=== PATIENT | female | born 1930 | race African-American/Black ===

== ENCOUNTER → 2016-12-05 | Emergency (ER) | payer OTHER ==
[~2016-12-05] MED LIST: RIVAROXABAN 20 MG TABLET PO SCH
[2016-12-05 21:21] VITALS: BP 136/64; PULSE 65; TEMP 97.9; BMI 38.4
--- NOTE | 2016-12-05 22:15 | PDOC ---
History of Present Illness - General History Source: Patient Exam Limitations: No Limitations <Jalen Campbell - Last Filed: 12/05/16 22:15> - General History Source: Patient, Family Exam Limitations: No Limitations - History of Present Illness Initial Comments: 12/05/16 22:16 The patient is an 86 year old female with past medical history of hypertension, hyperlipidemia, diabetes mellitus, Afib (on Xarelto), CHF, CAD s/p stents x2, rheumatoid arthritis, gout and asthma (on daily nebulizer treatments) who presents to the ED secondary to an episode of shortness of breath around 5pm this evening. The patient states that she was outside all day at at a barbecue and became wheezy after walking down a flight of stairs which was resolved after taking her Albuterol pump. The patient states that this episode happens every so often. In the ED she is asymptomatic aside from her chronic lower extremity edema and orthopnea. She states that she ran out of her dose of Xarelto for today but has a refill for tomorrow. She also adds that she is going to start seeing Dr. Aminata Lisa this week. She denies any recent illness, fever, chills, N/V/D, cough, chest pains, or urinary symptoms. PCP: Aminata Lisa Social Hx: Former smoker (quit 30 years ago), lives at home with family <Nurys Murry - Last Filed: 12/05/16 22:20> - General Chief Complaint: Shortness of Breath Stated Complaint: Shortness of Breath Time Seen by Provider: 12/05/16 21:39 Past History - Past Medical History Asthma: Yes Cancer: Yes (breast cancer) Cardiac Disorders: Yes Diabetes: Yes HTN: Yes Hypercholesterolemia: Yes - Surgical History Abdominal Surgery: Yes Cardiac Surgery: Yes (stent X 2) Cholecystectomy: Yes Orthopedic Surgery: Yes (left knee replacement) - Immunization History Immunization Up to Date: Yes - Psycho/Social/Smoking Cessation Hx Anxiety: No Suicidal Ideation: No Smoking History: Never smoked Have you smoked in the past 12 months: No Number of Cigarettes Smoked Daily: 0 If you are a former smoker, when did you quit?: 1986 Information on smoking cessation initiated: No Hx Alcohol Use: No Drug/Substance Use Hx: No Substance Use Type: None Hx Substance Use Treatment: No <Jalen Campbell - Last Filed: 12/05/16 22:15> <Nurys Murry - Last Filed: 12/05/16 22:20> - Past Medical History Allergies/Adverse Reactions: Allergies Allergy/AdvReac Type Severity Reaction Status Date / Time Penicillins Allergy Mild Hives Verified 12/05/16 21:18 mushroom Allergy Verified 12/05/16 21:18 shellfish derived Allergy Verified 12/05/16 21:18 rye Allergy Uncoded 12/05/16 21:18 Home Medications: Ambulatory Orders Rivaroxaban [Xarelto -] 20 mg PO DAILY 11/18/13 Albuterol 0.083% Nebulizer Nisreen [Ventolin 0.083% Nebulizer Soln -] 1 neb NEB Q4H 11/26/13 Atorvastatin Ca [Lipitor] 80 mg PO HS 11/26/13 Folic Acid - 1 mg PO DAILY 11/26/13 Furosemide [Lasix -] 40 mg PO PRN PRN 11/26/13 Glimepiride 4 mg PO BID 11/26/13 Methotrexate [Mexate -] 15 mg PO FR 11/26/13 Valsartan [Diovan] 160 mg PO BID 11/26/13 Ipratropium 0.02% Nebulizer [Atrovent 0.02% Nebulizer -] 1 neb NEB BID 01/21/14 Amlodipine Besylate [Norvasc -] 10 mg PO DAILY #30 tablet 01/23/14 Metoprolol Succinate [Toprol XL -] 100 mg PO BID #60 tab.sr.24h 01/23/14 Polyethylene Glycol 3350 [Miralax (For Bowel Prep) -] 17 gm PO ONCE #1 bottle Review of Systems - Review of Systems Able to Perform ROS?: Yes Comments:: 12/05/16 22:17 GENERAL/CONSTITUTIONAL: No fever or chills. No weakness. HEAD, EYES, EARS, NOSE AND THROAT: No change in vision. No ear pain or discharge. No sore throat. CARDIOVASCULAR: No chest pain or shortness of breath. RESPIRATORY: Present: brief episode of SOB No cough, wheezing, or hemoptysis. GASTROINTESTINAL: No nausea, vomiting, diarrhea or constipation. GENITOURINARY: No dysuria, frequency, or change in urination. MUSCULOSKELETAL: No joint or muscle swelling or pain. No neck or back pain. SKIN: No rash NEUROLOGIC: No headache, vertigo, loss of consciousness, or change in strength/ sensation. ENDOCRINE: No increased thirst. No abnormal weight change. HEMATOLOGIC/LYMPHATIC: No anemia, easy bleeding, or history of blood clots. ALLERGIC/IMMUNOLOGIC: No hives or skin allergy. All Other Systems: Reviewed and Negative <Nurys Murry - Last Filed: 12/05/16 22:20> *Physical Exam - Vital Signs Last Vital Signs Temp Pulse Resp BP Pulse Ox 97.9 F 65 20 136/64 96 12/05/16 21:19 12/05/16 21:19 12/05/16 21:19 12/05/16 21:19 12/05/16 21:19 <Jalen Campbell - Last Filed: 12/05/16 22:15> - Vital Signs Last Vital Signs Temp Pulse Resp BP Pulse Ox 97.9 F 65 20 136/64 96 12/05/16 21:19 12/05/16 21:19 12/05/16 21:19 12/05/16 21:19 12/05/16 21:19 - Physical Exam Comments: 12/05/16 22:17 GENERAL: Awake, alert, and fully oriented, in no acute distress HEAD: No signs of trauma EYES: PERRLA, EOMI, sclera anicteric, conjunctiva clear ENT: Auricles normal inspection, hearing grossly normal, nares patent, oropharynx clear without exudates. Moist mucosa NECK: Normal ROM, supple, no lymphadenopathy, JVD, or masses LUNGS: Breath sounds equal, clear to auscultation bilaterally. No wheezes, and no crackles HEART: Regular rate and rhythm, normal S1 and S2, no murmurs, rubs or gallops ABDOMEN: Soft, nontender, normoactive bowel sounds. No guarding, no rebound. No masses EXTREMITIES: 1+ bilateral lower extremity edema. Normal range of motion. No clubbing or cyanosis. No cords, erythema, or tenderness NEUROLOGICAL: Cranial nerves II through XII grossly intact. Normal speech, normal gait SKIN: Warm, Dry, normal turgor, no rashes or lesions noted. <Nurys Murry - Last Filed: 12/05/16 22:20> Medical Decision Making - Medical Decision Making 12/05/16 22:10 A portion of this note was documented by scribe services under my direction. I have reviewed the details of the note, within reason, and agree with the documentation with the following case summary and management plan written by me. Patient treated in the ED. Nursing notes are reviewed and incorporated into the medical decision-making. Vital signs reviewed. Vital Signs Temp Pulse Resp BP Pulse Ox 97.9 F 65 20 136/64 96 12/05/16 21:19 12/05/16 21:19 12/05/16 21:19 12/05/16 21:19 12/05/16 21:19 86-year-old female with history of rheumatoid arthritis, gout, atrial fibrillation on xarelto, hyperlipidemia, asthma, CHF, coronary disease status post stents presents with brief episode of shortness of breath. The patient has been celebrating with her children is one of them has gotten . The patient was going down into the basement and walked up and started to wheeze. She took a couple puffs of albuterol in her wheezing improved with the patient was nursing came to the ED. Patient never endorsed any chest pain and reports her completely well now. The patient stated she was just anxious and arrives to the ED. The patient's family is at the bedside and agrees that the patient was initially nervous but they are not concerned at this time. Patient denies any recent illnesses, fevers, chills, cough. Patient does have chronic lower extremity edema but has been taking her Lasix and is unchanged. She denies any new orthopnea. She states that she ran out of her Xarelto but has a refill for tomorrow morning. Patient has an appointment with her doctor in 2 days. We'll give her a dose of her anticoagulation and I feel the patient is safe for discharge. I suspect that she had some wheezing on exertion that is now resolved. Return precautions given. I discussed the physical exam findings, ancillary test results and final diagnoses with the patient. I answered all of the patient's questions. The patient was satisfied with the care received and felt comfortable with the discharge plan and treatment plan. The patient will call their primary care physician within 24 hours to arrange follow-up and will return to the Emergency Department with any new, persistant or worsening symptoms. <Jalen Campbell - Last Filed: 12/05/16 22:15> *DC/Admit/Observation/Transfer - Discharge Dispostion Admit: No <Jalen Campbell - Last Filed: 12/05/16 22:15> - Attestations Scribe Attestion: 12/05/16 22:20 Documentation prepared by Nurys Murry, acting as medical office supervisor for Jalen Campbell MD. <Nurys Murry - Last Filed: 12/05/16 22:20> Diagnosis at time of Disposition: Wheezing - Discharge Dispostion Disposition: HOME Condition at time of disposition: Good - Referrals Referrals: Aminata Lisa MD [Primary Care Provider] - - Patient Instructions Printed Discharge Instructions: DI for Shortness of Breath Additional Instructions: Please follow up with Dr. Lisa this Tuesday. If you feel worse, please return to the ER.
== END | disposition home or self-care (01) ==
LOC: JER 21:00
DX: J45.909 Unspecified asthma, uncomplicated (principal); R06.2 Wheezing; I25.10 Atherosclerotic heart disease of native coronary artery without angina pectoris; I11.0 Hypertensive heart disease with heart failure; Z95.5 Presence of coronary angioplasty implant and graft; I48.91 Unspecified atrial fibrillation; Z79.01 Long term (current) use of anticoagulants; E11.9 Type 2 diabetes mellitus without complications; E78.5 Hyperlipidemia, unspecified; M12.9 Arthropathy, unspecified; M10.9 Gout, unspecified; Z85.3 Personal history of malignant neoplasm of breast
CPT/HCPCS: 99281-25

== ENCOUNTER 2016-12-31 18:55 | Emergency (ER) | payer OTHER ==
[2016-12-31 19:09] VITALS: BMI 38.2
--- NOTE | 2016-12-31 19:49 | PDOC ---
Attending Attestation - Resident Resident Name: Tone Rodriguez - HPI HPI: 12/31/16 19:48 agree with resident - Physicial Exam PE: 12/31/16 20:33 Agree with resident exam 12/31/16 20:07 Pt has bilateral pitting edema. She states that she has SOB, but lungs are clear bilaterally. Pt is afebrile. Vitals stable; BP 146/70 HR normal and regular (no afib) and pulsox 95-97% - Medical Decision Making 12/31/16 20:35 Labs pending; cxr pending; bilat leg DVT study pending 01/01/17 01:34 Labs normal; BNP mildly elevated. BUN/CRR similar to past results. DVT study negative bilaterally; read in-house
--- NOTE | 2016-12-31 20:09 | PDOC ---
History of Present Illness - General Chief Complaint: Shortness of Breath Stated Complaint: SHORTNESS OF BREATH Time Seen by Provider: 12/31/16 19:28 History Source: Patient Exam Limitations: No Limitations - History of Present Illness Initial Comments: 12/31/16 19:46 The patient is an 86F with a PMH of HTN, HLD, DM, a-fib on xarelto, CHF, CAD s/ p 2 stents, gout, asthma, COPD who presents with cold-like sx. The patient states that she was at a program where they had the air conditioning on very high. She states that she started sneezing with chills. Yesterday, her symptoms worsened and included a productive cough, runny nose, and sore throat. She did not take anything for the pain but states that lemon and honey help. She is unsure if there are any sick contacts at the program. All: listed Soc: former smoker, quit 30 years ago Past History - Past Medical History Allergies/Adverse Reactions: Allergies Allergy/AdvReac Type Severity Reaction Status Date / Time Penicillins Allergy Mild Hives Verified 12/31/16 19:05 mushroom Allergy Verified 12/31/16 19:05 shellfish derived Allergy Verified 12/31/16 19:05 rye Allergy Uncoded 12/31/16 19:05 Home Medications: Ambulatory Orders Rivaroxaban [Xarelto -] 20 mg PO DAILY 11/18/13 Albuterol 0.083% Nebulizer Nisreen [Ventolin 0.083% Nebulizer Soln -] 1 neb NEB Q4H 11/26/13 Atorvastatin Ca [Lipitor] 80 mg PO HS 11/26/13 Folic Acid - 1 mg PO DAILY 11/26/13 Furosemide [Lasix -] 40 mg PO PRN PRN 11/26/13 Glimepiride 4 mg PO BID 11/26/13 Methotrexate [Mexate -] 15 mg PO FR 11/26/13 Valsartan [Diovan] 160 mg PO BID 11/26/13 Ipratropium 0.02% Nebulizer [Atrovent 0.02% Nebulizer -] 1 neb NEB BID 01/21/14 Amlodipine Besylate [Norvasc -] 10 mg PO DAILY #30 tablet 01/23/14 Metoprolol Succinate [Toprol XL -] 100 mg PO BID #60 tab.sr.24h 01/23/14 Polyethylene Glycol 3350 [Miralax (For Bowel Prep) -] 17 gm PO ONCE #1 bottle Asthma: Yes Cancer: Yes (breast cancer) Cardiac Disorders: Yes Diabetes: Yes HTN: Yes Hypercholesterolemia: Yes - Surgical History Abdominal Surgery: Yes Cardiac Surgery: Yes (stent X 2) Cholecystectomy: Yes Orthopedic Surgery: Yes (left knee replacement) - Immunization History Immunization Up to Date: Yes - Psycho/Social/Smoking Cessation Hx Anxiety: No Suicidal Ideation: No Smoking History: Former smoker Have you smoked in the past 12 months: No Number of Cigarettes Smoked Daily: 0 If you are a former smoker, when did you quit?: 1986 Information on smoking cessation initiated: No Hx Alcohol Use: No Drug/Substance Use Hx: No Substance Use Type: None Hx Substance Use Treatment: No Review of Systems - Review of Systems Constitutional: Yes: Chills. No: Fever HEENTM: Yes: Throat Pain. No: Hearing Loss Respiratory: Yes: Cough, Shortness of Breath, Productive cough. No: Hemoptysis ABD/GI: Yes: Other (abd pain). No: Constipated, Diarrhea, Nausea, Vomiting : No: Dysuria, Discharge Musculoskeletal: Yes: Other (LE swelling ) Neurological: No: Headache *Physical Exam - Vital Signs Last Vital Signs Temp Pulse Resp BP Pulse Ox 99.1 F 73 19 147/88 97 12/31/16 19:06 12/31/16 19:06 12/31/16 19:06 12/31/16 19:06 12/31/16 19:06 - Physical Exam General Appearance: Yes: Nourished, Appropriately Dressed. No: Mild Distress HEENT: positive: Normal Voice, Nasal Congestion, Rhinorrhea, Hearing Grossly Normal. negative: Tonsillar Exudate, Tonsillar Erythema Respiratory/Chest: positive: Other (expiratory coarse breath sounds). negative : Chest Tender, Respiratory Distress, Accessory Muscle Use, Labored Respiration Cardiovascular: positive: Regular Rhythm, Regular Rate, S1, S2. negative: Diastolic Murmur, Systolic Murmur Gastrointestinal/Abdominal: positive: Tender (to deep palpation in suprapubic area), Flat, Soft. negative: Protuberent, Distended, Guarding, Rebound Musculoskeletal: negative: CVA Tenderness, CVA Tenderness (R), CVA Tenderness (L ) Integumentary: positive: Normal Color, Dry, Warm, Swelling (3+ in b/l LE up to distal knee) Neurologic: positive: Fully Oriented, Alert, Normal Mood/Affect, Motor Strength 09/24 ED Treatment Course - LABORATORY CBC & Chemistry Diagram: 12/31/16 20:50 12/31/16 20:50 - RADIOLOGY Radiology Studies Ordered: Category Date Time Status CHEST X-RAY PORTABLE* [RAD] Stat Radiology 12/31/16 19:44 Ordered Medical Decision Making - Medical Decision Making 12/31/16 20:14 The patient is an 86F with an extensive PMH who presents with cold-like symptoms. She states that her LE swelling has acutely worsened so I am concerned for a CHF exacerbation, PNA, or a cold. I have ordered labs and imaging and will reassess the patient when results return. 12/31/16 23:34 CXR shows no acute pathology. WBC count WNL. UA shows UTI. 12/31/16 23:44 US negative for DVT. Patient states she feels better. *DC/Admit/Observation/Transfer Diagnosis at time of Disposition: Upper respiratory tract infection Qualifiers: URI type: unspecified viral URI Qualified Code(s): J06.9 - Acute upper respiratory infection, unspecified; B97.89 - Other viral agents as the cause of diseases classified elsewhere - Discharge Dispostion Disposition: HOME Condition at time of disposition: Improved Admit: No - Patient Instructions Printed Discharge Instructions: Acute Bronchitis (Alternative Therapy) - Attestations Physician Attestion: 12/31/16 23:52 I, Dr. Tone Rodriguez, attest that this document has been prepared under my direction and personally reviewed by me in its entirety. I further attest, that it accurately reflects all work, treatment, procedures and medical decision -making performed by me.
[2016-12-31 20:59] LABS: BASOPHIL 0.7 % (0-2.0); EOSINOPHIL 2.6 % (0-4.5); MCH 29.8 pg (25.7-33.7); MEAN CELL VOLUME 90.2 fl (80-96); MEAN PLT VOLUME 11.1 fl (7.5-11.1); NEUTROPHILS 68.6 % (42.8-82.8); PLATELET COUNT 138 K/MM3 (134-434); RDW 16.1 % (11.6-15.6); WHITE BLOOD COUNT 7.1 K/mm3 (4.0-10.0)
[2016-12-31] MEDS ORDERED: FUROSEMIDE 40 MG/4 ML INJECTABLE VIAL IVPUSH ONE (21:19)
[2016-12-31 21:24] LABS: ALBUMIN 3.6 g/dl (3.4-5.0); ALK PHOS 171 U/L (45-117); ANION GAP 7 (8-16); BILIRUBIN,TOTAL 0.6 mg/dL (0.2-1.0); CALCIUM 8.6 mg/dL (8.5-10.1); CO2 32 mmol/L (21-32); CREATININE 1.3 mg/dL (0.55-1.02); GLUCOSE,RANDOM 89 mg/dL (74-106); SGPT/ALT 32 U/L (12-78); TOT PROT 7.9 g/dl (6.4-8.2)
[2016-12-31 21:27] LABS: SGOT/AST 41 U/L (15-37)
[2016-12-31] MEDS ORDERED: FUROSEMIDE 40 MG/4 ML INJECTABLE VIAL ONE (22:43)
[2016-12-31 23:05] LABS: URINE APPEARANCE CLEAR; URINE BILIRUBIN NEGATIVE (NEGATIVE); URINE BLOOD 1+ (NEGATIVE); URINE COLOR STRAW; URINE GLUCOSE (UA) NEGATIVE (NEGATIVE); URINE KETONE NEGATIVE (NEGATIVE); URINE LEUK ESTERASE TRACE (NEGATIVE); URINE NITRITE NEGATIVE (NEGATIVE); URINE UROBILINOGEN NEGATIVE mg/dL (0.2-1.0)
[2016-12-31 23:07] LABS: URINE PROTEIN 1+ (NEGATIVE)
[2016-12-31 23:08] LABS: URINE MUCUS RARE; URINE RBC 1 /hpf (0-3); URINE WBC 7 /hpf (3-5)
[2016-12-31 23:58] VITALS: BP 125/67; PULSE 66; TEMP 98
--- NOTE | 2017-01-01 13:27 | EKG ---
Test Reason : Blood Pressure : / mmHG Vent. Rate : 072 BPM Atrial Rate : 072 BPM P-R Int : 210 ms QRS Dur : 084 ms QT Int : 370 ms P-R-T Axes : 045 -51 119 degrees QTc Int : 405 ms SINUS RHYTHM WITH 1ST DEGREE A-V BLOCK LEFT AXIS DEVIATION MODERATE VOLTAGE CRITERIA FOR LVH, MAY BE NORMAL VARIANT INFERIOR INFARCT (CITED ON OR BEFORE 21-JAN-2014) ANTERIOR INFARCT (CITED ON OR BEFORE 21-JAN-2014) T WAVE ABNORMALITY, CONSIDER LATERAL ISCHEMIA ABNORMAL ECG WHEN COMPARED WITH ECG OF 30-JUN-2014 02:47, [place] INTERVAL HAS INCREASED QUESTIONABLE CHANGE IN INITIAL FORCES OF LATERAL LEADS NONSPECIFIC T WAVE ABNORMALITY NOW EVIDENT IN INFERIOR LEADS T WAVE INVERSION MORE EVIDENT IN LATERAL LEADS CLINICAL CORRELATION IS RECOMMENDED Confirmed by BENNY CASTELLANOS, BRITTANY ([id number]) on 01/01/2017 1:26:50 PM Referred By: Confirmed By:BRITTANY ZAPATA MD
== END 2017-01-01 00:02 | disposition home or self-care (01) ==
LOC: JER 18:55
PROC: 3E033GC Introduction of Other Therapeutic Substance into Peripheral Vein, Percutaneous Approach (ICD-10-PCS; principal; 2016-12-31)
DX: J06.9 Acute upper respiratory infection, unspecified (principal); I10 Essential (primary) hypertension; I48.91 Unspecified atrial fibrillation; I50.9 Heart failure, unspecified; I25.10 Atherosclerotic heart disease of native coronary artery without angina pectoris; E78.5 Hyperlipidemia, unspecified; E11.9 Type 2 diabetes mellitus without complications; Z79.01 Long term (current) use of anticoagulants; Z95.5 Presence of coronary angioplasty implant and graft; M10.9 Gout, unspecified; J45.909 Unspecified asthma, uncomplicated; J44.9 Chronic obstructive pulmonary disease, unspecified; Z88.0 Allergy status to penicillin; Z91.013 Allergy to seafood; Z85.3 Personal history of malignant neoplasm of breast; Z96.652 Presence of left artificial knee joint; Z87.891 Personal history of nicotine dependence
CPT/HCPCS: 36415; 71010-TC; 80053; 81003; 81015; 83880; 85025; 93005; 93010; 93970-TC; 99282-25

== ENCOUNTER 2017-02-27 21:35 | Emergency (ER) | payer OTHER ==
[2017-02-27 22:47] VITALS: BP 144/69; PULSE 65; TEMP 97.9; BMI 37.8
--- NOTE | 2017-02-27 23:03 | PDOC ---
History of Present Illness - History of Present Illness Initial Comments: The patient is an 86F with a PMH of HTN, HLD, DM, a-fib on xarelto, CHF, CAD s/ p 2 stents, gout, asthma, COPD presenting with pain in her right lower back radiating to her right pelvis/ groin for the past week. She also admits To some darkened urine recently. The pain in her right lower black is sharp and ranges from 5/10-10/10 without exacerbating or relieving factors. Denies fevers, dysuria, malodorous urine, chills, nausea, vomiting, or diarrhea. She had an ultrasound performed at Dr. Aminata Lisa's office last week but was told it would take a week or so to get the results but her pain ahs gotten worst. Admits that she has not taken Tylenol or any other medication for the pain. 02/27/17 23:04 <Leo Gold - Last Filed: 02/28/17 03:42> <Fabiola Milner - Last Filed: 02/28/17 05:06> - General Chief Complaint: Pain Stated Complaint: PAIN Time Seen by Provider: 02/27/17 23:03 Past History - Past Medical History Asthma: Yes Cancer: Yes (Right breast cancer) Cardiac Disorders: Yes Diabetes: Yes HTN: Yes Hypercholesterolemia: Yes - Surgical History Abdominal Surgery: Yes Cardiac Surgery: Yes (stent X 2) Cholecystectomy: Yes Orthopedic Surgery: Yes (left knee replacement) - Immunization History Immunization Up to Date: Yes - Suicide/Smoking/Psychosocial Hx Smoking History: Never smoked Have you smoked in the past 12 months: No Number of Cigarettes Smoked Daily: 0 If you are a former smoker, when did you quit?: 1986 Information on smoking cessation initiated: No Hx Alcohol Use: No Drug/Substance Use Hx: No Substance Use Type: None Hx Substance Use Treatment: No <Leo Gold - Last Filed: 02/28/17 03:42> <Fabiola Milner - Last Filed: 02/28/17 05:06> - Past Medical History Allergies/Adverse Reactions: Allergies Allergy/AdvReac Type Severity Reaction Status Date / Time Penicillins Allergy Mild Hives Verified 02/27/17 22:44 mushroom Allergy Verified 02/27/17 22:44 shellfish derived Allergy Verified 02/27/17 22:44 rye Allergy Uncoded 12/31/16 19:05 Home Medications: Ambulatory Orders Rivaroxaban [Xarelto -] 20 mg PO DAILY 11/18/13 Albuterol 0.083% Nebulizer Nisreen [Ventolin 0.083% Nebulizer Soln -] 1 neb NEB Q4H 11/26/13 Atorvastatin Ca [Lipitor] 80 mg PO HS 11/26/13 Folic Acid - 1 mg PO DAILY 11/26/13 Furosemide [Lasix -] 40 mg PO PRN PRN 11/26/13 Glimepiride 4 mg PO BID 11/26/13 Methotrexate [Mexate -] 15 mg PO FR 11/26/13 Valsartan [Diovan] 160 mg PO BID 11/26/13 Ipratropium 0.02% Nebulizer [Atrovent 0.02% Nebulizer -] 1 neb NEB BID 01/21/14 Amlodipine Besylate [Norvasc -] 10 mg PO DAILY #30 tablet 01/23/14 Metoprolol Succinate [Toprol XL -] 100 mg PO BID #60 tab.sr.24h 01/23/14 Polyethylene Glycol 3350 [Miralax (For Bowel Prep) -] 17 gm PO ONCE #1 bottle Review of Systems - Review of Systems Constitutional: No: Chills, Diaphoresis, Fever HEENTM: No: Blurred Vision, Recent change in vision, Double Vision Respiratory: No: Cough, Shortness of Breath Cardiac (ROS): No: Chest Pain, Edema ABD/GI: No: Constipated, Diarrhea, Nausea, Vomiting : No: Burning, Dysuria Musculoskeletal: Yes: Back Pain Integumentary: No: Bruising, Change in Color Neurological: No: Headache, Numbness <Leo Gold - Last Filed: 02/28/17 03:42> *Physical Exam - Vital Signs Last Vital Signs Temp Pulse Resp BP Pulse Ox 97.9 F 65 20 144/69 97 02/27/17 22:44 02/27/17 22:44 02/27/17 22:44 02/27/17 22:44 02/27/17 22:44 - Physical Exam General Appearance: Yes: Nourished, Appropriately Dressed. No: Apparent Distress HEENT: positive: Normal Voice Respiratory/Chest: positive: Lungs Clear, Normal Breath Sounds. negative: Chest Tender, Respiratory Distress Cardiovascular: positive: Regular Rhythm, Irregular Gastrointestinal/Abdominal: positive: Normal Bowel Sounds, Flat, Soft. negative : Tender Musculoskeletal: positive: CVA Tenderness, CVA Tenderness (R), Muscle Spasm. negative: CVA Tenderness (L) Extremity: positive: Normal Inspection Integumentary: positive: Normal Color, Dry, Warm Neurologic: positive: Fully Oriented, Alert <Leo Gold - Last Filed: 02/28/17 03:42> - Vital Signs Last Vital Signs Temp Pulse Resp BP Pulse Ox 97.9 F 65 20 144/69 97 02/27/17 22:44 02/27/17 22:44 02/27/17 22:44 02/27/17 22:44 02/27/17 22:44 <Fabiola Milner - Last Filed: 02/28/17 05:06> ED Treatment Course - LABORATORY CBC & Chemistry Diagram: 02/27/17 23:55 02/27/17 23:55 <Leo Gold - Last Filed: 02/28/17 03:42> - LABORATORY CBC & Chemistry Diagram: 02/27/17 23:55 02/27/17 23:55 - ADDITIONAL ORDERS Additional order review: Laboratory Results 02/27/17 02/27/17 23:55 23:30 Sodium 141 Potassium 4.0 Chloride 101 Carbon Dioxide 30 Anion Gap 10 BUN 35 H D Creatinine 1.9 H D Creat Clearance w eGFR 25.01 Random Glucose 104 Calcium 8.6 Total Bilirubin 0.4 D AST 38 H ALT 30 Alkaline Phosphatase 171 H Total Protein 7.4 Albumin 3.4 Urine Color Yellow Urine Appearance Clear Urine pH 5.0 D Urine Protein Negative Urine Glucose (UA) Negative Urine Ketones Negative Urine Blood Negative Urine Nitrite Negative Urine Bilirubin Negative Urine Urobilinogen Negative 02/27/17 23:55 RBC 4.30 MCV 90.2 MCHC 33.1 RDW 16.5 H MPV 10.4 Neutrophils % 50.1 D Lymphocytes % 30.3 D Monocytes % 16.6 H Eosinophils % 2.2 Basophils % 0.8 - Medications Given in the ED: ED Medications Discontinued Medications Generic Name Dose Route Start Last Admin Trade Name Freq PRN Reason Stop Dose Admin Oxycodone/Acetaminophen 2 combo 02/28/17 00:25 02/28/17 00:45 Percocet 5/325 - PO 02/28/17 00:26 2 combo ONCE ONE Administration <Fabiola Milner - Last Filed: 02/28/17 05:06> Medical Decision Making - Medical Decision Making 86 year old with complicated PMH presenting with right LBP/ flank pain radiating to the right groin and darkened urine most concerning for urinary stone vs. uti/ pyelo. Will get UA, CBC, CMP and CT abdomen/ pelvis without contrast. 02/28/17 00:56 CT abdomen/ pelvis unrevealing, UA and labs WNL with the exception of elevated creatinine to 1.9 from 1.3 months prior. Patient admits to dehydration. Will DC with hydration instructions and pain management with tylenol. 02/28/17 03:42 <Leo Gold - Last Filed: 02/28/17 03:42> - Medical Decision Making 02/28/17 02:55 Patient Name: SHARON DELONG THIS IS A PRELIMINARY REPORT FROM [facility] DATE OF SERVICE: 2017-02-28 00:59:13 IMAGES: [id number] EXAM: CT ABDOMEN AND PELVIS HISTORY:Right-sided pain rule out stone COMPARISON: None. FINDINGS: Negative for right or left urinary tract or obstruction. No bowel obstruction free air or free fluid. Negative for colitis or diverticulitis. No acute abnormalities of the liver, spleen, pancreas, or adrenal glands. Prior cholecystectomy. Note made of mild mesenteric panniculitis. This infiltration of the fat of the mesenteric root is a nonspecific chronic finding. THIS DOCUMENT HAS BEEN ELECTRONICALLY SIGNED 02/28/17 05:05 Pt seen and examined by myself. I agree with the resident's exam. Pt is feeling improved in the ER with basic analgesia. Pt has a normal CT scan and is stable for discharge home. Labs and UA are normal. <Fabiola Milner - Last Filed: 02/28/17 05:06> *DC/Admit/Observation/Transfer - Discharge Dispostion Admit: No <Leo Gold - Last Filed: 02/28/17 03:42> <Fabiola Milner - Last Filed: 02/28/17 05:06> Diagnosis at time of Disposition: Musculoskeletal back pain - Discharge Dispostion Disposition: HOME Condition at time of disposition: Improved - Referrals Referrals: Aminata Lisa MD [Primary Care Provider] - - Patient Instructions Printed Discharge Instructions: DI for Low Back Pain Additional Instructions: We believe your back pain is related to a strained muscle in your back and we do not believe it is your kidneys. Although your urine does show that you are dehydrated. Please drink plenty of water. Please follow up with your primary care physician.
[2017-02-27 23:54] LABS: URINE APPEARANCE CLEAR; URINE BILIRUBIN NEGATIVE (NEGATIVE); URINE BLOOD NEGATIVE (NEGATIVE); URINE COLOR YELLOW; URINE GLUCOSE (UA) NEGATIVE (NEGATIVE); URINE KETONE NEGATIVE (NEGATIVE); URINE NITRITE NEGATIVE (NEGATIVE); URINE PROTEIN NEGATIVE (NEGATIVE); URINE UROBILINOGEN NEGATIVE mg/dL (0.2-1.0)
[2017-02-28 00:03] LABS: BASOPHIL 0.8 % (0-2.0); EOSINOPHIL 2.2 % (0-4.5); MCH 29.8 pg (25.7-33.7); MCHC 33.1 g/dl (32.0-36.0); MEAN CELL VOLUME 90.2 fl (80-96); MEAN PLT VOLUME 10.4 fl (7.5-11.1); NEUTROPHILS 50.1 % (42.8-82.8); PLATELET COUNT 140 K/MM3 (134-434); RDW 16.5 % (11.6-15.6); WHITE BLOOD COUNT 5.1 K/mm3 (4.0-10.0)
[2017-02-28 00:26] LABS: ALBUMIN 3.4 g/dl (3.4-5.0); ALK PHOS 171 U/L (45-117); ANION GAP 10 (8-16); BILIRUBIN,TOTAL 0.4 mg/dL (0.2-1.0); CALCIUM 8.6 mg/dL (8.5-10.1); CO2 30 mmol/L (21-32); CREATININE 1.9 mg/dL (0.55-1.02); GLUCOSE,RANDOM 104 mg/dL (74-106); SGOT/AST 38 U/L (15-37); SGPT/ALT 30 U/L (12-78); TOT PROT 7.4 g/dl (6.4-8.2)
[2017-02-28 11:29] LABS: URINE LEUK ESTERASE 1+ (NEGATIVE)
[2017-02-28 14:04] LABS: URINE RBC 0-2 /hpf (0-3)
== END 2017-02-28 04:03 | disposition home or self-care (01) ==
LOC: JER 21:35
DX: M54.5 Low back pain (principal); I10 Essential (primary) hypertension; I25.10 Atherosclerotic heart disease of native coronary artery without angina pectoris; I48.91 Unspecified atrial fibrillation; I50.9 Heart failure, unspecified; E78.5 Hyperlipidemia, unspecified; E11.9 Type 2 diabetes mellitus without complications; Z95.5 Presence of coronary angioplasty implant and graft; M10.9 Gout, unspecified; J45.909 Unspecified asthma, uncomplicated; J44.9 Chronic obstructive pulmonary disease, unspecified; Z96.652 Presence of left artificial knee joint; Z88.0 Allergy status to penicillin; Z79.84 Long term (current) use of oral hypoglycemic drugs; Z79.01 Long term (current) use of anticoagulants; Z91.013 Allergy to seafood; Z91.018 Allergy to other foods
CPT/HCPCS: 36415; 74176-TC; 80053; 81003; 81015; 85025; 87086; 99282-25

== ENCOUNTER 2017-04-06 22:30 | Inpatient (IN) | payer OTHER ==
--- NOTE | 2017-04-07 00:25 | PDOC ---
History of Present Illness <Amanda Naqvi - Last Filed: 04/07/17 00:25> <Fausto Rodriguez - Last Filed: 04/07/17 07:03> <Agnieszka Thompson - Last Filed: 04/07/17 07:26> - General Chief Complaint: Pain Stated Complaint: PAIN Time Seen by Provider: 04/07/17 00:25 Past History - Past Medical History Asthma: Yes Cancer: Yes (Right breast cancer) Cardiac Disorders: Yes COPD: No Diabetes: Yes HTN: Yes Hypercholesterolemia: Yes - Surgical History Abdominal Surgery: Yes Cardiac Surgery: Yes (stent X 2) Cholecystectomy: Yes Orthopedic Surgery: Yes (left knee replacement) - Immunization History Immunization Up to Date: Yes - Suicide/Smoking/Psychosocial Hx Smoking History: Never smoked Have you smoked in the past 12 months: No Number of Cigarettes Smoked Daily: 0 If you are a former smoker, when did you quit?: 1986 Information on smoking cessation initiated: No Hx Alcohol Use: No Drug/Substance Use Hx: No Substance Use Type: None Hx Substance Use Treatment: No <Amanda Naqvi - Last Filed: 04/07/17 00:25> <Fausto Rodriguez - Last Filed: 04/07/17 07:03> <Agnieszka Thompson - Last Filed: 04/07/17 07:26> - Past Medical History Allergies/Adverse Reactions: Allergies Allergy/AdvReac Type Severity Reaction Status Date / Time Penicillins Allergy Mild Hives Verified 04/07/17 06:30 mushroom Allergy Verified 04/07/17 06:30 shellfish derived Allergy Verified 04/07/17 06:30 rye Allergy Uncoded 04/07/17 06:30 Home Medications: Ambulatory Orders Rivaroxaban [Xarelto -] 20 mg PO DAILY 11/18/13 Albuterol 0.083% Nebulizer Nisreen [Ventolin 0.083% Nebulizer Soln -] 1 neb NEB Q4H 11/26/13 Atorvastatin Ca [Lipitor] 80 mg PO HS 11/26/13 Folic Acid - 1 mg PO DAILY 11/26/13 Furosemide [Lasix -] 40 mg PO PRN PRN 11/26/13 Glimepiride 4 mg PO BID 11/26/13 Methotrexate [Mexate -] 15 mg PO FR 11/26/13 Valsartan [Diovan] 160 mg PO BID 11/26/13 Ipratropium 0.02% Nebulizer [Atrovent 0.02% Nebulizer -] 1 neb NEB BID 01/21/14 Amlodipine Besylate [Norvasc -] 10 mg PO DAILY #30 tablet 01/23/14 Metoprolol Succinate [Toprol XL -] 100 mg PO BID #60 tab.sr.24h 01/23/14 Polyethylene Glycol 3350 [Miralax (For Bowel Prep) -] 17 gm PO ONCE #1 bottle *Physical Exam - Vital Signs Last Vital Signs Temp Pulse Resp BP Pulse Ox 97.8 F 77 18 151/74 98 04/06/17 22:32 04/06/17 22:32 04/06/17 22:32 04/06/17 22:32 04/06/17 22:32 <Amanda Naqvi - Last Filed: 04/07/17 00:25> - Vital Signs Last Vital Signs Temp Pulse Resp BP Pulse Ox 98.7 F 68 17 149/71 99 04/07/17 06:17 04/07/17 06:17 04/07/17 06:17 04/07/17 06:17 04/07/17 06:17 <Fausto Rodriguez - Last Filed: 04/07/17 07:03> - Vital Signs Last Vital Signs Temp Pulse Resp BP Pulse Ox 98.7 F 68 17 149/71 99 04/07/17 06:17 04/07/17 06:17 04/07/17 06:17 04/07/17 06:17 04/07/17 06:17 <Agnieszka Thompson - Last Filed: 04/07/17 07:26> ED Treatment Course - LABORATORY CBC & Chemistry Diagram: 04/07/17 02:20 04/07/17 03:04 - ADDITIONAL ORDERS Additional order review: Laboratory Results 04/07/17 04/07/17 04/07/17 03:04 02:20 02:20 Sodium 141 Potassium 4.8 Chloride 105 Carbon Dioxide 29 Anion Gap 7 L BUN 25 H Creatinine 1.3 H Creat Clearance w eGFR 38.75 Random Glucose 125 H D Lactic Acid 3.7 H* Calcium 7.6 L Magnesium Cancelled Total Bilirubin 0.8 D AST 38 H ALT 22 D Alkaline Phosphatase 124 H D Creatine Kinase 257 H Creatine Kinase Index 0.7 CK-MB (CK-2) 1.905 Troponin I < 0.02 Cancelled Total Protein 7.2 Albumin 3.1 L Lipase 123 Cancelled Urine Color Urine Appearance Urine pH Ur Specific [place] Urine Protein Urine Glucose (UA) Urine Ketones Urine Blood Urine Nitrite Urine Bilirubin Urine Urobilinogen Urine WBC (Auto) Urine RBC (Auto) Ur Epithelial Cells Urine Bacteria 04/07/17 04/07/17 02:20 00:09 Sodium Cancelled Potassium Cancelled Chloride Cancelled Carbon Dioxide Cancelled Anion Gap Cancelled BUN Cancelled Creatinine Cancelled Creat Clearance w eGFR Cancelled Random Glucose Cancelled Lactic Acid Calcium Cancelled Magnesium Total Bilirubin Cancelled AST Cancelled ALT Cancelled Alkaline Phosphatase Cancelled Creatine Kinase Creatine Kinase Index CK-MB (CK-2) Troponin I Total Protein Cancelled Albumin Cancelled Lipase Urine Color Ltyellow Urine Appearance Clear Urine pH 6.0 Ur Specific [place] 1.013 Urine Protein 1+ H Urine Glucose (UA) Negative Urine Ketones Negative Urine Blood Negative Urine Nitrite Negative Urine Bilirubin Negative Urine Urobilinogen Negative Urine WBC (Auto) 9 Urine RBC (Auto) 1 Ur Epithelial Cells Rare Urine Bacteria Rare 04/07/17 02:20 RBC 4.69 MCV 90.2 MCHC 33.0 RDW 16.8 H MPV 10.4 Neutrophils % 85.2 H D Lymphocytes % 6.3 L D Monocytes % 7.3 Eosinophils % 1.1 Basophils % 0.1 <Fausto Rodriguez - Last Filed: 04/07/17 07:03> - LABORATORY CBC & Chemistry Diagram: 04/07/17 02:20 04/07/17 03:04 - ADDITIONAL ORDERS Additional order review: Laboratory Results 04/07/17 04/07/17 04/07/17 03:04 02:20 02:20 Sodium 141 Potassium 4.8 Chloride 105 Carbon Dioxide 29 Anion Gap 7 L BUN 25 H Creatinine 1.3 H Creat Clearance w eGFR 38.75 Random Glucose 125 H D Lactic Acid 3.7 H* Calcium 7.6 L Magnesium Cancelled Total Bilirubin 0.8 D AST 38 H ALT 22 D Alkaline Phosphatase 124 H D Creatine Kinase 257 H Creatine Kinase Index 0.7 CK-MB (CK-2) 1.905 Troponin I < 0.02 Cancelled Total Protein 7.2 Albumin 3.1 L Lipase 123 Cancelled Urine Color Urine Appearance Urine pH Ur Specific [place] Urine Protein Urine Glucose (UA) Urine Ketones Urine Blood Urine Nitrite Urine Bilirubin Urine Urobilinogen Urine WBC (Auto) Urine RBC (Auto) Ur Epithelial Cells Urine Bacteria 04/07/17 04/07/17 02:20 00:09 Sodium Cancelled Potassium Cancelled Chloride Cancelled Carbon Dioxide Cancelled Anion Gap Cancelled BUN Cancelled Creatinine Cancelled Creat Clearance w eGFR Cancelled Random Glucose Cancelled Lactic Acid Calcium Cancelled Magnesium Total Bilirubin Cancelled AST Cancelled ALT Cancelled Alkaline Phosphatase Cancelled Creatine Kinase Creatine Kinase Index CK-MB (CK-2) Troponin I Total Protein Cancelled Albumin Cancelled Lipase Urine Color Ltyellow Urine Appearance Clear Urine pH 6.0 Ur Specific [place] 1.013 Urine Protein 1+ H Urine Glucose (UA) Negative Urine Ketones Negative Urine Blood Negative Urine Nitrite Negative Urine Bilirubin Negative Urine Urobilinogen Negative Urine WBC (Auto) 9 Urine RBC (Auto) 1 Ur Epithelial Cells Rare Urine Bacteria Rare 04/07/17 02:20 RBC 4.69 MCV 90.2 MCHC 33.0 RDW 16.8 H MPV 10.4 Neutrophils % 85.2 H D Lymphocytes % 6.3 L D Monocytes % 7.3 Eosinophils % 1.1 Basophils % 0.1 <Agnieszka Thompson - Last Filed: 04/07/17 07:26> Medical Decision Making - Medical Decision Making 04/07/17 06:[address] jha @6:45am. Dr. Youssef call. Case discussed. Called Dr. Aminata Lisa @7:04am. Awaiting callback. <Fausto Rodriguez - Last Filed: 04/07/17 07:03> - Medical Decision Making 04/07/17 07:[address] Lisa at 7:26. <Agnieszka Thompson - Last Filed: 04/07/17 07:26>
[2017-04-07 02:28] LABS: BASOPHIL 0.1 % (0-2.0); EOSINOPHIL 1.1 % (0-4.5); MCH 29.8 pg (25.7-33.7); MEAN CELL VOLUME 90.2 fl (80-96); MEAN PLT VOLUME 10.4 fl (7.5-11.1); NEUTROPHILS 85.2 % (42.8-82.8); PLATELET COUNT 122 K/MM3 (134-434); RDW 16.8 % (11.6-15.6); WHITE BLOOD COUNT 6.1 K/mm3 (4.0-10.0)
[2017-04-07 03:42] LABS: ALBUMIN 3.1 g/dl (3.4-5.0); ANION GAP 7 (8-16); BILIRUBIN,TOTAL 0.8 mg/dL (0.2-1.0); CALCIUM 7.6 mg/dL (8.5-10.1); CO2 29 mmol/L (21-32); CREATININE 1.3 mg/dL (0.55-1.02); GLUCOSE,RANDOM 125 mg/dL (74-106); SGPT/ALT 22 U/L (12-78); TOT PROT 7.2 g/dl (6.4-8.2)
[2017-04-07 03:45] LABS: ALK PHOS 124 U/L (45-117); TROPONIN I < 0.02 ng/ml (0.00-0.05)
[2017-04-07 03:47] LABS: CPK 257 IU/L (26-192); SGOT/AST 38 U/L (15-37)
[2017-04-07 06:27] LABS: URINE APPEARANCE CLEAR; URINE BILIRUBIN NEGATIVE (NEGATIVE); URINE BLOOD NEGATIVE (NEGATIVE); URINE COLOR LTYELLOW; URINE GLUCOSE (UA) NEGATIVE (NEGATIVE); URINE KETONE NEGATIVE (NEGATIVE); URINE NITRITE NEGATIVE (NEGATIVE); URINE UROBILINOGEN NEGATIVE mg/dL (0.2-1.0)
[2017-04-07 06:30] LABS: URINE PROTEIN 1+ (NEGATIVE)
[2017-04-07 06:31] LABS: URINE BACTERIA RARE /hpf (NONE SEEN); URINE RBC 1; URINE WBC 9
--- NOTE | 2017-04-07 10:14 | HP ---
Admitting History and Physical - Primary Care Physician PCP: Aminata Lisa - Admission Chief Complaint: vomiting and diarrhea History of Present Illness: 86 yrs old female admitted for vomiting and diarrhea for a few days- family at bedside Pt c/o abdominal pain diffuse along with nausea , vomited a few times along with diarrhea . NG tube placed in ER , CT abd-- SBO History Source: Patient, Family Member Limitations to Obtaining History: No Limitations - Past Medical History Cardiovascular: Yes: CAD, CHF, HTN, Hyperlipdemia, [place] Pulmonary: Yes: Asthma, COPD Renal/: Yes: Renal Inusuff Heme/Onc: Yes: Cancer (breast) Psych: Yes: Anxiety. No: Addictions Musculoskeletal: Yes: Chronic low back pain Rheumatology: Yes: Rheumatoid Arthritis Endocrine: Yes: Diabetes Mellitus - Past Surgical History Past Surgical History: Yes: Cholecystectomy, Hysterectomy - Smoking History Smoking history: Never smoked Have you smoked in the past 12 months: No Aproximately how many cigarettes per day: 0 If you are a former smoker, when did you quit?: 1986 - Alcohol/Substance Use Hx Alcohol Use: No History of Substance Use: reports: None - Social History ADL: Independent History of Recent Travel: No Home Medications - Allergies Allergies/Adverse Reactions: Allergies Allergy/AdvReac Type Severity Reaction Status Date / Time Penicillins Allergy Mild Hives Verified 04/07/17 06:30 mushroom Allergy Verified 04/07/17 06:30 shellfish derived Allergy Verified 04/07/17 06:30 rye Allergy Uncoded 04/07/17 06:30 - Home Medications Home Medications: Ambulatory Orders Rivaroxaban [Xarelto -] 20 mg PO DAILY 11/18/13 Albuterol 0.083% Nebulizer Nisreen [Ventolin 0.083% Nebulizer Soln -] 1 neb NEB Q4H 11/26/13 Atorvastatin Ca [Lipitor] 80 mg PO HS 11/26/13 Folic Acid - 1 mg PO DAILY 11/26/13 Furosemide [Lasix -] 40 mg PO PRN PRN 11/26/13 Glimepiride 4 mg PO BID 11/26/13 Methotrexate [Mexate -] 15 mg PO FR 11/26/13 Valsartan [Diovan] 160 mg PO BID 11/26/13 Ipratropium 0.02% Nebulizer [Atrovent 0.02% Nebulizer -] 1 neb NEB BID 01/21/14 Amlodipine Besylate [Norvasc -] 10 mg PO DAILY #30 tablet 01/23/14 Metoprolol Succinate [Toprol XL -] 100 mg PO BID #60 tab.sr.24h 01/23/14 Polyethylene Glycol 3350 [Miralax (For Bowel Prep) -] 17 gm PO ONCE #1 bottle Review of Systems - Review of Systems Constitutional: reports: Weakness. denies: Chills, Fever Cardiovascular: denies: Chest Pain Gastrointestinal: reports: Abdominal Pain, Diarrhea, Nausea, Vomiting Physical Examination Vital Signs: Vital Signs Temperature 98.7 F 04/07/17 06:17 Pulse Rate 68 04/07/17 08:16 Respiratory Rate 16 04/07/17 08:16 Blood Pressure 148/66 04/07/17 08:16 O2 Sat by Pulse Oximetry (%) 96 04/07/17 08:16 Constitutional: Yes: Calm, Mild Distress Cardiovascular: Yes: Regular Rate and Rhythm Respiratory: Yes: CTA Bilaterally Gastrointestinal: Yes: Soft, Distention, Tenderness, Other (ventral scar). No: Normal Bowel Sounds Edema: No Psychiatric: Yes: Alert, Oriented Labs: CBC, BMP 04/07/17 02:20 04/07/17 03:04 Imaging - Results Cat Scan: Report Reviewed EKG: Image Reviewed (NSR) Problem List - Problems (1) SBO (small bowel obstruction) Code(s): K56.609 - UNSP INTESTNL OBST, UNSP TO PARTIAL VERSUS COMPLETE OBST (2) CAD (coronary artery disease) Code(s): I25.10 - ATHSCL HEART DISEASE OF [place] CORONARY ARTERY W/O ANG PCTRS Qualifiers: Coronary Disease-Associated Artery/Lesion type: [place] artery (3) COPD (chronic obstructive pulmonary disease) Code(s): J44.9 - CHRONIC OBSTRUCTIVE PULMONARY DISEASE, UNSPECIFIED Qualifiers: COPD type: unspecified COPD Qualified Code(s): J44.9 - Chronic obstructive pulmonary disease, unspecified (4) HTN (hypertension) Code(s): I10 - ESSENTIAL (PRIMARY) HYPERTENSION Qualifiers: Hypertension type: essential hypertension Qualified Code(s): I10 - Essential (primary) hypertension (5) Diabetes Code(s): E11.9 - TYPE 2 DIABETES MELLITUS WITHOUT COMPLICATIONS Qualifiers: Diabetes mellitus type: type 2 Assessment/Plan PLAN Keep NPO IV fluids Pain control with IV Morphine Zofran as needed for nausea no oral meds will check BGM and place her on sliding sclae Surgeon consulted [facility] tomorrow NG on intermittent suction Heparin SC for DVT prophylaxis
[2017-04-07] MEDS ORDERED: DEXTROSE 5%-0.45% SALINE 1,000 ML IV SCH (10:15)
--- NOTE | 2017-04-07 10:52 | EKG ---
Test Reason : Blood Pressure : / mmHG Vent. Rate : 068 BPM Atrial Rate : 068 BPM P-R Int : 186 ms QRS Dur : 084 ms QT Int : 402 ms P-R-T Axes : 029 -48 118 degrees QTc Int : 427 ms NORMAL SINUS RHYTHM LEFT AXIS DEVIATION VOLTAGE CRITERIA FOR LEFT VENTRICULAR HYPERTROPHY INFERIOR INFARCT (CITED ON OR BEFORE 21-JAN-2014) ANTEROLATERAL INFARCT (CITED ON OR BEFORE 21-JAN-2014) ABNORMAL ECG WHEN COMPARED WITH ECG OF 31-DEC-2016 20:51, INVERTED T WAVES HAVE REPLACED NONSPECIFIC T WAVE ABNORMALITY IN ANTERIOR LEADS Confirmed by JH POOLE MD ([id number]) on 04/07/2017 10:52:12 AM Referred By: Confirmed By:JH POOLE MD
[2017-04-07] MEDS ORDERED: ONDANSETRON 4 MG/2 ML VIAL IVPUSH PRN (11:11)
[2017-04-07] MEDS ORDERED: PT OWN MED DRAWER 7, Y5N ONE (11:44)
[2017-04-07] MEDS: ALBUTEROL SO4 0.083% IH SOL 2.5 MG/3 ML VIAL.NEB. NEB SCH ×4 (11:49→22:41)
[2017-04-07] MEDS: PANTOPRAZOLE SODIUM 40 MG VIAL IVPUSH SCH (11:52)
[2017-04-07] MEDS: INSULIN SLIDING SCALE (NOVOLOG) 1 VIAL SQ SCH ×2 (11:52→17:11)
[2017-04-07] MEDS: morphine SULFATE 4 MG/ML VIAL IVPUSH PRN (11:53)
[2017-04-07] MEDS: TETRACAINE/BENZOCAINE/BUTAMBEN 20 GM SPR TP SCH (12:18)
[2017-04-07] MEDS: DEXTROSE 5%-0.45% SALINE 1,000 ML IV SCH (12:20)
[2017-04-07 14:41] LABS: URINE LEUK ESTERASE 1+ (NEGATIVE)
[2017-04-07 14:57] VITALS: BMI 38.2
--- NOTE | 2017-04-07 17:07 | PN ---
Progress Note (short form) - Note Progress Note: surgery pt seen and examined. full consult dictated. 86f on xarelto, multiple medical problems, admitted with abd pain, n/v, and ct evidence of possible psbo. Pt admitted with ngt (amount not recorded) and admits to diarrhea this am and has no current pain. on exam the abd is soft, minimal generalized tenderness, moderate distension Plan- likely psbo vs reactive ileus. appendix is read as normal. cont ngt. repeat x-ray tomorrow to follow contrast. record ngt output to help with clinical decisions. Hold anticoagulation. Pt is non toxic. would avoid surgery if possible and patient would be high risk.
--- NOTE | 2017-04-07 17:10 | CON.GI ---
Consult Consult Specialty:: GI: Dr. Wolfe for Dr. Diamond Referred by:: Dr. Sasha Villatoro Reason for Consultation:: Abdominal pain, vomiting - History of Present Illness Chief Complaint: I had pain in my stomach and was vomiting History of Present Illness: 86F addmitted through [facility] for evaluation of abdominal pain. Ms. Pleitez derscribes the pain as sharp, starting about a week ago but was intermittent at the time and became constant and progressively more intense over the last two days. When the pain worsened she begabn to experience vomiting as well. She did have some loose bowel movements. She denies similar episodes in the past, rectal bleeding, passage of melena. She beieves that she has followed with Dr. Lang in the past, who has performed her colonoscopies. She describes a "problem with her heart when she has attempted to have colonoscopies performed by him". In ER, w/u included labs that revealed a normal CBC, elevated lactic acid level and CT scan that revealed dilated proximal small bowel looops with collapsed distal small bowel loops compatible with ? PSBO and ? liquid stool in the colon. She denies copious diarrhea. She also believes that she may have been on antibiotics recently. She had a CT scan of the abdomen and pelvis while in the ER 02/28/17 that failed to reveal acute pathology. This was performed for right back and groin pain. - Past Medical History Cardio/Vascular: Yes: AFIB (On xarelto), CAD (describes having cardiac stent), CHF, HTN, Hyperlipdemia, [place] Pulmonary: Yes: Asthma, COPD Renal/: Yes: Renal Inusuff Heme/Onc: Yes: Cancer (BCA s/p right mastectomy) Psych: Yes: Anxiety. No: Addictions Musculoskeletal: Yes: Chronic low back pain Rheumatology: Yes: Rheumatoid Arthritis Endocrine: Yes: Diabetes Mellitus - Past Surgical History Past Surgical History: Yes: Cholecystectomy (open), Hysterectomy (? No pelvic scar ), Joint Replacement (left TKR), Mastectomy - Alcohol/Substance Use Hx Alcohol Use: No History of Substance Use: reports: None - Smoking History Smoking history: Never smoked Have you smoked in the past 12 months: No Aproximately how many cigarettes per day: 0 If you are a former smoker, when did you quit?: 1986 - Social History Usual Living Arrangement: Other (with family) ADL: Family Assistance Occupation: Retired: worked in a [email or web address], worked at [employer] Place of : [facility] History of Recent Travel: No Home Medications - Allergies Allergies/Adverse Reactions: Allergies Allergy/AdvReac Type Severity Reaction Status Date / Time Penicillins Allergy Mild Hives Verified 04/07/17 06:30 mushroom Allergy Verified 04/07/17 06:30 shellfish derived Allergy Verified 04/07/17 06:30 rye Allergy Uncoded 04/07/17 06:30 - Home Medications Home Medications: Ambulatory Orders Rivaroxaban [Xarelto -] 20 mg PO DAILY 11/18/13 Albuterol 0.083% Nebulizer Nisreen [Ventolin 0.083% Nebulizer Soln -] 1 neb NEB Q4H 11/26/13 Atorvastatin Ca [Lipitor] 80 mg PO HS 11/26/13 Folic Acid - 1 mg PO DAILY 11/26/13 Furosemide [Lasix -] 40 mg PO PRN PRN 11/26/13 Glimepiride 4 mg PO BID 11/26/13 Methotrexate [Mexate -] 15 mg PO FR 11/26/13 Valsartan [Diovan] 160 mg PO BID 11/26/13 Ipratropium 0.02% Nebulizer [Atrovent 0.02% Nebulizer -] 1 neb NEB BID 01/21/14 Amlodipine Besylate [Norvasc -] 10 mg PO DAILY #30 tablet 01/23/14 Metoprolol Succinate [Toprol XL -] 100 mg PO BID #60 tab.sr.24h 01/23/14 Polyethylene Glycol 3350 [Miralax (For Bowel Prep) -] 17 gm PO ONCE #1 bottle Family Disease History - Family Disease History Family Disease History: Other: Father ( 87: unclear cause), Mother ( 65 : pancreatic cancer), Sister (1 : colon ca, 1 , BCA), Son (1 son: healthy), Daughter (2, healthy) Review of Systems - Review of Systems Constitutional: denies: Chills, Fever Cardiovascular: reports: Edema (B/L LE edema, Left > Right moreso of late). denies: Chest Pain, Shortness of Breath Respiratory: denies: Cough Gastrointestinal: reports: Abdominal Pain, Bloating, Constipation (previously), Diarrhea (some loose BM's of late), Nausea, Vomiting. denies: Dysphagia, Rectal Bleeding, Vomiting Blood Physical Exam-GI Vital Signs: Vital Signs Temperature 98.3 F 04/07/17 15:18 Pulse Rate 74 04/07/17 15:18 Respiratory Rate 18 04/07/17 15:18 Blood Pressure 147/70 04/07/17 15:18 O2 Sat by Pulse Oximetry (%) 95 04/07/17 14:59 Constitutional: Yes: Calm Eyes: No: Sclera Icterus Gastrointestinal Inspection: Yes: Distention, Scars (+ vertical upper abdominal surgical scar) ...Auscultate: Yes: Hypoactive Bowel Sounds ...Palpate: Yes: Guarding, Tenderness (marked tenderness, particularly in the mid abdomen even to percussion). No: Hepatomegaly ...Percussion: Yes: Tympanitic ...Rectal Exam: Yes: Guaiac Negative (scant jasso stool in rectal vault, guaiac negative) Edema: Yes Edema: LLE: 1+, RLE: 1+ Neurological: Yes: Alert, Oriented Labs: CBC, BMP 04/07/17 02:20 04/07/17 03:04 Hepatic Panel Total Bilirubin 0.8 mg/dL (0.2-1.0) D 04/07/17 03:04 AST 38 U/L (15-37) H 04/07/17 03:04 ALT 22 U/L (12-78) D 04/07/17 03:04 Alkaline Phosphatase 124 U/L (45-117) H D 04/07/17 03:04 Albumin 3.1 g/dl (3.4-5.0) L 04/07/17 03:04 Imaging - Results Cat Scan: Report Reviewed, Image Reviewed Problem List - Problems (1) SBO (small bowel obstruction) Assessment/Plan: Assessment: Partial small bowel obstruction secondary to adhesions would need to be higher in the differential given CT scan findings and prior surgical history and severity of tenderness elicited on exam. She has had loose BM's however denies copious diarrhea. A ? focal Ileus could be considered in differential however with the change in small bowel caliber, SBO still higher in differntial. Plan: NPO IV hydration per PMD NGT If diarrhea persists, stool for c. diff, culture, O&P Surgery has evaluated Ms. Pleitez and is following. Recommendations per surgery. When acute issues are resolved, patient can follow-up with Dr. Lang, her primary director learning services, for continued GI care as outpatient Code(s): K56.609 - UNSP INTESTNL OBST, UNSP TO PARTIAL VERSUS COMPLETE OBST
--- NOTE | 2017-04-07 19:03 | CONS ---
DATE OF CONSULTATION: 04/07/2017 REASON FOR CONSULTATION: Small-bowel obstruction. This is an emergency room consultation at the request of the emergency room physician. The patient was subsequently admitted to the hospital, was seen and examined as an inpatient. BRIEF HISTORY: This is an 86-year-old female with previous cholecystectomy and hysterectomy, who presented to [facility] with abdominal pain, nausea, vomiting, and initial lactic acidosis that is resolved. She had a CAT scan of the abdomen and pelvis, which was suggestive of a possible partial bowel obstruction. She was admitted to the hospital with NG tube decompression and IV hydration. She states she feels better. Her NG tube output has not been recorded. She admits to having a liquid bowel movement this morning, and her lactic acid has normalized. Her past medical history is significant for asthma, atrial fibrillation, breast cancer, COPD, hypertension, hyperlipidemia. Her past surgical history is as in HPI. In addition, she has had right knee surgery. Social history is negative for alcohol, negative for tobacco. Her home medications have been reviewed. They importantly show that she has recently taken Xarelto. She is also on Norvasc, Toprol, MiraLax, Lipitor, folic acid, Lasix, glimepiride, Mexate, and Diovan. She has allergies to PENICILLINS, MUSHROOMS, and SHELLFISH. REVIEW OF SYSTEMS: General: Denies fatigue or malaise. Cardiac: Denies chest pain or palpitations. Respiratory: No shortness of breath or wheeze. Gastrointestinal: As in HPI. She denies recent weight loss. Genitourinary: Denies dysuria. Musculoskeletal: Denies joint pain, joint swelling. Psychiatric: Denies anxiety, depression, or hearing voices. PHYSICAL EXAMINATION: General: This is a frail 86-year-old female in no distress. Vital Signs: She is afebrile. HEENT: Her head is normocephalic. Her sclerae are anicteric. Neck: Supple. Chest: Clear. Abdomen: Soft. There is generalized mild tenderness. She is moderately nondistended. She has a midline scar above her umbilicus and perhaps a Pfannenstiel incision. She has no obvious hernias. Extremities: Her extremities have trace edema. On review of her laboratory, white blood cell count is normal at 6.1. Her lactic acid is now normal. ASSESSMENT: This is an 86-year-old female admitted for abdominal pain, nausea vomiting, with initial now resolved lactic acidosis and CAT scan evidence of partial bowel obstruction. Clinically this is either a partial small-bowel obstruction versus a reactive ileus from a secondary process. The CAT scan is reassuring for a normal appendix being noted. At this point, would continue nasogastric tube decompression, recommend recording output to make clinical decisions. Would continue n.p.o. Would do strict recordings of urine output as well. Agree to continue holding Xarelto and prophylactic heparin is reasonable. Would repeat abdominal x-ray tomorrow to follow for migration of contrast, and if the patient did indeed have a liquid stool this morning, that is reassuring. The patient is currently nontoxic, without evidence of bowel compromise. I would strongly attempt to prolong conservative management and avoid surgery in this frail 86-year-old patient with heart disease, heart failure, previous myocardial infarction, COPD, and renal insufficiency. DO ANGEL ALFARO/[id number]
[2017-04-07] MEDS: HEPARIN NA (PORCINE) 5,000 UNITS/ML 1ML VIAL SQ SCH (22:00)
[2017-04-08] MEDS: DEXTROSE 5%-0.45% SALINE 1,000 ML IV SCH ×2 (01:57→14:25)
[2017-04-08] MEDS: INSULIN SLIDING SCALE (NOVOLOG) 1 VIAL SQ SCH ×3 (06:08→17:54)
[2017-04-08] MEDS: morphine SULFATE 4 MG/ML VIAL IVPUSH PRN (06:12)
[2017-04-08] MEDS: ALBUTEROL SO4 0.083% IH SOL 2.5 MG/3 ML VIAL.NEB. NEB SCH ×5 (06:44→22:53)
[2017-04-08] MEDS ORDERED: PT OWN MED DRAWER 7, Y5N ONE (11:25)
[2017-04-08] MEDS: TETRACAINE/BENZOCAINE/BUTAMBEN 20 GM SPR TP SCH (11:32)
[2017-04-08] MEDS: PANTOPRAZOLE SODIUM 40 MG VIAL IVPUSH SCH (11:32)
[2017-04-08] MEDS: HEPARIN NA (PORCINE) 5,000 UNITS/ML 1ML VIAL SQ SCH ×2 (11:34→21:40)
--- NOTE | 2017-04-08 13:30 | PN ---
Progress Note (short form) - Note Progress Note: surgery pt seen and examined. improved pain. Positive bm. ngt 125. kub normal study with contrast in colon abd- soft, mild distension, mild tenderness greater on right Plan- improving psbo vs enteritis. remove ngt. keep npo today. consider repeat labs.
--- NOTE | 2017-04-08 13:47 | PN ---
GI Progress Note Subjective: For Dr. Diamond No acute events No BM Minimal output from NGT: removed by surgery this morning. Air is seen in some small bowel loops Repreat AXR failed to reveal any acute pathology. Contrast now in colon Ms. Pleitez states overall feeling a bit better - Objective Vital Signs: Vital Signs Temperature 98.1 F 04/08/17 10:35 Pulse Rate 86 04/08/17 10:35 Respiratory Rate 18 04/08/17 10:35 Blood Pressure 141/78 04/08/17 10:35 O2 Sat by Pulse Oximetry (%) 95 04/07/17 21:05 Constitutional: Calm Eyes: No: Sclera Icterus Cardiovascular: Yes: Regular Rate and Rhythm, Murmur Respiratory: Yes: CTA Bilaterally Gastrointestinal Inspection: Yes: Distention (Protuberaant abdomen), Scars ...Auscultate: Yes: Normoactive Bowel Sounds ...Palpate: Yes: Tenderness (Continued ttp, mildly in mid abdomen and more marked in right paramedian abdomen) ...Percussion: Yes: Tympanitic (Improved from yesterday) Edema: Yes (LE edema) Labs: 04/07/17 02:20 04/07/17 03:04 No repeat labs as of yet - ....Imaging X-ray: Report Reviewed, Image Reviewed Problem List - Problems (1) SBO (small bowel obstruction) Assessment/Plan: Radiographically improved with minimal output from NGT. Still with persistent abdominal pain. being oberved with NGT now removed. Explained to Ms. Pleitez and her daughter that if vomiting recurs, NGT may need to be replaced. Surgery following: discussed case w/ Dr. Galdamez. observing, contrast imaging when renal function permits. Ordered CBC/CMP/Lactic acid level for today as well as coags and type and screen Code(s): K56.609 - UNSP INTESTNL OBST, UNSP TO PARTIAL VERSUS COMPLETE OBST
--- NOTE | 2017-04-08 15:01 | PN ---
Progress Note, Physician Chief Complaint: feels well no abdominal pain NG tube removed FUA improved - Current Medication List Current Medications: Active Medications Albuterol Sulfate (Ventolin 0.083% Nebulizer Soln -) 1 amp NEB Q4HWA [facility] Last Admin: 04/08/17 14:33 Dose: 1 amp Benzocaine/Butamben/Tetracaine HCl (Cetacaine [place] -) 1 spray TP DAILY [facility] Last Admin: 04/08/17 11:32 Dose: 1 spray Heparin Sodium (Porcine) (Heparin -) 5,000 unit SQ BID [facility] Last Admin: 04/08/17 11:34 Dose: 5,000 unit Dextrose/Sodium Chloride (D5-1/2ns -) 1,000 mls @ 70 mls/hr IV ASDIR [facility] Last Admin: 04/08/17 14:25 Dose: Not Given Insulin Aspart (Novolog Vial Sliding Scale -) 1 vial SQ TIDAC [facility] PRN Reason: Protocol Last Admin: 04/08/17 11:34 Dose: Not Given Morphine Sulfate (Morphine Sulfate) 2 mg IVPUSH Q4H PRN PRN Reason: PAIN Last Admin: 04/08/17 06:12 Dose: 2 mg Ondansetron HCl (Zofran Injection) 4 mg IVPUSH Q4H PRN PRN Reason: NAUSEA AND/OR VOMITING Pantoprazole Sodium (Protonix Iv) 40 mg IVPUSH DAILY [facility] Last Admin: 04/08/17 11:32 Dose: 40 mg - Objective Vital Signs: Vital Signs Temperature 98.1 F 04/08/17 10:35 Pulse Rate 86 04/08/17 10:35 Respiratory Rate 18 04/08/17 10:35 Blood Pressure 141/78 04/08/17 10:35 O2 Sat by Pulse Oximetry (%) 95 04/07/17 21:05 Constitutional: Yes: No Distress, Calm Cardiovascular: Yes: Regular Rate and Rhythm Respiratory: Yes: CTA Bilaterally Gastrointestinal: Yes: Soft, Abdomen, Obese, Distention, Other (decreased bowel sounds). No: Tenderness Problem List - Problems (1) SBO (small bowel obstruction) Code(s): K56.609 - UNSP INTESTNL OBST, UNSP TO PARTIAL VERSUS COMPLETE OBST (2) CAD (coronary artery disease) Code(s): I25.10 - ATHSCL HEART DISEASE OF [place] CORONARY ARTERY W/O ANG PCTRS Qualifiers: Coronary Disease-Associated Artery/Lesion type: [place] artery (3) COPD (chronic obstructive pulmonary disease) Code(s): J44.9 - CHRONIC OBSTRUCTIVE PULMONARY DISEASE, UNSPECIFIED Qualifiers: COPD type: unspecified COPD Qualified Code(s): J44.9 - Chronic obstructive pulmonary disease, unspecified (4) HTN (hypertension) Code(s): I10 - ESSENTIAL (PRIMARY) HYPERTENSION Qualifiers: Hypertension type: essential hypertension Qualified Code(s): I10 - Essential (primary) hypertension (5) Diabetes Code(s): E11.9 - TYPE 2 DIABETES MELLITUS WITHOUT COMPLICATIONS Qualifiers: Diabetes mellitus type: type 2 Assessment/Plan IV fluids labs pending Pain control NG tube removed possible liquid diet tomorrow
[2017-04-08 15:09] LABS: BASOPHIL 0.6 % (0-2.0); EOSINOPHIL 1.1 % (0-4.5); MCH 29.6 pg (25.7-33.7); MEAN CELL VOLUME 89.5 fl (80-96); MEAN PLT VOLUME 10.6 fl (7.5-11.1); NEUTROPHILS 70.9 % (42.8-82.8); RDW 16.5 % (11.6-15.6); WHITE BLOOD COUNT 9.6 K/mm3 (4.0-10.0)
[2017-04-08 15:25] LABS: ALBUMIN 2.9 g/dl (3.4-5.0); ALK PHOS 100 U/L (45-117); ANION GAP 8 (8-16); CALCIUM 7.8 mg/dL (8.5-10.1); CO2 29 mmol/L (21-32); GLUCOSE,RANDOM 141 mg/dL (74-106); SGOT/AST 30 U/L (15-37); SGPT/ALT 22 U/L (12-78); TOT PROT 6.4 g/dl (6.4-8.2)
[2017-04-08 15:47] LABS: INR 1.33 (0.82-1.09)
[2017-04-09] MEDS: INSULIN SLIDING SCALE (NOVOLOG) 1 VIAL SQ SCH ×3 (06:25→17:28)
[2017-04-09] MEDS: DEXTROSE 5%-0.45% SALINE 1,000 ML IV SCH ×2 (06:26→13:42)
[2017-04-09] MEDS: ALBUTEROL SO4 0.083% IH SOL 2.5 MG/3 ML VIAL.NEB. NEB SCH ×5 (06:51→22:40)
[2017-04-09 08:12] LABS: ALBUMIN 2.8 g/dl (3.4-5.0); ANION GAP 8 (8-16); BILIRUBIN,TOTAL 1.1 mg/dL (0.2-1.0); CALCIUM 7.8 mg/dL (8.5-10.1); CO2 30 mmol/L (21-32); CREATININE 1.1 mg/dL (0.55-1.02); GLUCOSE,RANDOM 116 mg/dL (74-106); SGOT/AST 26 U/L (15-37); SGPT/ALT 20 U/L (12-78); TOT PROT 6.4 g/dl (6.4-8.2)
[2017-04-09 08:13] LABS: ALK PHOS 96 U/L (45-117)
[2017-04-09] MEDS: PANTOPRAZOLE SODIUM 40 MG VIAL IVPUSH SCH (09:17)
[2017-04-09] MEDS: TETRACAINE/BENZOCAINE/BUTAMBEN 20 GM SPR TP SCH (09:17)
[2017-04-09] MEDS: HEPARIN NA (PORCINE) 5,000 UNITS/ML 1ML VIAL SQ SCH ×2 (09:17→21:52)
--- NOTE | 2017-04-09 09:35 | PN ---
Progress Note (short form) - Note Progress Note: surgery pt feels better. flatus. no pain afebrile abd- soft, mild distension, nt wbc remains normal Plan- resolved psbo vs enteritis- trial of clears. no further mechanical obstruction with contrast in colon and ngt out for more than 24 hours
--- NOTE | 2017-04-09 10:43 | PN ---
GI Progress Note Subjective: No acute events reported by nursing Ms. Pleitez found sitting up in bed, states feeling much better No BM. + Flatus - Objective Vital Signs: Vital Signs Temperature 98.2 F 04/09/17 07:16 Pulse Rate 97 H 04/09/17 07:16 Respiratory Rate 18 04/09/17 07:16 Blood Pressure 147/60 04/09/17 07:16 O2 Sat by Pulse Oximetry (%) 95 04/08/17 21:00 Constitutional: Calm Eyes: No: Sclera Icterus Cardiovascular: Yes: Regular Rate and Rhythm, Murmur Respiratory: Yes: CTA Bilaterally Gastrointestinal Inspection: No: Distention ...Auscultate: Yes: Normoactive Bowel Sounds ...Palpate: Yes: Tenderness (Much improved TTP). No: Guarding, Tenderness, Rebound ...Percussion: No: Tympanitic Edema: No Labs: CBC, BMP 04/08/17 14:30 04/09/17 06:45 INR, PTT INR 1.33 (0.82-1.09) H 04/08/17 14:30 Problem List - Problems (1) SBO (small bowel obstruction) Assessment/Plan: Overall much improved clinically Continue supportive measures Diet being advanced by surgery If pain recurs, nausea/vomiting, Repeat CT scan of the abd/pelvis with PO/IV contrast Outpatient f/u with Dr. Lang Code(s): K56.609 - UNSP INTESTNL OBST, UNSP TO PARTIAL VERSUS COMPLETE OBST
--- NOTE | 2017-04-09 12:45 | PN ---
Progress Note, Physician Chief Complaint: tolerating clears no abdominal pain did not ask for pain meds at all today passing flatus - Current Medication List Current Medications: Active Medications Albuterol Sulfate (Ventolin 0.083% Nebulizer Soln -) 1 amp NEB Q4HWA [facility] Last Admin: 04/09/17 10:33 Dose: 1 amp Benzocaine/Butamben/Tetracaine HCl (Cetacaine [place] -) 1 spray TP DAILY [facility] Last Admin: 04/09/17 09:17 Dose: Not Given Heparin Sodium (Porcine) (Heparin -) 5,000 unit SQ BID [facility] Last Admin: 04/09/17 09:17 Dose: 5,000 unit Dextrose/Sodium Chloride (D5-1/2ns -) 1,000 mls @ 70 mls/hr IV ASDIR [facility] Last Admin: 04/09/17 06:26 Dose: 70 mls/hr Insulin Aspart (Novolog Vial Sliding Scale -) 1 vial SQ TIDAC [facility] PRN Reason: Protocol Last Admin: 04/09/17 12:14 Dose: 6 units Morphine Sulfate (Morphine Sulfate) 2 mg IVPUSH Q4H PRN PRN Reason: PAIN Last Admin: 04/08/17 06:12 Dose: 2 mg Ondansetron HCl (Zofran Injection) 4 mg IVPUSH Q4H PRN PRN Reason: NAUSEA AND/OR VOMITING Pantoprazole Sodium (Protonix Iv) 40 mg IVPUSH DAILY [facility] Last Admin: 04/09/17 09:17 Dose: 40 mg - Objective Vital Signs: Vital Signs Temperature 98.2 F 04/09/17 07:16 Pulse Rate 104 H 04/09/17 09:00 Respiratory Rate 18 04/09/17 09:00 Blood Pressure 140/75 04/09/17 09:00 O2 Sat by Pulse Oximetry (%) 95 04/09/17 09:00 Constitutional: Yes: No Distress Cardiovascular: Yes: Regular Rate and Rhythm Respiratory: Yes: CTA Bilaterally Gastrointestinal: Yes: Normal Bowel Sounds, Soft, Abdomen, Obese. No: Distention (decreased), Tenderness Edema: No Labs: CBC, BMP 04/08/17 14:30 04/09/17 06:45 INR, PTT INR 1.33 (0.82-1.09) H 04/08/17 14:30 Problem List - Problems (1) SBO (small bowel obstruction) Code(s): K56.609 - UNSP INTESTNL OBST, UNSP TO PARTIAL VERSUS COMPLETE OBST (2) CAD (coronary artery disease) Code(s): I25.10 - ATHSCL HEART DISEASE OF [place] CORONARY ARTERY W/O ANG PCTRS Qualifiers: Coronary Disease-Associated Artery/Lesion type: [place] artery (3) COPD (chronic obstructive pulmonary disease) Code(s): J44.9 - CHRONIC OBSTRUCTIVE PULMONARY DISEASE, UNSPECIFIED Qualifiers: COPD type: unspecified COPD Qualified Code(s): J44.9 - Chronic obstructive pulmonary disease, unspecified (4) HTN (hypertension) Code(s): I10 - ESSENTIAL (PRIMARY) HYPERTENSION Qualifiers: Hypertension type: essential hypertension Qualified Code(s): I10 - Essential (primary) hypertension (5) Diabetes Code(s): E11.9 - TYPE 2 DIABETES MELLITUS WITHOUT COMPLICATIONS Qualifiers: Diabetes mellitus type: type 2 Assessment/Plan IV fluids-- decreased labs noted advance diet per surgeon OOB daily spoke with family at bedside
[2017-04-10] MEDS: DEXTROSE 5%-0.45% SALINE 1,000 ML IV SCH (00:05)
[2017-04-10] MEDS: INSULIN SLIDING SCALE (NOVOLOG) 1 VIAL SQ SCH ×3 (06:13→18:11)
[2017-04-10] MEDS: ALBUTEROL SO4 0.083% IH SOL 2.5 MG/3 ML VIAL.NEB. NEB SCH ×4 (06:35→22:02)
--- NOTE | 2017-04-10 08:41 | PN ---
Progress Note (short form) - Note Progress Note: surgery pt seen and examined. feels well tolerating liquids abd- soft, nt Plan- full liquids. would stay on full liquids for 1 week.
--- NOTE | 2017-04-10 08:59 | PN ---
Progress Note, Physician Chief Complaint: tolerated clears no abdominal pain had liquid to firm stools yesterday no nausea started full liquid diet today per Surgeon advice - Current Medication List Current Medications: Active Medications Albuterol Sulfate (Ventolin 0.083% Nebulizer Soln -) 1 amp NEB Q4HWA [facility] Last Admin: 04/10/17 06:35 Dose: 1 amp Benzocaine/Butamben/Tetracaine HCl (Cetacaine [place] -) 1 spray TP DAILY [facility] Last Admin: 04/09/17 09:17 Dose: Not Given Heparin Sodium (Porcine) (Heparin -) 5,000 unit SQ BID [facility] Last Admin: 04/09/17 21:52 Dose: 5,000 unit Dextrose/Sodium Chloride (D5-1/2ns -) 1,000 mls @ 50 mls/hr IV ASDIR [facility] Last Admin: 04/10/17 00:05 Dose: 50 mls/hr Insulin Aspart (Novolog Vial Sliding Scale -) 1 vial SQ TIDAC [facility] PRN Reason: Protocol Last Admin: 04/10/17 06:13 Dose: Not Given Morphine Sulfate (Morphine Sulfate) 2 mg IVPUSH Q4H PRN PRN Reason: PAIN Last Admin: 04/08/17 06:12 Dose: 2 mg Ondansetron HCl (Zofran Injection) 4 mg IVPUSH Q4H PRN PRN Reason: NAUSEA AND/OR VOMITING Pantoprazole Sodium (Protonix Iv) 40 mg IVPUSH DAILY [facility] Last Admin: 04/09/17 09:17 Dose: 40 mg - Objective Vital Signs: Vital Signs Temperature 98 F 04/09/17 21:58 Pulse Rate 80 04/09/17 21:58 Respiratory Rate 18 04/09/17 21:58 Blood Pressure 143/69 04/09/17 21:58 O2 Sat by Pulse Oximetry (%) 95 04/09/17 21:00 Constitutional: Yes: No Distress Cardiovascular: Yes: Regular Rate and Rhythm Respiratory: Yes: CTA Bilaterally. No: Rales, Rhonchi Gastrointestinal: Yes: Normal Bowel Sounds, Soft, Abdomen, Obese. No: Distention, Tenderness Edema: Yes Edema: LLE: Trace, RLE: Trace Psychiatric: Yes: Alert, Oriented Labs: CBC, BMP 04/08/17 14:30 04/09/17 06:45 INR, PTT INR 1.33 (0.82-1.09) H 04/08/17 14:30 Problem List - Problems (1) SBO (small bowel obstruction) Code(s): K56.609 - UNSP INTESTNL OBST, UNSP TO PARTIAL VERSUS COMPLETE OBST (2) CAD (coronary artery disease) Code(s): I25.10 - ATHSCL HEART DISEASE OF [place] CORONARY ARTERY W/O ANG PCTRS Qualifiers: Coronary Disease-Associated Artery/Lesion type: [place] artery (3) COPD (chronic obstructive pulmonary disease) Code(s): J44.9 - CHRONIC OBSTRUCTIVE PULMONARY DISEASE, UNSPECIFIED Qualifiers: COPD type: unspecified COPD Qualified Code(s): J44.9 - Chronic obstructive pulmonary disease, unspecified (4) HTN (hypertension) Code(s): I10 - ESSENTIAL (PRIMARY) HYPERTENSION Qualifiers: Hypertension type: essential hypertension Qualified Code(s): I10 - Essential (primary) hypertension (5) Diabetes Code(s): E11.9 - TYPE 2 DIABETES MELLITUS WITHOUT COMPLICATIONS Qualifiers: Diabetes mellitus type: type 2 Assessment/Plan PLAN SBO -- resolved --now on full liquid diet -- per Surgery-- should be on full liquid diet for this week , advance further afterwards -- dc iv fluids -- change IV protonix to PO -- lytes normal -- if able to tolerate full liquids today, she may be dc home tomorrow -- will need VNS and home PT -- full liquid diet for one week and then advance afterwards CAD, h/o IA , s/p stent -- clinically stable, no chest pain OOB daily -- restart meds DM-2 --restart meds -- monitor blood sugars avoid hypoglycemia HTN -- restart metoprolol, Diovan -- hold off on amlodipine for now Paroxysmal Afib -- dc Heparin sc -- resume Xarelto DVT prophylaxis-- -dc Heparin sc -- resume Xarelto
[2017-04-10] MEDS: PANTOPRAZOLE SODIUM 40 MG VIAL IVPUSH SCH (09:57)
[2017-04-10] MEDS: HEPARIN NA (PORCINE) 5,000 UNITS/ML 1ML VIAL SQ SCH (09:58)
[2017-04-10] MEDS: sitaGLIPtin PHOSPHATE 25 MG TABLET (FP) PO SCH (12:29)
[2017-04-10] MEDS ORDERED: ATORVASTATIN CA 80 MG TABLET (FP) PO SCH (22:00)
[2017-04-10] MEDS: IPRATROPIUM BR 0.02% 0.5 MG/2.5 ML VIAL.NEB. NEB SCH (22:02)
[2017-04-10] MEDS: METOPROLOL SUCCINATE 100 MG TAB.SR.24H (FP) PO SCH (22:07)
[2017-04-11] MEDS: ALBUTEROL SO4 0.083% IH SOL 2.5 MG/3 ML VIAL.NEB. NEB SCH ×3 (06:03→13:37)
[2017-04-11] MEDS: INSULIN SLIDING SCALE (NOVOLOG) 1 VIAL SQ SCH ×2 (06:51→12:24)
[2017-04-11] MEDS ORDERED: INSULIN (NOVOLOG) ASPART 100 UNITS/ML 10ML VIAL ONE (06:58)
[2017-04-11] MEDS ORDERED: INSULIN DETEMIR 100 UNITS/ML MDV SQ ONE (06:59)
[2017-04-11] MEDS: sitaGLIPtin PHOSPHATE 25 MG TABLET (FP) PO SCH (08:14)
[2017-04-11] MEDS ORDERED: FOLIC ACID 1 MG TABLET (FP) PO SCH (10:00)
[2017-04-11] MEDS ORDERED: RIVAROXABAN 20 MG TABLET PO SCH (10:00)
[2017-04-11] MEDS ORDERED: VALSARTAN 160 MG TABLET (UD) PO SCH (10:00)
[2017-04-11] MEDS ORDERED: PANTOPRAZOLE 40 MG TABLET (FP) PO SCH (10:00)
[2017-04-11] MEDS: METOPROLOL SUCCINATE 100 MG TAB.SR.24H (FP) PO SCH (10:11)
[2017-04-11] MEDS: IPRATROPIUM BR 0.02% 0.5 MG/2.5 ML VIAL.NEB. NEB SCH (10:31)
--- NOTE | 2017-04-11 10:44 | DS ---
Physical Examination Vital Signs: Vital Signs Temperature 989.1 F H 04/11/17 07:06 Pulse Rate 71 04/11/17 07:06 Respiratory Rate 18 04/11/17 07:06 Blood Pressure 131/63 04/11/17 07:06 O2 Sat by Pulse Oximetry (%) 95 04/10/17 21:00 Findings/Remarks: feels well tolerating liquids denies pain. afebrile Constitutional: Yes: No Distress, Calm Eyes: Yes: Conjunctiva Clear Neck: Yes: Supple Cardiovascular: Yes: Regular Rate and Rhythm Respiratory: Yes: CTA Bilaterally Gastrointestinal: Yes: Normal Bowel Sounds, Soft Edema: No Neurological: Yes: Alert Psychiatric: Yes: Alert Labs: CBC, BMP 04/08/17 14:30 04/09/17 06:45 Discharge Summary Reason For Visit: ABDOMINAL PAIN Current Active Problems Diabetes (Acute) SBO (small bowel obstruction) (Acute) Hospital Course: pt admitted for sbo treated conservatively gi / surgery followed sbo resolved now stable for d/c home pt instructed to take liquid diet only for x week- per surgical instructions will follow in office in one week. meds reconcilled pt agree with plan discussed with nursing staff also Condition: Improved - Instructions Referrals: South Lang MD [Staff Physician] - Aminata Lisa MD [Primary Care Provider] - Disposition: HOME - Home Medications Comprehensive Discharge Medication List: Ambulatory Orders Rivaroxaban [Xarelto -] 20 mg PO DAILY 11/18/13 Albuterol 0.083% Nebulizer Nisreen [Ventolin 0.083% Nebulizer Soln -] 1 neb NEB Q4H 11/26/13 Atorvastatin Ca [Lipitor] 80 mg PO HS 11/26/13 Folic Acid - 1 mg PO DAILY 11/26/13 Furosemide [Lasix -] 40 mg PO PRN PRN 11/26/13 Methotrexate [Mexate -] 15 mg PO FR 11/26/13 Ipratropium 0.02% Nebulizer [Atrovent 0.02% Nebulizer -] 1 neb NEB BID 01/21/14 Metoprolol Succinate [Toprol XL -] 100 mg PO BID #60 tab.sr.24h 01/23/14 Polyethylene Glycol 3350 [Miralax 255 gm Btl -] 17 gm PO ONCE #1 bottle Pantoprazole Sodium [Protonix -] 40 mg PO DAILY #10 tablet.ec 04/10/17 Sitagliptin Phosphate [Januvia -] 25 mg PO DAILY@0700 #30 tab 04/10/17 Valsartan [Diovan] 160 mg PO DAILY tablet 04/10/17
[2017-04-11 12:05] VITALS: BP 126/63; PULSE 69; TEMP 98.5
== END 2017-04-11 14:16 | disposition home or self-care (01) | DRG 389 ==
LOC: JER 22:30 → OBSVTOIN 04-07 05:08 → JERBED 04-07 05:08 → UNDOADMOB 04-07 06:12 → J8W 04-07 10:29
PROVIDERS: ADMIT Internal Medicine; ATTEND Internal Medicine
PROC: 0D9670Z Drainage of Stomach with Drainage Device, Via Natural or Artificial Opening (ICD-10-PCS; principal; 2017-04-07)
DX: K56.50 Intestinal adhesions [bands], unspecified as to partial versus complete obstruction (principal); E87.2 Acidosis; I11.0 Hypertensive heart disease with heart failure; N28.9 Disorder of kidney and ureter, unspecified; I25.10 Atherosclerotic heart disease of native coronary artery without angina pectoris; E78.5 Hyperlipidemia, unspecified; I25.2 Old myocardial infarction; J44.9 Chronic obstructive pulmonary disease, unspecified; E11.9 Type 2 diabetes mellitus without complications; M06.80 Other specified rheumatoid arthritis, unspecified site; M54.5 Low back pain; I48.91 Unspecified atrial fibrillation; Z96.652 Presence of left artificial knee joint; Z95.5 Presence of coronary angioplasty implant and graft; Z85.3 Personal history of malignant neoplasm of breast
CPT/HCPCS: 36415; 74020-TC; 74176-TC; 80053; 81003; 81015; 82550; 82553; 83605; 83690; 84484; 85025; 85610; 85730; 86850; 86900; 86901; 87045; 87046; 87086; 87177; 87209; 87324; 87449; 93005; 93010; 94640; 99284-25; J1644

== ENCOUNTER 2017-08-22 23:50 | Inpatient (IN) | payer OTHER ==
[2017-08-23 00:05] VITALS: BMI 37.2
--- NOTE | 2017-08-23 00:53 | PDOC ---
History of Present Illness - General History Source: Patient Exam Limitations: No Limitations - History of Present Illness Initial Comments: 08/23/17 01:00 The patient is an 86 year old female with history of hypertension, hyperlipidemia, CAD, CHF, breast CA s/p R mastectomy who presents to the ED complaining of shortness of breath that began around 3 PM today. States she took her nebulizer without apparent improvement. She does report she did not take Lasix today. She also reports some bilateral lower extremity edema. No chest pain. No fever or chills. No nausea, vomiting, or diarrhea. PCP: Dr. Aminata Lisa <Rachna Mason - Last Filed: 08/23/17 01:00> <Laverne Romero - Last Filed: 08/23/17 17:29> - General Chief Complaint: Shortness of Breath Stated Complaint: DIFFICULTY BREATHING Time Seen by Provider: 08/23/17 00:45 Past History <Rachna Mason - Last Filed: 08/23/17 01:00> - Past Medical History Asthma: Yes Cancer: Yes (Right breast cancer) Cardiac Disorders: Yes COPD: No Diabetes: Yes HTN: Yes Hypercholesterolemia: Yes - Surgical History Abdominal Surgery: Yes Cardiac Surgery: Yes (stent X 2) Cholecystectomy: Yes Orthopedic Surgery: Yes (left knee replacement) - Immunization History Immunization Up to Date: Yes - Suicide/Smoking/Psychosocial Hx Smoking History: Never smoked Have you smoked in the past 12 months: No Number of Cigarettes Smoked Daily: 0 If you are a former smoker, when did you quit?: 1986 Information on smoking cessation initiated: No Hx Alcohol Use: No Drug/Substance Use Hx: No Substance Use Type: None Hx Substance Use Treatment: No <Laverne Romero - Last Filed: 08/23/17 17:29> - Past Medical History Allergies/Adverse Reactions: Allergies Allergy/AdvReac Type Severity Reaction Status Date / Time Penicillins Allergy Mild Hives Verified 08/23/17 00:05 mushroom Allergy Verified 08/23/17 00:05 shellfish derived Allergy Verified 08/23/17 00:05 rye Allergy Uncoded 08/23/17 00:05 Home Medications: Ambulatory Orders Rivaroxaban [Xarelto -] 20 mg PO DAILY 11/18/13 Atorvastatin Ca [Lipitor] 80 mg PO HS 11/26/13 Folic Acid - 1 mg PO DAILY 11/26/13 Furosemide [Lasix -] 40 mg PO PRN PRN 11/26/13 Methotrexate [Mexate -] 15 mg PO FR 11/26/13 Valsartan [Diovan] 160 mg PO DAILY tablet 04/10/17 Amlodipine Besylate [Norvasc -] 10 mg PO DAILY 08/23/17 Cholecalciferol (Vitamin D3) [Vitamin D3 -] 1,000 unit PO DAILY 08/23/17 Colchicine 0.6 mg PO DAILY 08/23/17 Metoprolol Succinate [Toprol XL -] 100 mg PO DAILY 08/23/17 Montelukast Na [Singulair -] 10 mg PO HS 08/23/17 Nitroglycerin Sublingual [Nitrostat -] 0.4 mg SL ONCE PRN 08/23/17 Sitagliptin Phosphate [Januvia -] 50 mg PO DAILY@0700 08/23/17 Review of Systems - Review of Systems Able to Perform ROS?: Yes Comments:: 08/23/17 01:06 GENERAL/CONSTITUTIONAL: No fever or chills. No weakness. HEAD, EYES, EARS, NOSE AND THROAT: No change in vision. No ear pain or discharge. No sore throat. CARDIOVASCULAR: +SOB. No chest pain. No peripheral edema. RESPIRATORY: No cough, wheezing, or hemoptysis. GASTROINTESTINAL: No nausea, vomiting, diarrhea or constipation. GENITOURINARY: No dysuria, frequency, or change in urination. MUSCULOSKELETAL: No joint or muscle swelling or pain. No neck or back pain. SKIN: No rash NEUROLOGIC: No headache, vertigo, loss of consciousness, or change in strength/ sensation. ENDOCRINE: No increased thirst. No abnormal weight change. HEMATOLOGIC/LYMPHATIC: No anemia, easy bleeding, or history of blood clots. ALLERGIC/IMMUNOLOGIC: No hives or skin allergy. <Rachna Mason - Last Filed: 08/23/17 01:00> *Physical Exam - Vital Signs Last Vital Signs Temp Pulse Resp BP Pulse Ox 98.5 F 71 20 142/73 95 08/23/17 00:01 08/23/17 00:01 08/23/17 00:01 08/23/17 00:01 08/23/17 00:01 - Physical Exam Comments: 08/23/17 01:07 GENERAL: Awake, alert, and fully oriented, in no acute distress HEAD: No signs of trauma EYES: PERRLA, EOMI, sclera anicteric, conjunctiva clear ENT: Auricles normal inspection, nares patent. Moist mucosa NECK: Normal ROM, supple, no JVD, or masses LUNGS: +Babasilar crackles, rales. HEART: Regular rate and rhythm, normal S1 and S2, no murmurs, rubs or gallops ABDOMEN: Soft, nontender, normoactive bowel sounds. No guarding, no rebound. No masses EXTREMITIES: +1 b/l lower extremity edema. Normal range of motion. No clubbing or cyanosis. No cords, erythema, or tenderness NEUROLOGICAL: Alert and oriented x 3. Moves all extremities. Face is symmetric. SKIN: Warm, Dry, normal turgor, no rashes or lesions noted. R breast s/p mastectomy. <Rachna Mason - Last Filed: 08/23/17 01:00> - Vital Signs Last Vital Signs Temp Pulse Resp BP Pulse Ox 98.5 F 71 20 142/73 95 08/23/17 00:01 08/23/17 00:01 08/23/17 00:01 08/23/17 00:01 08/23/17 00:01 <Laverne Romero - Last Filed: 08/23/17 17:29> ED Treatment Course - LABORATORY CBC & Chemistry Diagram: 08/23/17 08:12 08/23/17 08:12 <Laverne Romero - Last Filed: 08/23/17 17:29> *DC/Admit/Observation/Transfer - Attestations Scribe Attestion: 08/23/17 01:08 Documentation prepared by Rachna Mason, acting as medical management trainer for Laverne Romero MD. <Rachna Mason - Last Filed: 08/23/17 01:00> <Laverne Romero - Last Filed: 08/23/17 17:29> Diagnosis at time of Disposition: Shortness of breath, Pancytopenia - Discharge Dispostion Condition at time of disposition: Stable
[2017-08-23] MEDS ORDERED: FUROSEMIDE 40 MG/4 ML INJECTABLE VIAL IVPUSH STA (01:23)
[2017-08-23 01:25] LABS: BASO % 0.5 % (0-2.0); EOS % 0.4 % (0-4.5); HEMATOCRIT 30.5 % (32.4-45.2); HEMOGLOBIN 10.4 GM/dL (10.7-15.3); LYMPH % 27.4 % (8-40); MCH 31.6 pg (25.7-33.7); MCHC 34.1 g/dl (32.0-36.0); MEAN CELL VOLUME 92.8 fl (80-96); MONO % 13.6 % (3.8-10.2); NEUT % 58.1 % (42.8-82.8); PLATELET COUNT 57 K/MM3 (134-434); RBC 3.28 M/mm3 (3.60-5.2); RDW 17.5 % (11.6-15.6); WHITE BLOOD COUNT 2.3 K/mm3 (4.0-10.0)
[2017-08-23] MEDS ORDERED: FUROSEMIDE 40 MG/4 ML INJECTABLE VIAL ONE (01:38)
[2017-08-23 02:12] LABS: ALBUMIN 2.6 g/dl (3.4-5.0); ALK PHOS 131 U/L (45-117); ANION GAP 4 (8-16); BILIRUBIN,TOTAL 0.6 mg/dL (0.2-1.0); BLOOD UREA NITROGEN 22 mg/dL (7-18); CHLORIDE 103 mmol/L (98-107); CO2 32 mmol/L (21-32); CREATININE 1.3 mg/dL (0.55-1.02); GLUCOSE,RANDOM 149 mg/dL (74-106); POTASSIUM 4.3 mmol/L (3.5-5.1); SGOT/AST 21 U/L (15-37); SGPT/ALT 12 U/L (12-78); SODIUM 139 mmol/L (136-145); TOT PROT 6.8 g/dl (6.4-8.2)
[2017-08-23 02:51] LABS: INR 3.03 (0.82-1.09); PROTHROMBIN TIME (PATIENT) 34.2 SEC (9.98-11.88)
--- NOTE | 2017-08-23 04:06 | PDOC ---
*Physical Exam - Vital Signs Last Vital Signs Temp Pulse Resp BP Pulse Ox 98.5 F 71 20 142/73 95 08/23/17 00:01 08/23/17 00:01 08/23/17 00:01 08/23/17 00:01 08/23/17 00:01 Heart Score/ECG Review #1 ECG reviewed & interpreted by me at: 01:20 08/23/17 04:12 NSR 68, left axis deviation, LVH, TWI I, avL, TWI V2, V4-V6, no std/buddy, QTC 438 msec ED Treatment Course - LABORATORY CBC & Chemistry Diagram: 08/23/17 01:17 08/23/17 01:17 - ADDITIONAL ORDERS Additional order review: Laboratory Results 08/23/17 08/23/17 08/23/17 02:20 01:17 01:17 PT with INR 34.20 H INR 3.03 H D Sodium Potassium Chloride Carbon Dioxide Anion Gap BUN Creatinine Creat Clearance w eGFR Random Glucose Calcium Total Bilirubin AST ALT Alkaline Phosphatase Creatine Kinase 211 H Creatine Kinase Index 0.4 CK-MB (CK-2) < 1.000 Troponin I < 0.02 B-Natriuretic Peptide 877.45 H Total Protein Albumin 08/23/17 01:17 PT with INR INR Sodium 139 Potassium 4.3 Chloride 103 Carbon Dioxide 32 Anion Gap 4 L BUN 22 H Creatinine 1.3 H Creat Clearance w eGFR 38.75 Random Glucose 149 H Calcium 8.0 L Total Bilirubin 0.6 D AST 21 ALT 12 Alkaline Phosphatase 131 H Creatine Kinase Creatine Kinase Index CK-MB (CK-2) Troponin I B-Natriuretic Peptide Total Protein 6.8 Albumin 2.6 L 08/23/17 01:17 RBC 3.28 L D MCV 92.8 MCHC 34.1 RDW 17.5 H MPV 10.0 Neutrophils % 58.1 Lymphocytes % 27.4 D Monocytes % 13.6 H Eosinophils % 0.4 Basophils % 0.5 - Medications Given in the ED: ED Medications Discontinued Medications Generic Name Dose Route Start Last Admin Trade Name Freq PRN Reason Stop Dose Admin Furosemide 20 mg 08/23/17 01:23 08/23/17 02:49 Lasix Injection - IVPUSH 08/23/17 01:24 20 mg ONCE STA Administration Medical Decision Making - Medical Decision Making 08/23/17 04:01 Sign-out received from outgoing Emergency Physician Dr. Romero Pt interviewed and examined Ancillary studies reviewed Case discussed in detail with oncoming Emergency Physician including history, physical exam and ancillary studies. CBC, BMP 08/23/17 01:17 08/23/17 01:17 CMP Sodium 139 mmol/L (136-145) 08/23/17 01:17 Potassium 4.3 mmol/L (3.5-5.1) 08/23/17 01:17 Chloride 103 mmol/L (98-107) 08/23/17 01:17 Carbon Dioxide 32 mmol/L (21-32) 08/23/17 01:17 Anion Gap 4 (8-16) L 08/23/17 01:17 BUN 22 mg/dL (7-18) H 08/23/17 01:17 Creatinine 1.3 mg/dL (0.55-1.02) H 08/23/17 01:17 Creat Clearance w eGFR 38.75 (>60) 08/23/17 01:17 Random Glucose 149 mg/dL (74-106) H 08/23/17 01:17 Calcium 8.0 mg/dL (8.5-10.1) L 08/23/17 01:17 Total Bilirubin 0.6 mg/dL (0.2-1.0) D 08/23/17 01:17 AST 21 U/L (15-37) 08/23/17 01:17 ALT 12 U/L (12-78) 08/23/17 01:17 Alkaline Phosphatase 131 U/L (45-117) H 08/23/17 01:17 Creatine Kinase 211 IU/L (26-192) H 08/23/17 01:17 Creatine Kinase Index 0.4 % (0.0-5.0) 08/23/17 01:17 CK-MB (CK-2) < 1.000 ng/mL (0.5-3.6) 08/23/17 01:17 Troponin I < 0.02 ng/ml (0.00-0.05) 08/23/17 01:17 B-Natriuretic Peptide 877.45 pg/ml (5-450) H 08/23/17 01:17 Total Protein 6.8 g/dl (6.4-8.2) 08/23/17 01:17 Albumin 2.6 g/dl (3.4-5.0) L 08/23/17 01:17 Chest x-ray reviewed by me, pending official radiology read. Cardiomegaly with mild pulmonary vascular congestion. Patient is also noted with pancytopenia. It is unclear what the etiology of this is at the moment. I did inform the patient's and the patient's daughter regards to these findings. Patient will need further investigative workup. Case discussed with Dr. Rucker who accepts the patient for tele observation. Case discussed in detail with admitting physician including history, physical exam and ancillary studies. Admitting physician has assumed care for the patient, will follow all pending diagnostics and will complete the evaluation and treatment. *DC/Admit/Observation/Transfer Diagnosis at time of Disposition: Shortness of breath, Pancytopenia - Discharge Dispostion Condition at time of disposition: Stable Admit: Yes - Referrals Referrals: Aminata Lisa MD [Primary Care Provider] - - Patient Instructions - Post Discharge Activity
--- NOTE | 2017-08-23 04:51 | HP ---
Admitting History and Physical - Past Medical History Cardiovascular: Yes: AFIB (On xarelto), CAD (describes having cardiac stent), CHF, HTN, Hyperlipdemia, [place] Pulmonary: Yes: Asthma, COPD Renal/: Yes: Renal Inusuff Heme/Onc: Yes: Cancer (BCA s/p right mastectomy) Psych: Yes: Anxiety. No: Addictions Musculoskeletal: Yes: Chronic low back pain Rheumatology: Yes: Rheumatoid Arthritis Endocrine: Yes: Diabetes Mellitus - Past Surgical History Past Surgical History: Yes: Cholecystectomy (open), Hysterectomy (? No pelvic scar ), Joint Replacement (left TKR), Mastectomy - Smoking History Smoking history: Never smoked Have you smoked in the past 12 months: No Aproximately how many cigarettes per day: 0 If you are a former smoker, when did you quit?: 1986 - Alcohol/Substance Use Hx Alcohol Use: No History of Substance Use: reports: None - Social History Usual Living Arrangement: Yes: With Child ADL: Family Assistance Occupation: Retired: worked in a [employer], worked at [employer] History of Recent Travel: No Home Medications - Allergies Allergies/Adverse Reactions: Allergies Allergy/AdvReac Type Severity Reaction Status Date / Time Penicillins Allergy Mild Hives Verified 08/23/17 00:05 mushroom Allergy Verified 08/23/17 00:05 shellfish derived Allergy Verified 08/23/17 00:05 rye Allergy Uncoded 08/23/17 00:05 - Home Medications Home Medications: Ambulatory Orders Rivaroxaban [Xarelto -] 20 mg PO DAILY 11/18/13 Atorvastatin Ca [Lipitor] 80 mg PO HS 11/26/13 Folic Acid - 1 mg PO DAILY 11/26/13 Furosemide [Lasix -] 40 mg PO PRN PRN 11/26/13 Methotrexate [Mexate -] 15 mg PO FR 11/26/13 Valsartan [Diovan] 160 mg PO DAILY tablet 04/10/17 Amlodipine Besylate [Norvasc -] 10 mg PO DAILY 08/23/17 Cholecalciferol (Vitamin D3) [Vitamin D3 -] 1,000 unit PO DAILY 08/23/17 Colchicine 0.6 mg PO DAILY 08/23/17 Metoprolol Succinate [Toprol XL -] 100 mg PO DAILY 08/23/17 Montelukast Na [Singulair -] 10 mg PO HS 08/23/17 Nitroglycerin Sublingual [Nitrostat -] 0.4 mg SL ONCE PRN 08/23/17 Sitagliptin Phosphate [Januvia -] 50 mg PO DAILY@0700 08/23/17 Family Disease History - Family Disease History Family Disease History: Other: Father ( 87: unclear cause), Mother ( 65 : pancreatic cancer), Sister (1 : colon ca, 1 , BCA), Son (1 son: healthy), Daughter (2, healthy) Physical Examination Vital Signs: Vital Signs Temperature 98.5 F 08/23/17 00:01 Pulse Rate 71 08/23/17 00:01 Respiratory Rate 20 08/23/17 00:01 Blood Pressure 142/73 08/23/17 00:01 O2 Sat by Pulse Oximetry (%) 95 08/23/17 00:01 Labs: CBC, BMP 08/23/17 01:17 08/23/17 01:17 Laboratory Results - last 24 hr 08/23/17 08/23/17 08/23/17 01:17 01:17 01:17 WBC 2.3 L D RBC 3.28 L D Hgb 10.4 L D Hct 30.5 L D MCV 92.8 MCH 31.6 MCHC 34.1 RDW 17.5 H Plt Count 57 L D MPV 10.0 Neutrophils % 58.1 Lymphocytes % 27.4 D Monocytes % 13.6 H Eosinophils % 0.4 Basophils % 0.5 PT with INR INR Sodium 139 Potassium 4.3 Chloride 103 Carbon Dioxide 32 Anion Gap 4 L BUN 22 H Creatinine 1.3 H Creat Clearance w eGFR 38.75 Random Glucose 149 H Calcium 8.0 L Total Bilirubin 0.6 D AST 21 ALT 12 Alkaline Phosphatase 131 H Creatine Kinase 211 H Creatine Kinase Index 0.4 CK-MB (CK-2) < 1.000 Troponin I < 0.02 B-Natriuretic Peptide Total Protein 6.8 Albumin 2.6 L 08/23/17 08/23/17 01:17 02:20 WBC RBC Hgb Hct MCV MCH MCHC RDW Plt Count MPV Neutrophils % Lymphocytes % Monocytes % Eosinophils % Basophils % PT with INR 34.20 H INR 3.03 H D Sodium Potassium Chloride Carbon Dioxide Anion Gap BUN Creatinine Creat Clearance w eGFR Random Glucose Calcium Total Bilirubin AST ALT Alkaline Phosphatase Creatine Kinase Creatine Kinase Index CK-MB (CK-2) Troponin I B-Natriuretic Peptide 877.45 H Total Protein Albumin Intake & Output 08/20/17 08/21/17 08/22/17 08/23/17 23:59 23:59 23:59 23:59 Weight 98.43 kg Problem List - Problems (1) Shortness of breath Code(s): R06.02 - SHORTNESS OF BREATH (2) Pancytopenia Code(s): D61.818 - OTHER PANCYTOPENIA (3) Congestive heart disease Code(s): I50.9 - HEART FAILURE, UNSPECIFIED (4) COPD (chronic obstructive pulmonary disease) Code(s): J44.9 - CHRONIC OBSTRUCTIVE PULMONARY DISEASE, UNSPECIFIED Qualifiers: COPD type: unspecified COPD Qualified Code(s): J44.9 - Chronic obstructive pulmonary disease, unspecified (5) CAD (coronary artery disease) Code(s): I25.10 - ATHSCL HEART DISEASE OF [place] CORONARY ARTERY W/O ANG PCTRS Qualifiers: Coronary Disease-Associated Artery/Lesion type: [place] artery (6) Diabetes Code(s): E11.9 - TYPE 2 DIABETES MELLITUS WITHOUT COMPLICATIONS Qualifiers: Diabetes mellitus type: type 2 (7) HTN (hypertension) Code(s): I10 - ESSENTIAL (PRIMARY) HYPERTENSION Qualifiers: Hypertension type: essential hypertension Qualified Code(s): I10 - Essential (primary) hypertension (8) Paroxysmal atrial fibrillation Code(s): I48.0 - PAROXYSMAL ATRIAL FIBRILLATION (9) DVT prophylaxis Code(s): FOQ7197 - Hospitalist Screening - Colonoscopy Questionnaire Colonoscopy Questionnaire: Colonoscopy Questionnaire
--- NOTE | 2017-08-23 05:08 | PN ---
Teaching Attending Note Name of Resident: Lola Medellin ATTENDING PHYSICIAN STATEMENT I saw and evaluated the patient. I reviewed the resident's note and discussed the case with the resident. I agree with the resident's findings and plan as documented. SUBJECTIVE: 86 F with pmhx. of htn, hld, CAD s/p 2 stents, COPD, CHF, breast Ca s/p mastectomy, who presents with shortness of breath. Shortness of breath began at 3 pm today. She took her nebulizer to no avail. She is supposed to be on Lasix, but did not take it today. Also notes chest pain. Notes pain is mostly on L. chest wall and worse with palpation. Non-radiating. States shortness of breath is improved mildly currently, No fevers or chills. OBJECTIVE: Physical: VS: Vital Signs Period Temp Pulse Resp BP Sys/Etienne Pulse Ox Last 24 Hr 98.5 F 71 20 142/73 95 GEN: NAD, Resting in bed, AA0X3, Speaking full sentences HEENT: NCAT, PERRL, Throat without erythema or exudates CARD: RRR S1, S2 RESP: Decreased Breath Sounds At bases ABD: BSx4, NTD to palpation EXT: LLE +3 Pitting edema > RLE, warm pulses intact Breast Exam- Defferred CBCD WBC 2.3 K/mm3 (4.0-10.0) L D 08/23/17 01:17 RBC 3.28 M/mm3 (3.60-5.2) L D 08/23/17 01:17 Hgb 10.4 GM/dL (10.7-15.3) L D 08/23/17 01:17 Hct 30.5 % (32.4-45.2) L D 08/23/17 01:17 MCV 92.8 fl (80-96) 08/23/17 01:17 MCHC 34.1 g/dl (32.0-36.0) 08/23/17 01:17 RDW 17.5 % (11.6-15.6) H 08/23/17 01:17 Plt Count 57 K/MM3 (134-434) L D 08/23/17 01:17 MPV 10.0 fl (7.5-11.1) 08/23/17 01:17 CMP Sodium 139 mmol/L (136-145) 08/23/17 01:17 Potassium 4.3 mmol/L (3.5-5.1) 08/23/17 01:17 Chloride 103 mmol/L (98-107) 08/23/17 01:17 Carbon Dioxide 32 mmol/L (21-32) 08/23/17 01:17 Anion Gap 4 (8-16) L 08/23/17 01:17 BUN 22 mg/dL (7-18) H 08/23/17 01:17 Creatinine 1.3 mg/dL (0.55-1.02) H 08/23/17 01:17 Creat Clearance w eGFR 38.75 (>60) 08/23/17 01:17 Random Glucose 149 mg/dL (74-106) H 08/23/17 01:17 Calcium 8.0 mg/dL (8.5-10.1) L 08/23/17 01:17 Total Bilirubin 0.6 mg/dL (0.2-1.0) D 08/23/17 01:17 AST 21 U/L (15-37) 08/23/17 01:17 ALT 12 U/L (12-78) 08/23/17 01:17 Alkaline Phosphatase 131 U/L (45-117) H 08/23/17 01:17 Total Protein 6.8 g/dl (6.4-8.2) 08/23/17 01:17 Albumin 2.6 g/dl (3.4-5.0) L 08/23/17 01:17 CARDIAC ENZYMES Creatine Kinase 211 IU/L (26-192) H 08/23/17 01:17 Troponin I < 0.02 ng/ml (0.00-0.05) 08/23/17 01:17 CXR: Cardiomegaly, ?congestion NSR 68, left axis deviation, LVH, TWI I, avL, TWI V2, V4-V6, no std/buddy, QTC 438 msec Ambulatory Orders Rivaroxaban [Xarelto -] 20 mg PO DAILY 11/18/13 Atorvastatin Ca [Lipitor] 80 mg PO HS 11/26/13 Folic Acid - 1 mg PO DAILY 11/26/13 Furosemide [Lasix -] 40 mg PO PRN PRN 11/26/13 Methotrexate [Mexate -] 15 mg PO FR 11/26/13 Valsartan [Diovan] 160 mg PO DAILY tablet 04/10/17 Amlodipine Besylate [Norvasc -] 10 mg PO DAILY 08/23/17 Cholecalciferol (Vitamin D3) [Vitamin D3 -] 1,000 unit PO DAILY 08/23/17 Colchicine 0.6 mg PO DAILY 08/23/17 Metoprolol Succinate [Toprol XL -] 100 mg PO DAILY 08/23/17 Montelukast Na [Singulair -] 10 mg PO HS 08/23/17 Nitroglycerin Sublingual [Nitrostat -] 0.4 mg SL ONCE PRN 08/23/17 Sitagliptin Phosphate [Januvia -] 50 mg PO DAILY@0700 08/23/17 ASSESSMENT AND PLAN: 86 F with pmhx. of htn, hld, CAD s/p 2 stents, CHF, breast Ca s/p mastectomy, who presents with shortness of breath, being admitted for Acute CHF Exacerbation 1.) Acute Exacerbation of CHF- Diastolic? (last Echo 2013) - Repeat Echo - Strict I/O - Lasix IV - Na/Fluid Restrict - Daily Weights - Trend Trop/Ekg 2.) CAD S/p Stents - C/W Home meds 3.) HTN - C/W Home meds 4.) COPD - Not in Exacerbation - Nebs Prn - Singulair 5.) HLD - C/W Statin 6.) Pancytopenia - ? Recent viral Illness/ possibly from Methotrexate, Repeat - Heme consult- ? Xarelto? 7.) A-Fib - In light of Thrombocytopenia, would hold Xarelto, until assessed by heme - C/W BB - In restarting redose with renal fxn 15 qd - Coags elevated most likely due to increased coags 8.) Chest Pain- Chest Wall- Atypical - Trend Trops/Ekg - Needs to FU outpt. Mammo of L. breast 9.) LLE Edema - Duplex 10.) Dvt Ppx - On Xarelto- Resume if ok by heme Place in Med-Tele
--- NOTE | 2017-08-23 06:02 | HP ---
CHIEF COMPLAINT: SOB, LLE edema x 1 day PCP: Dr. Lisa HISTORY OF PRESENT ILLNESS: 86 y/o F with PMH HTN, HLD, CAD (with 2 stents- placed ~2003, ~2014), CHF (ECHO 2013: EF 69%, mild MR, severe TR), R breast CA s/p R mastectomy (; never received chemo, or radiation, was placed on oral med at time. Has resulting lymphedema), atrial fibrillation (on Xarelto 20mg qd), gout, who presents to the ED c/o SOB and LE edema over the past day. As per daughter, pt has attended a geriatric program at [facility] 3x/week over the past 20 yrs, and feels embarrassed when she takes her lasix d/t increased urinary frequency. For this reason, patient is not compliant with her medication. She did not take her Lasix 20mg dose yesterday (08/22/16) and then noticed today, that she had increased edema in her lower extremities a/w SOB, KIMBALL, and chest tightness. Pt states that it "hurts to take a deep breath," and that she needs to sleep with her head elevated at night. She follows with Dr. Luque. During this time, pt also endorses dry cough, and subjective chills. Denies MCKEON, fever, chest pressure, or changes in bowel function. She uses a walker to ambulate. ER course was notable for: (1) Lasix 20mg IVP x 1 (2) (3) Recent Travel: none PAST MEDICAL HISTORY: as above PAST SURGICAL HISTORY: s/p R mastectomy (), Social History: lives at home with daughter. Retired; used to work as a sheet metal worker supervisor Smoking: quit in 1986. Had smoked 1 pack/week for 40-50 yrs prior Alcohol: socially in past Drugs: denies Family History: mother and sister- colon CA, father- prostate CA Allergies Penicillins Allergy (Mild, Verified 08/23/17 00:05) Hives mushroom Allergy (Verified 08/23/17 00:05) -hives shellfish derived Allergy (Verified 08/23/17 00:05) - hives rye Allergy (Uncoded 08/23/17 00:05) -pruritis HOME MEDICATIONS: Home Medications Medication Instructions Recorded Rivaroxaban [Xarelto -] 20 mg PO DAILY 11/18/13 Atorvastatin Ca [Lipitor] 80 mg PO HS 11/26/13 Folic Acid - 1 mg PO DAILY 11/26/13 Furosemide [Lasix -] 40 mg PO PRN PRN 11/26/13 Methotrexate [Mexate -] 15 mg PO FR 11/26/13 Valsartan [Diovan] 160 mg PO DAILY tablet 04/10/17 Amlodipine Besylate [Norvasc -] 10 mg PO DAILY 08/23/17 Cholecalciferol (Vitamin D3) 1,000 unit PO DAILY 08/23/17 [Vitamin D3 -] Colchicine 0.6 mg PO DAILY 08/23/17 Metoprolol Succinate [Toprol XL -] 100 mg PO DAILY 08/23/17 Montelukast Na [Singulair -] 10 mg PO HS 08/23/17 Nitroglycerin Sublingual 0.4 mg SL ONCE PRN 08/23/17 [Nitrostat -] Sitagliptin Phosphate [Januvia -] 50 mg PO DAILY@0700 08/23/17 REVIEW OF SYSTEMS CONSTITUTIONAL: +subjective chills Absent: fever, chills, diaphoresis, generalized weakness, malaise, loss of appetite, weight change HEENT: Absent: rhinorrhea, nasal congestion, throat pain, throat swelling, difficulty swallowing, mouth swelling, ear pain, eye pain, visual changes CARDIOVASCULAR: Absent: chest pain, syncope, palpitations, irregular heart rate, lightheadedness , peripheral edema RESPIRATORY: +cough, SOB, KIMBALL Absent: cough, shortness of breath, dyspnea with exertion, orthopnea, wheezing, stridor, hemoptysis GASTROINTESTINAL: Absent: abdominal pain, abdominal distension, nausea, vomiting, diarrhea, constipation, melena, hematochezia GENITOURINARY: Absent: dysuria, frequency, urgency, hesitancy, hematuria, flank pain, genital pain MUSCULOSKELETAL: +lower extremity edema Absent: myalgia, arthralgia, joint swelling, back pain, neck pain SKIN: Absent: rash, itching, pallor HEMATOLOGIC/IMMUNOLOGIC: Absent: easy bleeding, easy bruising, lymphadenopathy, frequent infections ENDOCRINE: Absent: unexplained weight gain, unexplained weight loss, heat intolerance, cold intolerance NEUROLOGIC: Absent: headache, focal weakness or paresthesias, dizziness, unsteady gait, seizure, mental status changes, bladder or bowel incontinence PSYCHIATRIC: Absent: anxiety, depression, suicidal or homicidal ideation, hallucinations. PHYSICAL EXAMINATION Vital Signs 08/23/17 00:01 Temperature 98.5 F Pulse Rate 71 Respiratory 20 Rate Blood Pressure 142/73 O2 Sat by Pulse 95 Oximetry (%) GENERAL: Very pleasant elderly woman. In good spirits. AAOx 3 , in mild distress. HEAD: Normal with no signs of trauma. EYES: Pupils equal, round and reactive to light, extraocular movements intact, sclera anicteric, conjunctiva clear. No lid lag. EARS, NOSE, THROAT: Ears normal, nares patent, oropharynx clear without exudates. NECK: Normal range of motion, supple LUNGS: +decreased inspiratory effort, crackles appreciated LLL. no wheezing or rhonchi appreciated. CHEST: +R mastectomy scar - well healed. +L anterior chest wall TTP HEART: Regular rate and rhythm, normal S1 and S2 without murmur, rub or gallop. ABDOMEN: Soft, obese, nontender, not distended, normoactive bowel sounds, no guarding, no rebound UPPER EXTREMITIES: +RUE lymphedema (s/p mastectomy) LOWER EXTREMITIES: 2+ posterior tibial pulses, 2+ pitting edema RLE < 3+ LLE NEUROLOGICAL: Cranial nerves II-XII intact. Normal speech. Laboratory Results - last 24 hr 08/23/17 08/23/17 08/23/17 01:17 01:17 01:17 WBC 2.3 L D RBC 3.28 L D Hgb 10.4 L D Hct 30.5 L D MCV 92.8 MCH 31.6 MCHC 34.1 RDW 17.5 H Plt Count 57 L D MPV 10.0 Neutrophils % 58.1 Lymphocytes % 27.4 D Monocytes % 13.6 H Eosinophils % 0.4 Basophils % 0.5 PT with INR INR Sodium 139 Potassium 4.3 Chloride 103 Carbon Dioxide 32 Anion Gap 4 L BUN 22 H Creatinine 1.3 H Creat Clearance w eGFR 38.75 Random Glucose 149 H Calcium 8.0 L Total Bilirubin 0.6 D AST 21 ALT 12 Alkaline Phosphatase 131 H Creatine Kinase 211 H Creatine Kinase Index 0.4 CK-MB (CK-2) < 1.000 Troponin I < 0.02 B-Natriuretic Peptide Total Protein 6.8 Albumin 2.6 L 04/03/18 04/03/18 01:17 02:20 Basophils % PT with INR 34.20 H INR 3.03 H D Sodium Troponin I B-Natriuretic Peptide 877.45 H Total Protein Albumin TESTS EKG: NSR, vent rate 68 bpm, GA 188ms, QRS 82ms, QTc 438ms, L axis deviation, anterolateral infarct age undetermined. with t wave inversions in I, v4, v5, aVL , v2, will need to compare to past EKG CXR: with congestion, cardiomegaly, L sided blunting of costophrenic angle - effusion, official report pending ASSESSMENT/PLAN: 86 y/o F with PMH HTN, HLD, CAD (with 2 stents- placed ~2003, ~2014), CHF (ECHO 2014: EF 69%, mild MR, severe TR), R breast CA s/p R mastectomy (; never received chemo, or radiation, was placed on oral med at time. Has resulting lymphedema), atrial fibrillation (on Xarelto 20mg qd), gout, who presents to the ED c/o SOB and LE edema over the past day. Pt admitted to telemetry for CHF exacerbation. #CHF Exacerbation d/t missed dose -Pt did not take lasix 20mg dose day prior - resulting in sx -Last ECHO [facility] 2013- EF 69%, mild MR, severe TR -BNP 877 -Received Lasix 20mg IVP in ED -Daily weights -Sodium 2g /fluid restrict -Lasix 20mg IVP qd - takes 20 PO at home -Can adjust dose as needed -Trend trops q6h, serial EKGs as needed. Initial trop (-) -Telemetry monitoring -F/u new ECHO -Cardio consult- Dr. Luque #Increased LLE edema, r/o DVT -F/u LE duplex #New atypical chest pain -TTP - R anterior chest wall -F/u mammo outpatient #Pancytopenia -Could be 2/2 ?malignancy, drug side effect - ?MTX -Heme onc consult: Dr. Lowery -For now, will hold Xarelto until Heme onc recs #COPD -Duonebs q4h PRN -Continue singulair 10mg PO qd #HTN- controlled -Continue valsartan 160 mg qd -Metoprolol succinate 100mg qd -amlodipine 10mg qd #HLD -Continue atorvastatin 80mg qd #afib -At home, takes xarelto 20mg qd as per daughter -Will hold, as pt with thrombocytopenia (platelets 57k) -If cleared by heme onc, pt can start on Xarelto 15mg PO qd, taken with food as Cr clearance 38. This is rec for Cr clearance 15-50 #Gout -Continue methotrexate 2.5mg PO qd -Colchicine 0.6 mg PO qd #F/E/N -Will avoid fluids - do not want to overload pt -Serial lytes -Sodium controlled, diabetic diet #PPX DVT: on Xarelto 20mg qd at baseline - currently holding until cleared by heme- onc. in meanwhile, SCD's #Dispo -Continued monitoring on telemetry Visit type - Emergency Visit Emergency Visit: Yes ED Registration Date: 08/23/17 Care time: The patient presented to the Emergency Department on the above date and was hospitalized for further evaluation of their emergent condition. - New Patient This patient is new to me today: Yes Date on this admission: 08/23/17 - Critical Care Critical Care patient: No Hospitalist Screening - Colonoscopy Questionnaire Colonoscopy Questionnaire: Colonoscopy Questionnaire - Patient: 50 - 75 years old and never had a screening colonoscopy: Unknown History of colon or rectal polyps, or CA: Unknown History of IBD, Crohn's disease or UC: Unknown History of abdominal radiation therapy as a child: Unknown - Relative: 1 with colon or rectal CA, or polyps at age 60 or younger: Unknown Colon or rectal CA diagnosed at age 45 or younger: Unknown Multiple relatives with colon or rectal CA: Unknown - Outcome: Screening Result: Negative Screen
[2017-08-23] MEDS ORDERED: INSULIN SLIDING SCALE (NOVOLOG) 1 VIAL SQ SCH (07:00)
[2017-08-23 08:28] LABS: BASO % 0.7 % (0-2.0); EOS % 0.3 % (0-4.5); HEMATOCRIT 31.3 % (32.4-45.2); HEMOGLOBIN 10.6 GM/dL (10.7-15.3); LYMPH % 27.2 % (8-40); MCH 31.1 pg (25.7-33.7); MCHC 33.8 g/dl (32.0-36.0); MEAN PLT VOLUME 10.4 fl (7.5-11.1); MONO % 15.1 % (3.8-10.2); NEUT % 56.7 % (42.8-82.8); PLATELET COUNT 55 K/MM3 (134-434); WHITE BLOOD COUNT 2.1 K/mm3 (4.0-10.0)
[2017-08-23 09:00] LABS: ANION GAP 4 (8-16); BLOOD UREA NITROGEN 21 mg/dL (7-18); CHLORIDE 101 mmol/L (98-107); CO2 33 mmol/L (21-32); CREATININE 1.3 mg/dL (0.55-1.02); GLUCOSE,RANDOM 133 mg/dL (74-106); MAGNESIUM 1.9 mg/dL (1.8-2.4); PHOSPHOROUS 3.2 mg/dL (2.5-4.9); POTASSIUM 3.8 mmol/L (3.5-5.1); SODIUM 138 mmol/L (136-145)
[2017-08-23] MEDS ORDERED: FUROSEMIDE 40 MG/4 ML INJECTABLE VIAL IVPUSH SCH (10:00)
--- NOTE | 2017-08-23 10:07 | EKG ---
Test Reason : Blood Pressure : / mmHG Vent. Rate : 068 BPM Atrial Rate : 068 BPM P-R Int : 188 ms QRS Dur : 082 ms QT Int : 412 ms P-R-T Axes : 091 -47 149 degrees QTc Int : 438 ms POOR DATA QUALITY, INTERPRETATION MAY BE ADVERSELY AFFECTED NORMAL SINUS RHYTHM LEFT AXIS DEVIATION MODERATE VOLTAGE CRITERIA FOR LVH, MAY BE NORMAL VARIANT INFERIOR INFARCT (CITED ON OR BEFORE 21-JAN-2014) ANTEROLATERAL INFARCT (CITED ON OR BEFORE 21-JAN-2014) ABNORMAL ECG Confirmed by Russ De Oliveira MD ([id number]) on 08/23/2017 10:06:56 AM Referred By: Confirmed By:Russ De Oliveira MD
[2017-08-23] MEDS ORDERED: PT OWN MED DRAWER 7, Y5N ONE (10:08)
[2017-08-23] MEDS: VALSARTAN 160 MG TABLET (UD) PO SCH (10:09)
[2017-08-23] MEDS: FUROSEMIDE 40 MG/4 ML INJECTABLE VIAL IVPUSH SCH (10:09)
[2017-08-23] MEDS: COLCHICINE 0.6 MG TABLET (FP) PO SCH (10:09)
[2017-08-23] MEDS: FOLIC ACID 1 MG TABLET (FP) PO SCH (10:09)
[2017-08-23] MEDS: amLODIPine BESYLATE 10 MG TABLET (FP) PO SCH (10:10)
--- NOTE | 2017-08-23 13:36 | CONSULT ---
Consult Consult Specialty:: Hematology - History of Present Illness Chief Complaint: Pancytopenia History of Present Illness: 86 y/o F with PMH HTN, HLD, CAD (with 2 stents- placed ~2003, ~2014), CHF (ECHO 2013: EF 69%, mild MR, severe TR), R breast CA s/p R mastectomy (; never received chemo, or radiation, was placed on oral med at time. Has resulting lymphedema), atrial fibrillation (on Xarelto 20mg qd), gout, who presents to the ED c/o SOB and LE edema over the past day. As per daughter, pt has attended a geriatric program at [facility] 3x/week over the past 20 yrs, and feels embarrassed when she takes her lasix d/t increased urinary frequency. For this reason, patient is not compliant with her medication. She did not take her Lasix 20mg dose yesterday (08/22/16) and then noticed today, that she had increased edema in her lower extremities a/w SOB, KIMBALL, and chest tightness. Pt states that it "hurts to take a deep breath," and that she needs to sleep with her head elevated at night. She follows with Dr. Luque. During this time, pt also endorses dry cough, and subjective chills. Denies MCKEON, fever, chest pressure, or changes in bowel function. - History Source History Provided By: Patient, Family Member, Medical Record - Past Medical History Cardio/Vascular: Yes: AFIB (On xarelto), CAD (describes having cardiac stent), CHF, HTN, Hyperlipdemia, [place] Pulmonary: Yes: Asthma, COPD Renal/: Yes: Renal Inusuff Psych: Yes: Anxiety. No: Addictions Musculoskeletal: Yes: Chronic low back pain Rheumatology: Yes: Rheumatoid Arthritis Endocrine: Yes: Diabetes Mellitus - Past Surgical History Past Surgical History: Yes: Cholecystectomy (open), Hysterectomy (? No pelvic scar ), Joint Replacement (left TKR), Mastectomy - Alcohol/Substance Use Hx Alcohol Use: No History of Substance Use: reports: None - Smoking History Smoking history: Never smoked Have you smoked in the past 12 months: No Aproximately how many cigarettes per day: 0 If you are a former smoker, when did you quit?: 1986 - Social History Usual Living Arrangement: Other (with family) ADL: Family Assistance Occupation: Retired: worked in a [employer], worked at [employer] History of Recent Travel: No Home Medications - Allergies Allergies/Adverse Reactions: Allergies Allergy/AdvReac Type Severity Reaction Status Date / Time Penicillins Allergy Mild Hives Verified 08/23/17 00:05 mushroom Allergy Verified 08/23/17 00:05 shellfish derived Allergy Verified 08/23/17 00:05 rye Allergy Uncoded 08/23/17 00:05 - Home Medications Home Medications: Ambulatory Orders Rivaroxaban [Xarelto -] 20 mg PO DAILY 11/18/13 Atorvastatin Ca [Lipitor] 80 mg PO HS 11/26/13 Folic Acid - 1 mg PO DAILY 11/26/13 Furosemide [Lasix -] 40 mg PO PRN PRN 11/26/13 Methotrexate [Mexate -] 15 mg PO FR 11/26/13 Valsartan [Diovan] 160 mg PO DAILY tablet 04/10/17 Amlodipine Besylate [Norvasc -] 10 mg PO DAILY 08/23/17 Cholecalciferol (Vitamin D3) [Vitamin D3 -] 1,000 unit PO DAILY 08/23/17 Colchicine 0.6 mg PO DAILY 08/23/17 Metoprolol Succinate [Toprol XL -] 100 mg PO DAILY 08/23/17 Montelukast Na [Singulair -] 10 mg PO HS 08/23/17 Nitroglycerin Sublingual [Nitrostat -] 0.4 mg SL ONCE PRN 08/23/17 Sitagliptin Phosphate [Januvia -] 50 mg PO DAILY@0700 08/23/17 Family Disease History - Family Disease History Family Disease History: Other: Father ( 87: unclear cause), Mother ( 65 : pancreatic cancer), Sister (1 : colon ca, 1 , BCA), Son (1 son: healthy), Daughter (2, healthy) Physical Exam Vital Signs: Vital Signs Temperature 98.1 F 08/23/17 08:01 Pulse Rate 63 08/23/17 12:37 Respiratory Rate 18 08/23/17 12:37 Blood Pressure 138/65 08/23/17 12:37 O2 Sat by Pulse Oximetry (%) 99 08/23/17 12:37 Constitutional: Yes: Well Nourished, Mild Distress Eyes: Yes: Conjunctiva Clear HENT: Yes: Atraumatic, Normocephalic Neck: Yes: Supple Cardiovascular: Yes: Regular Rate and Rhythm Respiratory: Yes: Regular, CTA Bilaterally Gastrointestinal: Yes: Normal Bowel Sounds, Soft, Abdomen, Obese. No: Ascites Breast(s): Yes: Other (rt mastectomy) Musculoskeletal: Yes: WNL Edema: No Labs: CBC, BMP 08/23/17 08:12 08/23/17 08:12 Imaging - Results Ultrasound: Report Reviewed Assessment/Plan Pancytopenia: Prior labs reviewed in [facility] 03/2017, CBC wnl h.o CHF, likely congestive etiology, but would need to r/o HSM with US. Will send routine blood work for pancytopenia Sent Flow of peripheral blood and FISH for MDS. Coagulopathy give Vit K Likely congestive +/_ xarelto Hold Xarelto until INR </=2 monitor for bleeding CHF exacerbation? Rx per cardiology d.w pt/daughter.
--- NOTE | 2017-08-23 17:20 | CON.CARD ---
Consult Consult Specialty:: cardiology Reason for Consultation:: shortness of breath - History of Present Illness Chief Complaint: Pt alert and orietned x 3; c/o feeling cold. History of Present Illness: The patient is an 86 year old black female with history of hypertension, hyperlipidemia, CAD ("mild [place]" 03/29--> D1 BMStnet 2006; 07/2013: [place] stents of prox, mid, and istal RCA), diastolic CHF, breast CA s/p R mastectomy, bronchial asthma, DM, HTN, gout, obesity, PAF; renal dysfunction, arthritis, who presents to the ED complaining of shortness of breath that began around 3 PM today. States she took her nebulizer without apparent improvement. She does report she did not take Lasix today. She also reports some bilateral lower extremity edema. No chest pain. No fever or chills. No nausea, vomiting, or diarrhea. PCP: Dr. Aminata Lisa Electrical Manager Dr. Luque - History Source History Provided By: Patient, Medical Record Limitations to Obtaining History: No Limitations - Past Medical History Cardio/Vascular: Yes: AFIB (On xarelto), CAD (describes having cardiac stent), CHF, HTN, Hyperlipdemia, [place] Pulmonary: Yes: Asthma, COPD Renal/: Yes: Renal Inusuff Reproductive: Yes: Postmenopausal ...: No Heme/Onc: Yes: Anemia Psych: Yes: Anxiety. No: Addictions Musculoskeletal: Yes: Chronic low back pain Rheumatology: Yes: Rheumatoid Arthritis Endocrine: Yes: Diabetes Mellitus - Past Surgical History Past Surgical History: Yes: Cholecystectomy (open), Hysterectomy (? No pelvic scar ), Joint Replacement (left TKR), Mastectomy - Alcohol/Substance Use Hx Alcohol Use: No History of Substance Use: reports: None - Smoking History Smoking history: Never smoked Have you smoked in the past 12 months: No Aproximately how many cigarettes per day: 0 If you are a former smoker, when did you quit?: 1986 - Social History Usual Living Arrangement: Other (with family) ADL: Family Assistance Occupation: Retired: worked in a [employer], worked at [employer] History of Recent Travel: No Home Medications - Allergies Allergies/Adverse Reactions: Allergies Allergy/AdvReac Type Severity Reaction Status Date / Time Penicillins Allergy Mild Hives Verified 08/23/17 00:05 mushroom Allergy Verified 08/23/17 00:05 shellfish derived Allergy Verified 08/23/17 00:05 rye Allergy Uncoded 08/23/17 00:05 - Home Medications Home Medications: Ambulatory Orders Rivaroxaban [Xarelto -] 20 mg PO DAILY 11/18/13 Atorvastatin Ca [Lipitor] 80 mg PO HS 11/26/13 Folic Acid - 1 mg PO DAILY 11/26/13 Furosemide [Lasix -] 40 mg PO PRN PRN 11/26/13 Methotrexate [Mexate -] 15 mg PO FR 11/26/13 Valsartan [Diovan] 160 mg PO DAILY tablet 04/10/17 Amlodipine Besylate [Norvasc -] 10 mg PO DAILY 08/23/17 Cholecalciferol (Vitamin D3) [Vitamin D3 -] 1,000 unit PO DAILY 08/23/17 Colchicine 0.6 mg PO DAILY 08/23/17 Metoprolol Succinate [Toprol XL -] 100 mg PO DAILY 08/23/17 Montelukast Na [Singulair -] 10 mg PO HS 08/23/17 Nitroglycerin Sublingual [Nitrostat -] 0.4 mg SL ONCE PRN 08/23/17 Sitagliptin Phosphate [Januvia -] 50 mg PO DAILY@0700 08/23/17 Family Disease History - Family Disease History Family Disease History: Other: Father ( 87: unclear cause), Mother ( 65 : pancreatic cancer), Sister (1 : colon ca, 1 , BCA), Son (1 son: healthy), Daughter (2, healthy) Review of Systems - Review of Systems Constitutional: reports: Weakness Eyes: reports: No Symptoms HENT: reports: No Symptoms Neck: reports: No Symptoms Cardiovascular: reports: Shortness of Breath Respiratory: reports: SOB Genitourinary: reports: No Symptoms Breasts: reports: No Symptoms Reported Musculoskeletal: reports: Muscle Weakness Integumentary: reports: No Symptoms Neurological: reports: Unsteady Gait, Weakness Psychiatric: reports: No Symptoms - Risk Factors Known Risk Factors: Yes: Age, Hypercholesterolemia, Hypertension, Physical Inactivity, Race, Other (diaSTOLIC CHF) Vital Signs: Vital Signs Temperature 98.5 F 08/23/17 16:37 Pulse Rate 22 L 08/23/17 16:37 Respiratory Rate 18 08/23/17 16:56 Blood Pressure 139/70 08/23/17 16:37 O2 Sat by Pulse Oximetry (%) 99 08/23/17 16:56 Constitutional: Yes: Calm Eyes: Yes: WNL HENT: Yes: WNL Neck: Yes: WNL Respiratory: Yes: Regular Gastrointestinal: Yes: Soft Renal/: No: Anuria JVD: No Carotid Bruit: No Heart Sounds: Yes: S1, S2 Murmur: Yes: Systolic Murmur, Grade 2 Musculoskeletal: Yes: Muscle Weakness Extremities: Yes: Cool Edema: No Peripheral Pulses WNL: Yes Integumentary: Yes: WNL Neurological: Yes: Alert, Oriented, Weakness Psychiatric: Yes: Other (anxiety) - Other Data Labs, Other Data: CBC, BMP 08/23/17 08:12 08/23/17 08:12 INR, PTT INR 3.03 (0.82-1.09) H D 08/23/17 02:20 Troponin, BNP 08/23/17 08/23/17 08/23/17 01:17 01:17 08:12 Troponin I < 0.02 < 0.02 B-Natriuretic Peptide 877.45 H 08/23/17 08:12 Troponin I < 0.02 B-Natriuretic Peptide Troponin, BNP 08/23/17 08/23/17 08/23/17 01:17 01:17 08:12 Troponin I < 0.02 < 0.02 B-Natriuretic Peptide 877.45 H 08/23/17 08:12 Troponin I < 0.02 B-Natriuretic Peptide Echo: Image Reviewed (normal LVEF; abnormal diastolic compliance) Ejection Fraction %: LVEF > or = 40 % Imaging - Results Chest X-ray: Image Reviewed (no acute pathology) EKG: Image Reviewed (NSR; LVH; IWMI (noted years ago; though no regional wall motion abnormalities on ECHO).) Problem List - Problems (1) Atypical chest pain Code(s): R07.89 - OTHER CHEST PAIN (2) Pancytopenia Assessment/Plan: INR >[address] Denton, agree with holding NOAC while workup proceeds ( until INR falls below 2.0). Code(s): D61.818 - OTHER PANCYTOPENIA (3) Shortness of breath Assessment/Plan: No JVD. CXR: no acute pathology ELevated BNP. Pland: BP control; F/u Is and Os, BUn/Cr, electrolytes, daily weight. Code(s): R06.02 - SHORTNESS OF BREATH (4) Paroxysmal atrial fibrillation Assessment/Plan: off NOAC due to pancytopenia. If pt has true bronchial asthma, may need to change metoprolol to diltiazem for HR control. Code(s): I48.0 - PAROXYSMAL ATRIAL FIBRILLATION (5) Gout Assessment/Plan: ?on colchicine, despite no acute attack. Consider d/c, and use if pt has exacerbation of gout. Code(s): M10.9 - GOUT, UNSPECIFIED
[2017-08-23] MEDS ORDERED: RIVAROXABAN 15 MG TABLET PO SCH (18:00)
[2017-08-23] MEDS ORDERED: ACETAMINOPHEN 325 MG TABLET (FP) PO ONE (20:33)
[2017-08-23] MEDS: ATORVASTATIN CA 80 MG TABLET (FP) PO SCH (21:13)
[2017-08-23] MEDS: MONTELUKAST NA 10 MG TABLET PO SCH (21:13)
--- NOTE | 2017-08-24 07:57 | PN ---
Progress Note, Physician Chief Complaint: ID Asked to see this 86 y/o female for evaluation of fever post admission. Presented with SOB and LE edema and thought to have exacerbation of COPD. says previous cardiac stent months ago ( "I bled and needed blood transfusions"). She had low grade temp over night. Patient says she has not been feeling herself for weeks and notes diminished appetite at home and complains to her daughter of feeling cold and needing to turn up the heat at home. Denies couph night sweats abd pain diarrhea Was here in Mar for SBO no surgery.has history of RA on Methotrexate and breast CA post mastectomy Complains of vague left anterior chest pain - Current Medication List Current Medications: Active Medications Albuterol/Ipratropium (Duoneb -) 1 amp NEB Q4H PRN PRN Reason: SHORTNESS OF BREATH Amlodipine Besylate (Norvasc -) 10 mg PO DAILY [facility] Last Admin: 08/23/17 10:10 Dose: 10 mg Atorvastatin Calcium (Lipitor -) 80 mg PO [facility] Last Admin: 08/23/17 21:13 Dose: 80 mg Colchicine (Colcrys -) 0.6 mg PO DAILY [facility] Last Admin: 08/23/17 10:09 Dose: 0.6 mg Folic Acid (Folic Acid -) 1 mg PO DAILY [facility] Last Admin: 08/23/17 10:09 Dose: 1 mg Furosemide (Lasix Injection -) 20 mg IVPUSH DAILY [facility] Last Admin: 08/23/17 10:09 Dose: 20 mg Methotrexate (Mexate -) 15 mg PO Fr@1000 [facility] Metoprolol Succinate (Toprol Xl -) 100 mg PO DAILY [facility] Last Admin: 08/23/17 10:10 Dose: 100 mg Montelukast Sodium (Singulair -) 10 mg PO HS [facility] Last Admin: 08/23/17 21:13 Dose: 10 mg Rivaroxaban (Xarelto -) 15 mg PO DAILY@1800 [facility] Valsartan (Diovan -) 160 mg PO DAILY [facility] Last Admin: 08/23/17 10:09 Dose: 160 mg - Objective Vital Signs: Vital Signs Temperature 97.7 F 08/24/17 06:00 Pulse Rate 58 L 08/24/17 06:00 Respiratory Rate 18 08/24/17 06:00 Blood Pressure 120/46 08/24/17 06:00 O2 Sat by Pulse Oximetry (%) 92 L 08/23/17 21:00 Constitutional: Yes: Obese HENT: No: Pharyngeal Erythema, Thrush Neck: No: Lymphadenopathy Cardiovascular: Yes: Regular Rate and Rhythm, S1, S2 Respiratory: Yes: WNL, Regular, CTA Bilaterally Gastrointestinal: Yes: Soft, Abdomen, Obese. No: Tenderness Edema: Yes Labs: CBC, BMP 08/23/17 08:12 08/23/17 08:12 INR, PTT INR 3.03 (0.82-1.09) H D 08/23/17 02:20 Problem List - Problems (1) FUO (fever of unknown origin) Code(s): R50.9 - FEVER, UNSPECIFIED (2) Pancytopenia Code(s): D61.818 - OTHER PANCYTOPENIA Assessment/Plan Laboratory Tests 04/07/17 04/07/17 08/23/17 00:09 03:04 01:17 WBC Hgb Hct Plt Count Neutrophils % Lymphocytes % Monocytes % Eosinophils % Basophils % INR BUN Creatinine Random Glucose AST 38 H 21 ALT 22 D 12 Alkaline Phosphatase 124 H D 131 H Ur Leukocyte Esterase 1+ H Urine WBC (Auto) 9 Urine RBC (Auto) 1 08/23/17 08/23/17 08/23/17 02:20 08:12 08:12 WBC 2.1 L Hgb 10.6 L Hct 31.3 L Plt Count 55 L Neutrophils % 56.7 Lymphocytes % 27.2 Monocytes % 15.1 H Eosinophils % 0.3 Basophils % 0.7 INR 3.03 H D BUN 21 H Creatinine 1.3 H Random Glucose 133 H AST ALT Alkaline Phosphatase Ur Leukocyte Esterase Urine WBC (Auto) Urine RBC (Auto) Assessment Low grade fever with pancytopenia possible viral illness considered. Does not appear toxic. I doubt myeloproliferative as her CBC was normal in March. She states she may have had blood transfusions in recent past ? verified. No travel and no exposure to persons known illness. Has RA on MTX 1. Blood and urine cultures 2. ESR CRP FARTUN LATEX 3. Viral markers for CMV EBV TOXO 4. ? Transfusion related illness ( needs to be verified with Dr Lisa ) 5. No antibiotics Migdalia CASTELLANOS
[2017-08-24 09:01] LABS: INR 1.87 (0.82-1.09); PROTHROMBIN TIME (PATIENT) 21.1 SEC (9.98-11.88)
[2017-08-24 09:03] LABS: URINE APPEARANCE CLEAR; URINE BILIRUBIN NEGATIVE (<2.0 mg/dL); URINE BLOOD NEGATIVE (NEGATIVE); URINE COLOR YELLOW; URINE GLUCOSE (UA) NEGATIVE (NEGATIVE); URINE KETONE NEGATIVE (NEGATIVE); URINE LEUK ESTERASE NEGATIVE (NEGATIVE); URINE NITRITE NEGATIVE (NEGATIVE); URINE UROBILINOGEN NEGATIVE mg/dL (0.2-1.0)
[2017-08-24 09:04] LABS: URINE PROTEIN 1+ (NEGATIVE)
[2017-08-24 09:04] LABS: ACTIVATED PTT 37.1 SECONDS (26.9-34.4)
[2017-08-24 09:05] LABS: EPI CELLS RARE /HPF (FEW); URINE MUCUS RARE
[2017-08-24] MEDS: FOLIC ACID 1 MG TABLET (FP) PO SCH (09:20)
[2017-08-24] MEDS: amLODIPine BESYLATE 10 MG TABLET (FP) PO SCH (09:20)
[2017-08-24] MEDS: FUROSEMIDE 40 MG/4 ML INJECTABLE VIAL IVPUSH SCH (09:20)
[2017-08-24] MEDS: COLCHICINE 0.6 MG TABLET (FP) PO SCH (09:20)
[2017-08-24] MEDS: VALSARTAN 160 MG TABLET (UD) PO SCH (09:20)
--- NOTE | 2017-08-24 10:10 | CONS ---
DATE OF CONSULTATION: 08/24/2017 HISTORY OF PRESENT ILLNESS: This is an 86-year-old -[place]ish female originally from [place] who I am asked to see for evaluation of low grade temperature. The patient was originally admitted yesterday complaining of shortness of breath, worsening lower extremity edema, and atypical left anterior chest pain moving in and around her left shoulder. She has a history of multiple comorbidities including hypertension, hyperlipidemia, coronary artery disease, diastolic congestive heart failure, breast cancer status post right mastectomy, atrial fibrillation, asthma, and COPD. She also has rheumatoid arthritis and diabetes and takes methotrexate. She was here in March of 2017, apparently an admission for which she was managed conservatively for small bowel obstruction. Though she is vague on some of the details, she also says that within the last few months, she may have been admitted to another hospital for placement of a coronary stent during which she say she bled necessitating blood transfusion. I read the cardiology note, and it is unclear as to whether or not this has actually been documented previously. Here, she was treated with Lasix and following admission was noted to be febrile low grade to 100.5 associated with pancytopenia on her admitting CBC. The patient states that over the last several weeks, she has not felt herself. This has been characterized by what she described as a feeling of generalized weakness associated with loss of appetite and a sensation of chills that she describes stating that she frequently asks her daughter to turn the heat up at home. She denies any abdominal pain, change in bowel habits, and her CBC in March [address] [facility] was normal. She has seen Dr. Lowery for evaluation of pancytopenia yesterday. PAST MEDICAL HISTORY: As noted above. MEDICATIONS: Xarelto, Lipitor, Lasix, methotrexate, Diovan, amlodipine, colchicine, metoprolol, Singulair, nitroglycerin, Januvia. ALLERGIES: To PENICILLIN, reportedly with hives. FAMILY HISTORY: Noncontributory. SOCIAL HISTORY: Smoked, but quit many years ago. Originally from [place] transplanted to [place] for 25 years before coming to [place]. No alcohol use. REVIEW OF SYSTEMS: Respiratory: Shortness of breath as noted on admission. No cough, sputum production. Cardiac: Currently no chest pain, palpitations, syncope. Gastrointestinal: No abdominal pain. Positive recent loss of appetite. ? weight loss. No change in bowel habits. Genitourinary: No dysuria, hematuria, or urinary frequency. PHYSICAL EXAMINATION: General: Revealed a heavy-set woman weighing 270 pounds, alert and in no acute distress. Vital signs: The temperature was 100.8 maximum temperature, currently afebrile, pulse 58, blood pressure 120/46, respirations 18. HEENT: Sclerae anicteric. Pharynx benign without exudate or thrush. Neck: Supple, without adenopathy. Lungs: Few rales noted. Heart: S1, S2, irregular, without murmur. Abdomen: Soft, nontender, without organomegaly. Extremities: At 2+ pitting edema of the lower legs. LABORATORY DATA: The white count 2.1, hemoglobin 10.6, platelets 55,000 with 57% neutrophils, 27% lymphocytes, 15 monocytes. BUN 22, creatinine 1.3, alkaline phosphatase 131. Urinalysis with 9 WBCs, 1 RBC. Sonogram of the liver shows possible fatty liver. ASSESSMENT: An 86-year-old female presents with exacerbation of congestive heart failure, noted to have diminished appetite at home with intermittent chills, presents now with fever to almost 101 in the absence of findings to suggest sepsis. No obvious source of infection. Pancytopenia. May represent a viral illness. The history of rheumatoid arthritis on methotrexate is considered and collagen vascular disease, of course, always in the differential diagnosis of patients with pancytopenia and fever. Lastly, we need to explore the history of possible blood transfusion as to whether or not, in fact, she did receive a blood transfusion which might have been a factor in transmission of blood borne illness causing fever and pancytopenia including cytomegalovirus as well as other pathogens. For now, blood and urine cultures, would observe off antibiotics as she does not appear acutely ill, would get an ESR, CRP, FARTUN, and latex, viral markers for CMB, EBV, and toxoplasmosis, no antibiotics at the current time. Dr. Lisa was contacted regarding obtaining further information about her history of coronary stent and blood transfusion. KINGA SANTOS M.D. ASHLEY/[id number]
[2017-08-24 10:25] LABS: HEMATOCRIT 30.8 % (32.4-45.2); HEMOGLOBIN 10.4 GM/dL (10.7-15.3); MCH 31.1 pg (25.7-33.7); MCHC 33.8 g/dl (32.0-36.0); MEAN CELL VOLUME 92.1 fl (80-96); PLATELET COUNT 44 K/MM3 (134-434); RBC 3.34 M/mm3 (3.60-5.2); RDW 16.9 % (11.6-15.6)
--- NOTE | 2017-08-24 10:34 | PN ---
Progress Note, Physician Chief Complaint: Events noted Pt admitted for CHF decompensation, coagulopathy today she feels tired no chest pain No worsening SOB - Current Medication List Current Medications: Active Medications Albuterol/Ipratropium (Duoneb -) 1 amp NEB Q4H PRN PRN Reason: SHORTNESS OF BREATH Amlodipine Besylate (Norvasc -) 10 mg PO DAILY [facility] Last Admin: 08/24/17 09:20 Dose: 10 mg Atorvastatin Calcium (Lipitor -) 80 mg PO HS [facility] Last Admin: 08/23/17 21:13 Dose: 80 mg Colchicine (Colcrys -) 0.6 mg PO DAILY [facility] Last Admin: 08/24/17 09:20 Dose: 0.6 mg Folic Acid (Folic Acid -) 1 mg PO DAILY [facility] Last Admin: 08/24/17 09:20 Dose: 1 mg Furosemide (Lasix Injection -) 20 mg IVPUSH DAILY [facility] Last Admin: 08/24/17 09:20 Dose: 20 mg Methotrexate (Mexate -) 15 mg PO Fr@1000 [facility] Metoprolol Succinate (Toprol Xl -) 100 mg PO DAILY [facility] Last Admin: 08/24/17 09:20 Dose: 100 mg Montelukast Sodium (Singulair -) 10 mg PO HS [facility] Last Admin: 08/23/17 21:13 Dose: 10 mg Rivaroxaban (Xarelto -) 15 mg PO DAILY@1800 [facility] Valsartan (Diovan -) 160 mg PO DAILY [facility] Last Admin: 08/24/17 09:20 Dose: 160 mg - Objective Vital Signs: Vital Signs Temperature 97.7 F 08/24/17 09:56 Pulse Rate 70 08/24/17 09:56 Respiratory Rate 18 08/24/17 09:56 Blood Pressure 118/60 08/24/17 09:56 O2 Sat by Pulse Oximetry (%) 92 L 08/23/17 21:00 Cardiovascular: Yes: Regular Rate and Rhythm Respiratory: Yes: Diminished Gastrointestinal: Yes: Normal Bowel Sounds, Soft. No: Tenderness Edema: Yes Labs: CBC, BMP 08/24/17 07:04 08/23/17 08:12 INR, PTT INR 1.87 (0.82-1.09) H D 08/24/17 07:04 Fibrinogen 613.0 mg/dL (238-498) H 08/24/17 07:04 Problem List - Problems (1) Pancytopenia Code(s): D61.818 - OTHER PANCYTOPENIA (2) Congestive heart disease Code(s): I50.9 - HEART FAILURE, UNSPECIFIED (3) HTN (hypertension) Code(s): I10 - ESSENTIAL (PRIMARY) HYPERTENSION Qualifiers: Hypertension type: essential hypertension Qualified Code(s): I10 - Essential (primary) hypertension (4) Paroxysmal atrial fibrillation Code(s): I48.0 - PAROXYSMAL ATRIAL FIBRILLATION (5) Rheumatoid arthritis Code(s): M06.9 - RHEUMATOID ARTHRITIS, UNSPECIFIED Assessment/Plan PLAN Worsening pancytopenia Possibly related to methotrexate cultures pending Not on antibiotics Rheumatology eval with regards to stopping Methotrexate IV lasix Check daily weights
--- NOTE | 2017-08-24 11:53 | PN ---
Progress Note, Physician History of Present Illness: The patient is an 86 year old black female with history of hypertension, hyperlipidemia, CAD ("mild [place]" 03/29--> D1 BMStnet 2006; 07/2013: [place] stents of prox, mid, and istal RCA), diastolic CHF, breast CA s/p R mastectomy, bronchial asthma, DM, HTN, gout, obesity, PAF; renal dysfunction, arthritis, who presents to the ED complaining of shortness of breath that began around 3 PM today. States she took her nebulizer without apparent improvement. She does report she did not take Lasix today. She also reports some bilateral lower extremity edema. No chest pain. No fever or chills. No nausea, vomiting, or diarrhea. PCP: Dr. Aminata Lisa Manager Area Dr. Luque - Current Medication List Current Medications: Active Medications Albuterol/Ipratropium (Duoneb -) 1 amp NEB Q4H PRN PRN Reason: SHORTNESS OF BREATH Amlodipine Besylate (Norvasc -) 10 mg PO DAILY [facility] Last Admin: 08/24/17 09:20 Dose: 10 mg Atorvastatin Calcium (Lipitor -) 80 mg PO HS [facility] Last Admin: 08/23/17 21:13 Dose: 80 mg Colchicine (Colcrys -) 0.6 mg PO DAILY [facility] Last Admin: 08/24/17 09:20 Dose: 0.6 mg Folic Acid (Folic Acid -) 1 mg PO DAILY [facility] Last Admin: 08/24/17 09:20 Dose: 1 mg Furosemide (Lasix Injection -) 20 mg IVPUSH DAILY [facility] Last Admin: 08/24/17 09:20 Dose: 20 mg Methotrexate (Mexate -) 15 mg PO Fr@1000 [facility] Metoprolol Succinate (Toprol Xl -) 100 mg PO DAILY [facility] Last Admin: 08/24/17 09:20 Dose: 100 mg Montelukast Sodium (Singulair -) 10 mg PO HS [facility] Last Admin: 08/23/17 21:13 Dose: 10 mg Rivaroxaban (Xarelto -) 15 mg PO DAILY@1800 [facility] Valsartan (Diovan -) 160 mg PO DAILY [facility] Last Admin: 08/24/17 09:20 Dose: 160 mg - Objective Vital Signs: Vital Signs Temperature 97.7 F 08/24/17 09:56 Pulse Rate 70 08/24/17 09:56 Respiratory Rate 18 08/24/17 09:56 Blood Pressure 118/60 08/24/17 09:56 O2 Sat by Pulse Oximetry (%) 98 08/24/17 09:00 Eyes: Yes: WNL, Conjunctiva Clear, EOM Intact HENT: Yes: WNL, Atraumatic, Normocephalic Neck: Yes: WNL, Supple, Trachea Midline Cardiovascular: Yes: WNL, Regular Rate and Rhythm Respiratory: Yes: WNL, Regular, CTA Bilaterally Gastrointestinal: Yes: WNL, Normal Bowel Sounds Genitourinary: Yes: WNL Musculoskeletal: Yes: WNL Extremities: Yes: WNL Edema: No Integumentary: Yes: WNL Neurological: Yes: WNL, Alert, Oriented ...Motor Strength: WNL Psychiatric: Yes: WNL Labs: CBC, BMP 08/24/17 07:04 08/23/17 08:12 INR, PTT INR 1.87 (0.82-1.09) H D 08/24/17 07:04 Fibrinogen 613.0 mg/dL (238-498) H 08/24/17 07:04 Assessment/Plan - Problems (1) Atypical chest pain Code(s): R07.89 - OTHER CHEST PAIN (2) Pancytopenia Assessment/Plan: INR >[address] Denton, agree with holding NOAC while workup proceeds ( until INR falls below 2.0). Code(s): D61.818 - OTHER PANCYTOPENIA (3) Shortness of breath Assessment/Plan: No JVD. CXR: no acute pathology Code(s): R06.02 - SHORTNESS OF BREATH (4) Paroxysmal atrial fibrillation Assessment/Plan: offe NOAC due to pancytopenia. If pt has true bronchial asthma, may need to change metoprolol to diltiazem for HR control. Code(s): I48.0 - PAROXYSMAL ATRIAL FIBRILLATION
[2017-08-24 12:08] LABS: ANISOCYTOSIS 1+; MACROCYTOSIS 1+
[2017-08-24 12:09] LABS: PLATELET ESTIMATE DECREASED
[2017-08-24] MEDS ORDERED: ACETAMINOPHEN 325 MG TABLET (FP) ONE (14:23)
--- NOTE | 2017-08-24 15:36 | PN ---
Progress Note, Physician History of Present Illness: Heme/Onc Progress Note Pt c/o chronic lower back pain. No acute events overnight otherwise. - Current Medication List Current Medications: Active Medications Acetaminophen (Tylenol -) 650 mg PO Q6H PRN PRN Reason: PAIN/FEVER Albuterol/Ipratropium (Duoneb -) 1 amp NEB Q4H PRN PRN Reason: SHORTNESS OF BREATH Amlodipine Besylate (Norvasc -) 10 mg PO DAILY [facility] Last Admin: 08/24/17 09:20 Dose: 10 mg Atorvastatin Calcium (Lipitor -) 80 mg PO HS [facility] Last Admin: 08/23/17 21:13 Dose: 80 mg Colchicine (Colcrys -) 0.6 mg PO DAILY [facility] Last Admin: 08/24/17 09:20 Dose: 0.6 mg Folic Acid (Folic Acid -) 1 mg PO DAILY [facility] Last Admin: 08/24/17 09:20 Dose: 1 mg Furosemide (Lasix Injection -) 20 mg IVPUSH DAILY [facility] Last Admin: 08/24/17 09:20 Dose: 20 mg Methotrexate (Mexate -) 15 mg PO Fr@1000 [facility] Metoprolol Succinate (Toprol Xl -) 100 mg PO DAILY [facility] Last Admin: 08/24/17 09:20 Dose: 100 mg Montelukast Sodium (Singulair -) 10 mg PO HS [facility] Last Admin: 08/23/17 21:13 Dose: 10 mg Rivaroxaban (Xarelto -) 15 mg PO DAILY@1800 [facility] Valsartan (Diovan -) 160 mg PO DAILY [facility] Last Admin: 08/24/17 09:20 Dose: 160 mg - Objective Vital Signs: Vital Signs Temperature 98 F 08/24/17 14:25 Pulse Rate 69 08/24/17 14:25 Respiratory Rate 18 08/24/17 14:25 Blood Pressure 142/78 08/24/17 14:25 O2 Sat by Pulse Oximetry (%) 98 08/24/17 09:00 Constitutional: Yes: No Distress, Calm Eyes: Yes: Conjunctiva Clear HENT: Yes: Atraumatic, Normocephalic Neck: Yes: Supple, Trachea Midline Cardiovascular: Yes: Regular Rate and Rhythm Respiratory: Yes: Diminished Gastrointestinal: Yes: Normal Bowel Sounds, Soft. No: Tenderness Breast(s): Yes: Other (R breast mastectomy) Musculoskeletal: Yes: Back Pain Edema: Yes Edema: RUE: 2+, LLE: 2+, RLE: 2+ Peripheral Pulses WNL: Yes Neurological: Yes: Alert, Oriented, Cran Nerves II-XII Intact Labs: CBC, BMP 08/24/17 07:04 08/23/17 08:12 INR, PTT INR 1.87 (0.82-1.09) H D 08/24/17 07:04 Fibrinogen 613.0 mg/dL (238-498) H 08/24/17 07:04 Impression/Plan Impression/Plan: 86 F h/o CAD s/p stents, CHF, breast Ca s/p mastectomy admitted for CHF Exacerbation and found to have pancytopenia. # Pancytopenia # CHF exacerbation - likely cogestive, coaug normalizing, may resume xarelto - awaiting flow cytometry result - CHF management per primary team Visit type - Emergency Visit Emergency Visit: No - Critical Care Critical Care patient: No - Discharge Referral Referred to [facility] No
--- NOTE | 2017-08-24 18:23 | PN ---
Progress Note (short form) - Note Progress Note: pt seen and examined. feels well today. CBC reviewed. O/E: Constitutional: Yes: Well Nourished, Mild Distress Eyes: Yes: Conjunctiva Clear HENT: Yes: Atraumatic, Normocephalic Neck: Yes: Supple Cardiovascular: Yes: Regular Rate and Rhythm Respiratory: Yes: Regular, CTA Bilaterally Gastrointestinal: Yes: Normal Bowel Sounds, Soft, Abdomen, Obese. No: Ascites Breast(s): Yes: Other (rt mastectomy) Musculoskeletal: Yes: WNL Edema: No Last Vital Signs Temp Pulse Resp BP Pulse Ox 98.2 F 65 20 122/57 98 08/24/17 17:00 08/24/17 17:00 08/24/17 17:00 08/24/17 17:00 08/24/17 09:00 CBC, BMP 08/24/17 07:04 08/23/17 08:12 Current Medications Generic Name Dose Route Start Last Admin Trade Name Freq PRN Reason Stop Dose Admin Acetaminophen 650 mg 08/24/17 15:15 Tylenol - PO Q6H PRN PAIN/FEVER Albuterol/Ipratropium 1 amp 08/23/17 06:26 Duoneb - NEB Q4H PRN SHORTNESS OF BREATH Amlodipine Besylate 10 mg 08/23/17 10:00 08/24/17 09:20 Norvasc - PO 10 mg DAILY EL Administration Atorvastatin Calcium 80 mg 08/23/17 22:00 08/23/17 21:13 Lipitor - PO 80 mg HS EL Administration Colchicine 0.6 mg 08/23/17 10:00 08/24/17 09:20 Colcrys - PO 0.6 mg DAILY EL Administration Folic Acid 1 mg 08/23/17 10:00 08/24/17 09:20 Folic Acid - PO 1 mg DAILY EL Administration Furosemide 20 mg 08/23/17 10:00 08/24/17 09:20 Lasix Injection - IVPUSH 20 mg DAILY EL Administration Methotrexate 15 mg 08/26/17 10:00 Mexate - PO Fr@1000 EL Metoprolol Succinate 100 mg 08/23/17 10:00 08/24/17 09:20 Toprol Xl - PO 100 mg DAILY EL Administration Montelukast Sodium 10 mg 08/23/17 22:00 08/23/17 21:13 Singulair - PO 10 mg HS EL Administration Rivaroxaban 15 mg 08/23/17 18:00 Xarelto - PO DAILY@1800 EL Valsartan 160 mg 08/23/17 10:00 08/24/17 09:20 Diovan - PO 160 mg DAILY EL Administration Pancytopenia: Prior labs reviewed in [facility] 03/2017, CBC wnl f/u Flow of peripheral blood and FISH for MDS. ?MTX causing. 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 low retic count noted Coagulopathy resolving monitor for bleeding CHF exacerbation Rx per cardiology d.w pt/daughter.
[2017-08-24] MEDS: ATORVASTATIN CA 80 MG TABLET (FP) PO SCH (23:21)
[2017-08-24] MEDS: MONTELUKAST NA 10 MG TABLET PO SCH (23:21)
[2017-08-25] MEDS: ACETAMINOPHEN 325 MG TABLET (FP) PO PRN ×2 (04:14→18:00)
[2017-08-25 07:19] LABS: HEMATOCRIT 28.3 % (32.4-45.2); HEMOGLOBIN 9.6 GM/dL (10.7-15.3); MCHC 33.8 g/dl (32.0-36.0); MEAN CELL VOLUME 91.8 fl (80-96); MEAN PLT VOLUME 9.7 fl (7.5-11.1); PLATELET COUNT 42 K/MM3 (134-434); RBC 3.09 M/mm3 (3.60-5.2); RDW 16.9 % (11.6-15.6)
[2017-08-25 07:30] LABS: WHITE BLOOD COUNT 1.8 K/mm3 (4.0-10.0)
[2017-08-25 07:52] LABS: CHLORIDE 99 mmol/L (98-107); POTASSIUM 3.5 mmol/L (3.5-5.1); SODIUM 140 mmol/L (136-145)
[2017-08-25 08:00] LABS: ANION GAP 10 (8-16); BLOOD UREA NITROGEN 23 mg/dL (7-18); CALCIUM 7.9 mg/dL (8.5-10.1); CO2 31 mmol/L (21-32); CREATININE 1.3 mg/dL (0.55-1.02); GLUCOSE,RANDOM 102 mg/dL (74-106)
[2017-08-25 08:09] LABS: SERUM IRON SATURATION 33 % (15-55); TOTAL IRON BINDING CAPACITY 171 ug/dL (250-450); UIBC 114 ug/dL (118-369)
[2017-08-25] MEDS: VALSARTAN 160 MG TABLET (UD) PO SCH (09:16)
[2017-08-25] MEDS: COLCHICINE 0.6 MG TABLET (FP) PO SCH (09:17)
[2017-08-25] MEDS: amLODIPine BESYLATE 10 MG TABLET (FP) PO SCH (09:18)
[2017-08-25] MEDS: FUROSEMIDE 40 MG/4 ML INJECTABLE VIAL IVPUSH SCH (09:18)
[2017-08-25] MEDS: FOLIC ACID 1 MG TABLET (FP) PO SCH (09:18)
[2017-08-25 10:07] LABS: ACANTHOCYTES 0; ANISOCYTOSIS 0; HELMET CELLS 0; HOWELL-JOLLY BODIES 0; MACROCYTOSIS 0; OVALOCYTE 0; PLATELET ESTIMATE DECREASED; ROULEAU 0; SICKELED CELLS 0; TARGET CELLS 0; TEAR DROP CELLS 0; TOXIC GRANULATION 0
--- NOTE | 2017-08-25 10:36 | PN ---
Progress Note (short form) - Note Progress Note: pt seen and examined. continues to feel well. CBC worsened. O/E: Constitutional: Yes: Well Nourished, Mild Distress Eyes: Yes: Conjunctiva Clear HENT: Yes: Atraumatic, Normocephalic Neck: Yes: Supple Cardiovascular: Yes: Regular Rate and Rhythm Respiratory: Yes: Regular, CTA Bilaterally Gastrointestinal: Yes: Normal Bowel Sounds, Soft, Abdomen, Obese. No: Ascites Breast(s): Yes: Other (rt mastectomy) Musculoskeletal: Yes: WNL Edema: No Last Vital Signs Temp Pulse Resp BP Pulse Ox 98.2 F 63 18 119/68 93 L 08/25/17 15:49 08/25/17 15:49 08/25/17 15:49 08/25/17 15:49 08/25/17 09:00 CBC, BMP 08/25/17 05:35 08/25/17 05:35 Current Medications Generic Name Dose Route Start Last Admin Trade Name Freq PRN Reason Stop Dose Admin Acetaminophen 650 mg 08/24/17 15:15 08/25/17 04:14 Tylenol - PO 650 mg Q6H PRN Administration PAIN/FEVER Albuterol/Ipratropium 1 amp 08/23/17 06:26 Duoneb - NEB Q4H PRN SHORTNESS OF BREATH Amlodipine Besylate 5 mg 08/26/17 10:00 Norvasc - PO DAILY EL Atorvastatin Calcium 80 mg 08/23/17 22:00 08/24/17 23:21 Lipitor - PO 80 mg HS EL Administration Folic Acid 1 mg 08/23/17 10:00 08/25/17 09:18 Folic Acid - PO 1 mg DAILY EL Administration Furosemide 20 mg 08/23/17 10:00 08/25/17 09:18 Lasix Injection - IVPUSH 20 mg DAILY EL Administration Metoprolol Succinate 100 mg 08/23/17 10:00 08/25/17 09:19 Toprol Xl - PO 100 mg DAILY EL Administration Montelukast Sodium 10 mg 08/23/17 22:00 08/24/17 23:21 Singulair - PO 10 mg HS EL Administration Rivaroxaban 15 mg 08/23/17 18:00 Xarelto - PO DAILY@1800 EL Valsartan 160 mg 08/23/17 10:00 08/25/17 09:16 Diovan - PO 160 mg DAILY EL Administration Pancytopenia: Prior labs reviewed in [facility] 03/2017, CBC wnl f/u Flow of peripheral blood and FISH for MDS. d/w path, still waiting consider d/c colchicine/MTX low retic count noted likely MDS platelets <50K, will hold xarelto
--- NOTE | 2017-08-25 12:11 | PN ---
Progress Note, Physician Chief Complaint: Pt admitted for CHF decompensation, coagulopathy today she feels better no chest pain No worsening SOB daughter at bedside - Current Medication List Current Medications: Active Medications Acetaminophen (Tylenol -) 650 mg PO Q6H PRN PRN Reason: PAIN/FEVER Last Admin: 08/25/17 04:14 Dose: 650 mg Albuterol/Ipratropium (Duoneb -) 1 amp NEB Q4H PRN PRN Reason: SHORTNESS OF BREATH Amlodipine Besylate (Norvasc -) 10 mg PO DAILY [facility] Last Admin: 08/25/17 09:18 Dose: 10 mg Atorvastatin Calcium (Lipitor -) 80 mg PO [facility] Last Admin: 08/24/17 23:21 Dose: 80 mg Colchicine (Colcrys -) 0.6 mg PO DAILY [facility] Last Admin: 08/25/17 09:17 Dose: 0.6 mg Folic Acid (Folic Acid -) 1 mg PO DAILY [facility] Last Admin: 08/25/17 09:18 Dose: 1 mg Furosemide (Lasix Injection -) 20 mg IVPUSH DAILY [facility] Last Admin: 08/25/17 09:18 Dose: 20 mg Methotrexate (Mexate -) 15 mg PO Fr@1000 [facility] Metoprolol Succinate (Toprol Xl -) 100 mg PO DAILY [facility] Last Admin: 08/25/17 09:19 Dose: 100 mg Montelukast Sodium (Singulair -) 10 mg PO [facility] Last Admin: 08/24/17 23:21 Dose: 10 mg Rivaroxaban (Xarelto -) 15 mg PO DAILY@1800 [facility] Valsartan (Diovan -) 160 mg PO DAILY [facility] Last Admin: 08/25/17 09:16 Dose: 160 mg - Objective Vital Signs: Vital Signs Temperature 98.3 F 08/25/17 08:02 Pulse Rate 60 08/25/17 08:02 Respiratory Rate 16 08/25/17 09:00 Blood Pressure 111/51 08/25/17 08:02 O2 Sat by Pulse Oximetry (%) 93 L 08/25/17 09:00 Constitutional: Yes: No Distress Cardiovascular: Yes: Regular Rate and Rhythm Respiratory: Yes: Diminished Gastrointestinal: Yes: Normal Bowel Sounds, Soft. No: Tenderness Edema: Yes (decreased) Edema: LLE: 1+, RLE: 1+ Labs: CBC, BMP 08/25/17 05:35 08/25/17 05:35 INR, PTT INR 1.87 (0.82-1.09) H D 08/24/17 07:04 Fibrinogen 613.0 mg/dL (238-498) H 08/24/17 07:04 Problem List - Problems (1) Pancytopenia Code(s): D61.818 - OTHER PANCYTOPENIA (2) Congestive heart disease Code(s): I50.9 - HEART FAILURE, UNSPECIFIED (3) HTN (hypertension) Code(s): I10 - ESSENTIAL (PRIMARY) HYPERTENSION Qualifiers: Hypertension type: essential hypertension Qualified Code(s): I10 - Essential (primary) hypertension (4) Paroxysmal atrial fibrillation Code(s): I48.0 - PAROXYSMAL ATRIAL FIBRILLATION (5) Rheumatoid arthritis Code(s): M06.9 - RHEUMATOID ARTHRITIS, UNSPECIFIED Assessment/Plan PLAN Worsening pancytopenia Possibly related to methotrexate , dc MTX and Colchicine spoke with Dr Denton, awaiting flow and FISH results blood cultures negative Not on antibiotics Rheumatology eval with regards to stopping Methotrexate- Dr Brannon will be available next week IV lasix Check daily weights
--- NOTE | 2017-08-25 15:46 | PN ---
Progress Note, Physician Chief Complaint: Pt, with daughter at bedside, is presently asymptomatic. History of Present Illness: The patient is an 86 year old black female with history of hypertension, hyperlipidemia, CAD ("mild [place]" 03/29--> D1 BMStnet 2006; 07/2013: [place] stents of prox, mid, and istal RCA), diastolic CHF, breast CA s/p R mastectomy, bronchial asthma, DM, HTN, gout, obesity, PAF; renal dysfunction, arthritis, who presents to the ED complaining of shortness of breath that began around 3 PM today. States she took her nebulizer without apparent improvement. She does report she did not take Lasix today. She also reports some bilateral lower extremity edema. No chest pain. No fever or chills. No nausea, vomiting, or diarrhea. PCP: Dr. Aminata Lisa [employer] T[employer] T[employer] Machine Operator Dr. Luque - Current Medication List Current Medications: Active Medications Acetaminophen (Tylenol -) 650 mg PO Q6H PRN PRN Reason: PAIN/FEVER Last Admin: 08/25/17 04:14 Dose: 650 mg Albuterol/Ipratropium (Duoneb -) 1 amp NEB Q4H PRN PRN Reason: SHORTNESS OF BREATH Amlodipine Besylate (Norvasc -) 10 mg PO DAILY [facility] Last Admin: 08/25/17 09:18 Dose: 10 mg Atorvastatin Calcium (Lipitor -) 80 mg PO HS [facility] Last Admin: 08/24/17 23:21 Dose: 80 mg Folic Acid (Folic Acid -) 1 mg PO DAILY [facility] Last Admin: 08/25/17 09:18 Dose: 1 mg Furosemide (Lasix Injection -) 20 mg IVPUSH DAILY [facility] Last Admin: 08/25/17 09:18 Dose: 20 mg Metoprolol Succinate (Toprol Xl -) 100 mg PO DAILY [facility] Last Admin: 08/25/17 09:19 Dose: 100 mg Montelukast Sodium (Singulair -) 10 mg PO HS [facility] Last Admin: 08/24/17 23:21 Dose: 10 mg Rivaroxaban (Xarelto -) 15 mg PO DAILY@1800 EL Valsartan (Diovan -) 160 mg PO DAILY [facility] Last Admin: 08/25/17 09:16 Dose: 160 mg - Objective Vital Signs: Vital Signs Temperature 98.3 F 08/25/17 08:02 Pulse Rate 60 08/25/17 08:02 Respiratory Rate 16 08/25/17 09:00 Blood Pressure 111/51 08/25/17 08:02 O2 Sat by Pulse Oximetry (%) 93 L 08/25/17 09:00 Constitutional: Yes: Calm Eyes: Yes: WNL HENT: Yes: WNL Neck: Yes: WNL Cardiovascular: Yes: S1 (varies in intensity), S2 Labs: CBC, BMP 08/25/17 05:35 08/25/17 05:35 INR, PTT INR 1.87 (0.82-1.09) H D 08/24/17 07:04 Fibrinogen 613.0 mg/dL (238-498) H 08/24/17 07:04 Problem List - Problems (1) Atypical chest pain Code(s): R07.89 - OTHER CHEST PAIN (2) Pancytopenia Assessment/Plan: INR >[address] Denton, agree with holding NOAC while workup proceeds ( until INR falls below 2.0). Code(s): D61.818 - OTHER PANCYTOPENIA (3) Shortness of breath Assessment/Plan: No JVD. CXR: no acute pathology ELevated BNP. Pland: BP control; F/u Is and Os, BUn/Cr, electrolytes, daily weight. Code(s): R06.02 - SHORTNESS OF BREATH (4) Paroxysmal atrial fibrillation Assessment/Plan: off NOAC due to pancytopenia. Occasional AF with rapid ventricular response. Will decrease amlodi;pine, with intention of increasing AV conduction teresa ( presently metoprolol) if HR has frequent rapidity. If pt has true bronchial asthma, may need to change metoprolol to diltiazem for HR control. (Pt's daughter had been restricting greens in her mother's diet, but was told she can restart them, since pt is no longer on warfarin). Code(s): I48.0 - PAROXYSMAL ATRIAL FIBRILLATION (5) Gout Assessment/Plan: ?on colchicine, despite no acute attack. Consider d/c, and use if pt has exacerbation of gout. Code(s): M10.9 - GOUT, UNSPECIFIED
--- NOTE | 2017-08-25 16:46 | PATH ---
Surgical Pathology Report Patient Name: SHARON DELONG Med. Rec. #: [id number] /Age/Gender: 1930 (Age: 86) / F Account: [id number] Location: 4 W TELEMETRY U Taken: 08/24/2017 Received: 08/24/2017 Reported: 08/25/2017 Physicians: Ema Lowery M.D. Specimen(s) Received PERIPHERAL BLOOD Clinical History Pancytopenia Final Diagnosis PERIPHERAL BLOOD: FLOW CYTOMETRY performed and interpreted at [facility], [place], [place] ([id number]) shows the following: INTERPRETATION: GRANULOCYTOPENIA WITH NO DISCRETE ATYPICAL IMMUNOPHENOTYPIC FINDINGS SEEN Phenotype: Granulocytes are proportionally decreased but exhibit immunophenotypic evidence of full maturation with no detectable aberrant marker expression. Blasts are not detected. Lymphocytes are proportionally increased and include polyclonal B cells, NK cells and immunophenotypically normal CD4+ and CD8+ T cells. No evidence of a clonal lymphoid expansion. Monocytes show decreased expression of HLA-DR, a nonspecific finding. FISH tests are pending, and a report will follow. Electronically Signed Bello Cervantes M.D. Addendum Reported: 08/26/2017 Addendum Diagnosis Hematologic FISH Report performed and interpreted at [facility] in [place], [place] ([id number]) shows the following. 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 No evidence of a rearrangement of 11q23. No evidence of deletion 20q12 is present. No evidence of trisomy 8 (+8) is present. 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 Bello Cervantes M.D. Gross Description Received are 2 green top tubes of peripheral blood which are sent to [facility]. DL/08/24/2017 saudi/08/24/2017
[2017-08-25] MEDS: ALBUTEROL SO4 2.5/IPRATROPIUM 0.5 INH SOL 3 ML VIAL.NEB. NEB PRN (16:55)
[2017-08-25] MEDS: ATORVASTATIN CA 80 MG TABLET (FP) PO SCH (21:16)
[2017-08-25] MEDS: MONTELUKAST NA 10 MG TABLET PO SCH (21:16)
[2017-08-26 00:07] LABS: HBSAG SCREEN Negative (Negative); HEP A AB, IGM Negative (Negative); HEP B CORE AB, TOT Negative (Negative)
[2017-08-26 06:58] LABS: HEMATOCRIT 27.9 % (32.4-45.2); HEMOGLOBIN 9.5 GM/dL (10.7-15.3); MCH 31.5 pg (25.7-33.7); MEAN CELL VOLUME 92.6 fl (80-96); MEAN PLT VOLUME 9.8 fl (7.5-11.1); PLATELET COUNT 45 K/MM3 (134-434); RBC 3.02 M/mm3 (3.60-5.2); RDW 16.6 % (11.6-15.6)
[2017-08-26 07:01] LABS: INR 1.24 (0.82-1.09)
[2017-08-26 07:04] LABS: ACTIVATED PTT 33.7 SECONDS (26.9-34.4)
[2017-08-26 07:32] LABS: WHITE BLOOD COUNT 1.8 K/mm3 (4.0-10.0)
[2017-08-26] MEDS: ALBUTEROL SO4 2.5/IPRATROPIUM 0.5 INH SOL 3 ML VIAL.NEB. NEB PRN ×2 (07:57→20:35)
[2017-08-26] MEDS: FUROSEMIDE 40 MG/4 ML INJECTABLE VIAL IVPUSH SCH (09:17)
[2017-08-26] MEDS: FOLIC ACID 1 MG TABLET (FP) PO SCH (09:17)
[2017-08-26] MEDS: amLODIPine BESYLATE 5 MG TABLET (FP) PO SCH (09:17)
[2017-08-26] MEDS: VALSARTAN 160 MG TABLET (UD) PO SCH (09:17)
[2017-08-26] MEDS ORDERED: METHOTREXATE 2.5 MG TABLET PO SCH (10:00)
[2017-08-26 10:17] LABS: CMV IgM < 30.0 AU/mL (0.0-29.9)
--- NOTE | 2017-08-26 11:47 | PN ---
Progress Note (short form) - Note Progress Note: pt seen/ examined. chart reviewed family at bedside all f/u noted pt feels better comfortable denies cp. breathing better. feels weak though Vital Signs Temp 98.2 F 08/26/17 09:00 Pulse 74 08/26/17 09:00 Resp 20 08/26/17 09:00 BP 136/54 08/26/17 09:00 Pulse Ox 93 L 08/26/17 09:00 Intake & Output 08/25/17 08/25/17 08/26/17 11:59 23:59 11:59 Intake Total 440 90 Balance 440 90 Weight 205 lb 4 oz 206 lb Intake: IV 20 Left AC #22 08/23/17 20 Oral 420 90 Other: Voiding Method Toilet Toilet Toilet # Unmeasured Voids Void 1 Weight Measurement Method Standing Scale Standing Scale Active Medications Acetaminophen (Tylenol -) 650 mg PO Q6H PRN PRN Reason: PAIN/FEVER Last Admin: 08/25/17 18:00 Dose: 650 mg Albuterol/Ipratropium (Duoneb -) 1 amp NEB Q4H PRN PRN Reason: SHORTNESS OF BREATH Last Admin: 08/26/17 07:57 Dose: 1 amp Amlodipine Besylate (Norvasc -) 5 mg PO DAILY [facility] Last Admin: 08/26/17 09:17 Dose: 5 mg Atorvastatin Calcium (Lipitor -) 80 mg PO HS [facility] Last Admin: 08/25/17 21:16 Dose: 80 mg Folic Acid (Folic Acid -) 1 mg PO DAILY [facility] Last Admin: 08/26/17 09:17 Dose: 1 mg Furosemide (Lasix Injection -) 20 mg IVPUSH DAILY [facility] Last Admin: 08/26/17 09:17 Dose: 20 mg Metoprolol Succinate (Toprol Xl -) 100 mg PO DAILY [facility] Last Admin: 08/26/17 09:17 Dose: 100 mg Montelukast Sodium (Singulair -) 10 mg PO HS [facility] Last Admin: 08/25/17 21:16 Dose: 10 mg Rivaroxaban (Xarelto -) 15 mg PO DAILY@1800 EL Valsartan (Diovan -) 160 mg PO DAILY [facility] Last Admin: 08/26/17 09:17 Dose: 160 mg CBC, BMP 08/26/17 06:15 08/25/17 05:35 Microbiology 08/23/17 21:00 Blood Culture - Preliminary Blood - Peripheral Venous NO GROWTH OBTAINED AFTER 48 HOURS, INCUBATION TO CONTINUE FOR 3 DAYS. 08/23/17 21:00 Blood Culture - Preliminary Blood - Peripheral Venous NO GROWTH OBTAINED AFTER 48 HOURS, INCUBATION TO CONTINUE FOR 3 DAYS. 08/24/17 08:00 Urine Culture - Final Urine - Urine Clean Catch Contaminated: Please Repeat physical Constitutional: Yes: No Distress. comfortable. Cardiovascular: Yes: Regular Rate and Rhythm Respiratory: Yes: Diminished Gastrointestinal: Yes: Normal Bowel Sounds, Soft. No: Tenderness Edema: Yes (decreased) Edema: LLE: 1+, RLE: 1+ Problem List - Problems (1) Pancytopenia Code(s): D61.818 - OTHER PANCYTOPENIA (2) Congestive heart disease Code(s): I50.9 - HEART FAILURE, UNSPECIFIED (3) HTN (hypertension) Code(s): I10 - ESSENTIAL (PRIMARY) HYPERTENSION Qualifiers: Hypertension type: essential hypertension Qualified Code(s): I10 - Essential (primary) hypertension (4) Paroxysmal atrial fibrillation Code(s): I48.0 - PAROXYSMAL ATRIAL FIBRILLATION (5) Rheumatoid arthritis Code(s): M06.9 - RHEUMATOID ARTHRITIS, UNSPECIFIED Assessment/Plan pancytopenia Possibly related to methotrexate , dc MTX and Colchicine spoke with Dr Denton, awaiting flow and FISH results blood cultures negative Not on antibiotics Rheumatology eval with regards to stopping Methotrexate- Dr Brannon will be available next week IV lasix Check daily weights possible MDS WILL FOLLOW Discussed with pts family also who is at bediside time spend 25 min.
[2017-08-26 11:53] LABS: PLATELET ESTIMATE DECREASED
--- NOTE | 2017-08-26 12:05 | PN ---
Progress Note, Physician History of Present Illness: The patient is an 86 year old black female with history of hypertension, hyperlipidemia, CAD ("mild [place]" 03/29--> D1 BMStnet 2006; 07/2013: [place] stents of prox, mid, and istal RCA), diastolic CHF, breast CA s/p R mastectomy, bronchial asthma, DM, HTN, gout, obesity, PAF; renal dysfunction, arthritis, who presents to the ED complaining of shortness of breath that began around 3 PM today. States she took her nebulizer without apparent improvement. She does report she did not take Lasix today. She also reports some bilateral lower extremity edema. No chest pain. No fever or chills. No nausea, vomiting, or diarrhea. PCP: Dr. Aminata Lisa Guest Services Representative Dr. Luque - Current Medication List Current Medications: Active Medications Acetaminophen (Tylenol -) 650 mg PO Q6H PRN PRN Reason: PAIN/FEVER Last Admin: 08/25/17 18:00 Dose: 650 mg Albuterol/Ipratropium (Duoneb -) 1 amp NEB Q4H PRN PRN Reason: SHORTNESS OF BREATH Last Admin: 08/26/17 07:57 Dose: 1 amp Amlodipine Besylate (Norvasc -) 5 mg PO DAILY [facility] Last Admin: 08/26/17 09:17 Dose: 5 mg Atorvastatin Calcium (Lipitor -) 80 mg PO HS [facility] Last Admin: 08/25/17 21:16 Dose: 80 mg Folic Acid (Folic Acid -) 1 mg PO DAILY [facility] Last Admin: 08/26/17 09:17 Dose: 1 mg Furosemide (Lasix Injection -) 20 mg IVPUSH DAILY [facility] Last Admin: 08/26/17 09:17 Dose: 20 mg Metoprolol Succinate (Toprol Xl -) 100 mg PO DAILY [facility] Last Admin: 08/26/17 09:17 Dose: 100 mg Montelukast Sodium (Singulair -) 10 mg PO HS [facility] Last Admin: 08/25/17 21:16 Dose: 10 mg Rivaroxaban (Xarelto -) 15 mg PO DAILY@1800 EL Valsartan (Diovan -) 160 mg PO DAILY [facility] Last Admin: 08/26/17 09:17 Dose: 160 mg - Objective Vital Signs: Vital Signs Temperature 98.2 F 08/26/17 09:00 Pulse Rate 74 08/26/17 09:00 Respiratory Rate 20 08/26/17 09:00 Blood Pressure 136/54 08/26/17 09:00 O2 Sat by Pulse Oximetry (%) 93 L 08/26/17 09:00 Eyes: Yes: WNL, Conjunctiva Clear, EOM Intact HENT: Yes: WNL, Atraumatic, Normocephalic Neck: Yes: WNL, Supple, Trachea Midline Cardiovascular: Yes: WNL, Regular Rate and Rhythm Respiratory: Yes: WNL, Regular, CTA Bilaterally Gastrointestinal: Yes: WNL, Normal Bowel Sounds Genitourinary: Yes: WNL Musculoskeletal: Yes: WNL Extremities: Yes: WNL Edema: No Integumentary: Yes: WNL Neurological: Yes: WNL, Alert, Oriented ...Motor Strength: WNL Psychiatric: Yes: WNL Labs: CBC, BMP 08/26/17 06:15 08/25/17 05:35 INR, PTT INR 1.24 (0.82-1.09) H D 08/26/17 06:15 Fibrinogen 613.0 mg/dL (238-498) H 08/24/17 07:04 Assessment/Plan - Problems (1) Atypical chest pain Code(s): R07.89 - OTHER CHEST PAIN (2) Pancytopenia Assessment/Plan: INR >[address] Denton, agree with holding NOAC while workup proceeds ( until INR falls below 2.0). Code(s): D61.818 - OTHER PANCYTOPENIA (3) Shortness of breath Assessment/Plan: No JVD. CXR: no acute pathology ELevated BNP. Pland: BP control; F/u Is and Os, BUn/Cr, electrolytes, daily weight. Code(s): R06.02 - SHORTNESS OF BREATH (4) Paroxysmal atrial fibrillation Assessment/Plan: off NOAC due to pancytopenia. Occasional AF with rapid ventricular response. Will decrease amlodi;pine, with intention of increasing AV conduction tereas ( presently metoprolol) if HR has frequent rapidity. If pt has true bronchial asthma, may need to change metoprolol to diltiazem for HR control. (Pt's daughter had been restricting greens in her mother's diet, but was told she can restart them, since pt is no longer on warfarin). Code(s): I48.0 - PAROXYSMAL ATRIAL FIBRILLATION (5) Gout Assessment/Plan: ?on colchicine, despite no acute attack. Consider d/c, and use if pt has exacerbation of gout. Code(s): M10.9 - GOUT, UNSPECIFIED
[2017-08-26] MEDS: ACETAMINOPHEN 325 MG TABLET (FP) PO PRN (13:25)
--- NOTE | 2017-08-26 14:43 | PN ---
Progress Note (short form) - Note Progress Note: pt seen and examined. +SOB, back pain cbc reviewed O/E: Constitutional: Yes: Well Nourished, Mild Distress Eyes: Yes: Conjunctiva Clear HENT: Yes: Atraumatic, Normocephalic Neck: Yes: Supple Cardiovascular: Yes: Regular Rate and Rhythm Respiratory: Yes: Regular, CTA Bilaterally Gastrointestinal: Yes: Normal Bowel Sounds, Soft, Abdomen, Obese. No: Ascites Breast(s): Yes: Other (rt mastectomy) Musculoskeletal: Yes: WNL Edema: No Last Vital Signs Temp Pulse Resp BP Pulse Ox 98.2 F 63 18 119/68 93 L 08/25/17 15:49 08/25/17 15:49 08/25/17 15:49 08/25/17 15:49 08/25/17 09:00 CBC, BMP 08/25/17 05:35 08/25/17 05:35 Current Medications Generic Name Dose Route Start Last Admin Trade Name Freq PRN Reason Stop Dose Admin Acetaminophen 650 mg 08/24/17 15:15 08/25/17 04:14 Tylenol - PO 650 mg Q6H PRN Administration PAIN/FEVER Albuterol/Ipratropium 1 amp 08/23/17 06:26 Duoneb - NEB Q4H PRN SHORTNESS OF BREATH Amlodipine Besylate 5 mg 08/26/17 10:00 Norvasc - PO DAILY EL Atorvastatin Calcium 80 mg 08/23/17 22:00 08/24/17 23:21 Lipitor - PO 80 mg HS EL Administration Folic Acid 1 mg 08/23/17 10:00 08/25/17 09:18 Folic Acid - PO 1 mg DAILY EL Administration Furosemide 20 mg 08/23/17 10:00 08/25/17 09:18 Lasix Injection - IVPUSH 20 mg DAILY EL Administration Metoprolol Succinate 100 mg 08/23/17 10:00 08/25/17 09:19 Toprol Xl - PO 100 mg DAILY EL Administration Montelukast Sodium 10 mg 08/23/17 22:00 08/24/17 23:21 Singulair - PO 10 mg HS EL Administration Rivaroxaban 15 mg 08/23/17 18:00 Xarelto - PO DAILY@1800 EL Valsartan 160 mg 08/23/17 10:00 04/05/18 09:16 Diovan - PO 160 mg DAILY EL Administration Pancytopenia: Prior labs reviewed in [facility] 03/2017, CBC wnl flow noted. noted neutropenia, but mature cells. await FISH called daughter x2 , no answer. colchicine/MTX discontinued. low retic count noted MDS remains a possibility. discussed with the pt for monitoring of CBC in the OP and receiving supportive transfusions as needed, pt unable to make a decision. Daughter unable to reach this time, depending on that further course will be planned platelets <50K, will hold xarelto
[2017-08-26 16:27] LABS: EPSTEIN BARR ANTIBODY IgM <36.0 U/mL (0.0-35.9)
[2017-08-26] MEDS: ATORVASTATIN CA 80 MG TABLET (FP) PO SCH (21:08)
[2017-08-26] MEDS: MONTELUKAST NA 10 MG TABLET PO SCH (21:08)
[2017-08-27] MEDS: VALSARTAN 160 MG TABLET (UD) PO SCH (09:19)
[2017-08-27] MEDS: FOLIC ACID 1 MG TABLET (FP) PO SCH (09:19)
[2017-08-27] MEDS: amLODIPine BESYLATE 5 MG TABLET (FP) PO SCH (09:19)
[2017-08-27] MEDS: FUROSEMIDE 40 MG/4 ML INJECTABLE VIAL IVPUSH SCH (09:23)
--- NOTE | 2017-08-27 12:00 | PN ---
Progress Note (short form) - Note Progress Note: Seen in follow up. With daughter. [facility] of bed in [facility]. Reports feeling weak, but no acute complaints. Meds reviewed. Current Medications Generic Name Dose Route Start Last Admin Trade Name Freq PRN Reason Stop Dose Admin Acetaminophen 650 mg 08/24/17 15:15 08/27/17 14:33 Tylenol - PO 650 mg Q6H PRN Administration PAIN/FEVER Albuterol/Ipratropium 1 amp 08/23/17 06:26 08/26/17 20:35 Duoneb - NEB 1 amp Q4H PRN Administration SHORTNESS OF BREATH Amlodipine Besylate 5 mg 08/26/17 10:00 08/27/17 09:19 Norvasc - PO 5 mg DAILY EL Administration Atorvastatin Calcium 80 mg 08/23/17 22:00 08/26/17 21:08 Lipitor - PO 80 mg HS EL Administration Folic Acid 1 mg 08/23/17 10:00 08/27/17 09:19 Folic Acid - PO 1 mg DAILY EL Administration Furosemide 20 mg 08/23/17 10:00 08/27/17 09:23 Lasix Injection - IVPUSH 20 mg DAILY EL Administration Metoprolol Succinate 100 mg 08/23/17 10:00 08/27/17 09:19 Toprol Xl - PO 100 mg DAILY EL Administration Montelukast Sodium 10 mg 08/23/17 22:00 08/26/17 21:08 Singulair - PO 10 mg HS EL Administration Rivaroxaban 15 mg 08/23/17 18:00 Xarelto - PO DAILY@1800 EL Valsartan 160 mg 08/23/17 10:00 08/27/17 09:19 Diovan - PO 160 mg DAILY EL Administration On exam: Last Vital Signs Temp Pulse Resp BP Pulse Ox 97.6 F 72 20 144/69 93 L 08/27/17 14:00 08/27/17 14:00 08/27/17 14:00 08/27/17 14:00 08/27/17 09:00 General: Frail. Extremities: Mild pallor, no icterus. Chest: Breathing comfortably, clear to auscultation CVS: S1, S2, no gallop or murmur. Abdomen: Soft, no organomegaly, no masses. Neuro: Alert, oriented, non-focal. Skin: No rash. CBC, BMP 08/26/17 06:15 08/25/17 05:35 Assessment. Unexplained, relatively new pancytopenia in an elderly female. Currently observing, with trial of withholding possible myelosuppressive drugs ( colchicine/MTX). In interim supportive transfusions for symptomatic anemia. If marrow does not recover then can consider bone marrow biopsy to pursue a definitive diagnosis. (Likely MDS).
--- NOTE | 2017-08-27 13:35 | PN ---
Progress Note, Physician Chief Complaint: Pt admitted for CHF decompensation, coagulopathy today she feels better no chest pain No worsening SOB daughter at bedside - Current Medication List Current Medications: Active Medications Acetaminophen (Tylenol -) 650 mg PO Q6H PRN PRN Reason: PAIN/FEVER Last Admin: 08/26/17 13:25 Dose: 650 mg Albuterol/Ipratropium (Duoneb -) 1 amp NEB Q4H PRN PRN Reason: SHORTNESS OF BREATH Last Admin: 08/26/17 20:35 Dose: 1 amp Amlodipine Besylate (Norvasc -) 5 mg PO DAILY [facility] Last Admin: 08/27/17 09:19 Dose: 5 mg Atorvastatin Calcium (Lipitor -) 80 mg PO HS [facility] Last Admin: 08/26/17 21:08 Dose: 80 mg Folic Acid (Folic Acid -) 1 mg PO DAILY [facility] Last Admin: 08/27/17 09:19 Dose: 1 mg Furosemide (Lasix Injection -) 20 mg IVPUSH DAILY [facility] Last Admin: 08/27/17 09:23 Dose: 20 mg Metoprolol Succinate (Toprol Xl -) 100 mg PO DAILY [facility] Last Admin: 08/27/17 09:19 Dose: 100 mg Montelukast Sodium (Singulair -) 10 mg PO HS [facility] Last Admin: 08/26/17 21:08 Dose: 10 mg Rivaroxaban (Xarelto -) 15 mg PO DAILY@1800 [facility] Valsartan (Diovan -) 160 mg PO DAILY [facility] Last Admin: 08/27/17 09:19 Dose: 160 mg - Objective Vital Signs: Vital Signs Temperature 98.3 F 08/27/17 08:45 Pulse Rate 66 08/27/17 08:45 Respiratory Rate 18 08/27/17 09:00 Blood Pressure 116/51 08/27/17 08:45 O2 Sat by Pulse Oximetry (%) 93 L 08/27/17 09:00 Constitutional: Yes: No Distress Cardiovascular: Yes: Pulse Irregular Respiratory: Yes: Diminished Gastrointestinal: Yes: Normal Bowel Sounds, Soft. No: Tenderness Edema: No Labs: CBC, BMP 08/26/17 06:15 08/25/17 05:35 INR, PTT INR 1.24 (0.82-1.09) H D 08/26/17 06:15 Fibrinogen 613.0 mg/dL (238-498) H 08/24/17 07:04 Problem List - Problems (1) Pancytopenia Code(s): D61.818 - OTHER PANCYTOPENIA (2) Congestive heart disease Code(s): I50.9 - HEART FAILURE, UNSPECIFIED (3) HTN (hypertension) Code(s): I10 - ESSENTIAL (PRIMARY) HYPERTENSION Qualifiers: Hypertension type: essential hypertension Qualified Code(s): I10 - Essential (primary) hypertension (4) Paroxysmal atrial fibrillation Code(s): I48.0 - PAROXYSMAL ATRIAL FIBRILLATION (5) Rheumatoid arthritis Code(s): M06.9 - RHEUMATOID ARTHRITIS, UNSPECIFIED Assessment/Plan PLAN spoke to daughter and pt about possible bone marrow biopsy and transfusions pt agreeable to transfusions spoke with Hematology on Lasix pt feels better though she is tired
[2017-08-27] MEDS: ACETAMINOPHEN 325 MG TABLET (FP) PO PRN (14:33)
--- NOTE | 2017-08-27 14:47 | PN ---
Progress Note, Physician Chief Complaint: Events noted Not in distress History of Present Illness: Coverage for Dr. Jackson Patient was ssen and examined. Awake and alert. Chart was reviewed Denies chest pain, SOB or palpitations - Current Medication List Current Medications: Active Medications Acetaminophen (Tylenol -) 650 mg PO Q6H PRN PRN Reason: PAIN/FEVER Last Admin: 08/27/17 14:33 Dose: 650 mg Albuterol/Ipratropium (Duoneb -) 1 amp NEB Q4H PRN PRN Reason: SHORTNESS OF BREATH Last Admin: 08/26/17 20:35 Dose: 1 amp Amlodipine Besylate (Norvasc -) 5 mg PO DAILY [facility] Last Admin: 08/27/17 09:19 Dose: 5 mg Atorvastatin Calcium (Lipitor -) 80 mg PO [facility] Last Admin: 08/26/17 21:08 Dose: 80 mg Folic Acid (Folic Acid -) 1 mg PO DAILY [facility] Last Admin: 08/27/17 09:19 Dose: 1 mg Furosemide (Lasix Injection -) 20 mg IVPUSH DAILY [facility] Last Admin: 08/27/17 09:23 Dose: 20 mg Metoprolol Succinate (Toprol Xl -) 100 mg PO DAILY [facility] Last Admin: 08/27/17 09:19 Dose: 100 mg Montelukast Sodium (Singulair -) 10 mg PO HS [facility] Last Admin: 08/26/17 21:08 Dose: 10 mg Rivaroxaban (Xarelto -) 15 mg PO DAILY@1800 [facility] Valsartan (Diovan -) 160 mg PO DAILY [facility] Last Admin: 08/27/17 09:19 Dose: 160 mg - Objective Vital Signs: Vital Signs Temperature 98.3 F 08/27/17 08:45 Pulse Rate 66 08/27/17 08:45 Respiratory Rate 18 08/27/17 09:00 Blood Pressure 116/51 08/27/17 08:45 O2 Sat by Pulse Oximetry (%) 93 L 08/27/17 09:00 Constitutional: Yes: Well Nourished Eyes: Yes: PERRL HENT: Yes: Atraumatic Neck: Yes: Supple Cardiovascular: Yes: Regular Rate and Rhythm, S1, S2 Respiratory: Yes: Diminished Gastrointestinal: Yes: Normal Bowel Sounds, Soft. No: Tenderness Edema: No Labs: CBC, BMP 08/26/17 06:15 08/25/17 05:35 INR, PTT INR 1.24 (0.82-1.09) H D 08/26/17 06:15 Fibrinogen 613.0 mg/dL (238-498) H 08/24/17 07:04 Problem List - Problems (1) Gout Code(s): M10.9 - GOUT, UNSPECIFIED (2) Pancytopenia Code(s): D61.818 - OTHER PANCYTOPENIA (3) CAD (coronary artery disease) Code(s): I25.10 - ATHSCL HEART DISEASE OF [place] CORONARY ARTERY W/O ANG PCTRS Qualifiers: Coronary Disease-Associated Artery/Lesion type: [place] artery (4) COPD (chronic obstructive pulmonary disease) Code(s): J44.9 - CHRONIC OBSTRUCTIVE PULMONARY DISEASE, UNSPECIFIED Qualifiers: COPD type: unspecified COPD Qualified Code(s): J44.9 - Chronic obstructive pulmonary disease, unspecified (5) Chest pain Code(s): R07.9 - CHEST PAIN, UNSPECIFIED (6) HTN (hypertension) Code(s): I10 - ESSENTIAL (PRIMARY) HYPERTENSION Qualifiers: Hypertension type: essential hypertension Qualified Code(s): I10 - Essential (primary) hypertension (7) Paroxysmal atrial fibrillation Code(s): I48.0 - PAROXYSMAL ATRIAL FIBRILLATION (8) Diabetes Code(s): E11.9 - TYPE 2 DIABETES MELLITUS WITHOUT COMPLICATIONS Qualifiers: Diabetes mellitus type: type 2 Assessment/Plan 1. CAD post PCI/stent, angina pectoris 2. Acute on chronic LV diastolic failure, euvolemic 3. PAF 4. Hypertension 5. Hypercholesterolemia 6. Diabetes mellitus 7. Pancytopenia, etiology to be determined, possible MDS PLAN: 1. Continue Toprol, Diovan and Norvasc 2. Continue Diuretics. Monitor electrolytes and renal function 3. Continue Xarelto 4. Continue Lipitor 5. Hematology input noted Further plans are to follow Je Almanzar MD
[2017-08-27 15:45] LABS: HEMATOCRIT 28.2 % (32.4-45.2); HEMOGLOBIN 9.4 GM/dL (10.7-15.3); MCH 31.1 pg (25.7-33.7); MCHC 33.5 g/dl (32.0-36.0); MEAN CELL VOLUME 92.8 fl (80-96); MEAN PLT VOLUME 9.1 fl (7.5-11.1); PLATELET COUNT 41 K/MM3 (134-434); RBC 3.04 M/mm3 (3.60-5.2); RDW 17.1 % (11.6-15.6); WHITE BLOOD COUNT 2.2 K/mm3 (4.0-10.0)
[2017-08-27 16:26] LABS: OVALOCYTE 1+; PLATELET ESTIMATE DECREASED
[2017-08-27] MEDS ORDERED: ALBUTEROL SO4 2.5/IPRATROPIUM 0.5 INH SOL 3 ML VIAL.NEB. NEB PRN (19:15)
[2017-08-27] MEDS: ATORVASTATIN CA 80 MG TABLET (FP) PO SCH (21:15)
[2017-08-27] MEDS: MONTELUKAST NA 10 MG TABLET PO SCH (21:15)
[2017-08-28 08:14] LABS: ANION GAP 5 (8-16); BLOOD UREA NITROGEN 16 mg/dL (7-18); CHLORIDE 101 mmol/L (98-107); CO2 34 mmol/L (21-32); GLUCOSE,RANDOM 108 mg/dL (74-106); POTASSIUM 3.8 mmol/L (3.5-5.1); SODIUM 140 mmol/L (136-145)
[2017-08-28 08:42] LABS: HEMATOCRIT 27.7 % (32.4-45.2); HEMOGLOBIN 9.4 GM/dL (10.7-15.3); MCH 31.3 pg (25.7-33.7); MEAN CELL VOLUME 92.1 fl (80-96); MEAN PLT VOLUME 9.5 fl (7.5-11.1); PLATELET COUNT 40 K/MM3 (134-434); RBC 3.01 M/mm3 (3.60-5.2); RDW 16.5 % (11.6-15.6); RETICULOCYTES 0.79 % (0.5-1.5); WHITE BLOOD COUNT 2.4 K/mm3 (4.0-10.0)
[2017-08-28] MEDS: amLODIPine BESYLATE 5 MG TABLET (FP) PO SCH (11:30)
[2017-08-28] MEDS: VALSARTAN 160 MG TABLET (UD) PO SCH (11:30)
[2017-08-28] MEDS: FOLIC ACID 1 MG TABLET (FP) PO SCH (11:30)
[2017-08-28] MEDS: FUROSEMIDE 40 MG/4 ML INJECTABLE VIAL IVPUSH SCH (11:31)
[2017-08-28] MEDS: ACETAMINOPHEN 325 MG TABLET (FP) PO PRN ×2 (11:45→19:39)
[2017-08-28 11:48] LABS: PLATELET ESTIMATE DECREASED
--- NOTE | 2017-08-28 12:34 | PN ---
Progress Note, Physician Chief Complaint: No worsening SOB feels well - Current Medication List Current Medications: Active Medications Acetaminophen (Tylenol -) 650 mg PO Q6H PRN PRN Reason: PAIN/FEVER Last Admin: 08/28/17 11:45 Dose: 650 mg Albuterol/Ipratropium (Duoneb -) 1 amp NEB Q4H PRN PRN Reason: SHORTNESS OF BREATH Amlodipine Besylate (Norvasc -) 5 mg PO DAILY [facility] Last Admin: 08/28/17 11:30 Dose: 5 mg Atorvastatin Calcium (Lipitor -) 80 mg PO [facility] Last Admin: 08/27/17 21:15 Dose: 80 mg Folic Acid (Folic Acid -) 1 mg PO DAILY [facility] Last Admin: 08/28/17 11:30 Dose: 1 mg Furosemide (Lasix Injection -) 20 mg IVPUSH DAILY [facility] Last Admin: 08/28/17 11:31 Dose: 20 mg Metoprolol Succinate (Toprol Xl -) 100 mg PO DAILY [facility] Last Admin: 08/28/17 11:30 Dose: 100 mg Montelukast Sodium (Singulair -) 10 mg PO [facility] Last Admin: 08/27/17 21:15 Dose: 10 mg Valsartan (Diovan -) 160 mg PO DAILY [facility] Last Admin: 08/28/17 11:30 Dose: 160 mg - Objective Vital Signs: Vital Signs Temperature 98.6 F 08/28/17 02:00 Pulse Rate 71 08/28/17 02:00 Respiratory Rate 18 08/28/17 02:00 Blood Pressure 141/84 08/28/17 02:00 O2 Sat by Pulse Oximetry (%) 93 L 08/27/17 21:00 Constitutional: Yes: No Distress Cardiovascular: Yes: Regular Rate and Rhythm Respiratory: Yes: Diminished. No: Rales, Rhonchi Gastrointestinal: Yes: Normal Bowel Sounds, Soft, Abdomen, Obese. No: Tenderness Edema: No Labs: CBC, BMP 08/28/17 07:35 08/28/17 07:35 INR, PTT INR 1.24 (0.82-1.09) H D 08/26/17 06:15 Fibrinogen 613.0 mg/dL (238-498) H 08/24/17 07:04 Problem List - Problems (1) Pancytopenia Code(s): D61.818 - OTHER PANCYTOPENIA (2) Congestive heart disease Code(s): I50.9 - HEART FAILURE, UNSPECIFIED (3) HTN (hypertension) Code(s): I10 - ESSENTIAL (PRIMARY) HYPERTENSION Qualifiers: Hypertension type: essential hypertension Qualified Code(s): I10 - Essential (primary) hypertension (4) Paroxysmal atrial fibrillation Code(s): I48.0 - PAROXYSMAL ATRIAL FIBRILLATION (5) Rheumatoid arthritis Code(s): M06.9 - RHEUMATOID ARTHRITIS, UNSPECIFIED Assessment/Plan PLAN WBC better pt agreeable to transfusions spoke with Hematology on Lasix pt feels better if counts become better tomorrow, may be dc home tomorrow Holding Xarelto as platelets <50
--- NOTE | 2017-08-28 14:30 | PN ---
Progress Note (short form) - Note Progress Note: Seen in follow up. Eating lunch with appetite. No acute complaints. Meds reviewed. Current Medications Generic Name Dose Route Start Last Admin Trade Name Sharee PRN Reason Stop Dose Admin Acetaminophen 650 mg 08/27/17 19:15 08/28/17 11:45 Tylenol - PO 650 mg Q6H PRN Administration PAIN/FEVER Albuterol/Ipratropium 1 amp 08/27/17 19:15 Duoneb - NEB Q4H PRN SHORTNESS OF BREATH Amlodipine Besylate 5 mg 08/28/17 10:00 08/28/17 11:30 Norvasc - PO 5 mg DAILY EL Administration Atorvastatin Calcium 80 mg 08/27/17 22:00 08/27/17 21:15 Lipitor - PO 80 mg HS EL Administration Folic Acid 1 mg 08/28/17 10:00 08/28/17 11:30 Folic Acid - PO 1 mg DAILY EL Administration Furosemide 20 mg 08/28/17 10:00 08/28/17 11:31 Lasix Injection - IVPUSH 20 mg DAILY EL Administration Metoprolol Succinate 100 mg 08/28/17 10:00 08/28/17 11:30 Toprol Xl - PO 100 mg DAILY EL Administration Montelukast Sodium 10 mg 08/27/17 22:00 08/27/17 21:15 Singulair - PO 10 mg HS EL Administration Valsartan 160 mg 08/28/17 10:00 08/28/17 11:30 Diovan - PO 160 mg DAILY EL Administration On exam: Last Vital Signs Temp Pulse Resp BP Pulse Ox 98.6 F 71 18 141/84 93 L 08/28/17 02:00 08/28/17 02:00 08/28/17 02:00 08/28/17 02:00 08/27/17 21:00 General: Frail. Extremities: Mild pallor, no icterus. Chest: Breathing comfortably, clear to auscultation CVS: S1, S2, no gallop or murmur. Abdomen: Soft, no organomegaly, no masses. Neuro: Alert, oriented, non-focal. Skin: No rash. CBC, BMP 08/28/17 07:35 08/28/17 07:35 Assessment. Unexplained, relatively new pancytopenia in an elderly female. Counts stable, and patient comfortable. Trasnfusion not warranted presently. Currently observing, with trial of withholding possible myelosuppressive drugs ( colchicine/MTX). In interim supportive transfusions for symptomatic anemia. If marrow does not recover then can consider bone marrow biopsy to pursue a definitive diagnosis. (Likely MDS).
[2017-08-28] MEDS: ATORVASTATIN CA 80 MG TABLET (FP) PO SCH (21:03)
[2017-08-28] MEDS: MONTELUKAST NA 10 MG TABLET PO SCH (21:03)
[2017-08-29 09:11] LABS: HEMATOCRIT 31.6 % (32.4-45.2); HEMOGLOBIN 10.6 GM/dL (10.7-15.3); MCH 31.1 pg (25.7-33.7); MCHC 33.6 g/dl (32.0-36.0); MEAN CELL VOLUME 92.6 fl (80-96); MEAN PLT VOLUME 10.2 fl (7.5-11.1); PLATELET COUNT 51 K/MM3 (134-434); RBC 3.41 M/mm3 (3.60-5.2); RDW 17.3 % (11.6-15.6); WHITE BLOOD COUNT 2.3 K/mm3 (4.0-10.0)
[2017-08-29 09:18] LABS: ALBUMIN 2.4 g/dl (3.4-5.0); ALK PHOS 146 U/L (45-117); ANION GAP 7 (8-16); BILIRUBIN,TOTAL 0.5 mg/dL (0.2-1.0); BLOOD UREA NITROGEN 16 mg/dL (7-18); CALCIUM 8.2 mg/dL (8.5-10.1); CHLORIDE 100 mmol/L (98-107); CO2 32 mmol/L (21-32); CREATININE 1.1 mg/dL (0.55-1.02); GLUCOSE,RANDOM 125 mg/dL (74-106); POTASSIUM 3.9 mmol/L (3.5-5.1); SGOT/AST 26 U/L (15-37); SGPT/ALT 20 U/L (12-78); SODIUM 139 mmol/L (136-145); TOT PROT 7.1 g/dl (6.4-8.2)
[2017-08-29] MEDS: amLODIPine BESYLATE 5 MG TABLET (FP) PO SCH (10:01)
[2017-08-29] MEDS: FUROSEMIDE 40 MG/4 ML INJECTABLE VIAL IVPUSH SCH (10:01)
[2017-08-29] MEDS: FOLIC ACID 1 MG TABLET (FP) PO SCH (10:01)
[2017-08-29] MEDS: VALSARTAN 160 MG TABLET (UD) PO SCH (10:01)
--- NOTE | 2017-08-29 10:44 | DS ---
Physical Examination Vital Signs: Vital Signs Temperature 98.0 F 08/29/17 06:00 Pulse Rate 68 08/29/17 09:53 Respiratory Rate 20 08/29/17 09:53 Blood Pressure 136/51 08/29/17 09:53 O2 Sat by Pulse Oximetry (%) 93 L 08/28/17 21:00 Findings/Remarks: awake/ comfortable no complains feels well. denies cp/sob. Constitutional: Yes: No Distress, Calm Eyes: Yes: Conjunctiva Clear Neck: Yes: Supple Cardiovascular: Yes: Regular Rate and Rhythm Respiratory: Yes: Diminished Gastrointestinal: Yes: Soft Edema: No Neurological: Yes: Alert Labs: CBC, BMP 08/29/17 08:25 08/29/17 08:25 Discharge Summary Reason For Visit: SHORTNESS OF BREATH PANCYTOPENIA Current Active Problems Atypical chest pain (Acute) DVT prophylaxis (Acute) FUO (fever of unknown origin) (Acute) FUO (fever of unknown origin) (Acute) Gout (Acute) Pancytopenia (Acute) Rheumatoid arthritis (Acute) Shortness of breath (Acute) Hospital Course: 86 y/o F with PMH HTN, HLD, CAD (with 2 stents- placed ~2003, ~2014), CHF (ECHO 2013: EF 69%, mild MR, severe TR), R breast CA s/p R mastectomy (; never received chemo, or radiation, was placed on oral med at time. Has resulting lymphedema), atrial fibrillation (on Xarelto 20mg qd), gout, who presents to the ED c/o SOB and LE edema over the past day. Pt admitted to telemetry for CHF exacerbation. treated with diuretics cardiology also followed got much better also found to be pancytopenic xarelto held concern for mds need close hematology f/u - possible bm biopsy - as out pt - not done during hospitalization now stable for d/c home. meds reconcilled pt in agreement discussed with nursing staff. Condition: Stable - Instructions Diet, Activity, Other Instructions: PER dR. Jackson, take lasix 40 mg by mouth daily , followup with cardiology and hematology this week Referrals: Aminata Lisa MD [Primary Care Provider] - Disposition: HOME - Home Medications Comprehensive Discharge Medication List: Ambulatory Orders Atorvastatin Ca [Lipitor] 80 mg PO HS 11/26/13 Folic Acid - 1 mg PO DAILY 11/26/13 Valsartan [Diovan] 160 mg PO DAILY tablet 04/10/17 Amlodipine Besylate [Norvasc -] 10 mg PO DAILY 08/23/17 Cholecalciferol (Vitamin D3) [Vitamin D3 -] 1,000 unit PO DAILY 08/23/17 Metoprolol Succinate [Toprol XL -] 100 mg PO DAILY 08/23/17 Montelukast Na [Singulair -] 10 mg PO HS 08/23/17 Sitagliptin Phosphate [Januvia -] 50 mg PO DAILY@0700 08/23/17 Acetaminophen [Tylenol .Regular Strength -] 650 mg PO Q6H PRN tablet 08/29/17 Albuterol 2.5/Ipratropium 0.5 [Duoneb -] 1 amp NEB Q4H PRN amp 08/29/17 Furosemide [Lasix -] 40 mg PO PRN #30 tablet 08/29/17
--- NOTE | 2017-08-29 10:52 | PN ---
Progress Note, Physician History of Present Illness: The patient is an 86 year old black female with history of hypertension, hyperlipidemia, CAD ("mild MO" 03/29--> D1 BMStnet 2006; 07/2013: [place] stents of prox, mid, and istal RCA), diastolic CHF, breast CA s/p R mastectomy, bronchial asthma, DM, HTN, gout, obesity, PAF; renal dysfunction, arthritis, who presents to the ED complaining of shortness of breath that began around 3 PM today. States she took her nebulizer without apparent improvement. She does report she did not take Lasix today. She also reports some bilateral lower extremity edema. No chest pain. No fever or chills. No nausea, vomiting, or diarrhea. PCP: Dr. Aminata Lisa Rn Rehabilitation Dr. Luque - Current Medication List Current Medications: Active Medications Acetaminophen (Tylenol -) 650 mg PO Q6H PRN PRN Reason: PAIN/FEVER Last Admin: 08/28/17 19:39 Dose: 650 mg Albuterol/Ipratropium (Duoneb -) 1 amp NEB Q4H PRN PRN Reason: SHORTNESS OF BREATH Amlodipine Besylate (Norvasc -) 5 mg PO DAILY [facility] Last Admin: 08/29/17 10:01 Dose: 5 mg Atorvastatin Calcium (Lipitor -) 80 mg PO [facility] Last Admin: 08/28/17 21:03 Dose: 80 mg Folic Acid (Folic Acid -) 1 mg PO DAILY [facility] Last Admin: 08/29/17 10:01 Dose: 1 mg Furosemide (Lasix Injection -) 20 mg IVPUSH DAILY [facility] Last Admin: 08/29/17 10:01 Dose: 20 mg Metoprolol Succinate (Toprol Xl -) 100 mg PO DAILY [facility] Last Admin: 08/29/17 10:01 Dose: 100 mg Montelukast Sodium (Singulair -) 10 mg PO HS [facility] Last Admin: 08/28/17 21:03 Dose: 10 mg Valsartan (Diovan -) 160 mg PO DAILY [facility] Last Admin: 08/29/17 10:01 Dose: 160 mg - Objective Vital Signs: Vital Signs Temperature 98.0 F 08/29/17 06:00 Pulse Rate 68 08/29/17 09:53 Respiratory Rate 20 08/29/17 09:53 Blood Pressure 136/51 08/29/17 09:53 O2 Sat by Pulse Oximetry (%) 93 L 08/28/17 21:00 Eyes: Yes: WNL, Conjunctiva Clear, EOM Intact HENT: Yes: WNL, Atraumatic, Normocephalic Neck: Yes: WNL, Supple, Trachea Midline Cardiovascular: Yes: WNL, Regular Rate and Rhythm Respiratory: Yes: WNL, Regular, CTA Bilaterally Gastrointestinal: Yes: WNL, Normal Bowel Sounds Genitourinary: Yes: WNL Musculoskeletal: Yes: WNL Extremities: Yes: WNL Edema: Yes Integumentary: Yes: WNL Neurological: Yes: WNL, Alert, Oriented ...Motor Strength: WNL Psychiatric: Yes: WNL Labs: CBC, BMP 08/29/17 08:25 08/29/17 08:25 INR, PTT INR 1.24 (0.82-1.09) H D 08/26/17 06:15 Fibrinogen 613.0 mg/dL (238-498) H 08/24/17 07:04 Assessment/Plan - Problems (1) Atypical chest pain Code(s): R07.89 - OTHER CHEST PAIN (2) Pancytopenia Assessment/Plan: INR >[address] Denton, agree with holding NOAC while workup proceeds ( until INR falls below 2.0). Code(s): D61.818 - OTHER PANCYTOPENIA (3) Shortness of breath Assessment/Plan: No JVD. CXR: no acute pathology ELevated BNP. Pland: BP control; F/u Is and Os, BUn/Cr, electrolytes, daily weight. Code(s): R06.02 - SHORTNESS OF BREATH (4) Paroxysmal atrial fibrillation Assessment/Plan: off NOAC due to pancytopenia. Occasional AF with rapid ventricular response. Will decrease amlodi;pine, with intention of increasing AV conduction teresa ( presently metoprolol) if HR has frequent rapidity. If pt has true bronchial asthma, may need to change metoprolol to diltiazem for HR control. (Pt's daughter had been restricting greens in her mother's diet, but was told she can restart them, since pt is no longer on warfarin). Code(s): I48.0 - PAROXYSMAL ATRIAL FIBRILLATION (5) Gout Assessment/Plan: ?on colchicine, despite no acute attack. Consider d/c, and use if pt has exacerbation of gout. Code(s): M10.9 - GOUT, UNSPECIFIED
[2017-08-29 10:54] LABS: PLATELET ESTIMATE DECREASED
[2017-08-29] MEDS: ACETAMINOPHEN 325 MG TABLET (FP) PO PRN (12:58)
[2017-08-29 14:16] VITALS: PULSE 73; TEMP 99.5
[2017-08-29 14:43] VITALS: BP 113/55
== END 2017-08-29 16:33 | disposition home or self-care (01) | DRG 808 ==
LOC: JER 23:50 → JERBED 08-23 04:06 → UNDOADMOB 08-23 05:41 → JERBED 08-23 05:41 → OBSVTOIN 08-23 05:59 → J4W 08-23 16:21 → J5S 08-27 17:02
PROVIDERS: ADMIT Internal Medicine; ATTEND Internal Medicine
DX: D61.811 Other drug-induced pancytopenia (principal); I50.33 Acute on chronic diastolic (congestive) heart failure; D68.8 Other specified coagulation defects; I25.110 Atherosclerotic heart disease of native coronary artery with unstable angina pectoris; T45.1X5A Adverse effect of antineoplastic and immunosuppressive drugs, initial encounter; E78.5 Hyperlipidemia, unspecified; J44.9 Chronic obstructive pulmonary disease, unspecified; I11.0 Hypertensive heart disease with heart failure; R07.89 Other chest pain; E11.9 Type 2 diabetes mellitus without complications; M10.9 Gout, unspecified; I25.2 Old myocardial infarction; M06.9 Rheumatoid arthritis, unspecified; I48.0 Paroxysmal atrial fibrillation; M54.5 Low back pain; D64.9 Anemia, unspecified; R50.9 Fever, unspecified; F41.9 Anxiety disorder, unspecified; E66.8 Other obesity; Z68.35 Body mass index [BMI] 35.0-35.9, adult; I08.1 Rheumatic disorders of both mitral and tricuspid valves; Z85.3 Personal history of malignant neoplasm of breast; Z96.652 Presence of left artificial knee joint; Z95.5 Presence of coronary angioplasty implant and graft; Z87.891 Personal history of nicotine dependence; Z88.0 Allergy status to penicillin
CPT/HCPCS: 36415; 71045-TC-FY; 76700-TC; 80048; 80053; 81003; 81015; 82550; 82553; 82607; 82668; 82728; 82746; 82784; 82962; 83540; 83550; 83615; 83735; 83880; 84100; 84155; 84165; 84443; 84484; 85025; 85044; 85384; 85610; 85651; 85730; 86038; 86140; 86334; 86431; 86644; 86645; 86664; 86665; 86704; 86706; 86708; 86777; 86778; 87040; 87086; 87340; 88300-TC; 93005; 93010; 93306-TC; 93970-TC; 94640; 99285-25; G0378

== ENCOUNTER 2017-09-12 04:57 | Inpatient (IN) | payer OTHER ==
--- NOTE | 2017-09-12 05:05 | PDOC ---
History of Present Illness - General Stated Complaint: BACK PAIN/SHORTNESS OF BREATH Time Seen by Provider: 09/12/17 04:59 History Source: Patient - History of Present Illness Initial Comments: 09/12/17 05:04 86 year old female with a PMH of pancytopenia, CAD (s/p stent x2), CHF (EF 69% in 2013), R breast CA (s/p mastectomy), COPD (not on home O2) HTN, HLD, DM, Afib , RA, gout, and asthma presents to our ED with acute onset of back and chest pain. Patient's daughter @ bedside notes patient woke her up at 4 a.m. c/o back pain and chest pain. Chest pain was pressure-like, non-radiating, substernal, 11/29 and resolved upon presentation to the hospital. Endorses shortness of breath. Back pain c/w prior back pain associated with slipped disc. Denies any recent trauma. As per EMR, patient evaluated earlier this month for CHF exacerbation at which time her A/C was discontinued. Patient was found to be pancytopenic and is pending BM biopsy to evaluate for myelodysplastic syndrome. Surgical: R sided mastectomy, L knee surgery, cholecystectomy Social: remote h/o nicotine, denies alcohol, denies recreational drugs Past History - Past Medical History Allergies/Adverse Reactions: Allergies Allergy/AdvReac Type Severity Reaction Status Date / Time Penicillins Allergy Mild Hives Verified 09/12/17 05:14 mushroom Allergy Verified 08/23/17 00:05 shellfish derived Allergy Verified 08/23/17 00:05 rye Allergy Uncoded 08/23/17 00:05 Home Medications: Ambulatory Orders Atorvastatin Ca [Lipitor] 80 mg PO HS 11/26/13 Folic Acid - 1 mg PO DAILY 11/26/13 Valsartan [Diovan] 160 mg PO DAILY tablet 04/10/17 Amlodipine Besylate [Norvasc -] 10 mg PO DAILY 08/23/17 Cholecalciferol (Vitamin D3) [Vitamin D3 -] 1,000 unit PO DAILY 08/23/17 Metoprolol Succinate [Toprol XL -] 100 mg PO DAILY 08/23/17 Montelukast Na [Singulair -] 10 mg PO HS 08/23/17 Sitagliptin Phosphate [Januvia -] 50 mg PO DAILY@0700 08/23/17 Acetaminophen [Tylenol .Regular Strength -] 650 mg PO Q6H PRN tablet 08/29/17 Albuterol 2.5/Ipratropium 0.5 [Duoneb -] 1 amp NEB Q4H PRN amp 08/29/17 Furosemide [Lasix -] 40 mg PO PRN #30 tablet 08/29/17 Albuterol 2.5/Ipratropium 0.5 [Duoneb -] 1 neb NEB Q4H PRN 09/12/17 Amlodipine Besylate [Norvasc -] 10 mg PO DAILY 09/12/17 Asthma: Yes Cancer: Yes (Right breast cancer) Cardiac Disorders: Yes (AFIB(xeralto 20mg daily at home)) COPD: No CHF: Yes Diabetes: Yes HTN: Yes Hypercholesterolemia: Yes - Surgical History Abdominal Surgery: Yes Cardiac Surgery: Yes (stent X 2) Cholecystectomy: Yes Orthopedic Surgery: Yes (left knee replacement) - Immunization History Immunization Up to Date: Yes - Suicide/Smoking/Psychosocial Hx Smoking History: Never smoked Have you smoked in the past 12 months: No Number of Cigarettes Smoked Daily: 0 If you are a former smoker, when did you quit?: 1986 Hx Alcohol Use: No Drug/Substance Use Hx: No Substance Use Type: None Hx Substance Use Treatment: No Review of Systems - Review of Systems Constitutional: No: Chills, Fever Respiratory: Yes: Shortness of Breath. No: Cough Cardiac (ROS): Yes: Chest Pain. No: Lightheadedness, Palpitations, Syncope ABD/GI: No: Constipated, Diarrhea, Nausea, Vomiting : No: Burning, Dysuria *Physical Exam - Physical Exam General Appearance: Yes: Nourished Neck: positive: Trachea midline, Supple Respiratory/Chest: positive: Lungs Clear, Normal Breath Sounds, Other (SpO2 94% on RA) Cardiovascular: positive: S1, S2, Other (B/L LE non-pitting edema - noted to be chronic) Gastrointestinal/Abdominal: positive: Normal Bowel Sounds, Soft Musculoskeletal: positive: Vertebral Tenderness (L sided sacral midline TTP). negative: CVA Tenderness (R), CVA Tenderness (L) Extremity: positive: Normal Capillary Refill, Normal Inspection Integumentary: positive: Normal Color, Dry, Warm Neurologic: positive: Fully Oriented, Alert ED Treatment Course - LABORATORY CBC & Chemistry Diagram: 09/12/17 05:35 09/12/17 05:42 Medical Decision Making - Medical Decision Making 09/12/17 05:27 86 year old female presents with chest and back pain. Notes subjective dyspnea. Frontal diagnosis includes r/o ACS, CHF exacerbation. Will obtain basic labs, Troponin, BNP, CXR. Will also obtain L CT to evaluate for acute fracture. Reassess. 09/12/17 05:42 ECG shows HR 91, LAD, TWI in lateral leads V4-V6, no GILLIAN/STD, non-ischemic ECG. C/w previous ECG 08/2017. 09/12/17 06:11 CXR shows cardiomegaly, no infiltrate/consolidation. Lumbar CT pending. 09/12/17 06:15 CBC shows WBC 2.3 (c/w previous CBC on 08/26/17) Hb 8.4 (10 on 08/26/17), Plt 45 (51 on 08/26/17) 09/12/17 06:[address] negative for fracture/bone lesions w/bulging disc @ L2/L3 09/12/17 06:29 CMP, Troponin hemolyzed. Repeat pending. 09/12/17 06:50 Patient to be signed out to Dr. Minaya (Resident) and Dr. Chow (Attending). Likely disposition is admit for further evaluation of MDS. Patient and patient 's daughter @ bedside counseled on POC. *DC/Admit/Observation/Transfer Diagnosis at time of Disposition: Back pain - Discharge Dispostion Condition at time of disposition: Good - Referrals Referrals: Aminata Lisa MD [Primary Care Provider] - - Patient Instructions - Post Discharge Activity
--- NOTE | 2017-09-12 05:30 | PDOC ---
Attending Attestation - Resident Resident Name: Leta Ragsdale - ED Attending Attestation I have performed the following: I have examined & evaluated the patient, The case was reviewed & discussed with the resident, I agree w/resident's findings & plan - HPI HPI: 09/12/17 05:48 Pt comes with low back and chest pain. - Physicial Exam PE: 09/12/17 05:49 Agree with resident exam - Medical Decision Making 09/12/17 05:49 Pt will have basic labs and she will be signed out to the day time docs.
[2017-09-12 05:47] LABS: HEMATOCRIT 24.2 % (32.4-45.2); HEMOGLOBIN 8.4 GM/dL (10.7-15.3); MCH 32.5 pg (25.7-33.7); MCHC 34.9 g/dl (32.0-36.0); MEAN PLT VOLUME 10.2 fl (7.5-11.1); PLATELET COUNT 45 K/MM3 (134-434); RDW 18.4 % (11.6-15.6); WHITE BLOOD COUNT 2.3 K/mm3 (4.0-10.0)
[2017-09-12 07:15] LABS: ANISOCYTOSIS 1+
[2017-09-12 07:17] LABS: PLATELET ESTIMATE DECREASED
[2017-09-12 07:22] LABS: ALBUMIN 2.1 g/dl (3.4-5.0); ANION GAP 5 (8-16); BILIRUBIN,TOTAL 0.5 mg/dL (0.2-1.0); BLOOD UREA NITROGEN 25 mg/dL (7-18); CALCIUM 7.6 mg/dL (8.5-10.1); CHLORIDE 102 mmol/L (98-107); CO2 31 mmol/L (21-32); CREATININE 1.6 mg/dL (0.55-1.02); GLUCOSE,RANDOM 147 mg/dL (74-106); POTASSIUM 4.4 mmol/L (3.5-5.1); SGOT/AST 35 U/L (15-37); SGPT/ALT 25 U/L (12-78); SODIUM 138 mmol/L (136-145); TOT PROT 6.7 g/dl (6.4-8.2)
[2017-09-12 07:24] LABS: ALK PHOS 182 U/L (45-117)
--- NOTE | 2017-09-12 07:32 | PDOC ---
*Physical Exam - Vital Signs Last Vital Signs Temp Pulse Resp BP Pulse Ox 98.2 F 91 H 18 128/60 97 09/12/17 05:09 09/12/17 05:09 09/12/17 05:09 09/12/17 05:09 09/12/17 05:09 - Physical Exam Comments: 09/12/17 07:30 General Appearance: Nourished. No Apparent Distress HEENT: No Pharyngeal Erythema, Tonsillar Exudate, Tonsillar Erythema Neck: No Cervical Lymphadenopathy Respiratory/Chest: Lungs Clear, Normal Breath Sounds. No Crackles, Rales, Rhonchi, Wheezing Cardiovascular: Regular Rhythm, Regular Rate. No Murmur, Gallops, Rubs Gastrointestinal/Abdominal: Normal Bowel Sounds, Soft. No Guarding, Rebound, Tenderness Musculoskeletal: No CVA Tenderness Extremity: Normal Capillary Refill Integumentary: Normal Color, Dry, Warm Neurologic: Fully Oriented, Alert, Normal Mood/Affect, Normal Response, Heart Score/ECG Review - History History: Slightly suspicious - Electrocardiogram EKG: Non specific repolarization disturbance - Age Age: >/= 65 - Risk Factors Risk Factors Heart Score: Yes Hx Hypercholesterolemia, Yes Hx Hypertension, Yes Hx Diabetes Based on the list above the patient has:: >/=3 risk factors or Hx atherosclerotic disease - Troponin Troponin: </= normal limit - Score Heart Score - Total: 5 ED Treatment Course - LABORATORY CBC & Chemistry Diagram: 09/12/17 05:35 09/12/17 06:37 - ADDITIONAL ORDERS Additional order review: Laboratory Results 09/12/17 09/12/17 09/12/17 05:42 05:42 05:42 D-Dimer 6639 H Sodium Cancelled Potassium Cancelled Chloride Cancelled Carbon Dioxide Cancelled Anion Gap Cancelled BUN Cancelled Creatinine Cancelled Creat Clearance w eGFR Cancelled Random Glucose Cancelled Calcium Cancelled Magnesium Cancelled Total Bilirubin Cancelled AST Cancelled ALT Cancelled Alkaline Phosphatase Cancelled Creatine Kinase Cancelled Troponin I Cancelled B-Natriuretic Peptide Cancelled Total Protein Cancelled Albumin Cancelled 09/12/17 05:35 RBC 2.60 L D MCV 93.0 MCHC 34.9 RDW 18.4 H MPV 10.2 Neutrophils % No Result Required. Lymphocytes % No Result Required. - RADIOLOGY Radiology Studies Ordered: Category Date Time Status DUPLEX VASCUL US-2LEGS [US] Stat Ultrasound 09/12/17 07:25 Ordered Progress Note - Progress Note Progress Note: The patient is an 86 year old female with a PMH of pancytopenia, CAD (s/p stent x2), CHF (EF 69% in 2013), R breast CA (s/p mastectomy), COPD (not on home O2) HTN, HLD, DM, Afib, RA, gout, and asthma presents to our ED with acute onset of back and chest pain. The patient is pending a cmp, troponin, d-dimer prior to an admission given her significant medical history for further monitoring. Medical Decision Making - Medical Decision Making 09/12/17 07:30 D-Dimer is elevated to 6000+ which is possibly due to whichever disease process is causing the patient's known pancytopenia. However we will obtain a DVT US to evaluate for DVT as the patient cannot receive iv contrast due to her shellfish allergy. 09/12/17 08:44 We discussed the case with the hospitalist team who accepted the patient for admission. *DC/Admit/Observation/Transfer Diagnosis at time of Disposition: Back pain Qualifiers: Back pain location: back pain in unspecified location Chronicity: unspecified Back pain laterality: unspecified Qualified Code(s): M54.9 - Dorsalgia, unspecified Chest pain Qualifiers: Chest pain type: unspecified Qualified Code(s): R07.9 - Chest pain, unspecified - Discharge Dispostion Condition at time of disposition: Stable Admit: Yes - Referrals - Patient Instructions - Post Discharge Activity
--- NOTE | 2017-09-12 09:22 | HP ---
Admitting History and Physical - Primary Care Physician PCP: Aminata Lisa - Admission Chief Complaint: back pain/ sob/ cp History of Present Illness: Er records reviewed. 86 year old female with a PMH of pancytopenia-- , CAD (s/p stent x2), Chf, R breast CA (s/p mastectomy), COPD (not on home O2) HTN, HLD, DM, Afib, RA, gout, lumbar radiculopathy and asthma presents to ED with flare of back and chest pain. Patient's daughter @ bedside notes patient woke her up at 4 a.m. c/o back pain and chest pain. Chest pain was pressure-like, non-radiating, substernal, 11/29 and resolved upon presentation to the hospital. Endorses shortness of breath. Back pain c/w prior back pain associated with slipped disc. Denies any recent trauma. patient recently admitted this month for CHF exacerbation at which time her A/ C was discontinued due to significant pncytopenia. Patient was found to be pancytopenic and is pending BM biopsy to evaluate for myelodysplastic syndrome. Surgical: R sided mastectomy, L knee surgery, cholecystectomy Social: remote h/o nicotine, denies alcohol, denies recreational drugs pt well known to me. seen in tele. daughter at bedside pt feels better. chart reviewed History Source: Patient, Family Member Limitations to Obtaining History: No Limitations - Past Medical History Cardiovascular: Yes: AFIB (On xarelto), CAD (describes having cardiac stent), CHF, HTN, Hyperlipdemia, [place] Pulmonary: Yes: Asthma, COPD Renal/: Yes: Renal Inusuff Heme/Onc: Yes: Anemia Psych: Yes: Anxiety. No: Addictions Musculoskeletal: Yes: Chronic low back pain Rheumatology: Yes: Rheumatoid Arthritis Endocrine: Yes: Diabetes Mellitus - Past Surgical History Past Surgical History: Yes: Cholecystectomy (open), Hysterectomy (? No pelvic scar ), Joint Replacement (left TKR), Mastectomy - Smoking History Smoking history: Never smoked Have you smoked in the past 12 months: No Aproximately how many cigarettes per day: 0 If you are a former smoker, when did you quit?: 1986 - Alcohol/Substance Use Hx Alcohol Use: No History of Substance Use: reports: None - Social History ADL: Family Assistance Occupation: Retired: worked in a [employer], worked at [employer] History of Recent Travel: No Home Medications - Allergies Allergies/Adverse Reactions: Allergies Allergy/AdvReac Type Severity Reaction Status Date / Time Penicillins Allergy Mild Hives Verified 09/12/17 05:14 mushroom Allergy Verified 08/23/17 00:05 shellfish derived Allergy Verified 08/23/17 00:05 rye Allergy Uncoded 08/23/17 00:05 - Home Medications Home Medications: Ambulatory Orders Atorvastatin Ca [Lipitor] 80 mg PO HS 11/26/13 Folic Acid - 1 mg PO DAILY 11/26/13 Valsartan [Diovan] 160 mg PO DAILY tablet 04/10/17 Amlodipine Besylate [Norvasc -] 10 mg PO DAILY 08/23/17 Cholecalciferol (Vitamin D3) [Vitamin D3 -] 1,000 unit PO DAILY 08/23/17 Metoprolol Succinate [Toprol XL -] 100 mg PO DAILY 08/23/17 Montelukast Na [Singulair -] 10 mg PO HS 08/23/17 Sitagliptin Phosphate [Januvia -] 50 mg PO DAILY@0700 08/23/17 Acetaminophen [Tylenol .Regular Strength -] 650 mg PO Q6H PRN tablet 08/29/17 Albuterol 2.5/Ipratropium 0.5 [Duoneb -] 1 amp NEB Q4H PRN amp 08/29/17 Furosemide [Lasix -] 40 mg PO PRN #30 tablet 08/29/17 Albuterol 2.5/Ipratropium 0.5 [Duoneb -] 1 neb NEB Q4H PRN 09/12/17 Amlodipine Besylate [Norvasc -] 10 mg PO DAILY 09/12/17 Family Disease History - Family Disease History Family Disease History: Other: Father ( 87: unclear cause), Mother ( 65 : pancreatic cancer), Sister (1 : colon ca, 1 , BCA), Son (1 son: healthy), Daughter (2, healthy) Review of Systems - Review of Systems Constitutional: reports: No Symptoms Eyes: reports: No Symptoms HENT: reports: No Symptoms Neck: reports: No Symptoms Cardiovascular: reports: Shortness of Breath Respiratory: reports: SOB Gastrointestinal: reports: No Symptoms Genitourinary: reports: No Symptoms Musculoskeletal: reports: Back Pain Neurological: reports: No Symptoms Psychiatric: reports: No Symptoms Physical Examination Vital Signs: Vital Signs Temperature 98.3 F 09/12/17 08:15 Pulse Rate 89 09/12/17 08:15 Respiratory Rate 16 09/12/17 08:15 Blood Pressure 152/79 09/12/17 08:15 O2 Sat by Pulse Oximetry (%) 100 09/12/17 08:15 Constitutional: Yes: No Distress Eyes: Yes: Conjunctiva Clear Neck: Yes: Supple Cardiovascular: Yes: Pulse Irregular Respiratory: Yes: Diminished Gastrointestinal: Yes: Soft Edema: LLE: Trace, RLE: Trace Neurological: Yes: Alert, Other (non focal) Psychiatric: Yes: Alert Labs: CBC, BMP 09/12/17 05:35 09/12/17 06:37 Imaging - Results Chest X-ray: Report Reviewed Cat Scan: Pending Ultrasound: Pending, Report Reviewed Problem List - Problems (1) Back pain Code(s): M54.9 - DORSALGIA, UNSPECIFIED Qualifiers: Back pain location: back pain in unspecified location Chronicity: unspecified Back pain laterality: unspecified Qualified Code(s): M54.9 - Dorsalgia, unspecified (2) Chest pain Code(s): R07.9 - CHEST PAIN, UNSPECIFIED Qualifiers: Chest pain type: unspecified Qualified Code(s): R07.9 - Chest pain, unspecified (3) CAD (coronary artery disease) Code(s): I25.10 - ATHSCL HEART DISEASE OF [place] CORONARY ARTERY W/O ANG PCTRS Qualifiers: Coronary Disease-Associated Artery/Lesion type: [place] artery (4) COPD (chronic obstructive pulmonary disease) Code(s): J44.9 - CHRONIC OBSTRUCTIVE PULMONARY DISEASE, UNSPECIFIED Qualifiers: COPD type: unspecified COPD Qualified Code(s): J44.9 - Chronic obstructive pulmonary disease, unspecified (5) Congestive heart disease Code(s): I50.9 - HEART FAILURE, UNSPECIFIED (6) Diabetes Code(s): E11.9 - TYPE 2 DIABETES MELLITUS WITHOUT COMPLICATIONS Qualifiers: Diabetes mellitus type: type 2 (7) HTN (hypertension) Code(s): I10 - ESSENTIAL (PRIMARY) HYPERTENSION Qualifiers: Hypertension type: essential hypertension Qualified Code(s): I10 - Essential (primary) hypertension (8) Pancytopenia Code(s): D61.818 - OTHER PANCYTOPENIA (9) Paroxysmal atrial fibrillation Code(s): I48.0 - PAROXYSMAL ATRIAL FIBRILLATION (10) Shortness of breath Code(s): R06.02 - SHORTNESS OF BREATH Assessment/Plan Clinically stable do not appear in volume overload doubt PE atypical cp serial cms U/S -ve for dvt cm -ve x 1 continue present care monitor in tele pulmonary/ cardiology consulted-- pending Xarelto on hold du to pancytopenia. will consult hem- onc also. Monitor bgm. back pain control physical therapy scd stocking will follow discussed with nursing staff as well as with pts daughter. time spend 40 min.
[2017-09-12] MEDS ORDERED: ACETAMINOPHEN 325 MG TABLET (FP) PO PRN (09:43)
[2017-09-12] MEDS ORDERED: HEPARIN NA (PORCINE) 5,000 UNITS/ML 1ML VIAL SQ SCH (10:00)
--- NOTE | 2017-09-12 11:05 | EKG ---
Test Reason : Blood Pressure : / mmHG Vent. Rate : 091 BPM Atrial Rate : 091 BPM P-R Int : 180 ms QRS Dur : 080 ms QT Int : 356 ms P-R-T Axes : 033 -49 085 degrees QTc Int : 437 ms NORMAL SINUS RHYTHM LEFT AXIS DEVIATION MINIMAL VOLTAGE CRITERIA FOR LVH, MAY BE NORMAL VARIANT T WAVE ABNORMALITY, CONSIDER ANTEROLATERAL ISCHEMIA INFERIOR INFARCT (CITED ON OR BEFORE 21-JAN-2014) ABNORMAL ECG WHEN COMPARED WITH ECG OF 23-AUG-2017 01:19, NO SIGNIFICANT CHANGE WAS FOUND Confirmed by JEFF MARTÍNEZ MD ([id number]) on 09/12/2017 11:04:41 AM Referred By: Confirmed By:JEFF MARTÍNEZ MD
[2017-09-12] MEDS: amLODIPine BESYLATE 10 MG TABLET (FP) PO SCH (11:14)
[2017-09-12] MEDS: CHOLECALCIFEROL (VITAMIN D3) 1,000 UNIT TABLET (FP) PO SCH (11:15)
[2017-09-12] MEDS: VALSARTAN 160 MG TABLET (UD) PO SCH (11:15)
[2017-09-12] MEDS: FOLIC ACID 1 MG TABLET (FP) PO SCH (11:15)
[2017-09-12] MEDS: traMADol HCL 50 MG TABLET PO PRN ×2 (11:15→21:22)
[2017-09-12] MEDS: FUROSEMIDE 40 MG TABLET (FP) PO SCH (11:15)
[2017-09-12] MEDS: ACETAMINOPHEN 325 MG TABLET (FP) PO PRN (11:16)
--- NOTE | 2017-09-12 11:17 | PN ---
Progress Note (short form) - Note Progress Note: PULMONARY CONSULTATION DICTATED 09/12/17 IMP CHEST PAIN SYNDROME ?MUSCULOSKELETAL? CARDIAC,CANNOT EXCLUDE PE( INCREASED RISK RECENT HOSPITALIZATION,SEDENTARY,H/O MALIGNANCY) ELEVATED D-DIMER ASHD S/P STENT DYSPNEA COPD/ASTHMA CHF PAF CKD H/O R BREAST CA S/P MASTECTOMY RA PANCYTOPENIA DM PLAN AGREE WITH V/Q SCAN O2 ANALGESICS INHALED BRONCHODILATORS MONITOR CBC,PLT CT BONE MARROW BX DR FERNANDES Problem List - Problems (1) Pancytopenia Code(s): D61.818 - OTHER PANCYTOPENIA (2) Back pain Code(s): M54.9 - DORSALGIA, UNSPECIFIED Qualifiers: Back pain location: back pain in unspecified location Chronicity: unspecified Back pain laterality: unspecified Qualified Code(s): M54.9 - Dorsalgia, unspecified (3) Chest pain Code(s): R07.9 - CHEST PAIN, UNSPECIFIED Qualifiers: Chest pain type: unspecified Qualified Code(s): R07.9 - Chest pain, unspecified (4) CAD (coronary artery disease) Code(s): I25.10 - ATHSCL HEART DISEASE OF [place] CORONARY ARTERY W/O ANG PCTRS Qualifiers: Coronary Disease-Associated Artery/Lesion type: [place] artery (5) COPD (chronic obstructive pulmonary disease) Code(s): J44.9 - CHRONIC OBSTRUCTIVE PULMONARY DISEASE, UNSPECIFIED Qualifiers: COPD type: unspecified COPD Qualified Code(s): J44.9 - Chronic obstructive pulmonary disease, unspecified (6) HTN (hypertension) Code(s): I10 - ESSENTIAL (PRIMARY) HYPERTENSION Qualifiers: Hypertension type: essential hypertension Qualified Code(s): I10 - Essential (primary) hypertension (7) Paroxysmal atrial fibrillation Code(s): I48.0 - PAROXYSMAL ATRIAL FIBRILLATION (8) Rheumatoid arthritis Code(s): M06.9 - RHEUMATOID ARTHRITIS, UNSPECIFIED (9) Shortness of breath Code(s): R06.02 - SHORTNESS OF BREATH
[2017-09-12] MEDS: INSULIN SLIDING SCALE (NOVOLOG) 1 VIAL SQ SCH ×3 (11:22→21:19)
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
--- NOTE | 2017-09-12 12:17 | CONS ---
PULMONARY CONSULTATION DATE OF CONSULTATION: 09/12/2017 REFERRING PHYSICIAN: . The patient is an 86-year-old black female with extensive past medical history that includes ASHD status post stents x2, history of right breast CA status post mastectomy, congestive heart failure, recently diagnosed pancytopenia, paroxysmal atrial fibrillation, COPD not on O2, asthma, hypertension, hyperlipidemia, diabetes, rheumatoid arthritis, gout, lumbar radiculopathy, admitted to [facility], with complaint of acute onset of shortness of breath, back pain, and chest pain. According to the patient's daughter, she woke up in bed approximately 4 a.m. complaining of back pain as well as chest pain. The chest pain was described as pressure-like in character, nonradiating. No nausea or vomiting and no diaphoresis associated with it. The pain resolved on presentation to the emergency room. The patient also complained of shortness of breath. The patient has a history of back pain and she also complained of increasing back pain which is associated with a slipped disk. There is no history of DVT or PE in the past. Of note, she was recently hospitalized in [facility] in early August secondary to chest pain, back pain, and CHF. At the time, her AC was discontinued secondary to significant pancytopenia. The patient is to undergo a bone marrow biopsy to rule out possible myelodysplastic syndrome. The patient has a history of tobacco use. Quit a few years ago. There is no history of occupational exposure to chemical fumes. There is no history of cough or hemoptysis. There are no fevers, weight loss or night sweats. PAST MEDICAL HISTORY: Again includes diabetes mellitus, congestive heart failure, right breast CA status post mastectomy, pancytopenia, COPD, hyperlipidemia, hypertension, atrial fibrillation, rheumatoid, gout, lumbar radiculopathy, and asthma. REVIEW OF SYSTEMS: Positive for chest pain. Positive mild shortness of breath. Positive back pain. No palpitations. No nausea. No vomiting. No abdominal pain. Positive lower extremity edema. CURRENT MEDICATIONS: Include Tylenol, Diovan, DuoNeb, Toprol, Norvasc, Lipitor, NovoLog, Singulair, Lasix, Ultram, folic acid, and vitamin D3. PHYSICAL EXAMINATION: General: The patient is an elderly black female, awake, alert, in no acute distress. Vital signs: She is afebrile, blood pressure is 152/79, respiratory rate is 16 , O2 saturation is 96% on 2 liters. HEENT: Exam is normocephalic, atraumatic. Neck: Supple. Heart: Regular S1 and S2. Chest: A few bibasilar crackles. Abdomen: Soft. Bowel sounds positive. Extremities: Bilateral lower extremity edema. LABORATORIES: WBC is 2.3, hemoglobin 10.6, hematocrit 31.6, with a platelet count of 51,000. There are 45 polys, 2 bands, 3 lymphs, and 14 monos. INR is 1.24, D- dimer is 6639. BUN 25, creatinine 1.6. UA is negative. Chest x-ray reveals no acute infiltrates or effusions. Vascular study: No evidence of DVT. IMPRESSION: 1. Chest pain, etiology to be determined. Possibly musculoskeletal. Cannot exclude PE. The patient is at increased risk, secondary to recent hospitalization, as well as a relatively sedentary lifestyle, as well as a history of malignancy. 2. Elevated D-dimer. D-dimer is nonspecific. 3. Back pain. Might be musculoskeletal. 4. Congestive heart failure. 5. Atherosclerotic heart disease, status post stents. 6. History of chronic obstructive pulmonary disease/asthma. 7. Hypertension. 8. Hyperlipidemia. 9. Rheumatoid arthritis. 10. Pancytopenia. 11. Chronic renal insufficiency. PLAN: Supplemental O2. Analgesics. VQ scan since we cannot perform CTA secondary to abnormal renal function. inhaled bronchodilators. Cardiology evaluation. Trend cardiac enzymes. JUAN PABLO FERNANDES M.D. [id number] MTDD
[2017-09-12 13:46] VITALS: BMI 38.7
--- NOTE | 2017-09-12 19:12 | CONSULT ---
Consult - text type - Consultation Consultation Note: 86 year old female with a PMH of pancytopenia, CAD (s/p stent x2), CHF (EF 69% in 2014), R breast CA (s/p mastectomy), COPD (not on home O2) HTN, HLD, DM, Afib , RA, gout, and asthma presents to our ED with acute onset of back and chest pain. PMH Asthma: Yes Cancer: Yes (Right breast cancer) Cardiac Disorders: Yes (AFIB(xeralto 20mg daily at home)) CHF: Yes Diabetes: Yes HTN: Yes Hypercholesterolemia: Yes Asthma: Yes Cancer: Yes (Right breast cancer) Cardiac Disorders: Yes (AFIB(xeralto 20mg daily at home)) CHF: Yes Diabetes: Yes HTN: Yes Hypercholesterolemia: Yes PSH Surgical: R sided mastectomy, L knee surgery, cholecystectomy Social: remote h/o nicotine, denies alcohol, denies recreational drugs Allergies/Adverse Reactions: Allergies Allergy/AdvReac Type Severity Reaction Status Date / Time Penicillins Allergy Mild Hives Verified 09/12/17 05:14 mushroom Allergy Verified 08/23/17 00:05 shellfish derived Allergy Verified 08/23/17 00:05 rye Allergy Uncoded 08/23/17 00:05 Home Medications: Ambulatory Orders Atorvastatin Ca [Lipitor] 80 mg PO HS 11/26/13 Folic Acid - 1 mg PO DAILY 11/26/13 Valsartan [Diovan] 160 mg PO DAILY tablet 04/10/17 Amlodipine Besylate [Norvasc -] 10 mg PO DAILY 08/23/17 Cholecalciferol (Vitamin D3) [Vitamin D3 -] 1,000 unit PO DAILY 08/23/17 Metoprolol Succinate [Toprol XL -] 100 mg PO DAILY 08/23/17 Montelukast Na [Singulair -] 10 mg PO HS 08/23/17 Sitagliptin Phosphate [Januvia -] 50 mg PO DAILY@0700 08/23/17 Acetaminophen [Tylenol .Regular Strength -] 650 mg PO Q6H PRN tablet 08/29/17 Albuterol 2.5/Ipratropium 0.5 [Duoneb -] 1 amp NEB Q4H PRN amp 08/29/17 Furosemide [Lasix -] 40 mg PO PRN #30 tablet 08/29/17 Albuterol 2.5/Ipratropium 0.5 [Duoneb -] 1 neb NEB Q4H PRN 09/12/17 Amlodipine Besylate [Norvasc -] 10 mg PO DAILY 09/12/17 - Surgical History Abdominal Surgery: Yes Cardiac Surgery: Yes (stent X 2) Cholecystectomy: Yes Orthopedic Surgery: Yes (left knee replacement) - Suicide/Smoking/Psychosocial Hx Smoking History: Never smoked Last Vital Signs Temp Pulse Resp BP Pulse Ox 98 F 78 20 150/74 100 09/12/17 18:02 09/12/17 18:02 09/12/17 18:02 09/12/17 18:02 09/12/17 17:00 - Physical Exam General Appearance: Yes: Nourished Neck: positive: Trachea midline, Supple Respiratory/Chest: positive:Bibasilar crackles Cardiovascular: positive: S1, S2, Other Gastrointestinal/Abdominal: positive: Normal Bowel Sounds, Soft Extremity: positive: Normal Capillary Refill, Normal Inspection Integumentary: positive: Normal Color, Dry, Warm Neurologic: positive: Fully Oriented, Alert Abnormal Lab Results 09/12/17 09/12/17 09/12/17 05:35 05:42 06:37 WBC 2.3 L RBC 2.60 L D Hgb 8.4 L D Hct 24.2 L D RDW 18.4 H Plt Count 45 L Neutrophils % (Manual) 30.0 L D Lymphocytes % (Manual) 56.0 H D D-Dimer 6639 H Anion Gap 5 L BUN 25 H Creatinine 1.6 H Random Glucose 147 H Calcium 7.6 L Alkaline Phosphatase 182 H Creatine Kinase 263 H B-Natriuretic Peptide Albumin 2.1 L 09/12/17 06:37 WBC RBC Hgb Hct RDW Plt Count Neutrophils % (Manual) Lymphocytes % (Manual) D-Dimer Anion Gap BUN Creatinine Random Glucose Calcium Alkaline Phosphatase Creatine Kinase B-Natriuretic Peptide 1181.50 H Albumin A/P 86 year old female with a PMH of pancytopenia, CAD (s/p stent x2), CHF (EF 69% in 2013), R breast CA (s/p mastectomy), COPD (not on home O2) HTN, HLD, DM, Afib , RA, gout, and asthma presents to our ED with acute onset of back and chest pain. Also with pancytopenia Pancytopenia : MDS + FISH from peripheral blood c/w poor prognosis MDS cytogenetics --monosomy 7,Deletion 5q, del 13q14, p53 mutation---complex abnormalities c/w poor prognosis Discussed with daughter overall prognosis based on this. discussed impending leukemia and poor overallprognosis based on cytogenetics Given her comorbidities ? candidacy for low intensity revlimid or vidaza Supportive care with transfusion support Will check cultures to r/o occult infection will transfuse PRBCs with lasix diuresis
[2017-09-12] MEDS ORDERED: INSULIN (NOVOLOG) ASPART 100 UNITS/ML 10ML VIAL ONE (20:51)
[2017-09-12] MEDS: MONTELUKAST NA 10 MG TABLET PO SCH (21:19)
[2017-09-12] MEDS: ATORVASTATIN CA 80 MG TABLET (FP) PO SCH (21:19)
[2017-09-13] MEDS: INSULIN SLIDING SCALE (NOVOLOG) 1 VIAL SQ SCH ×4 (06:07→22:13)
[2017-09-13] MEDS ORDERED: INSULIN (NOVOLOG) ASPART 100 UNITS/ML 10ML VIAL ONE ×2 (06:32→22:08)
[2017-09-13 06:50] LABS: HEMATOCRIT 24.3 % (32.4-45.2); HEMOGLOBIN 8.3 GM/dL (10.7-15.3); MCH 32.1 pg (25.7-33.7); MEAN CELL VOLUME 94.6 fl (80-96); MEAN PLT VOLUME 9.3 fl (7.5-11.1); RBC 2.57 M/mm3 (3.60-5.2); RDW 18.1 % (11.6-15.6); WHITE BLOOD COUNT 2.7 K/mm3 (4.0-10.0)
[2017-09-13 07:15] LABS: ALBUMIN 1.9 g/dl (3.4-5.0); ANION GAP 5 (8-16); BILIRUBIN,TOTAL 0.5 mg/dL (0.2-1.0); BLOOD UREA NITROGEN 23 mg/dL (7-18); CALCIUM 7.9 mg/dL (8.5-10.1); CHLORIDE 101 mmol/L (98-107); CO2 32 mmol/L (21-32); CREATININE 1.4 mg/dL (0.55-1.02); GLUCOSE,RANDOM 104 mg/dL (74-106); MAGNESIUM 2.1 mg/dL (1.8-2.4); POTASSIUM 4.7 mmol/L (3.5-5.1); SGOT/AST 30 U/L (15-37); SGPT/ALT 21 U/L (12-78); SODIUM 138 mmol/L (136-145); TOT PROT 6.2 g/dl (6.4-8.2)
[2017-09-13 07:18] LABS: ALK PHOS 144 U/L (45-117); N-TERMINAL BNP 2710.88 pg/ml (5-450)
[2017-09-13 07:36] LABS: PLATELET COUNT 32 K/MM3 (134-434)
--- NOTE | 2017-09-13 09:03 | PN ---
Progress Note, Physician History of Present Illness: pt feels better pain better all f/u noted discussed with Dr. Tony yesterday transfusion ordered but not transfused yet. denies cp. breathing stable. back pain better - Current Medication List Current Medications: Active Medications Acetaminophen (Tylenol -) 650 mg PO Q6H PRN PRN Reason: PAIN 1-10 Last Admin: 09/12/17 11:16 Dose: 650 mg Acetaminophen (Tylenol -) 650 mg PO Q6H PRN PRN Reason: FEVER Albuterol/Ipratropium (Duoneb -) 1 amp NEB Q4H PRN PRN Reason: SHORTNESS OF BREATH Amlodipine Besylate (Norvasc -) 10 mg PO DAILY [facility] Last Admin: 09/12/17 11:14 Dose: 10 mg Atorvastatin Calcium (Lipitor -) 80 mg PO [facility] Last Admin: 09/12/17 21:19 Dose: 80 mg Cholecalciferol (Vitamin D3 -) 1,000 unit PO DAILY [facility] Last Admin: 09/12/17 11:15 Dose: 1,000 unit Folic Acid (Folic Acid -) 1 mg PO DAILY [facility] Last Admin: 09/12/17 11:15 Dose: 1 mg Furosemide (Lasix -) 40 mg PO DAILY [facility] Last Admin: 09/12/17 11:15 Dose: 40 mg Insulin Aspart (Novolog Vial Sliding Scale -) 1 vial SQ ACHS [facility] PRN Reason: Protocol Last Admin: 09/13/17 06:07 Dose: Not Given Metoprolol Succinate (Toprol Xl -) 100 mg PO DAILY [facility] Last Admin: 09/12/17 11:15 Dose: 100 mg Montelukast Sodium (Singulair -) 10 mg PO [facility] Last Admin: 09/12/17 21:19 Dose: 10 mg Tramadol HCl (Ultram -) 50 mg PO Q8H PRN PRN Reason: PAIN LEVEL 6-10 Last Admin: 09/12/17 21:22 Dose: 50 mg Valsartan (Diovan -) 160 mg PO DAILY [facility] Last Admin: 09/12/17 11:15 Dose: 160 mg - Objective Vital Signs: Vital Signs Temperature 98 F 09/13/17 06:00 Pulse Rate 68 09/13/17 06:00 Respiratory Rate 20 09/13/17 06:00 Blood Pressure 126/68 09/13/17 06:00 O2 Sat by Pulse Oximetry (%) 96 09/13/17 01:00 Constitutional: Yes: No Distress, Calm Eyes: Yes: Conjunctiva Clear Neck: Yes: Supple Cardiovascular: Yes: Regular Rate and Rhythm Respiratory: Yes: Diminished Gastrointestinal: Yes: Soft Edema: No Neurological: Yes: Alert Labs: CBC, BMP 09/13/17 05:35 09/13/17 05:35 Problem List - Problems (1) Back pain Code(s): M54.9 - DORSALGIA, UNSPECIFIED Qualifiers: Back pain location: back pain in unspecified location Chronicity: unspecified Back pain laterality: unspecified Qualified Code(s): M54.9 - Dorsalgia, unspecified (2) Chest pain Code(s): R07.9 - CHEST PAIN, UNSPECIFIED Qualifiers: Chest pain type: unspecified Qualified Code(s): R07.9 - Chest pain, unspecified (3) CAD (coronary artery disease) Code(s): I25.10 - ATHSCL HEART DISEASE OF [place] CORONARY ARTERY W/O ANG PCTRS Qualifiers: Coronary Disease-Associated Artery/Lesion type: [place] artery (4) COPD (chronic obstructive pulmonary disease) Code(s): J44.9 - CHRONIC OBSTRUCTIVE PULMONARY DISEASE, UNSPECIFIED Qualifiers: COPD type: unspecified COPD Qualified Code(s): J44.9 - Chronic obstructive pulmonary disease, unspecified (5) Congestive heart disease Code(s): I50.9 - HEART FAILURE, UNSPECIFIED (6) Diabetes Code(s): E11.9 - TYPE 2 DIABETES MELLITUS WITHOUT COMPLICATIONS Qualifiers: Diabetes mellitus type: type 2 (7) HTN (hypertension) Code(s): I10 - ESSENTIAL (PRIMARY) HYPERTENSION Qualifiers: Hypertension type: essential hypertension Qualified Code(s): I10 - Essential (primary) hypertension (8) Pancytopenia Code(s): D61.818 - OTHER PANCYTOPENIA (9) Paroxysmal atrial fibrillation Code(s): I48.0 - PAROXYSMAL ATRIAL FIBRILLATION (10) Shortness of breath Code(s): R06.02 - SHORTNESS OF BREATH (11) MDS (myelodysplastic syndrome) Code(s): D46.9 - MYELODYSPLASTIC SYNDROME, UNSPECIFIED Assessment/Plan Clinically stable transfuse pain control physical therapy. overall prognosis poor in light of mds/ leukemia dr. Tony discussed with family will discuss also will follow discussed with nursing staff also
[2017-09-13] MEDS: FUROSEMIDE 40 MG TABLET (FP) PO SCH (09:33)
[2017-09-13] MEDS: FOLIC ACID 1 MG TABLET (FP) PO SCH (09:33)
[2017-09-13] MEDS: VALSARTAN 160 MG TABLET (UD) PO SCH (09:33)
[2017-09-13] MEDS: CHOLECALCIFEROL (VITAMIN D3) 1,000 UNIT TABLET (FP) PO SCH (09:33)
[2017-09-13] MEDS: amLODIPine BESYLATE 10 MG TABLET (FP) PO SCH (09:33)
[2017-09-13 09:39] LABS: OVALOCYTE 1+; PLATELET ESTIMATE DECREASED; TEAR DROP CELLS 1+
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
--- NOTE | 2017-09-13 11:21 | PN ---
Progress Note, Physician History of Present Illness: pulmonary alert,still c/o sob,chest and back pain - Current Medication List Current Medications: Active Medications Acetaminophen (Tylenol -) 650 mg PO Q6H PRN PRN Reason: PAIN 1-10 Last Admin: 09/12/17 11:16 Dose: 650 mg Acetaminophen (Tylenol -) 650 mg PO Q6H PRN PRN Reason: FEVER Albuterol/Ipratropium (Duoneb -) 1 amp NEB Q4H PRN PRN Reason: SHORTNESS OF BREATH Amlodipine Besylate (Norvasc -) 10 mg PO DAILY [facility] Last Admin: 09/13/17 09:33 Dose: 10 mg Atorvastatin Calcium (Lipitor -) 80 mg PO HS [facility] Last Admin: 09/12/17 21:19 Dose: 80 mg Cholecalciferol (Vitamin D3 -) 1,000 unit PO DAILY [facility] Last Admin: 09/13/17 09:33 Dose: 1,000 unit Folic Acid (Folic Acid -) 1 mg PO DAILY [facility] Last Admin: 09/13/17 09:33 Dose: 1 mg Furosemide (Lasix -) 40 mg PO DAILY [facility] Last Admin: 09/13/17 09:33 Dose: 40 mg Insulin Aspart (Novolog Vial Sliding Scale -) 1 vial SQ ACHS [facility] PRN Reason: Protocol Last Admin: 09/13/17 06:07 Dose: Not Given Metoprolol Succinate (Toprol Xl -) 100 mg PO DAILY [facility] Last Admin: 09/13/17 09:33 Dose: 100 mg Montelukast Sodium (Singulair -) 10 mg PO [facility] Last Admin: 09/12/17 21:19 Dose: 10 mg Tramadol HCl (Ultram -) 50 mg PO Q8H PRN PRN Reason: PAIN LEVEL 6-10 Last Admin: 09/12/17 21:22 Dose: 50 mg Valsartan (Diovan -) 160 mg PO DAILY [facility] Last Admin: 09/13/17 09:33 Dose: 160 mg - Objective Vital Signs: Vital Signs Temperature 98 F 09/13/17 06:00 Pulse Rate 68 09/13/17 06:00 Respiratory Rate 20 09/13/17 06:00 Blood Pressure 126/68 09/13/17 06:00 O2 Sat by Pulse Oximetry (%) 96 09/13/17 01:00 Constitutional: Yes: Well Nourished, Calm Eyes: Yes: WNL HENT: Yes: WNL Neck: Yes: WNL Cardiovascular: Yes: Regular Rate and Rhythm, S1, S2 Respiratory: Yes: Diminished Gastrointestinal: Yes: Normal Bowel Sounds, Soft Extremities: Yes: WNL Edema: No Labs: CBC, BMP 09/13/17 05:35 09/13/17 05:35 Problem List - Problems (1) Pancytopenia Code(s): D61.818 - OTHER PANCYTOPENIA (2) Back pain Code(s): M54.9 - DORSALGIA, UNSPECIFIED Qualifiers: Back pain location: back pain in unspecified location Chronicity: unspecified Back pain laterality: unspecified Qualified Code(s): M54.9 - Dorsalgia, unspecified (3) Chest pain Code(s): R07.9 - CHEST PAIN, UNSPECIFIED Qualifiers: Chest pain type: unspecified Qualified Code(s): R07.9 - Chest pain, unspecified (4) CAD (coronary artery disease) Code(s): I25.10 - ATHSCL HEART DISEASE OF [place] CORONARY ARTERY W/O ANG PCTRS Qualifiers: Coronary Disease-Associated Artery/Lesion type: [place] artery (5) COPD (chronic obstructive pulmonary disease) Code(s): J44.9 - CHRONIC OBSTRUCTIVE PULMONARY DISEASE, UNSPECIFIED Qualifiers: COPD type: unspecified COPD Qualified Code(s): J44.9 - Chronic obstructive pulmonary disease, unspecified (6) HTN (hypertension) Code(s): I10 - ESSENTIAL (PRIMARY) HYPERTENSION Qualifiers: Hypertension type: essential hypertension Qualified Code(s): I10 - Essential (primary) hypertension (7) Paroxysmal atrial fibrillation Code(s): I48.0 - PAROXYSMAL ATRIAL FIBRILLATION (8) Rheumatoid arthritis Code(s): M06.9 - RHEUMATOID ARTHRITIS, UNSPECIFIED (9) Shortness of breath Code(s): R06.02 - SHORTNESS OF BREATH Assessment/Plan IMP CHEST PAIN SYNDROME ?MUSCULOSKELETAL? CARDIAC,CANNOT EXCLUDE PE( INCREASED RISK RECENT HOSPITALIZATION,SEDENTARY,H/O MALIGNANCY) ELEVATED D-DIMER ASHD S/P STENT DYSPNEA COPD/ASTHMA CHF PAF CKD H/O R BREAST CA S/P MASTECTOMY RA PANCYTOPENIA DM PLAN V/Q SCAN TODAY O2 ANALGESICS INHALED BRONCHODILATORS MONITOR CBC,PLT CT BONE MARROW BX DR FERNANDES Problem List - Problems (1) Pancytopenia Code(s): D61.818 - OTHER PANCYTOPENIA (2) Back pain Code(s): M54.9 - DORSALGIA, UNSPECIFIED Qualifiers: Back pain location: back pain in unspecified location Chronicity: unspecified Back pain laterality: unspecified Qualified Code(s): M54.9 - Dorsalgia, unspecified (3) Chest pain Code(s): R07.9 - CHEST PAIN, UNSPECIFIED Qualifiers: Chest pain type: unspecified Qualified Code(s): R07.9 - Chest pain, unspecified (4) CAD (coronary artery disease) Code(s): I25.10 - ATHSCL HEART DISEASE OF [place] CORONARY ARTERY W/O ANG PCTRS Qualifiers: Coronary Disease-Associated Artery/Lesion type: [place] artery (5) COPD (chronic obstructive pulmonary disease) Code(s): J44.9 - CHRONIC OBSTRUCTIVE PULMONARY DISEASE, UNSPECIFIED Qualifiers: COPD type: unspecified COPD Qualified Code(s): J44.9 - Chronic obstructive pulmonary disease, unspecified (6) HTN (hypertension) Code(s): I10 - ESSENTIAL (PRIMARY) HYPERTENSION Qualifiers: Hypertension type: essential hypertension Qualified Code(s): I10 - Essential (primary) hypertension (7) Paroxysmal atrial fibrillation Code(s): I48.0 - PAROXYSMAL ATRIAL FIBRILLATION (8) Rheumatoid arthritis Code(s): M06.9 - RHEUMATOID ARTHRITIS, UNSPECIFIED (9) Shortness of breath Code(s): R06.02 - SHORTNESS OF BREATH
[2017-09-13] MEDS: ACETAMINOPHEN 325 MG TABLET (FP) PO PRN ×2 (11:24→20:09)
--- NOTE | 2017-09-13 15:44 | CONSULT ---
Consult - text type - Consultation Consultation Note: Renal consult for GRABIEL vs CKD 86 year old female with a PMH of pancytopenia, CAD (s/p stent x2), CHF (EF 69% in 2013), R breast CA (s/p mastectomy), COPD (not on home O2) HTN, HLD, DM, Afib , RA, gout, and asthma presents to our ED with acute onset of back and chest pain. Home Medications Medication Instructions Recorded Atorvastatin Ca [Lipitor] 80 mg PO HS 11/26/13 Folic Acid - 1 mg PO DAILY 11/26/13 Valsartan [Diovan] 160 mg PO DAILY tablet 04/10/17 Amlodipine Besylate [Norvasc -] 10 mg PO DAILY 08/23/17 Cholecalciferol (Vitamin D3) 1,000 unit PO DAILY 08/23/17 [Vitamin D3 -] Metoprolol Succinate [Toprol XL -] 100 mg PO DAILY 08/23/17 Montelukast Na [Singulair -] 10 mg PO HS 08/23/17 Sitagliptin Phosphate [Januvia -] 50 mg PO DAILY@0700 08/23/17 Acetaminophen [Tylenol .Regular 650 mg PO Q6H PRN tablet 08/29/17 Strength -] Albuterol 2.5/Ipratropium 0.5 1 amp NEB Q4H PRN amp 08/29/17 [Duoneb -] Furosemide [Lasix -] 40 mg PO PRN #30 tablet 08/29/17 Albuterol 2.5/Ipratropium 0.5 1 neb NEB Q4H PRN 09/12/17 [Duoneb -] Amlodipine Besylate [Norvasc -] 10 mg PO DAILY 09/12/17 Vital Signs Temperature 98.7 F 09/13/17 14:12 Pulse Rate 71 09/13/17 14:12 Respiratory Rate 18 09/13/17 14:12 Blood Pressure 129/56 09/13/17 14:12 O2 Sat by Pulse Oximetry (%) 95 09/13/17 09:00 Intake & Output 09/10/17 09/11/17 09/12/17 09/13/17 23:59 23:59 23:59 23:59 Intake Total 250 600 Balance 250 600 Weight 108.862 kg CBC, BMP 09/13/17 05:35 09/13/17 05:35 Current Medications Acetaminophen (Tylenol -) 650 mg PO Q6H PRN PRN Reason: PAIN 1-10 Last Admin: 09/13/17 11:24 Dose: 650 mg Acetaminophen (Tylenol -) 650 mg PO Q6H PRN PRN Reason: FEVER Albuterol/Ipratropium (Duoneb -) 1 amp NEB Q4H PRN PRN Reason: SHORTNESS OF BREATH Amlodipine Besylate (Norvasc -) 10 mg PO DAILY [facility] Last Admin: 09/13/17 09:33 Dose: 10 mg Atorvastatin Calcium (Lipitor -) 80 mg PO HS [facility] Last Admin: 09/12/17 21:19 Dose: 80 mg Cholecalciferol (Vitamin D3 -) 1,000 unit PO DAILY [facility] Last Admin: 09/13/17 09:33 Dose: 1,000 unit Folic Acid (Folic Acid -) 1 mg PO DAILY [facility] Last Admin: 09/13/17 09:33 Dose: 1 mg Furosemide (Lasix -) 40 mg PO DAILY [facility] Last Admin: 09/13/17 09:33 Dose: 40 mg Insulin Aspart (Novolog Vial Sliding Scale -) 1 vial SQ ACHS [facility] PRN Reason: Protocol Last Admin: 09/13/17 11:22 Dose: Not Given Metoprolol Succinate (Toprol Xl -) 100 mg PO DAILY [facility] Last Admin: 09/13/17 09:33 Dose: 100 mg Montelukast Sodium (Singulair -) 10 mg PO HS [facility] Last Admin: 09/12/17 21:19 Dose: 10 mg Tramadol HCl (Ultram -) 50 mg PO Q8H PRN PRN Reason: PAIN LEVEL 6-10 Last Admin: 09/12/17 21:22 Dose: 50 mg Valsartan (Diovan -) 160 mg PO DAILY [facility] Last Admin: 09/13/17 09:33 Dose: 160 mg
[2017-09-13] MEDS ORDERED: FUROSEMIDE 40 MG/4 ML INJECTABLE VIAL IVPUSH ONE ×2 (16:45→20:45)
--- NOTE | 2017-09-13 17:34 | CONSULT ---
Consult Consult Specialty:: Nephrology Reason for Consultation:: CKD - History of Present Illness Chief Complaint: back pain and chest pain History of Present Illness: Pt is an 86 year old female with pmhx of CAD, CKD, pancytopenia, CHF, right breast cancer, COPD, HLD, a-fib, RA, gout, and asthma who presents to the ER complaining of chest pain and back pain. She feels that it is pressure like. Pt also complains of shortness of breath and requires oxygen. She was found to have elevated creatinine and I was called to see her. She says that she follows with Dr Streeter however has not seen him in a while. She denies nsaid use. She denies dysuria or hematuria. - History Source History Provided By: Patient, Family Member - Past Medical History Cardio/Vascular: Yes: AFIB (On xarelto), CAD (describes having cardiac stent), CHF, HTN, Hyperlipdemia, [place] Pulmonary: Yes: Asthma, COPD Renal/: Yes: Renal Inusuff Psych: Yes: Anxiety. No: Addictions Musculoskeletal: Yes: Chronic low back pain Rheumatology: Yes: Rheumatoid Arthritis Endocrine: Yes: Diabetes Mellitus - Past Surgical History Past Surgical History: Yes: Cholecystectomy (open), Hysterectomy (? No pelvic scar ), Joint Replacement (left TKR), Mastectomy - Alcohol/Substance Use Hx Alcohol Use: No History of Substance Use: reports: None - Smoking History Smoking history: Never smoked Have you smoked in the past 12 months: No Aproximately how many cigarettes per day: 0 If you are a former smoker, when did you quit?: 1986 - Social History Usual Living Arrangement: Other (with family) ADL: Family Assistance Occupation: Retired: worked in a [employer], worked at [employer] History of Recent Travel: No Home Medications - Allergies Allergies/Adverse Reactions: Allergies Allergy/AdvReac Type Severity Reaction Status Date / Time Penicillins Allergy Mild Hives Verified 09/12/17 05:14 mushroom Allergy Verified 08/23/17 00:05 shellfish derived Allergy Verified 08/23/17 00:05 rye Allergy Uncoded 08/23/17 00:05 - Home Medications Home Medications: Ambulatory Orders Atorvastatin Ca [Lipitor] 80 mg PO HS 11/26/13 Folic Acid - 1 mg PO DAILY 11/26/13 Valsartan [Diovan] 160 mg PO DAILY tablet 04/10/17 Amlodipine Besylate [Norvasc -] 10 mg PO DAILY 08/23/17 Cholecalciferol (Vitamin D3) [Vitamin D3 -] 1,000 unit PO DAILY 08/23/17 Metoprolol Succinate [Toprol XL -] 100 mg PO DAILY 08/23/17 Montelukast Na [Singulair -] 10 mg PO HS 08/23/17 Sitagliptin Phosphate [Januvia -] 50 mg PO DAILY@0700 08/23/17 Acetaminophen [Tylenol .Regular Strength -] 650 mg PO Q6H PRN tablet 08/29/17 Albuterol 2.5/Ipratropium 0.5 [Duoneb -] 1 amp NEB Q4H PRN amp 08/29/17 Furosemide [Lasix -] 40 mg PO PRN #30 tablet 08/29/17 Albuterol 2.5/Ipratropium 0.5 [Duoneb -] 1 neb NEB Q4H PRN 09/12/17 Amlodipine Besylate [Norvasc -] 10 mg PO DAILY 09/12/17 Family Disease History - Family Disease History Family Disease History: Other: Father ( 87: unclear cause), Mother ( 65 : pancreatic cancer), Sister (1 : colon ca, 1 , BCA), Son (1 son: healthy), Daughter (2, healthy) Review of Systems - Review of Systems Constitutional: reports: Malaise Eyes: reports: No Symptoms HENT: reports: No Symptoms Neck: reports: No Symptoms Cardiovascular: reports: Edema, Shortness of Breath Respiratory: reports: SOB, SOB on Exertion Gastrointestinal: reports: No Symptoms Genitourinary: reports: No Symptoms Musculoskeletal: reports: Back Pain Integumentary: reports: No Symptoms Neurological: reports: No Symptoms Endocrine: reports: No Symptoms Hematology/Lymphatic: reports: No Symptoms Psychiatric: reports: No Symptoms Physical Exam Vital Signs: Vital Signs Temperature 99 F 09/13/17 16:10 Pulse Rate 68 09/13/17 16:10 Respiratory Rate 18 09/13/17 16:10 Blood Pressure 115/45 09/13/17 16:10 O2 Sat by Pulse Oximetry (%) 95 09/13/17 09:00 Constitutional: Yes: Calm Eyes: Yes: Conjunctiva Clear HENT: Yes: Atraumatic Cardiovascular: Yes: S1, S2 Respiratory: Yes: On Nasal O2 Gastrointestinal: Yes: Soft, Abdomen, Obese Renal/: Yes: WNL Musculoskeletal: Yes: Back Pain Edema: LLE: Trace, RLE: Trace Neurological: Yes: Oriented Psychiatric: Yes: Oriented Labs: CBC, BMP 09/13/17 05:35 09/13/17 05:35 Laboratory Tests 04/08/17 08/23/17 08/23/17 14:30 01:17 08:12 WBC Hgb Plt Count Sodium Potassium Chloride Carbon Dioxide Anion Gap BUN Creatinine 1.0 D 1.3 H 1.3 H 08/25/17 08/28/17 08/29/17 05:35 07:35 08:25 WBC Hgb Plt Count Sodium Potassium Chloride Carbon Dioxide Anion Gap BUN Creatinine 1.3 H 1.0 1.1 H 09/12/17 09/13/17 09/13/17 06:37 05:35 05:35 WBC 2.7 L Hgb 8.3 L Plt Count 32 L* D Sodium 138 Potassium 4.7 Chloride 101 Carbon Dioxide 32 Anion Gap 5 L BUN 23 H Creatinine 1.6 H 1.4 H Imaging - Results Chest X-ray: Report Reviewed Other: Report Reviewed (vq scan report on chart) Problem List - Problems (1) CKD (chronic kidney disease) Code(s): N18.9 - CHRONIC KIDNEY DISEASE, UNSPECIFIED (2) Back pain Code(s): M54.9 - DORSALGIA, UNSPECIFIED Qualifiers: Back pain location: back pain in unspecified location Chronicity: unspecified Back pain laterality: unspecified Qualified Code(s): M54.9 - Dorsalgia, unspecified (3) Chest pain Code(s): R07.9 - CHEST PAIN, UNSPECIFIED Qualifiers: Chest pain type: unspecified Qualified Code(s): R07.9 - Chest pain, unspecified (4) Pancytopenia Code(s): D61.818 - OTHER PANCYTOPENIA (5) Congestive heart disease Code(s): I50.9 - HEART FAILURE, UNSPECIFIED (6) HTN (hypertension) Code(s): I10 - ESSENTIAL (PRIMARY) HYPERTENSION Qualifiers: Hypertension type: essential hypertension Qualified Code(s): I10 - Essential (primary) hypertension Assessment/Plan Current Medications Generic Name Dose Route Start Last Admin Trade Name Freq PRN Reason Stop Dose Admin Acetaminophen 650 mg 09/12/17 09:18 09/13/17 11:24 Tylenol - PO 650 mg Q6H PRN Administration PAIN 1-10 Acetaminophen 650 mg 09/12/17 09:43 Tylenol - PO Q6H PRN FEVER Albuterol/Ipratropium 1 amp 09/12/17 09:18 Duoneb - NEB Q4H PRN SHORTNESS OF BREATH Amlodipine Besylate 10 mg 09/12/17 10:00 09/13/17 09:33 Norvasc - PO 10 mg DAILY [facility] Administration Atorvastatin Calcium 80 mg 09/12/17 22:00 09/12/17 21:19 Lipitor - PO 80 mg HS [facility] Administration Cholecalciferol 1,000 unit 09/12/17 10:00 09/13/17 09:33 Vitamin D3 - PO 1,000 unit DAILY [facility] Administration Folic Acid 1 mg 09/12/17 10:00 09/13/17 09:33 Folic Acid - PO 1 mg DAILY [facility] Administration Furosemide 40 mg 09/12/17 10:00 09/13/17 09:33 Lasix - PO 40 mg DAILY [facility] Administration Insulin Aspart 1 vial 09/12/17 11:00 09/13/17 16:36 Novolog Vial Sliding Scale - SQ 4 unit ACHS [facility] Administration Protocol Metoprolol Succinate 100 mg 09/12/17 10:00 09/13/17 09:33 Toprol Xl - PO 100 mg DAILY [facility] Administration Montelukast Sodium 10 mg 09/12/17 22:00 09/12/17 21:19 Singulair - PO 10 mg HS [facility] Administration Tramadol HCl 50 mg 09/12/17 09:46 09/12/17 21:22 Ultram - PO 50 mg Q8H PRN Administration PAIN LEVEL 6-10 Valsartan 160 mg 09/12/17 10:00 09/13/17 09:33 Diovan - PO 160 mg DAILY [facility] Administration Impression 1. CKD 2. pancytopenia 3. CHF 4. obesity 5. right breast cancer 6. CAD 7. copd 8. HTN Plan - will monitor renal function - discussed with oncology - agree with lasix with transfusion - check ua - check urine prt to oral surgery physician ratio - will follow Dr Madison
[2017-09-13] MEDS: traMADol HCL 50 MG TABLET PO PRN (17:40)
--- NOTE | 2017-09-13 18:20 | PN ---
Progress Note (short form) - Note Progress Note: PAtient seen and examined Continues to have sternal and back pains Last Vital Signs Temp Pulse Resp BP Pulse Ox 99 F 68 18 115/45 95 09/13/17 16:10 09/13/17 16:10 09/13/17 16:10 09/13/17 16:10 09/13/17 09:00 Cor: RSR, No murmurs, No gallops Lungs: crackles at bases Abd: Soft, Normal bowel sounds, No organomegaly Ext:1+ edema Abnormal Lab Results 09/12/17 09/13/17 09/13/17 21:00 05:35 05:35 WBC 2.7 L RBC 2.57 L Hgb 8.3 L Hct 24.3 L RDW 18.1 H Plt Count 32 L* D Neutrophils % (Manual) 40.8 L D Monocytes % (Manual) 37 H* D Myelocytes % (Man) 8 H D Metamyelocytes 3 H D Anion Gap 5 L BUN 23 H Creatinine 1.4 H Calcium 7.9 L Alkaline Phosphatase 144 H B-Natriuretic Peptide 2710.88 H Total Protein 6.2 L Albumin 1.9 L Crossmatch See Detail Home Medication List Medication Instructions Recorded Confirmed Type Atorvastatin Ca [Lipitor] 80 mg PO HS 11/26/13 09/12/17 History Folic Acid - 1 mg PO DAILY 11/26/13 09/12/17 History Amlodipine Besylate [Norvasc -] 10 mg PO DAILY 08/23/17 09/12/17 History Cholecalciferol (Vitamin D3) 1,000 unit PO DAILY 08/23/17 09/12/17 History [Vitamin D3 -] Metoprolol Succinate [Toprol XL -] 100 mg PO DAILY 08/23/17 09/12/17 History Montelukast Na [Singulair -] 10 mg PO HS 08/23/17 09/12/17 History Sitagliptin Phosphate [Januvia -] 50 mg PO DAILY@0700 08/23/17 09/12/17 History Albuterol 2.5/Ipratropium 0.5 1 neb NEB Q4H PRN 09/12/17 09/12/17 History [Duoneb -] Amlodipine Besylate [Norvasc -] 10 mg PO DAILY 09/12/17 09/12/17 History Active Medications Generic Name Dose Route Start Last Admin Trade Name Freq PRN Reason Stop Dose Admin Acetaminophen 650 mg 09/12/17 09:18 09/13/17 11:24 Tylenol - PO 650 mg Q6H PRN Administration PAIN 1-10 Acetaminophen 650 mg 09/12/17 09:43 Tylenol - PO Q6H PRN FEVER Albuterol/Ipratropium 1 amp 09/12/17 09:18 Duoneb - NEB Q4H PRN SHORTNESS OF BREATH Amlodipine Besylate 10 mg 09/12/17 10:00 09/13/17 09:33 Norvasc - PO 10 mg DAILY [facility] Administration Atorvastatin Calcium 80 mg 09/12/17 22:00 09/12/17 21:19 Lipitor - PO 80 mg HS [facility] Administration Cholecalciferol 1,000 unit 09/12/17 10:00 09/13/17 09:33 Vitamin D3 - PO 1,000 unit DAILY [facility] Administration Folic Acid 1 mg 09/12/17 10:00 09/13/17 09:33 Folic Acid - PO 1 mg DAILY [facility] Administration Furosemide 40 mg 09/12/17 10:00 09/13/17 09:33 Lasix - PO 40 mg DAILY [facility] Administration Insulin Aspart 1 vial 09/12/17 11:00 09/13/17 16:36 Novolog Vial Sliding Scale - SQ 4 unit ACHS [facility] Administration Protocol Metoprolol Succinate 100 mg 09/12/17 10:00 09/13/17 09:33 Toprol Xl - PO 100 mg DAILY [facility] Administration Montelukast Sodium 10 mg 09/12/17 22:00 09/12/17 21:19 Singulair - PO 10 mg HS [facility] Administration Tramadol HCl 50 mg 09/12/17 09:46 09/13/17 17:40 Ultram - PO 50 mg Q8H PRN Administration PAIN LEVEL 6-10 Valsartan 160 mg 09/12/17 10:00 09/13/17 09:33 Diovan - PO 160 mg DAILY [facility] Administration A/P 86 year old female with a PMH of pancytopenia, CAD (s/p stent x2), CHF (EF 69% in 2013), R breast CA (s/p mastectomy), COPD (not on home O2) HTN, HLD, DM, Afib , RA, gout, and asthma presents to our ED with acute onset of back and chest pain. 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 They understand overall prognosis
[2017-09-13 21:48] LABS: URINE APPEARANCE CLEAR; URINE BILIRUBIN NEGATIVE (<2.0 mg/dL); URINE COLOR LTYELLOW; URINE GLUCOSE (UA) NEGATIVE (NEGATIVE); URINE KETONE NEGATIVE (NEGATIVE); URINE LEUK ESTERASE NEGATIVE (NEGATIVE); URINE NITRITE NEGATIVE (NEGATIVE); URINE PROTEIN NEGATIVE (NEGATIVE); URINE UROBILINOGEN NEGATIVE mg/dL (0.2-1.0)
[2017-09-13 22:03] LABS: EPI CELLS RARE /HPF (FEW); URINE BACTERIA RARE /hpf (NONE SEEN); URINE HYALINE CAST 1 /lpf; URINE MUCUS RARE
[2017-09-13] MEDS: ATORVASTATIN CA 80 MG TABLET (FP) PO SCH (22:13)
[2017-09-13] MEDS: MONTELUKAST NA 10 MG TABLET PO SCH (22:15)
[2017-09-13 22:29] LABS: URINE CREATININE 60.1 mg/dL (20-320)
[2017-09-13 22:30] LABS: RATIO URIN PROTEIN/URIN CREAT 0.48 MG/DL
[2017-09-14] MEDS: INSULIN SLIDING SCALE (NOVOLOG) 1 VIAL SQ SCH ×4 (06:03→21:37)
[2017-09-14] MEDS: FUROSEMIDE 40 MG TABLET (FP) PO SCH (10:07)
[2017-09-14] MEDS: FOLIC ACID 1 MG TABLET (FP) PO SCH (10:07)
[2017-09-14] MEDS: amLODIPine BESYLATE 10 MG TABLET (FP) PO SCH (10:07)
[2017-09-14] MEDS: VALSARTAN 160 MG TABLET (UD) PO SCH (10:07)
[2017-09-14] MEDS: CHOLECALCIFEROL (VITAMIN D3) 1,000 UNIT TABLET (FP) PO SCH (10:07)
[2017-09-14] MEDS: traMADol HCL 50 MG TABLET PO PRN (10:44)
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
--- NOTE | 2017-09-14 11:01 | PN ---
Progress Note, Physician History of Present Illness: pulmoary alert,feeling better,cp improving. v/q scan normal - Current Medication List Current Medications: Active Medications Acetaminophen (Tylenol -) 650 mg PO Q6H PRN PRN Reason: PAIN 1-10 Last Admin: 09/13/17 20:09 Dose: 650 mg Acetaminophen (Tylenol -) 650 mg PO Q6H PRN PRN Reason: FEVER Albuterol/Ipratropium (Duoneb -) 1 amp NEB Q4H PRN PRN Reason: SHORTNESS OF BREATH Amlodipine Besylate (Norvasc -) 10 mg PO DAILY [facility] Last Admin: 09/14/17 10:07 Dose: 10 mg Atorvastatin Calcium (Lipitor -) 80 mg PO HS [facility] Last Admin: 09/13/17 22:13 Dose: 80 mg Cholecalciferol (Vitamin D3 -) 1,000 unit PO DAILY [facility] Last Admin: 09/14/17 10:07 Dose: 1,000 unit Folic Acid (Folic Acid -) 1 mg PO DAILY [facility] Last Admin: 09/14/17 10:07 Dose: 1 mg Furosemide (Lasix -) 40 mg PO DAILY [facility] Last Admin: 09/14/17 10:07 Dose: 40 mg Insulin Aspart (Novolog Vial Sliding Scale -) 1 vial SQ ACHS [facility] PRN Reason: Protocol Last Admin: 09/14/17 06:03 Dose: Not Given Metoprolol Succinate (Toprol Xl -) 100 mg PO DAILY [facility] Last Admin: 09/14/17 10:07 Dose: 100 mg Montelukast Sodium (Singulair -) 10 mg PO HS [facility] Last Admin: 09/13/17 22:15 Dose: 10 mg Tramadol HCl (Ultram -) 50 mg PO Q8H PRN PRN Reason: PAIN LEVEL 6-10 Last Admin: 09/14/17 10:44 Dose: 50 mg Valsartan (Diovan -) 160 mg PO DAILY [facility] Last Admin: 09/14/17 10:07 Dose: 160 mg - Objective Vital Signs: Vital Signs Temperature 98.5 F 09/14/17 05:00 Pulse Rate 70 09/14/17 05:00 Respiratory Rate 18 09/14/17 05:00 Blood Pressure 126/51 09/14/17 05:00 O2 Sat by Pulse Oximetry (%) 95 09/14/17 01:00 Constitutional: Yes: Well Nourished, Calm Eyes: Yes: WNL HENT: Yes: WNL Neck: Yes: WNL Cardiovascular: Yes: Regular Rate and Rhythm, S1, S2 Respiratory: Yes: Rales (bibasilar rales) Gastrointestinal: Yes: Normal Bowel Sounds, Soft Extremities: Yes: WNL Edema: Yes Labs: CBC, BMP - ....Imaging EKG: Report Reviewed (V/Q SCAN NL PERFUSION,-PE) Problem List - Problems (1) Pancytopenia Code(s): D61.818 - OTHER PANCYTOPENIA (2) Back pain Code(s): M54.9 - DORSALGIA, UNSPECIFIED Qualifiers: Back pain location: back pain in unspecified location Chronicity: unspecified Back pain laterality: unspecified Qualified Code(s): M54.9 - Dorsalgia, unspecified (3) Chest pain Code(s): R07.9 - CHEST PAIN, UNSPECIFIED Qualifiers: Chest pain type: unspecified Qualified Code(s): R07.9 - Chest pain, unspecified (4) CAD (coronary artery disease) Code(s): I25.10 - ATHSCL HEART DISEASE OF [place] CORONARY ARTERY W/O ANG PCTRS Qualifiers: Coronary Disease-Associated Artery/Lesion type: [place] artery (5) COPD (chronic obstructive pulmonary disease) Code(s): J44.9 - CHRONIC OBSTRUCTIVE PULMONARY DISEASE, UNSPECIFIED Qualifiers: COPD type: unspecified COPD Qualified Code(s): J44.9 - Chronic obstructive pulmonary disease, unspecified (6) HTN (hypertension) Code(s): I10 - ESSENTIAL (PRIMARY) HYPERTENSION Qualifiers: Hypertension type: essential hypertension Qualified Code(s): I10 - Essential (primary) hypertension (7) Paroxysmal atrial fibrillation Code(s): I48.0 - PAROXYSMAL ATRIAL FIBRILLATION (8) Rheumatoid arthritis Code(s): M06.9 - RHEUMATOID ARTHRITIS, UNSPECIFIED (9) Shortness of breath Code(s): R06.02 - SHORTNESS OF BREATH Assessment/Plan IMP CHEST PAIN SYNDROME ?MUSCULOSKELETAL? CARDIAC ELEVATED D-DIMER ASHD S/P STENT DYSPNEA COPD/ASTHMA CHF PAF CKD H/O R BREAST CA S/P MASTECTOMY RA PANCYTOPENIA DM PLAN O2 ANALGESICS INHALED BRONCHODILATORS MONITOR CBC,PLT CT DR FERNANDES Problem List - Problems (1) Pancytopenia Code(s): D61.818 - OTHER PANCYTOPENIA (2) Back pain Code(s): M54.9 - DORSALGIA, UNSPECIFIED Qualifiers: Back pain location: back pain in unspecified location Chronicity: unspecified Back pain laterality: unspecified Qualified Code(s): M54.9 - Dorsalgia, unspecified (3) Chest pain Code(s): R07.9 - CHEST PAIN, UNSPECIFIED Qualifiers: Chest pain type: unspecified Qualified Code(s): R07.9 - Chest pain, unspecified (4) CAD (coronary artery disease) Code(s): I25.10 - ATHSCL HEART DISEASE OF [place] CORONARY ARTERY W/O ANG PCTRS Qualifiers: Coronary Disease-Associated Artery/Lesion type: [place] artery (5) COPD (chronic obstructive pulmonary disease) Code(s): J44.9 - CHRONIC OBSTRUCTIVE PULMONARY DISEASE, UNSPECIFIED Qualifiers: COPD type: unspecified COPD Qualified Code(s): J44.9 - Chronic obstructive pulmonary disease, unspecified (6) HTN (hypertension) Code(s): I10 - ESSENTIAL (PRIMARY) HYPERTENSION Qualifiers: Hypertension type: essential hypertension Qualified Code(s): I10 - Essential (primary) hypertension (7) Paroxysmal atrial fibrillation Code(s): I48.0 - PAROXYSMAL ATRIAL FIBRILLATION (8) Rheumatoid arthritis Code(s): M06.9 - RHEUMATOID ARTHRITIS, UNSPECIFIED (9) Shortness of breath Code(s): R06.02 - SHORTNESS OF BREATH
--- NOTE | 2017-09-14 12:25 | PN ---
Progress Note, Physician History of Present Illness: Pt seen and examined at bedside. She is awake and alert. She says that she feels a little more comfortable today. - Current Medication List Current Medications: Active Medications Acetaminophen (Tylenol -) 650 mg PO Q6H PRN PRN Reason: PAIN 1-10 Last Admin: 09/13/17 20:09 Dose: 650 mg Acetaminophen (Tylenol -) 650 mg PO Q6H PRN PRN Reason: FEVER Albuterol/Ipratropium (Duoneb -) 1 amp NEB Q4H PRN PRN Reason: SHORTNESS OF BREATH Amlodipine Besylate (Norvasc -) 10 mg PO DAILY [facility] Last Admin: 09/14/17 10:07 Dose: 10 mg Atorvastatin Calcium (Lipitor -) 80 mg PO [facility] Last Admin: 09/13/17 22:13 Dose: 80 mg Cholecalciferol (Vitamin D3 -) 1,000 unit PO DAILY [facility] Last Admin: 09/14/17 10:07 Dose: 1,000 unit Folic Acid (Folic Acid -) 1 mg PO DAILY [facility] Last Admin: 09/14/17 10:07 Dose: 1 mg Furosemide (Lasix -) 40 mg PO DAILY [facility] Last Admin: 09/14/17 10:07 Dose: 40 mg Insulin Aspart (Novolog Vial Sliding Scale -) 1 vial SQ ACHS [facility] PRN Reason: Protocol Last Admin: 09/14/17 06:03 Dose: Not Given Metoprolol Succinate (Toprol Xl -) 100 mg PO DAILY [facility] Last Admin: 09/14/17 10:07 Dose: 100 mg Montelukast Sodium (Singulair -) 10 mg PO [facility] Last Admin: 09/13/17 22:15 Dose: 10 mg Tramadol HCl (Ultram -) 50 mg PO Q8H PRN PRN Reason: PAIN LEVEL 6-10 Last Admin: 09/14/17 10:44 Dose: 50 mg Valsartan (Diovan -) 160 mg PO DAILY [facility] Last Admin: 09/14/17 10:07 Dose: 160 mg - Objective Vital Signs: Vital Signs Temperature 98.9 F 09/14/17 09:00 Pulse Rate 73 09/14/17 09:00 Respiratory Rate 18 09/14/17 09:00 Blood Pressure 132/60 09/14/17 09:00 O2 Sat by Pulse Oximetry (%) 95 09/14/17 09:00 Constitutional: Yes: Calm Eyes: Yes: Conjunctiva Clear HENT: Yes: Atraumatic Cardiovascular: Yes: S1, S2 Respiratory: Yes: On Nasal O2 Gastrointestinal: Yes: Normal Bowel Sounds, Soft, Abdomen, Obese Genitourinary: Yes: WNL Musculoskeletal: Yes: Muscle Weakness Edema: No Neurological: Yes: Oriented Psychiatric: Yes: Oriented Labs: CBC, BMP 09/13/17 05:35 09/13/17 05:35 Problem List - Problems (1) CKD (chronic kidney disease) Code(s): N18.9 - CHRONIC KIDNEY DISEASE, UNSPECIFIED (2) Back pain Code(s): M54.9 - DORSALGIA, UNSPECIFIED Qualifiers: Qualified Code(s): M54.9 - Dorsalgia, unspecified (3) Chest pain Code(s): R07.9 - CHEST PAIN, UNSPECIFIED Qualifiers: Qualified Code(s): R07.9 - Chest pain, unspecified (4) Pancytopenia Code(s): D61.818 - OTHER PANCYTOPENIA (5) Congestive heart disease Code(s): I50.9 - HEART FAILURE, UNSPECIFIED (6) HTN (hypertension) Code(s): I10 - ESSENTIAL (PRIMARY) HYPERTENSION Qualifiers: Qualified Code(s): I10 - Essential (primary) hypertension Assessment/Plan Current Medications Generic Name Dose Route Start Last Admin Trade Name Freq PRN Reason Stop Dose Admin Acetaminophen 650 mg 09/12/17 09:18 09/13/17 20:09 Tylenol - PO 650 mg Q6H PRN Administration PAIN 1-10 Acetaminophen 650 mg 09/12/17 09:43 Tylenol - PO Q6H PRN FEVER Albuterol/Ipratropium 1 amp 09/12/17 09:18 Duoneb - NEB Q4H PRN SHORTNESS OF BREATH Amlodipine Besylate 10 mg 09/12/17 10:00 09/14/17 10:07 Norvasc - PO 10 mg DAILY [facility] Administration Atorvastatin Calcium 80 mg 09/12/17 22:00 09/13/17 22:13 Lipitor - PO 80 mg HS [facility] Administration Cholecalciferol 1,000 unit 09/12/17 10:00 09/14/17 10:07 Vitamin D3 - PO 1,000 unit DAILY [facility] Administration Folic Acid 1 mg 09/12/17 10:00 09/14/17 10:07 Folic Acid - PO 1 mg DAILY [facility] Administration Furosemide 40 mg 09/12/17 10:00 09/14/17 10:07 Lasix - PO 40 mg DAILY [facility] Administration Insulin Aspart 1 vial 09/12/17 11:00 09/14/17 06:03 Novolog Vial Sliding Scale - SQ Not Given ACHS [facility] Protocol Metoprolol Succinate 100 mg 09/12/17 10:00 09/14/17 10:07 Toprol Xl - PO 100 mg DAILY [facility] Administration Montelukast Sodium 10 mg 09/12/17 22:00 09/13/17 22:15 Singulair - PO 10 mg HS [facility] Administration Tramadol HCl 50 mg 09/12/17 09:46 09/14/17 10:44 Ultram - PO 50 mg Q8H PRN Administration PAIN LEVEL 6-10 Valsartan 160 mg 09/12/17 10:00 09/14/17 10:07 Diovan - PO 160 mg DAILY [facility] Administration Impression 1. CKD 2. pancytopenia 3. CHF 4. obesity 5. right breast cancer 6. CAD 7. copd 8. HTN Plan - cont with lasix - monitor bmp - can keep pn valsartan with close monitoring of renal function - check ua - check urine prt to calculus tutor ratio - will follow Dr Madison
--- NOTE | 2017-09-14 13:46 | PN ---
Progress Note, Physician Chief Complaint: Daughter at bedside pt is comfortable today - Current Medication List Current Medications: Active Medications Acetaminophen (Tylenol -) 650 mg PO Q6H PRN PRN Reason: PAIN 1-10 Last Admin: 09/13/17 20:09 Dose: 650 mg Acetaminophen (Tylenol -) 650 mg PO Q6H PRN PRN Reason: FEVER Albuterol/Ipratropium (Duoneb -) 1 amp NEB Q4H PRN PRN Reason: SHORTNESS OF BREATH Amlodipine Besylate (Norvasc -) 10 mg PO DAILY [facility] Last Admin: 09/14/17 10:07 Dose: 10 mg Atorvastatin Calcium (Lipitor -) 80 mg PO HS [facility] Last Admin: 09/13/17 22:13 Dose: 80 mg Cholecalciferol (Vitamin D3 -) 1,000 unit PO DAILY [facility] Last Admin: 09/14/17 10:07 Dose: 1,000 unit Folic Acid (Folic Acid -) 1 mg PO DAILY [facility] Last Admin: 09/14/17 10:07 Dose: 1 mg Furosemide (Lasix -) 40 mg PO DAILY [facility] Last Admin: 09/14/17 10:07 Dose: 40 mg Insulin Aspart (Novolog Vial Sliding Scale -) 1 vial SQ ACHS [facility] PRN Reason: Protocol Last Admin: 09/14/17 12:29 Dose: 2 unit Metoprolol Succinate (Toprol Xl -) 100 mg PO DAILY [facility] Last Admin: 09/14/17 10:07 Dose: 100 mg Montelukast Sodium (Singulair -) 10 mg PO [facility] Last Admin: 09/13/17 22:15 Dose: 10 mg Tramadol HCl (Ultram -) 50 mg PO Q8H PRN PRN Reason: PAIN LEVEL 6-10 Last Admin: 09/14/17 10:44 Dose: 50 mg Valsartan (Diovan -) 160 mg PO DAILY [facility] Last Admin: 09/14/17 10:07 Dose: 160 mg - Objective Vital Signs: Vital Signs Temperature 98.9 F 09/14/17 09:00 Pulse Rate 73 09/14/17 09:00 Respiratory Rate 18 09/14/17 09:00 Blood Pressure 132/60 09/14/17 09:00 O2 Sat by Pulse Oximetry (%) 95 09/14/17 09:00 Constitutional: Yes: No Distress Cardiovascular: Yes: Pulse Irregular Respiratory: Yes: Diminished Gastrointestinal: Yes: Normal Bowel Sounds, Soft, Abdomen, Obese. No: Tenderness Edema: Yes Edema: LLE: 1+, RLE: 1+ Labs: CBC, BMP 09/13/17 05:35 09/13/17 05:35 Problem List - Problems (1) Back pain Code(s): M54.9 - DORSALGIA, UNSPECIFIED Qualifiers: Back pain location: back pain in unspecified location Chronicity: unspecified Back pain laterality: unspecified Qualified Code(s): M54.9 - Dorsalgia, unspecified (2) CKD (chronic kidney disease) Code(s): N18.9 - CHRONIC KIDNEY DISEASE, UNSPECIFIED (3) Chest pain Code(s): R07.9 - CHEST PAIN, UNSPECIFIED Qualifiers: Chest pain type: unspecified Qualified Code(s): R07.9 - Chest pain, unspecified (4) MDS (myelodysplastic syndrome) Code(s): D46.9 - MYELODYSPLASTIC SYNDROME, UNSPECIFIED (5) Pancytopenia Code(s): D61.818 - OTHER PANCYTOPENIA Assessment/Plan PLAN Renal function is better continue with pain control, Lasix PT eval -- pt walks with walker at home no transfusion today supportive management
--- NOTE | 2017-09-14 15:45 | PATH ---
Surgical Pathology Report Patient Name: SHARON DELONG [facility]. Rec. #: [id number] /Age/Gender: 1930 (Age: 86) / F Account: [id number] Location: [facility] PEDS/ADOL Taken: 09/13/2017 Received: 09/13/2017 Reported: 09/14/2017 Physicians: Cecily Galeas M.D. Specimen(s) Received PERIPHERAL BLOOD Clinical History Pancytopenia Final Diagnosis COMPREHENSIVE FLOW PANEL performed and interpreted at [facility] laboratory, [place], [place] ([id number]) shows the following: INTERPRETATION: Granulocytopenia with 0.8% circulating blasts (see comment). COMMENT: A prior FISH study showed multiple abnormalities consistent with MDS. The flow cytometric findings are compatible with this diagnosis. See [facility] report ([id number]) for additional details. Electronically Signed Bere Ibarra M.D. Gross Description Received are 2 green top tubes of peripheral blood which are sent to [facility]. /09/13/2017 saudi/09/13/2017
[2017-09-14] MEDS: MONTELUKAST NA 10 MG TABLET PO SCH (21:37)
[2017-09-14] MEDS: ATORVASTATIN CA 80 MG TABLET (FP) PO SCH (21:37)
[2017-09-15] MEDS: INSULIN SLIDING SCALE (NOVOLOG) 1 VIAL SQ SCH ×4 (06:06→21:17)
[2017-09-15 07:22] LABS: ALBUMIN 1.7 g/dl (3.4-5.0); ANION GAP 5 (8-16); BILIRUBIN,TOTAL 0.6 mg/dL (0.2-1.0); BLOOD UREA NITROGEN 28 mg/dL (7-18); CALCIUM 7.8 mg/dL (8.5-10.1); CHLORIDE 100 mmol/L (98-107); CO2 32 mmol/L (21-32); CREATININE 1.3 mg/dL (0.55-1.02); GLUCOSE,RANDOM 128 mg/dL (74-106); SGOT/AST 38 U/L (15-37); SGPT/ALT 24 U/L (12-78); SODIUM 137 mmol/L (136-145); TOT PROT 6.1 g/dl (6.4-8.2)
[2017-09-15 07:23] LABS: ALK PHOS 140 U/L (45-117); HEMATOCRIT 26.7 % (32.4-45.2); HEMOGLOBIN 9.2 GM/dL (10.7-15.3); MCH 31.4 pg (25.7-33.7); MCHC 34.4 g/dl (32.0-36.0); MEAN CELL VOLUME 91.4 fl (80-96); MEAN PLT VOLUME 9.4 fl (7.5-11.1); RBC 2.92 M/mm3 (3.60-5.2); WHITE BLOOD COUNT 3.4 K/mm3 (4.0-10.0)
[2017-09-15 07:39] LABS: PLATELET COUNT 25 K/MM3 (134-434)
[2017-09-15 08:56] LABS: PLATELET ESTIMATE DECREASED
[2017-09-15] MEDS: ALBUTEROL SO4 2.5/IPRATROPIUM 0.5 INH SOL 3 ML VIAL.NEB. NEB PRN ×2 (09:19→15:53)
[2017-09-15] MEDS: VALSARTAN 160 MG TABLET (UD) PO SCH (09:38)
[2017-09-15] MEDS: FUROSEMIDE 40 MG TABLET (FP) PO SCH (09:38)
[2017-09-15] MEDS: amLODIPine BESYLATE 10 MG TABLET (FP) PO SCH (09:38)
[2017-09-15] MEDS: FOLIC ACID 1 MG TABLET (FP) PO SCH (09:38)
[2017-09-15] MEDS: CHOLECALCIFEROL (VITAMIN D3) 1,000 UNIT TABLET (FP) PO SCH (09:38)
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
[2017-09-15] MEDS: traMADol HCL 50 MG TABLET PO PRN (10:47)
--- NOTE | 2017-09-15 12:48 | PN ---
Progress Note (short form) - Note Progress Note: PULMONARY Denies shortness of breath or chest pain. Last Vital Signs Temp Pulse Resp BP Pulse Ox 98.7 F 73 20 150/60 96 09/15/17 08:52 09/15/17 08:52 09/15/17 08:52 09/15/17 08:52 09/15/17 08:52 Gen: NAD at rest Heart: RRR Lung: decreased breath sounds at the bases Abd: soft, nontender Ext: no edema CBC, BMP 09/15/17 05:35 09/15/17 05:35 Active Medications Acetaminophen (Tylenol -) 650 mg PO Q6H PRN PRN Reason: PAIN 1-10 Last Admin: 09/13/17 20:09 Dose: 650 mg Acetaminophen (Tylenol -) 650 mg PO Q6H PRN PRN Reason: FEVER Albuterol/Ipratropium (Duoneb -) 1 amp NEB Q4H PRN PRN Reason: SHORTNESS OF BREATH Last Admin: 09/15/17 09:19 Dose: 1 amp Amlodipine Besylate (Norvasc -) 10 mg PO DAILY [facility] Last Admin: 09/15/17 09:38 Dose: 10 mg Atorvastatin Calcium (Lipitor -) 80 mg PO [facility] Last Admin: 09/14/17 21:37 Dose: 80 mg Cholecalciferol (Vitamin D3 -) 1,000 unit PO DAILY [facility] Last Admin: 09/15/17 09:38 Dose: 1,000 unit Folic Acid (Folic Acid -) 1 mg PO DAILY [facility] Last Admin: 09/15/17 09:38 Dose: 1 mg Furosemide (Lasix -) 40 mg PO DAILY [facility] Last Admin: 09/15/17 09:38 Dose: 40 mg Insulin Aspart (Novolog Vial Sliding Scale -) 1 vial SQ ACHS [facility] PRN Reason: Protocol Last Admin: 09/15/17 11:57 Dose: 2 unit Metoprolol Succinate (Toprol Xl -) 100 mg PO DAILY [facility] Last Admin: 09/15/17 09:38 Dose: 100 mg Montelukast Sodium (Singulair -) 10 mg PO HS [facility] Last Admin: 09/14/17 21:37 Dose: 10 mg Tramadol HCl (Ultram -) 50 mg PO Q8H PRN PRN Reason: PAIN LEVEL 6-10 Last Admin: 09/15/17 10:47 Dose: 50 mg Valsartan (Diovan -) 160 mg PO DAILY [facility] Last Admin: 09/15/17 09:38 Dose: 160 mg A/P Chest Pain resolved PE ruled out with negative V/Q scan CAD COPD Paroxysmal Atrial Fibrillation LV Diastolic Dysfunction Pancytopenia CKD Rheumatoid Arthritis DM h/o Breast Ca - monitor CBC - transfuse as needed - lasix - rate controlled - holding anticoagulation due to thrombocytopenia - O2 to keep SpO2 >90% - inhaled bronchodilators as needed
--- NOTE | 2017-09-15 13:03 | PN ---
Progress Note, Physician Chief Complaint: feels weak has SOB on getting OOB daughters at bedside - Current Medication List Current Medications: Active Medications Acetaminophen (Tylenol -) 650 mg PO Q6H PRN PRN Reason: PAIN 1-10 Last Admin: 09/13/17 20:09 Dose: 650 mg Acetaminophen (Tylenol -) 650 mg PO Q6H PRN PRN Reason: FEVER Albuterol/Ipratropium (Duoneb -) 1 amp NEB Q4H PRN PRN Reason: SHORTNESS OF BREATH Last Admin: 09/15/17 09:19 Dose: 1 amp Amlodipine Besylate (Norvasc -) 10 mg PO DAILY [facility] Last Admin: 09/15/17 09:38 Dose: 10 mg Atorvastatin Calcium (Lipitor -) 80 mg PO [facility] Last Admin: 09/14/17 21:37 Dose: 80 mg Cholecalciferol (Vitamin D3 -) 1,000 unit PO DAILY [facility] Last Admin: 09/15/17 09:38 Dose: 1,000 unit Folic Acid (Folic Acid -) 1 mg PO DAILY [facility] Last Admin: 09/15/17 09:38 Dose: 1 mg Furosemide (Lasix -) 40 mg PO DAILY [facility] Last Admin: 09/15/17 09:38 Dose: 40 mg Insulin Aspart (Novolog Vial Sliding Scale -) 1 vial SQ ACHS [facility] PRN Reason: Protocol Last Admin: 09/15/17 11:57 Dose: 2 unit Metoprolol Succinate (Toprol Xl -) 100 mg PO DAILY [facility] Last Admin: 09/15/17 09:38 Dose: 100 mg Montelukast Sodium (Singulair -) 10 mg PO HS [facility] Last Admin: 09/14/17 21:37 Dose: 10 mg Tramadol HCl (Ultram -) 50 mg PO Q8H PRN PRN Reason: PAIN LEVEL 6-10 Last Admin: 09/15/17 10:47 Dose: 50 mg Valsartan (Diovan -) 160 mg PO DAILY [facility] Last Admin: 09/15/17 09:38 Dose: 160 mg - Objective Vital Signs: Vital Signs Temperature 98.7 F 09/15/17 08:52 Pulse Rate 73 09/15/17 08:52 Respiratory Rate 20 09/15/17 08:52 Blood Pressure 150/60 09/15/17 08:52 O2 Sat by Pulse Oximetry (%) 96 09/15/17 08:52 Constitutional: Yes: No Distress Cardiovascular: Yes: Pulse Irregular Respiratory: Yes: Diminished Gastrointestinal: Yes: Normal Bowel Sounds, Soft. No: Tenderness Edema: Yes Edema: LLE: 1+, RLE: 1+ Labs: CBC, BMP 09/15/17 05:35 09/15/17 05:35 Problem List - Problems (1) Back pain Code(s): M54.9 - DORSALGIA, UNSPECIFIED Qualifiers: Back pain location: back pain in unspecified location Chronicity: unspecified Back pain laterality: unspecified Qualified Code(s): M54.9 - Dorsalgia, unspecified (2) CKD (chronic kidney disease) Code(s): N18.9 - CHRONIC KIDNEY DISEASE, UNSPECIFIED (3) Chest pain Code(s): R07.9 - CHEST PAIN, UNSPECIFIED Qualifiers: Chest pain type: unspecified Qualified Code(s): R07.9 - Chest pain, unspecified (4) MDS (myelodysplastic syndrome) Code(s): D46.9 - MYELODYSPLASTIC SYNDROME, UNSPECIFIED (5) Pancytopenia Code(s): D61.818 - OTHER PANCYTOPENIA Assessment/Plan PLAN Renal function is better on Lasix platelets are trending down-- spoke with DR Tony-- will need to transfuse platelets if around 15 o r active bleeding daughter does not want checmo or any aggressive measures-- she is aware of diagnosis Family wants to take her home , will need to arrange for home phlebotomy visits and pt will need to come here frequently for blood transfusions PT eval -- pt walks with walker at home Pt will remain in the hospital today as she is weak, SOB -- platelets are trending down-- will check platelets in AM
--- NOTE | 2017-09-15 15:16 | PN ---
Progress Note, Physician History of Present Illness: Pt seen and examined at bedside. She is awake and alert. She denies shortness of breath. - Current Medication List Current Medications: Active Medications Acetaminophen (Tylenol -) 650 mg PO Q6H PRN PRN Reason: PAIN 1-10 Last Admin: 09/13/17 20:09 Dose: 650 mg Acetaminophen (Tylenol -) 650 mg PO Q6H PRN PRN Reason: FEVER Albuterol/Ipratropium (Duoneb -) 1 amp NEB Q4H PRN PRN Reason: SHORTNESS OF BREATH Last Admin: 09/15/17 09:19 Dose: 1 amp Amlodipine Besylate (Norvasc -) 10 mg PO DAILY [facility] Last Admin: 09/15/17 09:38 Dose: 10 mg Atorvastatin Calcium (Lipitor -) 80 mg PO [facility] Last Admin: 09/14/17 21:37 Dose: 80 mg Cholecalciferol (Vitamin D3 -) 1,000 unit PO DAILY [facility] Last Admin: 09/15/17 09:38 Dose: 1,000 unit Folic Acid (Folic Acid -) 1 mg PO DAILY [facility] Last Admin: 09/15/17 09:38 Dose: 1 mg Furosemide (Lasix -) 40 mg PO DAILY [facility] Last Admin: 09/15/17 09:38 Dose: 40 mg Insulin Aspart (Novolog Vial Sliding Scale -) 1 vial SQ ACHS [facility] PRN Reason: Protocol Last Admin: 09/15/17 11:57 Dose: 2 unit Metoprolol Succinate (Toprol Xl -) 100 mg PO DAILY [facility] Last Admin: 09/15/17 09:38 Dose: 100 mg Montelukast Sodium (Singulair -) 10 mg PO [facility] Last Admin: 09/14/17 21:37 Dose: 10 mg Tramadol HCl (Ultram -) 50 mg PO Q8H PRN PRN Reason: PAIN LEVEL 6-10 Last Admin: 09/15/17 10:47 Dose: 50 mg Valsartan (Diovan -) 160 mg PO DAILY [facility] Last Admin: 09/15/17 09:38 Dose: 160 mg - Objective Vital Signs: Vital Signs Temperature 98.7 F 09/15/17 08:52 Pulse Rate 73 09/15/17 08:52 Respiratory Rate 20 09/15/17 08:52 Blood Pressure 150/60 04/26/18 08:52 O2 Sat by Pulse Oximetry (%) 96 09/15/17 08:52 Constitutional: Yes: Calm Eyes: Yes: Conjunctiva Clear HENT: Yes: Atraumatic Neck: Yes: Supple Cardiovascular: Yes: S1, S2 Respiratory: Yes: CTA Bilaterally, On Nasal O2 Gastrointestinal: Yes: Soft, Abdomen, Obese Genitourinary: Yes: WNL Musculoskeletal: Yes: WNL Edema: No Neurological: Yes: Oriented Psychiatric: Yes: Oriented Labs: CBC, BMP 09/15/17 05:35 09/15/17 05:35 Problem List - Problems (1) CKD (chronic kidney disease) Code(s): N18.9 - CHRONIC KIDNEY DISEASE, UNSPECIFIED (2) Back pain Code(s): M54.9 - DORSALGIA, UNSPECIFIED Qualifiers: Back pain location: back pain in unspecified location Chronicity: unspecified Back pain laterality: unspecified Qualified Code(s): M54.9 - Dorsalgia, unspecified (3) Chest pain Code(s): R07.9 - CHEST PAIN, UNSPECIFIED Qualifiers: Chest pain type: unspecified Qualified Code(s): R07.9 - Chest pain, unspecified (4) Pancytopenia Code(s): D61.818 - OTHER PANCYTOPENIA (5) Congestive heart disease Code(s): I50.9 - HEART FAILURE, UNSPECIFIED (6) HTN (hypertension) Code(s): I10 - ESSENTIAL (PRIMARY) HYPERTENSION Qualifiers: Hypertension type: essential hypertension Qualified Code(s): I10 - Essential (primary) hypertension Assessment/Plan Current Medications Generic Name Dose Route Start Last Admin Trade Name Sujitq PRN Reason Stop Dose Admin Acetaminophen 650 mg 09/12/17 09:18 09/13/17 20:09 Tylenol - PO 650 mg Q6H PRN Administration PAIN 1-10 Acetaminophen 650 mg 09/12/17 09:43 Tylenol - PO Q6H PRN FEVER Albuterol/Ipratropium 1 amp 09/12/17 09:18 09/15/17 09:19 Duoneb - NEB 1 amp Q4H PRN Administration SHORTNESS OF BREATH Amlodipine Besylate 10 mg 09/12/17 10:00 09/15/17 09:38 Norvasc - PO 10 mg DAILY [facility] Administration Atorvastatin Calcium 80 mg 09/12/17 22:00 09/14/17 21:37 Lipitor - PO 80 mg HS EL Administration Cholecalciferol 1,000 unit 09/12/17 10:00 09/15/17 09:38 Vitamin D3 - PO 1,000 unit DAILY [facility] Administration Folic Acid 1 mg 09/12/17 10:00 09/15/17 09:38 Folic Acid - PO 1 mg DAILY [facility] Administration Furosemide 40 mg 09/12/17 10:00 09/15/17 09:38 Lasix - PO 40 mg DAILY [facility] Administration Insulin Aspart 1 vial 09/12/17 11:00 09/15/17 11:57 Novolog Vial Sliding Scale - SQ 2 unit ACHS EL Administration Protocol Metoprolol Succinate 100 mg 09/12/17 10:00 09/15/17 09:38 Toprol Xl - PO 100 mg DAILY [facility] Administration Montelukast Sodium 10 mg 09/12/17 22:00 09/14/17 21:37 Singulair - PO 10 mg HS [facility] Administration Tramadol HCl 50 mg 09/12/17 09:46 09/15/17 10:47 Ultram - PO 50 mg Q8H PRN Administration PAIN LEVEL 6-10 Valsartan 160 mg 09/12/17 10:00 09/15/17 09:38 Diovan - PO 160 mg DAILY [facility] Administration Impression 1. CKD 2. pancytopenia 3. CHF 4. obesity 5. right breast cancer 6. CAD 7. copd 8. HTN 9. microscopic hematuria Plan - renal function is improving - cont with PO lasix - monitor volume status - hematology follow up - cont valsartan - will follow Dr Madison
[2017-09-15] MEDS ORDERED: INSULIN (NOVOLOG) ASPART 100 UNITS/ML 10ML VIAL ONE (21:03)
[2017-09-15] MEDS: MONTELUKAST NA 10 MG TABLET PO SCH (21:16)
[2017-09-15] MEDS: ATORVASTATIN CA 80 MG TABLET (FP) PO SCH (21:16)
[2017-09-16] MEDS: traMADol HCL 50 MG TABLET PO PRN (10:03)
[2017-09-16] MEDS: VALSARTAN 160 MG TABLET (UD) PO SCH (10:03)
[2017-09-16] MEDS: CHOLECALCIFEROL (VITAMIN D3) 1,000 UNIT TABLET (FP) PO SCH (10:03)
[2017-09-16] MEDS: amLODIPine BESYLATE 10 MG TABLET (FP) PO SCH (10:04)
[2017-09-16] MEDS: FUROSEMIDE 40 MG TABLET (FP) PO SCH (10:04)
[2017-09-16] MEDS: FOLIC ACID 1 MG TABLET (FP) PO SCH (10:04)
[2017-09-16 11:15] LABS: HEMATOCRIT 25.5 % (32.4-45.2); HEMOGLOBIN 8.8 GM/dL (10.7-15.3); MCH 31.7 pg (25.7-33.7); MCHC 34.4 g/dl (32.0-36.0); MEAN CELL VOLUME 92.1 fl (80-96); MEAN PLT VOLUME 9.3 fl (7.5-11.1); RBC 2.77 M/mm3 (3.60-5.2); WHITE BLOOD COUNT 2.9 K/mm3 (4.0-10.0)
[2017-09-16 11:17] LABS: PLATELET COUNT 22 K/MM3 (134-434)
[2017-09-16 11:40] LABS: ALBUMIN 1.6 g/dl (3.4-5.0); ANION GAP 4 (8-16); BILIRUBIN,TOTAL 0.9 mg/dL (0.2-1.0); BLOOD UREA NITROGEN 29 mg/dL (7-18); CALCIUM 7.4 mg/dL (8.5-10.1); CHLORIDE 98 mmol/L (98-107); CO2 32 mmol/L (21-32); CREATININE 1.4 mg/dL (0.55-1.02); GLUCOSE,RANDOM 186 mg/dL (74-106); POTASSIUM 4.3 mmol/L (3.5-5.1); SGOT/AST 105 U/L (15-37); SGPT/ALT 50 U/L (12-78); SODIUM 134 mmol/L (136-145)
[2017-09-16 11:41] LABS: ALK PHOS 153 U/L (45-117)
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
[2017-09-16] MEDS ORDERED: INSULIN (NOVOLOG) ASPART 100 UNITS/ML 10ML VIAL ONE (12:12)
[2017-09-16] MEDS: INSULIN SLIDING SCALE (NOVOLOG) 1 VIAL SQ SCH ×4 (12:28→21:06)
--- NOTE | 2017-09-16 12:43 | PN ---
Progress Note, Physician History of Present Illness: pulmonary alert,nad,-sob,-cp - Current Medication List Current Medications: Active Medications Acetaminophen (Tylenol -) 650 mg PO Q6H PRN PRN Reason: PAIN 1-10 Last Admin: 09/13/17 20:09 Dose: 650 mg Acetaminophen (Tylenol -) 650 mg PO Q6H PRN PRN Reason: FEVER Albuterol/Ipratropium (Duoneb -) 1 amp NEB Q4H PRN PRN Reason: SHORTNESS OF BREATH Last Admin: 09/15/17 15:53 Dose: 1 amp Amlodipine Besylate (Norvasc -) 10 mg PO DAILY [facility] Last Admin: 09/16/17 10:04 Dose: 10 mg Atorvastatin Calcium (Lipitor -) 80 mg PO [facility] Last Admin: 09/15/17 21:16 Dose: 80 mg Cholecalciferol (Vitamin D3 -) 1,000 unit PO DAILY [facility] Last Admin: 09/16/17 10:03 Dose: 1,000 unit Folic Acid (Folic Acid -) 1 mg PO DAILY [facility] Last Admin: 09/16/17 10:04 Dose: 1 mg Furosemide (Lasix -) 40 mg PO DAILY [facility] Last Admin: 09/16/17 10:04 Dose: 40 mg Insulin Aspart (Novolog Vial Sliding Scale -) 1 vial SQ ACHS [facility] PRN Reason: Protocol Last Admin: 09/16/17 12:28 Dose: 2 unit Metoprolol Succinate (Toprol Xl -) 100 mg PO DAILY [facility] Last Admin: 09/16/17 10:04 Dose: 100 mg Montelukast Sodium (Singulair -) 10 mg PO HS [facility] Last Admin: 09/15/17 21:16 Dose: 10 mg Tramadol HCl (Ultram -) 50 mg PO Q8H PRN PRN Reason: PAIN LEVEL 6-10 Last Admin: 09/16/17 10:03 Dose: 50 mg Valsartan (Diovan -) 160 mg PO DAILY [facility] Last Admin: 09/16/17 10:03 Dose: 160 mg - Objective Vital Signs: Vital Signs Temperature 98.5 F 09/16/17 06:00 Pulse Rate 71 09/16/17 06:00 Respiratory Rate 20 09/16/17 08:50 Blood Pressure 112/64 09/16/17 06:00 O2 Sat by Pulse Oximetry (%) 99 09/16/17 08:50 Constitutional: Yes: Well Nourished, Calm Eyes: Yes: WNL HENT: Yes: WNL Neck: Yes: WNL Cardiovascular: Yes: Regular Rate and Rhythm, S1, S2 Respiratory: Yes: Rales (bibasilar rales) Gastrointestinal: Yes: Normal Bowel Sounds, Soft Extremities: Yes: WNL Edema: No Labs: CBC, BMP 09/16/17 11:05 09/16/17 11:05 Problem List - Problems (1) Pancytopenia Code(s): D61.818 - OTHER PANCYTOPENIA (2) Back pain Code(s): M54.9 - DORSALGIA, UNSPECIFIED Qualifiers: Back pain location: back pain in unspecified location Chronicity: unspecified Back pain laterality: unspecified Qualified Code(s): M54.9 - Dorsalgia, unspecified (3) Chest pain Code(s): R07.9 - CHEST PAIN, UNSPECIFIED Qualifiers: Chest pain type: unspecified Qualified Code(s): R07.9 - Chest pain, unspecified (4) CAD (coronary artery disease) Code(s): I25.10 - ATHSCL HEART DISEASE OF [place] CORONARY ARTERY W/O ANG PCTRS Qualifiers: Coronary Disease-Associated Artery/Lesion type: [place] artery (5) COPD (chronic obstructive pulmonary disease) Code(s): J44.9 - CHRONIC OBSTRUCTIVE PULMONARY DISEASE, UNSPECIFIED Qualifiers: COPD type: unspecified COPD Qualified Code(s): J44.9 - Chronic obstructive pulmonary disease, unspecified (6) HTN (hypertension) Code(s): I10 - ESSENTIAL (PRIMARY) HYPERTENSION Qualifiers: Hypertension type: essential hypertension Qualified Code(s): I10 - Essential (primary) hypertension (7) Paroxysmal atrial fibrillation Code(s): I48.0 - PAROXYSMAL ATRIAL FIBRILLATION (8) Rheumatoid arthritis Code(s): M06.9 - RHEUMATOID ARTHRITIS, UNSPECIFIED (9) Shortness of breath Code(s): R06.02 - SHORTNESS OF BREATH Assessment/Plan IMP CHEST PAIN SYNDROME RESOLVED ELEVATED D-DIMER ASHD S/P STENT DYSPNEA COPD/ASTHMA DTABLE CHF PAF CKD H/O R BREAST CA S/P MASTECTOMY RA PANCYTOPENIA DM PLAN O2 ANALGESICS INHALED BRONCHODILATORS MONITOR CBC,PLT CT DR FERNANDES Problem List - Problems (1) Pancytopenia Code(s): D61.818 - OTHER PANCYTOPENIA (2) Back pain Code(s): M54.9 - DORSALGIA, UNSPECIFIED Qualifiers: Back pain location: back pain in unspecified location Chronicity: unspecified Back pain laterality: unspecified Qualified Code(s): M54.9 - Dorsalgia, unspecified (3) Chest pain Code(s): R07.9 - CHEST PAIN, UNSPECIFIED Qualifiers: Chest pain type: unspecified Qualified Code(s): R07.9 - Chest pain, unspecified (4) CAD (coronary artery disease) Code(s): I25.10 - ATHSCL HEART DISEASE OF [place] CORONARY ARTERY W/O ANG PCTRS Qualifiers: Coronary Disease-Associated Artery/Lesion type: [place] artery (5) COPD (chronic obstructive pulmonary disease) Code(s): J44.9 - CHRONIC OBSTRUCTIVE PULMONARY DISEASE, UNSPECIFIED Qualifiers: COPD type: unspecified COPD Qualified Code(s): J44.9 - Chronic obstructive pulmonary disease, unspecified (6) HTN (hypertension) Code(s): I10 - ESSENTIAL (PRIMARY) HYPERTENSION Qualifiers: Hypertension type: essential hypertension Qualified Code(s): I10 - Essential (primary) hypertension (7) Paroxysmal atrial fibrillation Code(s): I48.0 - PAROXYSMAL ATRIAL FIBRILLATION (8) Rheumatoid arthritis Code(s): M06.9 - RHEUMATOID ARTHRITIS, UNSPECIFIED (9) Shortness of breath Code(s): R06.02 - SHORTNESS OF BREATH
--- NOTE | 2017-09-16 13:33 | PN ---
Progress Note (short form) - Note Progress Note: Patient seen and examined Daughters at bedside and issues discussed with them Age, co-morbidities, complex poor prognosis karyotypes make treatment decisions difficult. Does not seem to be a good candidate for vidaza. Discussed with Dr. Tony- might consider low dose lenalidomide , but even this is not without risk and requires monitoring Patient may not be well enough nor mobile enough to be carefully monitored as an out patient. Currently complains of shortness of breath and dyspnea. Denies chest pain Last Vital Signs Temp Pulse Resp BP Pulse Ox 98.5 F 71 20 112/64 99 09/16/17 06:00 09/16/17 06:00 09/16/17 08:50 09/16/17 06:00 09/16/17 08:50 Cor: RSR, No murmurs, No gallops Lungs: poor inspiratory effort and diminished breath sounds bilaterally Abd: Soft, Normal bowel sounds, No organomegaly Ext:No significant edema Skin: No rashes, Integument intact CBC, BMP 09/16/17 11:05 09/16/17 11:05 Current Medications Generic Name Dose Route Start Last Admin Trade Name Freq PRN Reason Stop Dose Admin Acetaminophen 650 mg 09/12/17 09:18 09/13/17 20:09 Tylenol - PO 650 mg Q6H PRN Administration PAIN 1-10 Acetaminophen 650 mg 09/12/17 09:43 Tylenol - PO Q6H PRN FEVER Albuterol/Ipratropium 1 amp 09/12/17 09:18 09/15/17 15:53 Duoneb - NEB 1 amp Q4H PRN Administration SHORTNESS OF BREATH Amlodipine Besylate 10 mg 09/12/17 10:00 09/16/17 10:04 Norvasc - PO 10 mg DAILY [facility] Administration Atorvastatin Calcium 80 mg 09/12/17 22:00 09/15/17 21:16 Lipitor - PO 80 mg HS EL Administration Cholecalciferol 1,000 unit 09/12/17 10:00 09/16/17 10:03 Vitamin D3 - PO 1,000 unit DAILY [facility] Administration Folic Acid 1 mg 09/12/17 10:00 09/16/17 10:04 Folic Acid - PO 1 mg DAILY EL Administration Furosemide 40 mg 09/12/17 10:00 09/16/17 10:04 Lasix - PO 40 mg DAILY [facility] Administration Insulin Aspart 1 vial 09/12/17 11:00 09/16/17 12:28 Novolog Vial Sliding Scale - SQ 2 unit ACHS EL Administration Protocol Metoprolol Succinate 100 mg 09/12/17 10:00 09/16/17 10:04 Toprol Xl - PO 100 mg DAILY [facility] Administration Montelukast Sodium 10 mg 09/12/17 22:00 09/15/17 21:16 Singulair - PO 10 mg HS EL Administration Tramadol HCl 50 mg 09/12/17 09:46 09/16/17 10:03 Ultram - PO 50 mg Q8H PRN Administration PAIN LEVEL 6-10 Valsartan 160 mg 09/12/17 10:00 09/16/17 10:03 Diovan - PO 160 mg DAILY [facility] Administration Impression: Multiple co-morbid medical issues CHF MDS with multiple complex karyotype. Plan: Continuing with current treatment Blood bank support prn.
--- NOTE | 2017-09-16 15:02 | PN ---
Progress Note, Physician History of Present Illness: Pt seen and examined at bedside. She is awake and alert. She feels that her breathing is comfortable. - Current Medication List Current Medications: Active Medications Acetaminophen (Tylenol -) 650 mg PO Q6H PRN PRN Reason: PAIN 1-10 Last Admin: 09/13/17 20:09 Dose: 650 mg Acetaminophen (Tylenol -) 650 mg PO Q6H PRN PRN Reason: FEVER Albuterol/Ipratropium (Duoneb -) 1 amp NEB Q4H PRN PRN Reason: SHORTNESS OF BREATH Last Admin: 09/15/17 15:53 Dose: 1 amp Amlodipine Besylate (Norvasc -) 10 mg PO DAILY [facility] Last Admin: 09/16/17 10:04 Dose: 10 mg Atorvastatin Calcium (Lipitor -) 80 mg PO [facility] Last Admin: 09/15/17 21:16 Dose: 80 mg Cholecalciferol (Vitamin D3 -) 1,000 unit PO DAILY [facility] Last Admin: 09/16/17 10:03 Dose: 1,000 unit Folic Acid (Folic Acid -) 1 mg PO DAILY [facility] Last Admin: 09/16/17 10:04 Dose: 1 mg Furosemide (Lasix -) 40 mg PO DAILY [facility] Last Admin: 09/16/17 10:04 Dose: 40 mg Insulin Aspart (Novolog Vial Sliding Scale -) 1 vial SQ ACHS [facility] PRN Reason: Protocol Last Admin: 09/16/17 12:28 Dose: 2 unit Metoprolol Succinate (Toprol Xl -) 100 mg PO DAILY [facility] Last Admin: 09/16/17 10:04 Dose: 100 mg Montelukast Sodium (Singulair -) 10 mg PO [facility] Last Admin: 09/15/17 21:16 Dose: 10 mg Tramadol HCl (Ultram -) 50 mg PO Q8H PRN PRN Reason: PAIN LEVEL 6-10 Last Admin: 09/16/17 10:03 Dose: 50 mg Valsartan (Diovan -) 160 mg PO DAILY [facility] Last Admin: 09/16/17 10:03 Dose: 160 mg - Objective Vital Signs: Vital Signs Temperature 98.7 F 09/16/17 10:00 Pulse Rate 68 09/16/17 10:00 Respiratory Rate 20 09/16/17 10:00 Blood Pressure 138/54 09/16/17 10:00 O2 Sat by Pulse Oximetry (%) 99 09/16/17 08:50 Constitutional: Yes: Calm Eyes: Yes: Conjunctiva Clear HENT: Yes: Atraumatic Cardiovascular: Yes: S1, S2 Respiratory: Yes: CTA Bilaterally, On Nasal O2 Gastrointestinal: Yes: Soft, Abdomen, Obese Genitourinary: Yes: WNL Musculoskeletal: Yes: WNL Edema: No Neurological: Yes: Oriented Psychiatric: Yes: Oriented Labs: CBC, BMP 09/16/17 11:05 09/16/17 11:05 Problem List - Problems (1) CKD (chronic kidney disease) Code(s): N18.9 - CHRONIC KIDNEY DISEASE, UNSPECIFIED (2) Back pain Code(s): M54.9 - DORSALGIA, UNSPECIFIED Qualifiers: Back pain location: back pain in unspecified location Chronicity: unspecified Back pain laterality: unspecified Qualified Code(s): M54.9 - Dorsalgia, unspecified (3) Chest pain Code(s): R07.9 - CHEST PAIN, UNSPECIFIED Qualifiers: Chest pain type: unspecified Qualified Code(s): R07.9 - Chest pain, unspecified (4) Pancytopenia Code(s): D61.818 - OTHER PANCYTOPENIA (5) Congestive heart disease Code(s): I50.9 - HEART FAILURE, UNSPECIFIED (6) HTN (hypertension) Code(s): I10 - ESSENTIAL (PRIMARY) HYPERTENSION Qualifiers: Hypertension type: essential hypertension Qualified Code(s): I10 - Essential (primary) hypertension Assessment/Plan Current Medications Generic Name Dose Route Start Last Admin Trade Name Freq PRN Reason Stop Dose Admin Acetaminophen 650 mg 09/12/17 09:18 09/13/17 20:09 Tylenol - PO 650 mg Q6H PRN Administration PAIN 1-10 Acetaminophen 650 mg 09/12/17 09:43 Tylenol - PO Q6H PRN FEVER Albuterol/Ipratropium 1 amp 09/12/17 09:18 09/15/17 15:53 Duoneb - NEB 1 amp Q4H PRN Administration SHORTNESS OF BREATH Amlodipine Besylate 10 mg 09/12/17 10:00 09/16/17 10:04 Norvasc - PO 10 mg DAILY [facility] Administration Atorvastatin Calcium 80 mg 09/12/17 22:00 09/15/17 21:16 Lipitor - PO 80 mg HS EL Administration Cholecalciferol 1,000 unit 09/12/17 10:00 09/16/17 10:03 Vitamin D3 - PO 1,000 unit DAILY [facility] Administration Folic Acid 1 mg 09/12/17 10:00 09/16/17 10:04 Folic Acid - PO 1 mg DAILY [facility] Administration Furosemide 40 mg 09/12/17 10:00 09/16/17 10:04 Lasix - PO 40 mg DAILY [facility] Administration Insulin Aspart 1 vial 09/12/17 11:00 09/16/17 12:28 Novolog Vial Sliding Scale - SQ 2 unit ACHS EL Administration Protocol Metoprolol Succinate 100 mg 09/12/17 10:00 09/16/17 10:04 Toprol Xl - PO 100 mg DAILY [facility] Administration Montelukast Sodium 10 mg 09/12/17 22:00 09/15/17 21:16 Singulair - PO 10 mg HS EL Administration Tramadol HCl 50 mg 09/12/17 09:46 09/16/17 10:03 Ultram - PO 50 mg Q8H PRN Administration PAIN LEVEL 6-10 Valsartan 160 mg 09/12/17 10:00 09/16/17 10:03 Diovan - PO 160 mg DAILY [facility] Administration Impression 1. CKD 2. pancytopenia 3. CHF 4. obesity 5. right breast cancer 6. CAD 7. copd 8. HTN 9. microscopic hematuria 10. MDS Plan - cont to monitor renal function - can keep on lasix with close monitoring of volume status - oncology input appreciated - cont valsartan - will follow Dr Madison
--- NOTE | 2017-09-16 19:56 | PN ---
Progress Note (short form) - Note Progress Note: pt seen/ examined. Chart reviewed All f/u noted looks week low grade temp. Vital Signs Temp 100.3 F H 09/16/17 17:56 Pulse 68 09/16/17 17:56 Resp 18 09/16/17 17:56 BP 123/48 09/16/17 17:56 Pulse Ox 99 09/16/17 08:50 Intake & Output 09/15/17 09/16/17 09/16/17 23:59 11:59 23:59 Intake Total 610 200 Balance 610 200 Weight 212 lb 6 oz Intake: Oral 610 200 Other: Voiding Method Bedside Commode Bedside Commode Bedside Commode # Unmeasured Voids Void 1 1 1 Weight Measurement Method Standing Scale Active Medications Acetaminophen (Tylenol -) 650 mg PO Q6H PRN PRN Reason: PAIN 1-10 Last Admin: 09/13/17 20:09 Dose: 650 mg Acetaminophen (Tylenol -) 650 mg PO Q6H PRN PRN Reason: FEVER Albuterol/Ipratropium (Duoneb -) 1 amp NEB Q4H PRN PRN Reason: SHORTNESS OF BREATH Last Admin: 09/15/17 15:53 Dose: 1 amp Amlodipine Besylate (Norvasc -) 10 mg PO DAILY [facility] Last Admin: 09/16/17 10:04 Dose: 10 mg Atorvastatin Calcium (Lipitor -) 80 mg PO HS [facility] Last Admin: 09/15/17 21:16 Dose: 80 mg Cholecalciferol (Vitamin D3 -) 1,000 unit PO DAILY [facility] Last Admin: 09/16/17 10:03 Dose: 1,000 unit Folic Acid (Folic Acid -) 1 mg PO DAILY [facility] Last Admin: 09/16/17 10:04 Dose: 1 mg Furosemide (Lasix -) 40 mg PO DAILY [facility] Last Admin: 09/16/17 10:04 Dose: 40 mg Insulin Aspart (Novolog Vial Sliding Scale -) 1 vial SQ ACHS [facility] PRN Reason: Protocol Last Admin: 09/16/17 19:20 Dose: Not Given Metoprolol Succinate (Toprol Xl -) 100 mg PO DAILY [facility] Last Admin: 09/16/17 10:04 Dose: 100 mg Montelukast Sodium (Singulair -) 10 mg PO HS [facility] Last Admin: 09/15/17 21:16 Dose: 10 mg Tramadol HCl (Ultram -) 50 mg PO Q8H PRN PRN Reason: PAIN LEVEL 6-10 Last Admin: 09/16/17 10:03 Dose: 50 mg Valsartan (Diovan -) 160 mg PO DAILY [facility] Last Admin: 09/16/17 10:03 Dose: 160 mg CBC, BMP 09/16/17 11:05 09/16/17 11:05 Microbiology 09/12/17 21:45 Blood Culture - Preliminary Blood - Peripheral Venous NO GROWTH OBTAINED AFTER 72 HOURS, INCUBATION TO CONTINUE FOR 2 DAYS. 09/12/17 21:00 Blood Culture - Preliminary Blood - Peripheral Venous NO GROWTH OBTAINED AFTER 72 HOURS, INCUBATION TO CONTINUE FOR 2 DAYS. Physical Constitutional: Yes: No Distress but weak Cardiovascular: Yes: Pulse Irregular Respiratory: Yes: Diminished at bases Gastrointestinal: Yes: Normal Bowel Sounds, Soft. No: Tenderness Edema: Yes Edema:Trace Assessment/Plan MDS- Complex karyoptype Chf Obesity Pancytopenia Arthritis f/u cultures transfuse prn. pain control overall condition poor continue supportive care. will follow' Problem List - Problems (1) Back pain Code(s): M54.9 - DORSALGIA, UNSPECIFIED Qualifiers: Back pain location: back pain in unspecified location Chronicity: unspecified Back pain laterality: unspecified Qualified Code(s): M54.9 - Dorsalgia, unspecified (2) Chest pain Code(s): R07.9 - CHEST PAIN, UNSPECIFIED Qualifiers: Chest pain type: unspecified Qualified Code(s): R07.9 - Chest pain, unspecified (3) CAD (coronary artery disease) Code(s): I25.10 - ATHSCL HEART DISEASE OF [place] CORONARY ARTERY W/O ANG PCTRS Qualifiers: Coronary Disease-Associated Artery/Lesion type: [place] artery (4) COPD (chronic obstructive pulmonary disease) Code(s): J44.9 - CHRONIC OBSTRUCTIVE PULMONARY DISEASE, UNSPECIFIED Qualifiers: COPD type: unspecified COPD Qualified Code(s): J44.9 - Chronic obstructive pulmonary disease, unspecified (5) Congestive heart disease Code(s): I50.9 - HEART FAILURE, UNSPECIFIED (6) Diabetes Code(s): E11.9 - TYPE 2 DIABETES MELLITUS WITHOUT COMPLICATIONS Qualifiers: Diabetes mellitus type: type 2 (7) HTN (hypertension) Code(s): I10 - ESSENTIAL (PRIMARY) HYPERTENSION Qualifiers: Hypertension type: essential hypertension Qualified Code(s): I10 - Essential (primary) hypertension (8) Pancytopenia Code(s): D61.818 - OTHER PANCYTOPENIA (9) Paroxysmal atrial fibrillation Code(s): I48.0 - PAROXYSMAL ATRIAL FIBRILLATION (10) Shortness of breath Code(s): R06.02 - SHORTNESS OF BREATH
[2017-09-16] MEDS: MONTELUKAST NA 10 MG TABLET PO SCH (21:06)
[2017-09-16] MEDS: ATORVASTATIN CA 80 MG TABLET (FP) PO SCH (21:06)
[2017-09-17] MEDS: INSULIN SLIDING SCALE (NOVOLOG) 1 VIAL SQ SCH ×4 (06:10→21:13)
--- NOTE | 2017-09-17 09:13 | PN ---
Progress Note (short form) - Note Progress Note: Pt seen/ examined overall condition same daughters at bedside c/c pain. Vital Signs Temp 98.9 F 09/17/17 06:00 Pulse 20 L 09/17/17 06:00 Resp 18 09/17/17 06:00 BP 115/41 09/17/17 06:00 Pulse Ox 99 09/16/17 21:00 Intake & Output 09/16/17 09/16/17 09/17/17 11:59 23:59 11:59 Intake Total 200 70 Balance 200 70 Weight 212 lb 6 oz Intake: IV 10 LH 22 09/15/2017 10 Oral 200 60 Other: Voiding Method Bedside Commode Bedside Commode # Unmeasured Voids Void 1 1 Bowel Movement No Weight Measurement Method Standing Scale Active Medications Acetaminophen (Tylenol -) 650 mg PO Q6H PRN PRN Reason: PAIN 1-10 Last Admin: 09/13/17 20:09 Dose: 650 mg Acetaminophen (Tylenol -) 650 mg PO Q6H PRN PRN Reason: FEVER Albuterol/Ipratropium (Duoneb -) 1 amp NEB Q4H PRN PRN Reason: SHORTNESS OF BREATH Last Admin: 09/15/17 15:53 Dose: 1 amp Amlodipine Besylate (Norvasc -) 10 mg PO DAILY [facility] Last Admin: 09/16/17 10:04 Dose: 10 mg Atorvastatin Calcium (Lipitor -) 80 mg PO [facility] Last Admin: 09/16/17 21:06 Dose: 80 mg Cholecalciferol (Vitamin D3 -) 1,000 unit PO DAILY [facility] Last Admin: 09/16/17 10:03 Dose: 1,000 unit Folic Acid (Folic Acid -) 1 mg PO DAILY [facility] Last Admin: 09/16/17 10:04 Dose: 1 mg Furosemide (Lasix -) 40 mg PO DAILY [facility] Last Admin: 09/16/17 10:04 Dose: 40 mg Insulin Aspart (Novolog Vial Sliding Scale -) 1 vial SQ ACHS [facility] PRN Reason: Protocol Last Admin: 09/17/17 06:10 Dose: Not Given Metoprolol Succinate (Toprol Xl -) 100 mg PO DAILY [facility] Last Admin: 09/16/17 10:04 Dose: 100 mg Montelukast Sodium (Singulair -) 10 mg PO [facility] Last Admin: 04/27/18 21:06 Dose: 10 mg Tramadol HCl (Ultram -) 50 mg PO Q8H PRN PRN Reason: PAIN LEVEL 6-10 Last Admin: 09/16/17 10:03 Dose: 50 mg Valsartan (Diovan -) 160 mg PO DAILY [facility] Last Admin: 09/16/17 10:03 Dose: 160 mg CBC, BMP 09/16/17 11:05 09/16/17 11:05 Microbiology 09/12/17 21:45 Blood Culture - Preliminary Blood - Peripheral Venous NO GROWTH OBTAINED AFTER 96 HOURS, INCUBATION TO CONTINUE FOR 1 DAYS. 09/12/17 21:00 Blood Culture - Preliminary Blood - Peripheral Venous NO GROWTH OBTAINED AFTER 96 HOURS, INCUBATION TO CONTINUE FOR 1 DAYS. Physical Constitutional: Yes: No Distress but weak. Cardiovascular: Yes: Pulse Irregular Respiratory: Yes: Diminished at bases Gastrointestinal: Yes: Normal Bowel Sounds, Soft. No: Tenderness Edema: Yes Edema:Trace Assessment/Plan MDS- Complex karyoptype Chf Obesity Pancytopenia Arthritis f/u cultures transfuse prn. pain control overall condition poor continue supportive care. Discussed with daughters will follow Problem List - Problems (1) Back pain Code(s): M54.9 - DORSALGIA, UNSPECIFIED Qualifiers: Back pain location: back pain in unspecified location Chronicity: unspecified Back pain laterality: unspecified Qualified Code(s): M54.9 - Dorsalgia, unspecified (2) Chest pain Code(s): R07.9 - CHEST PAIN, UNSPECIFIED Qualifiers: Chest pain type: unspecified Qualified Code(s): R07.9 - Chest pain, unspecified (3) CAD (coronary artery disease) Code(s): I25.10 - ATHSCL HEART DISEASE OF [place] CORONARY ARTERY W/O ANG PCTRS Qualifiers: Coronary Disease-Associated Artery/Lesion type: [place] artery (4) COPD (chronic obstructive pulmonary disease) Code(s): J44.9 - CHRONIC OBSTRUCTIVE PULMONARY DISEASE, UNSPECIFIED Qualifiers: COPD type: unspecified COPD Qualified Code(s): J44.9 - Chronic obstructive pulmonary disease, unspecified (5) Congestive heart disease Code(s): I50.9 - HEART FAILURE, UNSPECIFIED (6) Diabetes Code(s): E11.9 - TYPE 2 DIABETES MELLITUS WITHOUT COMPLICATIONS Qualifiers: Diabetes mellitus type: type 2 (7) HTN (hypertension) Code(s): I10 - ESSENTIAL (PRIMARY) HYPERTENSION Qualifiers: Hypertension type: essential hypertension Qualified Code(s): I10 - Essential (primary) hypertension (8) Pancytopenia Code(s): D61.818 - OTHER PANCYTOPENIA (9) Paroxysmal atrial fibrillation Code(s): I48.0 - PAROXYSMAL ATRIAL FIBRILLATION (10) Shortness of breath Code(s): R06.02 - SHORTNESS OF BREATH
[2017-09-17] MEDS: traMADol HCL 50 MG TABLET PO PRN ×2 (09:32→19:52)
[2017-09-17] MEDS: CHOLECALCIFEROL (VITAMIN D3) 1,000 UNIT TABLET (FP) PO SCH (09:33)
[2017-09-17] MEDS: VALSARTAN 160 MG TABLET (UD) PO SCH (09:33)
[2017-09-17] MEDS: FUROSEMIDE 40 MG TABLET (FP) PO SCH (09:33)
[2017-09-17] MEDS: FOLIC ACID 1 MG TABLET (FP) PO SCH (09:33)
[2017-09-17] MEDS: amLODIPine BESYLATE 10 MG TABLET (FP) PO SCH (09:34)
--- NOTE | 2017-09-17 11:09 | PN ---
Progress Note (short form) - Note Progress Note: PULMONARY Denies shortness of breath or chest pain. Last Vital Signs Temp Pulse Resp BP Pulse Ox 98.9 F 20 L 18 115/41 99 09/17/17 06:00 09/17/17 06:00 09/17/17 06:00 09/17/17 06:00 09/16/17 21:00 Gen: NAD at rest Heart: RRR Lung: decreased breath sounds at the bases Abd: soft, nontender Ext: no edema CBC, BMP 09/16/17 11:05 09/16/17 11:05 Active Medications Acetaminophen (Tylenol -) 650 mg PO Q6H PRN PRN Reason: PAIN 1-10 Last Admin: 09/13/17 20:09 Dose: 650 mg Acetaminophen (Tylenol -) 650 mg PO Q6H PRN PRN Reason: FEVER Amlodipine Besylate (Norvasc -) 10 mg PO DAILY [facility] Last Admin: 09/17/17 09:34 Dose: 10 mg Atorvastatin Calcium (Lipitor -) 80 mg PO HS [facility] Last Admin: 09/16/17 21:06 Dose: 80 mg Cholecalciferol (Vitamin D3 -) 1,000 unit PO DAILY [facility] Last Admin: 09/17/17 09:33 Dose: 1,000 unit Folic Acid (Folic Acid -) 1 mg PO DAILY [facility] Last Admin: 09/17/17 09:33 Dose: 1 mg Furosemide (Lasix -) 40 mg PO DAILY [facility] Last Admin: 09/17/17 09:33 Dose: 40 mg Insulin Aspart (Novolog Vial Sliding Scale -) 1 vial SQ ACHS [facility] PRN Reason: Protocol Last Admin: 09/17/17 06:10 Dose: Not Given Metoprolol Succinate (Toprol Xl -) 100 mg PO DAILY [facility] Last Admin: 09/17/17 09:33 Dose: 100 mg Montelukast Sodium (Singulair -) 10 mg PO HS [facility] Last Admin: 09/16/17 21:06 Dose: 10 mg Tramadol HCl (Ultram -) 50 mg PO Q8H PRN PRN Reason: PAIN LEVEL 6-10 Last Admin: 09/17/17 09:32 Dose: 50 mg Valsartan (Diovan -) 160 mg PO DAILY [facility] Last Admin: 09/17/17 09:33 Dose: 160 mg A/P Chest Pain resolved PE ruled out with negative V/Q scan CAD COPD Paroxysmal Atrial Fibrillation LV Diastolic Dysfunction Pancytopenia/MDS CKD Rheumatoid Arthritis DM h/o Breast Ca - monitor CBC - transfuse as needed - lasix - rate controlled - holding anticoagulation due to thrombocytopenia - O2 to keep SpO2 >90% - inhaled bronchodilators as needed
--- NOTE | 2017-09-17 12:18 | PN ---
Progress Note (short form) - Note Progress Note: Patient seen and examined Age, co-morbidities, complex poor prognosis karyotypes make treatment decisions difficult. currently she is hunched over in a chair and slowly responding to questions. Vital Signs Period Temp Pulse Resp BP Sys/Etienne Pulse Ox Last 24 Hr 98.1 F-100.3 F 20-71 18-20 111-126/41-48 99 Lungs: poor inspiratory effort and diminished breath sounds bilaterally Abd: Soft, Normal bowel sounds, No organomegaly Ext:No significant edema Skin: No rashes, Integument intact CBC, BMP 09/16/17 11:05 09/16/17 11:05 Current Medications Generic Name Dose Route Start Last Admin Trade Name Freq PRN Reason Stop Dose Admin Acetaminophen 650 mg 09/12/17 09:18 09/13/17 20:09 Tylenol - PO 650 mg Q6H PRN Administration PAIN 1-10 Acetaminophen 650 mg 09/12/17 09:43 Tylenol - PO Q6H PRN FEVER Amlodipine Besylate 10 mg 09/12/17 10:00 09/17/17 09:34 Norvasc - PO 10 mg DAILY [facility] Administration Atorvastatin Calcium 80 mg 09/12/17 22:00 09/16/17 21:06 Lipitor - PO 80 mg HS [facility] Administration Cholecalciferol 1,000 unit 09/12/17 10:00 09/17/17 09:33 Vitamin D3 - PO 1,000 unit DAILY [facility] Administration Folic Acid 1 mg 09/12/17 10:00 09/17/17 09:33 Folic Acid - PO 1 mg DAILY [facility] Administration Furosemide 40 mg 09/12/17 10:00 09/17/17 09:33 Lasix - PO 40 mg DAILY [facility] Administration Insulin Aspart 1 vial 09/12/17 11:00 09/17/17 11:29 Novolog Vial Sliding Scale - SQ Not Given ACHS [facility] Protocol Metoprolol Succinate 100 mg 09/12/17 10:00 09/17/17 09:33 Toprol Xl - PO 100 mg DAILY [facility] Administration Montelukast Sodium 10 mg 09/12/17 22:00 09/16/17 21:06 Singulair - PO 10 mg HS [facility] Administration Tramadol HCl 50 mg 09/12/17 09:46 09/17/17 09:32 Ultram - PO 50 mg Q8H PRN Administration PAIN LEVEL 6-10 Valsartan 160 mg 09/12/17 10:00 09/17/17 09:33 Diovan - PO 160 mg DAILY [facility] Administration Impression: Multiple co-morbid medical issues CHF MDS with multiple complex karyotype. Plan: Continuing with current treatment MDS - Blood bank support prn. Transfusion parameters - if Hb<7 and Platelets <15 or if bleeding
--- NOTE | 2017-09-17 12:28 | PN ---
Progress Note (short form) - Note Progress Note: RENAL Pt is known to me has ckd no specific complaints was a bout to have lunch when I saw her Last Vital Signs Temp Pulse Resp BP Pulse Ox 98.9 F 20 L 18 115/41 99 09/17/17 06:00 09/17/17 06:00 09/17/17 06:00 09/17/17 06:00 09/16/17 21:00 lungs decreased breath sounds cvs s1s2 rr abd soft ext no edema neuro a+o, slow to respond CBC, BMP 09/16/17 11:05 09/16/17 11:05 Current Medications Generic Name Dose Route Start Last Admin Trade Name Freq PRN Reason Stop Dose Admin Acetaminophen 650 mg 09/12/17 09:18 09/13/17 20:09 Tylenol - PO 650 mg Q6H PRN Administration PAIN 1-10 Acetaminophen 650 mg 09/12/17 09:43 Tylenol - PO Q6H PRN FEVER Amlodipine Besylate 10 mg 09/12/17 10:00 09/17/17 09:34 Norvasc - PO 10 mg DAILY [facility] Administration Atorvastatin Calcium 80 mg 09/12/17 22:00 09/16/17 21:06 Lipitor - PO 80 mg HS [facility] Administration Cholecalciferol 1,000 unit 09/12/17 10:00 09/17/17 09:33 Vitamin D3 - PO 1,000 unit DAILY [facility] Administration Folic Acid 1 mg 09/12/17 10:00 09/17/17 09:33 Folic Acid - PO 1 mg DAILY [facility] Administration Furosemide 40 mg 09/12/17 10:00 09/17/17 09:33 Lasix - PO 40 mg DAILY [facility] Administration Insulin Aspart 1 vial 09/12/17 11:00 09/17/17 11:29 Novolog Vial Sliding Scale - SQ Not Given ACHS [facility] Protocol Metoprolol Succinate 100 mg 09/12/17 10:00 09/17/17 09:33 Toprol Xl - PO 100 mg DAILY [facility] Administration Montelukast Sodium 10 mg 09/12/17 22:00 09/16/17 21:06 Singulair - PO 10 mg HS [facility] Administration Tramadol HCl 50 mg 09/12/17 09:46 09/17/17 09:32 Ultram - PO 50 mg Q8H PRN Administration PAIN LEVEL 6-10 Valsartan 160 mg 09/12/17 10:00 09/17/17 09:33 Diovan - PO 160 mg DAILY [facility] Administration Impression 1. CKD 2. pancytopenia 3. CHF 4. obesity 5. right breast cancer 6. CAD 7. copd 8. HTN 9. microscopic hematuria 10. MDS with monocytosis- has pancytopenia Plan renal fuction stable. Will make no changes repeat labs heme follow up MV
[2017-09-17] MEDS: ACETAMINOPHEN 325 MG TABLET (FP) PO PRN (18:47)
[2017-09-17] MEDS: ATORVASTATIN CA 80 MG TABLET (FP) PO SCH (21:05)
[2017-09-17] MEDS: MONTELUKAST NA 10 MG TABLET PO SCH (21:05)
[2017-09-18] MEDS: INSULIN SLIDING SCALE (NOVOLOG) 1 VIAL SQ SCH ×4 (06:01→21:14)
[2017-09-18 07:51] LABS: HEMATOCRIT 26.2 % (32.4-45.2); HEMOGLOBIN 9.3 GM/dL (10.7-15.3); MCH 32.1 pg (25.7-33.7); MCHC 35.6 g/dl (32.0-36.0); MEAN CELL VOLUME 90.3 fl (80-96); PLATELET COUNT 49 K/MM3 (134-434); RDW 17.6 % (11.6-15.6); WHITE BLOOD COUNT 3.4 K/mm3 (4.0-10.0)
--- NOTE | 2017-09-18 09:19 | PN ---
Progress Note (short form) - Note Progress Note: Patient seen and examined Age, co-morbidities, complex poor prognosis karyotypes make treatment decisions difficult. currently she is in bed and she is confused Vital Signs Period Temp Pulse Resp BP Sys/Etienne Pulse Ox Last 24 Hr 97.3 F-100.3 F 64-92 18-20 103-134/47-63 99-99 confused, trying to get out of bed Abd: Soft, Normal bowel sounds, No organomegaly Ext:No significant edema Skin: No rashes, Integument intact CBC, BMP 09/18/17 06:25 09/16/17 11:05 Current Medications Generic Name Dose Route Start Last Admin Trade Name Freq PRN Reason Stop Dose Admin Acetaminophen 650 mg 09/12/17 09:18 09/17/17 18:47 Tylenol - PO 650 mg Q6H PRN Administration PAIN LEVEL 1 - 3 Acetaminophen 650 mg 09/12/17 09:43 Tylenol - PO Q6H PRN FEVER Amlodipine Besylate 10 mg 09/12/17 10:00 09/17/17 09:34 Norvasc - PO 10 mg DAILY [facility] Administration Atorvastatin Calcium 80 mg 09/12/17 22:00 09/17/17 21:05 Lipitor - PO 80 mg HS [facility] Administration Cholecalciferol 1,000 unit 09/12/17 10:00 09/17/17 09:33 Vitamin D3 - PO 1,000 unit DAILY [facility] Administration Folic Acid 1 mg 09/12/17 10:00 09/17/17 09:33 Folic Acid - PO 1 mg DAILY [facility] Administration Furosemide 40 mg 09/12/17 10:00 09/17/17 09:33 Lasix - PO 40 mg DAILY [facility] Administration Insulin Aspart 1 vial 09/12/17 11:00 09/18/17 06:01 Novolog Vial Sliding Scale - SQ Not Given ACHS [facility] Protocol Metoprolol Succinate 100 mg 09/12/17 10:00 09/17/17 09:33 Toprol Xl - PO 100 mg DAILY [facility] Administration Montelukast Sodium 10 mg 09/12/17 22:00 09/17/17 21:05 Singulair - PO 10 mg HS [facility] Administration Tramadol HCl 50 mg 09/17/17 19:31 09/17/17 19:52 Ultram - PO 50 mg Q8H PRN Administration PAIN LEVEL 7 - 10 Valsartan 160 mg 09/12/17 10:00 09/17/17 09:33 Diovan - PO 160 mg DAILY [facility] Administration Impression: Multiple co-morbid medical issues CHF MDS with multiple complex karyotype. Plan: Continue with treatmetn of other comorbidities MDS - Blood bank support prn. I dont think she is a candidate for treatment of MDS except supportive care Goals of care discussion with family Transfusion parameters - if Hb<7 and Platelets <15 or if bleeding
[2017-09-18] MEDS: traMADol HCL 50 MG TABLET PO PRN ×2 (09:56→21:11)
[2017-09-18] MEDS: FOLIC ACID 1 MG TABLET (FP) PO SCH (09:56)
[2017-09-18] MEDS: FUROSEMIDE 40 MG TABLET (FP) PO SCH (09:57)
[2017-09-18] MEDS: CHOLECALCIFEROL (VITAMIN D3) 1,000 UNIT TABLET (FP) PO SCH (09:57)
[2017-09-18] MEDS: amLODIPine BESYLATE 10 MG TABLET (FP) PO SCH ×2 (09:57→10:02)
[2017-09-18] MEDS: VALSARTAN 160 MG TABLET (UD) PO SCH ×2 (09:57→10:01)
--- NOTE | 2017-09-18 12:05 | PN ---
Progress Note (short form) - Note Progress Note: PULMONARY Confused but denies shortness of breath or chest pain. Last Vital Signs Temp Pulse Resp BP Pulse Ox 98.1 F 86 20 100/72 97 09/18/17 10:00 09/18/17 10:00 09/18/17 10:00 09/18/17 10:00 09/18/17 10:00 Gen: NAD at rest Heart: RRR Lung: decreased breath sounds at the bases Abd: soft, nontender Ext: no edema CBC, BMP 09/18/17 06:25 09/16/17 11:05 Active Medications Acetaminophen (Tylenol -) 650 mg PO Q6H PRN PRN Reason: PAIN LEVEL 1 - 3 Last Admin: 09/17/17 18:47 Dose: 650 mg Acetaminophen (Tylenol -) 650 mg PO Q6H PRN PRN Reason: FEVER Amlodipine Besylate (Norvasc -) 10 mg PO DAILY [facility] Last Admin: 09/18/17 10:02 Dose: Not Given Atorvastatin Calcium (Lipitor -) 80 mg PO [facility] Last Admin: 09/17/17 21:05 Dose: 80 mg Cholecalciferol (Vitamin D3 -) 1,000 unit PO DAILY [facility] Last Admin: 09/18/17 09:57 Dose: 1,000 unit Folic Acid (Folic Acid -) 1 mg PO DAILY [facility] Last Admin: 09/18/17 09:56 Dose: 1 mg Furosemide (Lasix -) 40 mg PO DAILY [facility] Last Admin: 09/18/17 09:57 Dose: 40 mg Insulin Aspart (Novolog Vial Sliding Scale -) 1 vial SQ ACHS [facility] PRN Reason: Protocol Last Admin: 09/18/17 11:42 Dose: Not Given Metoprolol Succinate (Toprol Xl -) 100 mg PO DAILY [facility] Last Admin: 09/18/17 09:57 Dose: 100 mg Montelukast Sodium (Singulair -) 10 mg PO HS [facility] Last Admin: 09/17/17 21:05 Dose: 10 mg Tramadol HCl (Ultram -) 50 mg PO Q8H PRN PRN Reason: PAIN LEVEL 7 - 10 Last Admin: 09/18/17 09:56 Dose: 50 mg Valsartan (Diovan -) 160 mg PO DAILY [facility] Last Admin: 09/18/17 10:01 Dose: Not Given A/P Chest Pain resolved PE ruled out with negative V/Q scan CAD COPD Paroxysmal Atrial Fibrillation LV Diastolic Dysfunction Pancytopenia/MDS CKD Rheumatoid Arthritis DM h/o Breast Ca - monitor CBC - transfuse as needed - lasix - rate controlled - holding anticoagulation due to thrombocytopenia - O2 to keep SpO2 >90% - inhaled bronchodilators as needed
--- NOTE | 2017-09-18 14:05 | PN ---
Progress Note (short form) - Note Progress Note: Pt seen/ examined. overall condition same c/c - itching. pain ok. chronic ill appearance Vital Signs Temp 98.1 F 09/18/17 10:00 Pulse 86 09/18/17 10:00 Resp 20 09/18/17 10:00 BP 100/72 09/18/17 10:00 Pulse Ox 97 09/18/17 10:00 Intake & Output 09/17/17 09/18/17 09/18/17 23:59 11:59 23:59 Intake Total 620 30 Balance 620 30 Intake: IV 10 LH 22 09/15/2017 10 Oral 610 30 Other: Voiding Method Bedside Commode Diaper Active Medications Acetaminophen (Tylenol -) 650 mg PO Q6H PRN PRN Reason: PAIN LEVEL 1 - 3 Last Admin: 09/17/17 18:47 Dose: 650 mg Acetaminophen (Tylenol -) 650 mg PO Q6H PRN PRN Reason: FEVER Amlodipine Besylate (Norvasc -) 10 mg PO DAILY [facility] Last Admin: 09/18/17 10:02 Dose: Not Given Atorvastatin Calcium (Lipitor -) 80 mg PO [facility] Last Admin: 09/17/17 21:05 Dose: 80 mg Cholecalciferol (Vitamin D3 -) 1,000 unit PO DAILY [facility] Last Admin: 09/18/17 09:57 Dose: 1,000 unit Folic Acid (Folic Acid -) 1 mg PO DAILY [facility] Last Admin: 09/18/17 09:56 Dose: 1 mg Furosemide (Lasix -) 40 mg PO DAILY [facility] Last Admin: 09/18/17 09:57 Dose: 40 mg Insulin Aspart (Novolog Vial Sliding Scale -) 1 vial SQ ACHS [facility] PRN Reason: Protocol Last Admin: 09/18/17 11:42 Dose: Not Given Metoprolol Succinate (Toprol Xl -) 100 mg PO DAILY [facility] Last Admin: 09/18/17 09:57 Dose: 100 mg Montelukast Sodium (Singulair -) 10 mg PO [facility] Last Admin: 09/17/17 21:05 Dose: 10 mg Tramadol HCl (Ultram -) 50 mg PO Q8H PRN PRN Reason: PAIN LEVEL 7 - 10 Last Admin: 09/18/17 09:56 Dose: 50 mg Valsartan (Diovan -) 160 mg PO DAILY [facility] Last Admin: 09/18/17 10:01 Dose: Not Given CBC, BMP 09/18/17 06:25 09/16/17 11:05 Microbiology 09/12/17 21:45 Blood Culture - Final Blood - Peripheral Venous NO GROWTH AFTER 5 DAYS INCUBATION 09/12/17 21:00 Blood Culture - Final Blood - Peripheral Venous NO GROWTH AFTER 5 DAYS INCUBATION Physical Constitutional: Yes: No Distress/ weak Cardiovascular: Yes: Pulse Irregular Respiratory: Yes: Diminished at bases Gastrointestinal: Yes: Normal Bowel Sounds, Soft. No: Tenderness Edema: Yes Edema:Trace Assessment/Plan MDS- Complex karyoptype Chf Obesity Pancytopenia Arthritis f/u cultures transfuse prn. pain control overall condition poor continue supportive care. Benadryl for itching. will follow Problem List - Problems (1) Back pain Code(s): M54.9 - DORSALGIA, UNSPECIFIED Qualifiers: Back pain location: back pain in unspecified location Chronicity: unspecified Back pain laterality: unspecified Qualified Code(s): M54.9 - Dorsalgia, unspecified (2) Chest pain Code(s): R07.9 - CHEST PAIN, UNSPECIFIED Qualifiers: Chest pain type: unspecified Qualified Code(s): R07.9 - Chest pain, unspecified (3) CAD (coronary artery disease) Code(s): I25.10 - ATHSCL HEART DISEASE OF [place] CORONARY ARTERY W/O ANG PCTRS Qualifiers: Coronary Disease-Associated Artery/Lesion type: resighini artery (4) COPD (chronic obstructive pulmonary disease) Code(s): J44.9 - CHRONIC OBSTRUCTIVE PULMONARY DISEASE, UNSPECIFIED Qualifiers: COPD type: unspecified COPD Qualified Code(s): J44.9 - Chronic obstructive pulmonary disease, unspecified (5) Congestive heart disease Code(s): I50.9 - HEART FAILURE, UNSPECIFIED (6) Diabetes Code(s): E11.9 - TYPE 2 DIABETES MELLITUS WITHOUT COMPLICATIONS Qualifiers: Diabetes mellitus type: type 2 (7) HTN (hypertension) Code(s): I10 - ESSENTIAL (PRIMARY) HYPERTENSION Qualifiers: Hypertension type: essential hypertension Qualified Code(s): I10 - Essential (primary) hypertension (8) Pancytopenia Code(s): D61.818 - OTHER PANCYTOPENIA (9) Paroxysmal atrial fibrillation Code(s): I48.0 - PAROXYSMAL ATRIAL FIBRILLATION (10) Shortness of breath Code(s): R06.02 - SHORTNESS OF BREATH
[2017-09-18] MEDS: MONTELUKAST NA 10 MG TABLET PO SCH (21:10)
[2017-09-18] MEDS: ATORVASTATIN CA 80 MG TABLET (FP) PO SCH (21:11)
[2017-09-18] MEDS: diphenhydrAMINE HCL 25 MG CAPSULE (FP) PO SCH (21:11)
[2017-09-19] MEDS: INSULIN SLIDING SCALE (NOVOLOG) 1 VIAL SQ SCH ×3 (06:26→16:55)
[2017-09-19] MEDS ORDERED: ALBUTEROL SO4 0.083% IH SOL 2.5 MG/3 ML VIAL.NEB. NEB ONE ×2 (07:05→07:28)
--- NOTE | 2017-09-19 07:26 | HOSP ---
Subjective - Review of Symptoms Events since last encounter: Hospitalist Encounter Notified by the RN that the patient is "not acting right" Subjective: Arrived to bedside, patient is alert to name, place, agitated and confused. Patient is refusing exam and care Attempted to perform exam see PE Assessment: 86 year old female with a PMH of pancytopenia, CAD (s/p stent x2), Chf, R breast CA (s/p mastectomy), COPD (not on home O2) HTN, HLD, DM, Afib, RA, gout, lumbar radiculopathy and asthma presents to ED with flare of back and chest pain. Admitted to Telemetry Chest Pain and Back Pain. Plan: CBCD, CMP, Mg, Phos Stat Duplex LUE stat Will inform Day team of this morning's events Neurological: Yes: Confusion Physical Examination Vital Signs: Vital Signs Temperature 97.1 F L 09/18/17 22:00 Pulse Rate 67 09/18/17 22:00 Respiratory Rate 20 09/18/17 22:00 Blood Pressure 96/43 09/18/17 22:00 O2 Sat by Pulse Oximetry (%) 97 09/18/17 21:00 Constitutional: Yes: Anxious, Obese Eyes: Yes: EOM Intact, PERRL HENT: Yes: WNL, Atraumatic, Normocephalic Neck: Yes: WNL, Supple, Trachea Midline Cardiovascular: Yes: WNL, Regular Rate and Rhythm, S1, S2 Respiratory: Yes: Rhonchi, SOB Edema: Yes Edema: LUE: 2+ Peripheral Pulses WNL: Yes Neurological: Yes: Alert, Confusion ...Motor Strength: WNL Psychiatric: Yes: Agitated Labs: CBC, BMP 09/18/17 06:25 09/16/17 11:05 Laboratory Tests 09/12/17 09/12/17 09/12/17 05:35 05:42 05:42 WBC 2.3 L RBC 2.60 L D Hgb 8.4 L D Hct 24.2 L D MCV 93.0 MCH 32.5 MCHC 34.9 RDW 18.4 H Plt Count 45 L MPV 10.2 Total Counted Neutrophils % No Result Required. Neutrophils % (Manual) 30.0 L D Band Neutrophils % 5.0 Lymphocytes % No Result Required. Lymphocytes % (Manual) 56.0 H D Monocytes % (Manual) 7 Eosinophils % (Manual) Basophils % (Manual) Myelocytes % (Man) Promyelocytes % (Man) Blast Cells % (Manual) Nucleated RBC % Metamyelocytes Hypochromia 1+ Platelet Estimate Decreased Platelet Comment No clotting detected Anisocytosis 1+ Tear Drop Cells Ovalocytes Schistocytes D-Dimer Sodium Cancelled Potassium Cancelled Chloride Cancelled Carbon Dioxide Cancelled Anion Gap Cancelled BUN Cancelled Creatinine Cancelled Creat Clearance w eGFR Cancelled POC Glucometer Random Glucose Cancelled Calcium Cancelled Magnesium Cancelled Total Bilirubin Cancelled AST Cancelled ALT Cancelled Alkaline Phosphatase Cancelled Creatine Kinase Cancelled Creatine Kinase Index CK-MB (CK-2) Troponin I Cancelled B-Natriuretic Peptide Cancelled Total Protein Cancelled Albumin Cancelled Urine Color Urine Appearance Urine pH Ur Specific [place] Urine Protein Urine Glucose (UA) Urine Ketones Urine Blood Urine Nitrite Urine Bilirubin Urine Urobilinogen Ur Leukocyte Esterase Urine WBC (Auto) Urine RBC (Auto) Ur Epithelial Cells Urine Bacteria Hyaline Casts Urine Mucus U Random Total Protein Ur Random Sodium Ur Random Urea Nitrogn Urine Creatinine Protein/Creatinin Ratio Blood Type Antibody Screen Crossmatch 09/12/17 09/12/17 09/12/17 05:42 06:37 06:37 WBC RBC Hgb Hct MCV MCH MCHC RDW Plt Count MPV Total Counted Neutrophils % Neutrophils % (Manual) Band Neutrophils % Lymphocytes % Lymphocytes % (Manual) Monocytes % (Manual) Eosinophils % (Manual) Basophils % (Manual) Myelocytes % (Man) Promyelocytes % (Man) Blast Cells % (Manual) Nucleated RBC % Metamyelocytes Hypochromia Platelet Estimate Platelet Comment Anisocytosis Tear Drop Cells Ovalocytes Schistocytes D-Dimer 6639 H Sodium 138 Potassium 4.4 Chloride 102 Carbon Dioxide 31 Anion Gap 5 L BUN 25 H Creatinine 1.6 H Creat Clearance w eGFR 30.49 POC Glucometer Random Glucose 147 H Calcium 7.6 L Magnesium Total Bilirubin 0.5 AST 35 ALT 25 Alkaline Phosphatase 182 H Creatine Kinase 263 H Creatine Kinase Index 0.5 CK-MB (CK-2) 1.379 Troponin I 0.02 B-Natriuretic Peptide 1181.50 H Total Protein 6.7 Albumin 2.1 L Urine Color Urine Appearance Urine pH Ur Specific [place] Urine Protein Urine Glucose (UA) Urine Ketones Urine Blood Urine Nitrite Urine Bilirubin Urine Urobilinogen Ur Leukocyte Esterase Urine WBC (Auto) Urine RBC (Auto) Ur Epithelial Cells Urine Bacteria Hyaline Casts Urine Mucus U Random Total Protein Ur Random Sodium Ur Random Urea Nitrogn Urine Creatinine Protein/Creatinin Ratio Blood Type Antibody Screen Crossmatch 09/12/17 09/12/17 09/12/17 11:22 12:50 17:06 WBC RBC Hgb Hct MCV MCH MCHC RDW Plt Count MPV Total Counted Neutrophils % Neutrophils % (Manual) Band Neutrophils % Lymphocytes % Lymphocytes % (Manual) Monocytes % (Manual) Eosinophils % (Manual) Basophils % (Manual) Myelocytes % (Man) Promyelocytes % (Man) Blast Cells % (Manual) Nucleated RBC % Metamyelocytes Hypochromia Platelet Estimate Platelet Comment Anisocytosis Tear Drop Cells Ovalocytes Schistocytes D-Dimer Sodium Potassium Chloride Carbon Dioxide Anion Gap BUN Creatinine Creat Clearance w eGFR POC Glucometer 153 132 Random Glucose Calcium Magnesium Total Bilirubin AST ALT Alkaline Phosphatase Creatine Kinase Creatine Kinase Index CK-MB (CK-2) Troponin I 0.02 B-Natriuretic Peptide Total Protein Albumin Urine Color Urine Appearance Urine pH Ur Specific [place] Urine Protein Urine Glucose (UA) Urine Ketones Urine Blood Urine Nitrite Urine Bilirubin Urine Urobilinogen Ur Leukocyte Esterase Urine WBC (Auto) Urine RBC (Auto) Ur Epithelial Cells Urine Bacteria Hyaline Casts Urine Mucus U Random Total Protein Ur Random Sodium Ur Random Urea Nitrogn Urine Creatinine Protein/Creatinin Ratio Blood Type Antibody Screen Crossmatch 09/12/17 09/12/17 09/12/17 18:00 20:47 21:00 WBC RBC Hgb Hct MCV MCH MCHC RDW Plt Count MPV Total Counted Neutrophils % Neutrophils % (Manual) Band Neutrophils % Lymphocytes % Lymphocytes % (Manual) Monocytes % (Manual) Eosinophils % (Manual) Basophils % (Manual) Myelocytes % (Man) Promyelocytes % (Man) Blast Cells % (Manual) Nucleated RBC % Metamyelocytes Hypochromia Platelet Estimate Platelet Comment Anisocytosis Tear Drop Cells Ovalocytes Schistocytes D-Dimer Sodium Potassium Chloride Carbon Dioxide Anion Gap BUN Creatinine Creat Clearance w eGFR POC Glucometer 198 Random Glucose Calcium Magnesium Total Bilirubin AST ALT Alkaline Phosphatase Creatine Kinase Creatine Kinase Index CK-MB (CK-2) Troponin I 0.02 B-Natriuretic Peptide Total Protein Albumin Urine Color Urine Appearance Urine pH Ur Specific [place] Urine Protein Urine Glucose (UA) Urine Ketones Urine Blood Urine Nitrite Urine Bilirubin Urine Urobilinogen Ur Leukocyte Esterase Urine WBC (Auto) Urine RBC (Auto) Ur Epithelial Cells Urine Bacteria Hyaline Casts Urine Mucus U Random Total Protein Ur Random Sodium Ur Random Urea Nitrogn Urine Creatinine Protein/Creatinin Ratio Blood Type B NEGATIVE Antibody Screen Negative Crossmatch See Detail 09/13/17 09/13/17 09/13/17 05:17 05:35 05:35 WBC 2.7 L RBC 2.57 L Hgb 8.3 L Hct 24.3 L MCV 94.6 MCH 32.1 MCHC 34.0 RDW 18.1 H Plt Count 32 L* D MPV 9.3 Total Counted Neutrophils % No Result Required. Neutrophils % (Manual) 40.8 L D Band Neutrophils % 1.0 Lymphocytes % No Result Required. Lymphocytes % (Manual) 9.2 D Monocytes % (Manual) 37 H* D Eosinophils % (Manual) 1.0 D Basophils % (Manual) 0.0 Myelocytes % (Man) 8 H D Promyelocytes % (Man) 0 Blast Cells % (Manual) 0 Nucleated RBC % 0 Metamyelocytes 3 H D Hypochromia Platelet Estimate Decreased Platelet Comment Anisocytosis Tear Drop Cells 1+ Ovalocytes 1+ Schistocytes 1+ D-Dimer Sodium 138 Potassium 4.7 Chloride 101 Carbon Dioxide 32 Anion Gap 5 L BUN 23 H Creatinine 1.4 H Creat Clearance w eGFR 35.57 POC Glucometer 104 Random Glucose 104 Calcium 7.9 L Magnesium 2.1 Total Bilirubin 0.5 AST 30 ALT 21 Alkaline Phosphatase 144 H Creatine Kinase Creatine Kinase Index CK-MB (CK-2) Troponin I B-Natriuretic Peptide 2710.88 H Total Protein 6.2 L Albumin 1.9 L Urine Color Urine Appearance Urine pH Ur Specific [place] Urine Protein Urine Glucose (UA) Urine Ketones Urine Blood Urine Nitrite Urine Bilirubin Urine Urobilinogen Ur Leukocyte Esterase Urine WBC (Auto) Urine RBC (Auto) Ur Epithelial Cells Urine Bacteria Hyaline Casts Urine Mucus U Random Total Protein Ur Random Sodium Ur Random Urea Nitrogn Urine Creatinine Protein/Creatinin Ratio Blood Type Antibody Screen Crossmatch 09/13/17 09/13/17 09/13/17 11:09 16:32 19:19 WBC RBC Hgb Hct MCV MCH MCHC RDW Plt Count MPV Total Counted Neutrophils % Neutrophils % (Manual) Band Neutrophils % Lymphocytes % Lymphocytes % (Manual) Monocytes % (Manual) Eosinophils % (Manual) Basophils % (Manual) Myelocytes % (Man) Promyelocytes % (Man) Blast Cells % (Manual) Nucleated RBC % Metamyelocytes Hypochromia Platelet Estimate Platelet Comment Anisocytosis Tear Drop Cells Ovalocytes Schistocytes D-Dimer Sodium Potassium Chloride Carbon Dioxide Anion Gap BUN Creatinine Creat Clearance w eGFR POC Glucometer 145 218 Random Glucose Calcium Magnesium Total Bilirubin AST ALT Alkaline Phosphatase Creatine Kinase Creatine Kinase Index CK-MB (CK-2) Troponin I B-Natriuretic Peptide Total Protein Albumin Urine Color Urine Appearance Urine pH Ur Specific [place] Urine Protein Urine Glucose (UA) Urine Ketones Urine Blood Urine Nitrite Urine Bilirubin Urine Urobilinogen Ur Leukocyte Esterase Urine WBC (Auto) Urine RBC (Auto) Ur Epithelial Cells Urine Bacteria Hyaline Casts Urine Mucus U Random Total Protein Ur Random Sodium 78 Ur Random Urea Nitrogn Urine Creatinine Protein/Creatinin Ratio Blood Type Antibody Screen Crossmatch 09/13/17 09/13/17 09/13/17 19:19 19:19 19:19 WBC RBC Hgb Hct MCV MCH MCHC RDW Plt Count MPV Total Counted Neutrophils % Neutrophils % (Manual) Band Neutrophils % Lymphocytes % Lymphocytes % (Manual) Monocytes % (Manual) Eosinophils % (Manual) Basophils % (Manual) Myelocytes % (Man) Promyelocytes % (Man) Blast Cells % (Manual) Nucleated RBC % Metamyelocytes Hypochromia Platelet Estimate Platelet Comment Anisocytosis Tear Drop Cells Ovalocytes Schistocytes D-Dimer Sodium Potassium Chloride Carbon Dioxide Anion Gap BUN Creatinine Creat Clearance w eGFR POC Glucometer Random Glucose Calcium Magnesium Total Bilirubin AST ALT Alkaline Phosphatase Creatine Kinase Creatine Kinase Index CK-MB (CK-2) Troponin I B-Natriuretic Peptide Total Protein Albumin Urine Color Ltyellow Urine Appearance Clear Urine pH 5.0 Ur Specific [place] 1.010 Urine Protein Negative Urine Glucose (UA) Negative Urine Ketones Negative Urine Blood 1+ H Urine Nitrite Negative Urine Bilirubin Negative Urine Urobilinogen Negative Ur Leukocyte Esterase Negative Urine WBC (Auto) 1 Urine RBC (Auto) 1 Ur Epithelial Cells Rare Urine Bacteria Rare Hyaline Casts 1 Urine Mucus Rare U Random Total Protein 29 H Ur Random Sodium Ur Random Urea Nitrogn Urine Creatinine 60.1 60.1 Protein/Creatinin Ratio 0.48 Blood Type Antibody Screen Crossmatch 09/13/17 09/13/17 09/13/17 19:19 19:19 21:57 WBC RBC Hgb Hct MCV MCH MCHC RDW Plt Count MPV Total Counted Neutrophils % Neutrophils % (Manual) Band Neutrophils % Lymphocytes % Lymphocytes % (Manual) Monocytes % (Manual) Eosinophils % (Manual) Basophils % (Manual) Myelocytes % (Man) Promyelocytes % (Man) Blast Cells % (Manual) Nucleated RBC % Metamyelocytes Hypochromia Platelet Estimate Platelet Comment Anisocytosis Tear Drop Cells Ovalocytes Schistocytes D-Dimer Sodium Potassium Chloride Carbon Dioxide Anion Gap BUN Creatinine Creat Clearance w eGFR POC Glucometer 151 Random Glucose Calcium Magnesium Total Bilirubin AST ALT Alkaline Phosphatase Creatine Kinase Creatine Kinase Index CK-MB (CK-2) Troponin I B-Natriuretic Peptide Total Protein Albumin Urine Color Urine Appearance Urine pH Ur Specific [place] Urine Protein Urine Glucose (UA) Urine Ketones Urine Blood Urine Nitrite Urine Bilirubin Urine Urobilinogen Ur Leukocyte Esterase Urine WBC (Auto) Urine RBC (Auto) Ur Epithelial Cells Urine Bacteria Hyaline Casts Urine Mucus U Random Total Protein 29 H Ur Random Sodium Ur Random Urea Nitrogn 383 Urine Creatinine Protein/Creatinin Ratio Blood Type Antibody Screen Crossmatch 09/14/17 09/14/17 09/14/17 05:32 11:23 16:28 WBC RBC Hgb Hct MCV MCH MCHC RDW Plt Count MPV Total Counted Neutrophils % Neutrophils % (Manual) Band Neutrophils % Lymphocytes % Lymphocytes % (Manual) Monocytes % (Manual) Eosinophils % (Manual) Basophils % (Manual) Myelocytes % (Man) Promyelocytes % (Man) Blast Cells % (Manual) Nucleated RBC % Metamyelocytes Hypochromia Platelet Estimate Platelet Comment Anisocytosis Tear Drop Cells Ovalocytes Schistocytes D-Dimer Sodium Potassium Chloride Carbon Dioxide Anion Gap BUN Creatinine Creat Clearance w eGFR POC Glucometer 117 168 172 Random Glucose Calcium Magnesium Total Bilirubin AST ALT Alkaline Phosphatase Creatine Kinase Creatine Kinase Index CK-MB (CK-2) Troponin I B-Natriuretic Peptide Total Protein Albumin Urine Color Urine Appearance Urine pH Ur Specific [place] Urine Protein Urine Glucose (UA) Urine Ketones Urine Blood Urine Nitrite Urine Bilirubin Urine Urobilinogen Ur Leukocyte Esterase Urine WBC (Auto) Urine RBC (Auto) Ur Epithelial Cells Urine Bacteria Hyaline Casts Urine Mucus U Random Total Protein Ur Random Sodium Ur Random Urea Nitrogn Urine Creatinine Protein/Creatinin Ratio Blood Type Antibody Screen Crossmatch 09/14/17 09/15/17 09/15/17 21:18 05:35 05:35 WBC 3.4 L RBC 2.92 L Hgb 9.2 L D Hct 26.7 L MCV 91.4 MCH 31.4 MCHC 34.4 RDW 17.0 H Plt Count 25 L* D MPV 9.4 Total Counted Neutrophils % No Result Required. Neutrophils % (Manual) 25.3 L D Band Neutrophils % 1.0 Lymphocytes % No Result Required. Lymphocytes % (Manual) 37.4 D Monocytes % (Manual) 31 H* Eosinophils % (Manual) 0.0 D Basophils % (Manual) 0.0 Myelocytes % (Man) 1 D Promyelocytes % (Man) 0 Blast Cells % (Manual) 0 Nucleated RBC % 0 Metamyelocytes 2 D Hypochromia Platelet Estimate Decreased Platelet Comment Anisocytosis Tear Drop Cells Ovalocytes Schistocytes D-Dimer Sodium 137 Potassium 4.0 Chloride 100 Carbon Dioxide 32 Anion Gap 5 L BUN 28 H Creatinine 1.3 H Creat Clearance w eGFR 38.75 POC Glucometer 150 Random Glucose 128 H Calcium 7.8 L Magnesium Total Bilirubin 0.6 AST 38 H ALT 24 Alkaline Phosphatase 140 H Creatine Kinase Creatine Kinase Index CK-MB (CK-2) Troponin I B-Natriuretic Peptide Total Protein 6.1 L Albumin 1.7 L Urine Color Urine Appearance Urine pH Ur Specific [place] Urine Protein Urine Glucose (UA) Urine Ketones Urine Blood Urine Nitrite Urine Bilirubin Urine Urobilinogen Ur Leukocyte Esterase Urine WBC (Auto) Urine RBC (Auto) Ur Epithelial Cells Urine Bacteria Hyaline Casts Urine Mucus U Random Total Protein Ur Random Sodium Ur Random Urea Nitrogn Urine Creatinine Protein/Creatinin Ratio Blood Type Antibody Screen Crossmatch 09/15/17 09/15/17 09/15/17 05:43 11:03 16:54 WBC RBC Hgb Hct MCV MCH MCHC RDW Plt Count MPV Total Counted Neutrophils % Neutrophils % (Manual) Band Neutrophils % Lymphocytes % Lymphocytes % (Manual) Monocytes % (Manual) Eosinophils % (Manual) Basophils % (Manual) Myelocytes % (Man) Promyelocytes % (Man) Blast Cells % (Manual) Nucleated RBC % Metamyelocytes Hypochromia Platelet Estimate Platelet Comment Anisocytosis Tear Drop Cells Ovalocytes Schistocytes D-Dimer Sodium Potassium Chloride Carbon Dioxide Anion Gap BUN Creatinine Creat Clearance w eGFR POC Glucometer 132 194 173 Random Glucose Calcium Magnesium Total Bilirubin AST ALT Alkaline Phosphatase Creatine Kinase Creatine Kinase Index CK-MB (CK-2) Troponin I B-Natriuretic Peptide Total Protein Albumin Urine Color Urine Appearance Urine pH Ur Specific [place] Urine Protein Urine Glucose (UA) Urine Ketones Urine Blood Urine Nitrite Urine Bilirubin Urine Urobilinogen Ur Leukocyte Esterase Urine WBC (Auto) Urine RBC (Auto) Ur Epithelial Cells Urine Bacteria Hyaline Casts Urine Mucus U Random Total Protein Ur Random Sodium Ur Random Urea Nitrogn Urine Creatinine Protein/Creatinin Ratio Blood Type Antibody Screen Crossmatch 09/15/17 09/16/17 09/16/17 20:43 05:31 11:05 WBC 2.9 L RBC 2.77 L Hgb 8.8 L Hct 25.5 L MCV 92.1 MCH 31.7 MCHC 34.4 RDW 17.0 H Plt Count 22 L* MPV 9.3 Total Counted Neutrophils % Neutrophils % (Manual) Band Neutrophils % Lymphocytes % Lymphocytes % (Manual) Monocytes % (Manual) Eosinophils % (Manual) Basophils % (Manual) Myelocytes % (Man) Promyelocytes % (Man) Blast Cells % (Manual) Nucleated RBC % Metamyelocytes Hypochromia Platelet Estimate Platelet Comment Anisocytosis Tear Drop Cells Ovalocytes Schistocytes D-Dimer Sodium Potassium Chloride Carbon Dioxide Anion Gap BUN Creatinine Creat Clearance w eGFR POC Glucometer 197 124 Random Glucose Calcium Magnesium Total Bilirubin AST ALT Alkaline Phosphatase Creatine Kinase Creatine Kinase Index CK-MB (CK-2) Troponin I B-Natriuretic Peptide Total Protein Albumin Urine Color Urine Appearance Urine pH Ur Specific [place] Urine Protein Urine Glucose (UA) Urine Ketones Urine Blood Urine Nitrite Urine Bilirubin Urine Urobilinogen Ur Leukocyte Esterase Urine WBC (Auto) Urine RBC (Auto) Ur Epithelial Cells Urine Bacteria Hyaline Casts Urine Mucus U Random Total Protein Ur Random Sodium Ur Random Urea Nitrogn Urine Creatinine Protein/Creatinin Ratio Blood Type Antibody Screen Crossmatch 09/16/17 09/16/17 09/16/17 11:05 11:53 17:19 WBC RBC Hgb Hct MCV MCH MCHC RDW Plt Count MPV Total Counted Neutrophils % Neutrophils % (Manual) Band Neutrophils % Lymphocytes % Lymphocytes % (Manual) Monocytes % (Manual) Eosinophils % (Manual) Basophils % (Manual) Myelocytes % (Man) Promyelocytes % (Man) Blast Cells % (Manual) Nucleated RBC % Metamyelocytes Hypochromia Platelet Estimate Platelet Comment Anisocytosis Tear Drop Cells Ovalocytes Schistocytes D-Dimer Sodium 134 L Potassium 4.3 Chloride 98 Carbon Dioxide 32 Anion Gap 4 L BUN 29 H Creatinine 1.4 H Creat Clearance w eGFR 35.57 POC Glucometer 185 148 Random Glucose 186 H Calcium 7.4 L Magnesium Total Bilirubin 0.9 D AST 105 H ALT 50 Alkaline Phosphatase 153 H Creatine Kinase Creatine Kinase Index CK-MB (CK-2) Troponin I B-Natriuretic Peptide Total Protein 6.0 L Albumin 1.6 L Urine Color Urine Appearance Urine pH Ur Specific [place] Urine Protein Urine Glucose (UA) Urine Ketones Urine Blood Urine Nitrite Urine Bilirubin Urine Urobilinogen Ur Leukocyte Esterase Urine WBC (Auto) Urine RBC (Auto) Ur Epithelial Cells Urine Bacteria Hyaline Casts Urine Mucus U Random Total Protein Ur Random Sodium Ur Random Urea Nitrogn Urine Creatinine Protein/Creatinin Ratio Blood Type Antibody Screen Crossmatch 09/16/17 09/17/17 09/17/17 21:00 06:06 11:23 WBC RBC Hgb Hct MCV MCH MCHC RDW Plt Count MPV Total Counted Neutrophils % Neutrophils % (Manual) Band Neutrophils % Lymphocytes % Lymphocytes % (Manual) Monocytes % (Manual) Eosinophils % (Manual) Basophils % (Manual) Myelocytes % (Man) Promyelocytes % (Man) Blast Cells % (Manual) Nucleated RBC % Metamyelocytes Hypochromia Platelet Estimate Platelet Comment Anisocytosis Tear Drop Cells Ovalocytes Schistocytes D-Dimer Sodium Potassium Chloride Carbon Dioxide Anion Gap BUN Creatinine Creat Clearance w eGFR POC Glucometer 193 114 148 Random Glucose Calcium Magnesium Total Bilirubin AST ALT Alkaline Phosphatase Creatine Kinase Creatine Kinase Index CK-MB (CK-2) Troponin I B-Natriuretic Peptide Total Protein Albumin Urine Color Urine Appearance Urine pH Ur Specific [place] Urine Protein Urine Glucose (UA) Urine Ketones Urine Blood Urine Nitrite Urine Bilirubin Urine Urobilinogen Ur Leukocyte Esterase Urine WBC (Auto) Urine RBC (Auto) Ur Epithelial Cells Urine Bacteria Hyaline Casts Urine Mucus U Random Total Protein Ur Random Sodium Ur Random Urea Nitrogn Urine Creatinine Protein/Creatinin Ratio Blood Type Antibody Screen Crossmatch 09/17/17 09/17/17 09/18/17 16:46 21:10 05:42 WBC RBC Hgb Hct MCV MCH MCHC RDW Plt Count MPV Total Counted Neutrophils % Neutrophils % (Manual) Band Neutrophils % Lymphocytes % Lymphocytes % (Manual) Monocytes % (Manual) Eosinophils % (Manual) Basophils % (Manual) Myelocytes % (Man) Promyelocytes % (Man) Blast Cells % (Manual) Nucleated RBC % Metamyelocytes Hypochromia Platelet Estimate Platelet Comment Anisocytosis Tear Drop Cells Ovalocytes Schistocytes D-Dimer Sodium Potassium Chloride Carbon Dioxide Anion Gap BUN Creatinine Creat Clearance w eGFR POC Glucometer 177 174 102 Random Glucose Calcium Magnesium Total Bilirubin AST ALT Alkaline Phosphatase Creatine Kinase Creatine Kinase Index CK-MB (CK-2) Troponin I B-Natriuretic Peptide Total Protein Albumin Urine Color Urine Appearance Urine pH Ur Specific [place] Urine Protein Urine Glucose (UA) Urine Ketones Urine Blood Urine Nitrite Urine Bilirubin Urine Urobilinogen Ur Leukocyte Esterase Urine WBC (Auto) Urine RBC (Auto) Ur Epithelial Cells Urine Bacteria Hyaline Casts Urine Mucus U Random Total Protein Ur Random Sodium Ur Random Urea Nitrogn Urine Creatinine Protein/Creatinin Ratio Blood Type Antibody Screen Crossmatch 09/18/17 09/18/17 09/18/17 06:25 11:42 17:09 WBC 3.4 L RBC 2.90 L Hgb 9.3 L Hct 26.2 L MCV 90.3 MCH 32.1 MCHC 35.6 RDW 17.6 H Plt Count 49 L D MPV 9.0 Total Counted 100 Neutrophils % No Result Required. Neutrophils % (Manual) 20.0 L D Band Neutrophils % 10.0 Lymphocytes % No Result Required. Lymphocytes % (Manual) 18.0 D Monocytes % (Manual) 44 H Eosinophils % (Manual) Basophils % (Manual) Myelocytes % (Man) 4 H D Promyelocytes % (Man) Blast Cells % (Manual) Nucleated RBC % Metamyelocytes 4 H D Hypochromia Platelet Estimate Platelet Comment Anisocytosis Tear Drop Cells Ovalocytes Schistocytes D-Dimer Sodium Potassium Chloride Carbon Dioxide Anion Gap BUN Creatinine Creat Clearance w eGFR POC Glucometer 113 149 Random Glucose Calcium Magnesium Total Bilirubin AST ALT Alkaline Phosphatase Creatine Kinase Creatine Kinase Index CK-MB (CK-2) Troponin I B-Natriuretic Peptide Total Protein Albumin Urine Color Urine Appearance Urine pH Ur Specific [place] Urine Protein Urine Glucose (UA) Urine Ketones Urine Blood Urine Nitrite Urine Bilirubin Urine Urobilinogen Ur Leukocyte Esterase Urine WBC (Auto) Urine RBC (Auto) Ur Epithelial Cells Urine Bacteria Hyaline Casts Urine Mucus U Random Total Protein Ur Random Sodium Ur Random Urea Nitrogn Urine Creatinine Protein/Creatinin Ratio Blood Type Antibody Screen Crossmatch 09/18/17 09/19/17 21:13 05:50 WBC RBC Hgb Hct MCV MCH MCHC RDW Plt Count MPV Total Counted Neutrophils % Neutrophils % (Manual) Band Neutrophils % Lymphocytes % Lymphocytes % (Manual) Monocytes % (Manual) Eosinophils % (Manual) Basophils % (Manual) Myelocytes % (Man) Promyelocytes % (Man) Blast Cells % (Manual) Nucleated RBC % Metamyelocytes Hypochromia Platelet Estimate Platelet Comment Anisocytosis Tear Drop Cells Ovalocytes Schistocytes D-Dimer Sodium Potassium Chloride Carbon Dioxide Anion Gap BUN Creatinine Creat Clearance w eGFR POC Glucometer 154 134 Random Glucose Calcium Magnesium Total Bilirubin AST ALT Alkaline Phosphatase Creatine Kinase Creatine Kinase Index CK-MB (CK-2) Troponin I B-Natriuretic Peptide Total Protein Albumin Urine Color Urine Appearance Urine pH Ur Specific [place] Urine Protein Urine Glucose (UA) Urine Ketones Urine Blood Urine Nitrite Urine Bilirubin Urine Urobilinogen Ur Leukocyte Esterase Urine WBC (Auto) Urine RBC (Auto) Ur Epithelial Cells Urine Bacteria Hyaline Casts Urine Mucus U Random Total Protein Ur Random Sodium Ur Random Urea Nitrogn Urine Creatinine Protein/Creatinin Ratio Blood Type Antibody Screen Crossmatch Intake & Output 09/16/17 09/17/17 09/18/17 09/19/17 23:59 23:59 23:59 23:59 Intake Total 270 870 360 Balance 270 870 360 Weight 96.332 kg Current Medications Generic Name Dose Route Start Last Admin Trade Name Freq PRN Reason Stop Dose Admin Acetaminophen 650 mg 09/12/17 09:18 09/17/17 18:47 Tylenol - PO 650 mg Q6H PRN Administration PAIN LEVEL 1 - 3 Acetaminophen 650 mg 09/12/17 09:43 Tylenol - PO Q6H PRN FEVER Albuterol Sulfate 1 amp 09/19/17 07:28 Ventolin 0.083% Nebulizer Soln - NEB 09/19/17 07:29 ONCE ONE Amlodipine Besylate 10 mg 09/12/17 10:00 09/18/17 10:02 Norvasc - PO Not Given DAILY EL Atorvastatin Calcium 80 mg 09/12/17 22:00 09/18/17 21:11 Lipitor - PO 80 mg HS EL Administration Cholecalciferol 1,000 unit 09/12/17 10:00 09/18/17 09:57 Vitamin D3 - PO 1,000 unit DAILY EL Administration Diphenhydramine HCl 25 mg 09/18/17 22:00 09/18/17 21:11 Benadryl - PO 25 mg BID EL Administration Folic Acid 1 mg 09/12/17 10:00 09/18/17 09:56 Folic Acid - PO 1 mg DAILY EL Administration Furosemide 40 mg 09/12/17 10:00 09/18/17 09:57 Lasix - PO 40 mg DAILY EL Administration Insulin Aspart 1 vial 09/12/17 11:00 09/19/17 06:26 Novolog Vial Sliding Scale - SQ Not Given ACHS EL Protocol Metoprolol Succinate 100 mg 09/12/17 10:00 09/18/17 09:57 Toprol Xl - PO 100 mg DAILY EL Administration Montelukast Sodium 10 mg 09/12/17 22:00 09/18/17 21:10 Singulair - PO 10 mg HS LE Administration Tramadol HCl 50 mg 09/17/17 19:31 09/18/17 21:11 Ultram - PO 50 mg Q8H PRN Administration PAIN LEVEL 7 - 10 Valsartan 160 mg 09/12/17 10:00 09/18/17 10:01 Diovan - PO Not Given DAILY EL
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
[2017-09-19] MEDS ORDERED: PT OWN MED DRAWER 7, Y5N ONE (08:56)
[2017-09-19] MEDS: FOLIC ACID 1 MG TABLET (FP) PO SCH (10:40)
[2017-09-19] MEDS: FUROSEMIDE 40 MG TABLET (FP) PO SCH (10:40)
[2017-09-19] MEDS: CHOLECALCIFEROL (VITAMIN D3) 1,000 UNIT TABLET (FP) PO SCH (10:40)
--- NOTE | 2017-09-19 11:21 | PN ---
Progress Note (short form) - Note Progress Note: Weak/Lethargic confused having fever mucosa dry Vital Signs Temp 101 F H 09/19/17 10:00 Pulse 89 09/19/17 10:00 Resp 20 09/19/17 10:00 BP 98/41 09/19/17 10:00 Pulse Ox 97 09/18/17 21:00 Intake & Output 09/18/17 09/18/17 09/19/17 11:59 23:59 11:59 Intake Total 30 330 Balance 30 330 Intake: IV 10 LH 22 09/15/2017 10 Oral 30 320 Other: Voiding Method Diaper Diaper Diaper # Unmeasured Voids Void 0 Bowel Movement No Active Medications Acetaminophen (Tylenol -) 650 mg PO Q6H PRN PRN Reason: PAIN LEVEL 1 - 3 Last Admin: 09/17/17 18:47 Dose: 650 mg Acetaminophen (Tylenol -) 650 mg PO Q6H PRN PRN Reason: FEVER Amlodipine Besylate (Norvasc -) 10 mg PO DAILY [facility] Last Admin: 09/18/17 10:02 Dose: Not Given Atorvastatin Calcium (Lipitor -) 80 mg PO [facility] Last Admin: 09/18/17 21:11 Dose: 80 mg Cholecalciferol (Vitamin D3 -) 1,000 unit PO DAILY [facility] Last Admin: 09/19/17 10:40 Dose: 1,000 unit Diphenhydramine HCl (Benadryl -) 25 mg PO BID [facility] Last Admin: 09/18/17 21:11 Dose: 25 mg Folic Acid (Folic Acid -) 1 mg PO DAILY [facility] Last Admin: 09/19/17 10:40 Dose: 1 mg Potassium Chloride 10 meq/ (Sodium Chloride) 1,005 mls @ 100 mls/hr IVPB Q10H [facility] Insulin Aspart (Novolog Vial Sliding Scale -) 1 vial SQ ACHS [facility] PRN Reason: Protocol Last Admin: 09/19/17 06:26 Dose: Not Given Metoprolol Succinate (Toprol Xl -) 100 mg PO DAILY [facility] Last Admin: 09/18/17 09:57 Dose: 100 mg Montelukast Sodium (Singulair -) 10 mg PO HS [facility] Last Admin: 09/18/17 21:10 Dose: 10 mg Tramadol HCl (Ultram -) 50 mg PO Q8H PRN PRN Reason: PAIN LEVEL 7 - 10 Last Admin: 09/18/17 21:11 Dose: 50 mg Valsartan (Diovan -) 160 mg PO DAILY [facility] Last Admin: 09/18/17 10:01 Dose: Not Given CBC, BMP 09/18/17 06:25 09/16/17 11:05 Physical Constitutional: Yes: awake/ confused/ lethargic. Mucosa dry Cardiovascular: Yes: Pulse Irregular Respiratory: Yes: Diminished at bases Gastrointestinal: Yes: Normal Bowel Sounds, Soft. No: Tenderness Edema:Trace Assessment/Plan MDS- Complex karyoptype Chf Obesity Pancytopenia Arthritis Dehydrated/ weak fever Toxic metabolic encephalopathy Hypotensive. Insert miller stat labs/ cultures d/c lasix. Start on fluids I/d consult Abx after cultures. Prognosis poor Discussed with pts daughter in detail - who at bedside Do not want any aggressive measures Signed dnr/di Discussed in detail with nursing staff Hold bp meds. cc time 35 min Problem List - Problems (1) Back pain Code(s): M54.9 - DORSALGIA, UNSPECIFIED Qualifiers: Back pain location: back pain in unspecified location Chronicity: unspecified Back pain laterality: unspecified Qualified Code(s): M54.9 - Dorsalgia, unspecified (2) Chest pain Code(s): R07.9 - CHEST PAIN, UNSPECIFIED Qualifiers: Chest pain type: unspecified Qualified Code(s): R07.9 - Chest pain, unspecified (3) CAD (coronary artery disease) Code(s): I25.10 - ATHSCL HEART DISEASE OF [place] CORONARY ARTERY W/O ANG PCTRS Qualifiers: Coronary Disease-Associated Artery/Lesion type: [place] artery (4) COPD (chronic obstructive pulmonary disease) Code(s): J44.9 - CHRONIC OBSTRUCTIVE PULMONARY DISEASE, UNSPECIFIED Qualifiers: COPD type: unspecified COPD Qualified Code(s): J44.9 - Chronic obstructive pulmonary disease, unspecified (5) Congestive heart disease Code(s): I50.9 - HEART FAILURE, UNSPECIFIED (6) Diabetes Code(s): E11.9 - TYPE 2 DIABETES MELLITUS WITHOUT COMPLICATIONS Qualifiers: Diabetes mellitus type: type 2 (7) HTN (hypertension) Code(s): I10 - ESSENTIAL (PRIMARY) HYPERTENSION Qualifiers: Hypertension type: essential hypertension Qualified Code(s): I10 - Essential (primary) hypertension (8) Pancytopenia Code(s): D61.818 - OTHER PANCYTOPENIA (9) Paroxysmal atrial fibrillation Code(s): I48.0 - PAROXYSMAL ATRIAL FIBRILLATION (10) Shortness of breath Code(s): R06.02 - SHORTNESS OF BREATH
[2017-09-19] MEDS ORDERED: POTASSIUM CHLORIDE 10 MEQ in SODIUM CHLORIDE 0.45% 1,000 ML IVPB SCH (11:30)
--- NOTE | 2017-09-19 11:58 | PN ---
Progress Note, Physician History of Present Illness: PULMONARY CONFUSED,FEBRILE T-101 - Current Medication List Current Medications: Active Medications Acetaminophen (Tylenol -) 650 mg PO Q6H PRN PRN Reason: PAIN LEVEL 1 - 3 Last Admin: 09/17/17 18:47 Dose: 650 mg Acetaminophen (Tylenol -) 650 mg PO Q6H PRN PRN Reason: FEVER Amlodipine Besylate (Norvasc -) 10 mg PO DAILY [facility] Last Admin: 09/18/17 10:02 Dose: Not Given Atorvastatin Calcium (Lipitor -) 80 mg PO [facility] Last Admin: 09/18/17 21:11 Dose: 80 mg Cholecalciferol (Vitamin D3 -) 1,000 unit PO DAILY [facility] Last Admin: 09/19/17 10:40 Dose: 1,000 unit Diphenhydramine HCl (Benadryl -) 25 mg PO BID [facility] Last Admin: 09/18/17 21:11 Dose: 25 mg Folic Acid (Folic Acid -) 1 mg PO DAILY [facility] Last Admin: 09/19/17 10:40 Dose: 1 mg Potassium Chloride 10 meq/ (Sodium Chloride) 1,005 mls @ 100 mls/hr IVPB Q10H [facility] Insulin Aspart (Novolog Vial Sliding Scale -) 1 vial SQ ACHS [facility] PRN Reason: Protocol Last Admin: 09/19/17 06:26 Dose: Not Given Metoprolol Succinate (Toprol Xl -) 100 mg PO DAILY [facility] Last Admin: 09/18/17 09:57 Dose: 100 mg Montelukast Sodium (Singulair -) 10 mg PO [facility] Last Admin: 09/18/17 21:10 Dose: 10 mg Tramadol HCl (Ultram -) 50 mg PO Q8H PRN PRN Reason: PAIN LEVEL 7 - 10 Last Admin: 09/18/17 21:11 Dose: 50 mg Valsartan (Diovan -) 160 mg PO DAILY [facility] Last Admin: 09/18/17 10:01 Dose: Not Given - Objective Vital Signs: Vital Signs Temperature 101 F H 09/19/17 10:00 Pulse Rate 89 09/19/17 10:00 Respiratory Rate 20 09/19/17 10:00 Blood Pressure 98/41 09/19/17 10:00 O2 Sat by Pulse Oximetry (%) 97 09/18/17 21:00 Constitutional: Yes: Well Nourished, Other (CONFUSED) Eyes: Yes: WNL HENT: Yes: WNL Neck: Yes: WNL Cardiovascular: Yes: Regular Rate and Rhythm, S1, S2 Respiratory: Yes: Diminished Gastrointestinal: Yes: Normal Bowel Sounds, Soft Extremities: Yes: WNL Edema: No Problem List - Problems (1) Pancytopenia Code(s): D61.818 - OTHER PANCYTOPENIA (2) Back pain Code(s): M54.9 - DORSALGIA, UNSPECIFIED Qualifiers: Back pain location: back pain in unspecified location Chronicity: unspecified Back pain laterality: unspecified Qualified Code(s): M54.9 - Dorsalgia, unspecified (3) Chest pain Code(s): R07.9 - CHEST PAIN, UNSPECIFIED Qualifiers: Chest pain type: unspecified Qualified Code(s): R07.9 - Chest pain, unspecified (4) CAD (coronary artery disease) Code(s): I25.10 - ATHSCL HEART DISEASE OF [place] CORONARY ARTERY W/O ANG PCTRS Qualifiers: Coronary Disease-Associated Artery/Lesion type: [place] artery (5) COPD (chronic obstructive pulmonary disease) Code(s): J44.9 - CHRONIC OBSTRUCTIVE PULMONARY DISEASE, UNSPECIFIED Qualifiers: COPD type: unspecified COPD Qualified Code(s): J44.9 - Chronic obstructive pulmonary disease, unspecified (6) HTN (hypertension) Code(s): I10 - ESSENTIAL (PRIMARY) HYPERTENSION Qualifiers: Hypertension type: essential hypertension Qualified Code(s): I10 - Essential (primary) hypertension (7) Paroxysmal atrial fibrillation Code(s): I48.0 - PAROXYSMAL ATRIAL FIBRILLATION (8) Rheumatoid arthritis Code(s): M06.9 - RHEUMATOID ARTHRITIS, UNSPECIFIED (9) Shortness of breath Code(s): R06.02 - SHORTNESS OF BREATH Assessment/Plan IMP CHEST PAIN SYNDROME RESOLVED ELEVATED D-DIMER ASHD S/P STENT DYSPNEA COPD/ASTHMA STABLE CHF PAF CKD H/O R BREAST CA S/P MASTECTOMY RA PANCYTOPENIA DM FEVER PLAN O2 ANALGESICS INHALED BRONCHODILATORS MONITOR CBC,PLT CT CULTURES CHEST X-RAY ABX DR FERNANDES Problem List - Problems (1) Pancytopenia Code(s): D61.818 - OTHER PANCYTOPENIA (2) Back pain Code(s): M54.9 - DORSALGIA, UNSPECIFIED Qualifiers: Back pain location: back pain in unspecified location Chronicity: unspecified Back pain laterality: unspecified Qualified Code(s): M54.9 - Dorsalgia, unspecified (3) Chest pain Code(s): R07.9 - CHEST PAIN, UNSPECIFIED Qualifiers: Chest pain type: unspecified Qualified Code(s): R07.9 - Chest pain, unspecified (4) CAD (coronary artery disease) Code(s): I25.10 - ATHSCL HEART DISEASE OF [place] CORONARY ARTERY W/O ANG PCTRS Qualifiers: Coronary Disease-Associated Artery/Lesion type: [place] artery (5) COPD (chronic obstructive pulmonary disease) Code(s): J44.9 - CHRONIC OBSTRUCTIVE PULMONARY DISEASE, UNSPECIFIED Qualifiers: COPD type: unspecified COPD Qualified Code(s): J44.9 - Chronic obstructive pulmonary disease, unspecified (6) HTN (hypertension) Code(s): I10 - ESSENTIAL (PRIMARY) HYPERTENSION Qualifiers: Hypertension type: essential hypertension Qualified Code(s): I10 - Essential (primary) hypertension (7) Paroxysmal atrial fibrillation Code(s): I48.0 - PAROXYSMAL ATRIAL FIBRILLATION (8) Rheumatoid arthritis Code(s): M06.9 - RHEUMATOID ARTHRITIS, UNSPECIFIED (9) Shortness of breath Code(s): R06.02 - SHORTNESS OF BREATH
[2017-09-19] MEDS: ACETAMINOPHEN 325 MG TABLET (FP) PO PRN (11:59)
[2017-09-19 12:09] LABS: HEMATOCRIT 26.9 % (32.4-45.2); HEMOGLOBIN 9.2 GM/dL (10.7-15.3); MCH 31.7 pg (25.7-33.7); MCHC 34.1 g/dl (32.0-36.0); MEAN CELL VOLUME 92.9 fl (80-96); MEAN PLT VOLUME 8.7 fl (7.5-11.1); RDW 17.4 % (11.6-15.6)
[2017-09-19 12:27] LABS: ALBUMIN 1.6 g/dl (3.4-5.0); ANION GAP 12 (8-16); BILIRUBIN,TOTAL 2.7 mg/dL (0.2-1.0); BLOOD UREA NITROGEN 60 mg/dL (7-18); CALCIUM 7.5 mg/dL (8.5-10.1); CHLORIDE 95 mmol/L (98-107); CO2 29 mmol/L (21-32); CREATININE 4.3 mg/dL (0.55-1.02); GLUCOSE,RANDOM 97 mg/dL (74-106); POTASSIUM 4.7 mmol/L (3.5-5.1); SGOT/AST 230 U/L (15-37); SGPT/ALT 82 U/L (12-78); SODIUM 136 mmol/L (136-145)
[2017-09-19 12:29] LABS: ALK PHOS 211 U/L (45-117); TOT PROT 6.1 g/dl (6.4-8.2)
[2017-09-19] MEDS ORDERED: SODIUM CHLORIDE 1,000 ML IV SCH ×2 (12:30→20:20)
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
[2017-09-19] MEDS: amLODIPine BESYLATE 10 MG TABLET (FP) PO SCH (12:44)
[2017-09-19] MEDS: VALSARTAN 160 MG TABLET (UD) PO SCH (12:44)
[2017-09-19] MEDS: diphenhydrAMINE HCL 25 MG CAPSULE (FP) PO SCH (12:44)
--- NOTE | 2017-09-19 12:53 | PN ---
Progress Note, Physician History of Present Illness: Pt seen and examined at bedside. She complains of fatigue. She did have a fever. Pt was also hypotensive. - Current Medication List Current Medications: Active Medications Acetaminophen (Tylenol -) 650 mg PO Q6H PRN PRN Reason: PAIN LEVEL 1 - 3 Last Admin: 09/19/17 11:59 Dose: 650 mg Acetaminophen (Tylenol -) 650 mg PO Q6H PRN PRN Reason: FEVER Amlodipine Besylate (Norvasc -) 10 mg PO DAILY PENDING SALE TO [facility] Last Admin: 09/19/17 12:44 Dose: Not Given Atorvastatin Calcium (Lipitor -) 80 mg PO HS PENDING SALE TO [facility] Last Admin: 09/18/17 21:11 Dose: 80 mg Cholecalciferol (Vitamin D3 -) 1,000 unit PO DAILY PENDING SALE TO [facility] Last Admin: 09/19/17 10:40 Dose: 1,000 unit Diphenhydramine HCl (Benadryl -) 25 mg PO BID PENDING SALE TO [facility] Last Admin: 09/19/17 12:44 Dose: Not Given Folic Acid (Folic Acid -) 1 mg PO DAILY PENDING SALE TO [facility] Last Admin: 09/19/17 10:40 Dose: 1 mg Potassium Chloride 10 meq/ (Sodium Chloride) 1,005 mls @ 100 mls/hr IVPB Q10H PENDING SALE TO [facility] Last Admin: 09/19/17 12:44 Dose: Not Given Insulin Aspart (Novolog Vial Sliding Scale -) 1 vial SQ ACHS PENDING SALE TO [facility] PRN Reason: Protocol Last Admin: 09/19/17 11:58 Dose: Not Given Metoprolol Succinate (Toprol Xl -) 100 mg PO DAILY PENDING SALE TO [facility] Last Admin: 09/19/17 12:44 Dose: Not Given Montelukast Sodium (Singulair -) 10 mg PO HS PENDING SALE TO [facility] Last Admin: 09/18/17 21:10 Dose: 10 mg Tramadol HCl (Ultram -) 50 mg PO Q8H PRN PRN Reason: PAIN LEVEL 7 - 10 Last Admin: 09/18/17 21:11 Dose: 50 mg Valsartan (Diovan -) 160 mg PO DAILY PENDING SALE TO [facility] Last Admin: 09/19/17 12:44 Dose: Not Given - Objective Vital Signs: Vital Signs Temperature 101 F H 09/19/17 10:00 Pulse Rate 89 09/19/17 10:00 Respiratory Rate 20 09/19/17 10:00 Blood Pressure 98/41 09/19/17 10:00 O2 Sat by Pulse Oximetry (%) 97 09/18/17 21:00 Constitutional: Yes: Calm Eyes: Yes: Conjunctiva Clear HENT: Yes: Atraumatic Neck: Yes: Supple Cardiovascular: Yes: S1, S2 Respiratory: Yes: On Nasal O2 Gastrointestinal: Yes: Soft, Abdomen, Obese Genitourinary: Yes: Miller Present Musculoskeletal: Yes: Muscle Weakness Edema: No Neurological: Yes: Oriented Psychiatric: Yes: Oriented Labs: CBC, BMP 09/19/17 11:45 09/19/17 11:45 Problem List - Problems (1) CKD (chronic kidney disease) Code(s): N18.9 - CHRONIC KIDNEY DISEASE, UNSPECIFIED (2) Back pain Code(s): M54.9 - DORSALGIA, UNSPECIFIED Qualifiers: Back pain location: back pain in unspecified location Chronicity: unspecified Back pain laterality: unspecified Qualified Code(s): M54.9 - Dorsalgia, unspecified (3) Chest pain Code(s): R07.9 - CHEST PAIN, UNSPECIFIED Qualifiers: Chest pain type: unspecified Qualified Code(s): R07.9 - Chest pain, unspecified (4) Pancytopenia Code(s): D61.818 - OTHER PANCYTOPENIA (5) Congestive heart disease Code(s): I50.9 - HEART FAILURE, UNSPECIFIED (6) HTN (hypertension) Code(s): I10 - ESSENTIAL (PRIMARY) HYPERTENSION Qualifiers: Hypertension type: essential hypertension Qualified Code(s): I10 - Essential (primary) hypertension Assessment/Plan Current Medications Generic Name Dose Route Start Last Admin Trade Name Freq PRN Reason Stop Dose Admin Acetaminophen 650 mg 09/12/17 09:18 09/19/17 11:59 Tylenol - PO 650 mg Q6H PRN Administration PAIN LEVEL 1 - 3 Acetaminophen 650 mg 09/12/17 09:43 Tylenol - PO Q6H PRN FEVER Amlodipine Besylate 10 mg 09/12/17 10:00 09/19/17 12:44 Norvasc - PO Not Given DAILY EL Atorvastatin Calcium 80 mg 09/12/17 22:00 09/18/17 21:11 Lipitor - PO 80 mg HS EL Administration Cholecalciferol 1,000 unit 09/12/17 10:00 09/19/17 10:40 Vitamin D3 - PO 1,000 unit DAILY EL Administration Diphenhydramine HCl 25 mg 09/18/17 22:00 09/19/17 12:44 Benadryl - PO Not Given BID EL Folic Acid 1 mg 09/12/17 10:00 09/19/17 10:40 Folic Acid - PO 1 mg DAILY EL Administration Potassium Chloride 10 meq/ 1,005 mls @ 100 mls/hr 09/19/17 11:30 09/19/17 12: 44 Sodium Chloride IVPB Not Given Q10H PENDING SALE TO [facility] Insulin Aspart 1 vial 09/12/17 11:00 09/19/17 11:58 Novolog Vial Sliding Scale - SQ Not Given ACHS PENDING SALE TO [facility] Protocol Metoprolol Succinate 100 mg 09/12/17 10:00 09/19/17 12:44 Toprol Xl - PO Not Given DAILY PENDING SALE TO [facility] Montelukast Sodium 10 mg 09/12/17 22:00 09/18/17 21:10 Singulair - PO 10 mg HS EL Administration Tramadol HCl 50 mg 09/17/17 19:31 09/18/17 21:11 Ultram - PO 50 mg Q8H PRN Administration PAIN LEVEL 7 - 10 Valsartan 160 mg 09/12/17 10:00 09/19/17 12:44 Diovan - PO Not Given DAILY PENDING SALE TO [facility] Impression 1. CKD 2. pancytopenia 3. CHF 4. obesity 5. right breast cancer 6. CAD 7. copd 8. HTN 9. microscopic hematuria 10. MDS 11. GRABIEL 12. 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
[2017-09-19 13:02] LABS: MAGNESIUM 2.2 mg/dL (1.8-2.4); PHOSPHOROUS 4.6 mg/dL (2.5-4.9)
[2017-09-19 13:03] LABS: PLATELET ESTIMATE DECREASED
[2017-09-19 13:15] LABS: PLATELET COUNT 26 K/MM3 (134-434)
[2017-09-19 13:32] LABS: URINE APPEARANCE SLCLOUDY; URINE BILIRUBIN NEGATIVE (<2.0 mg/dL); URINE COLOR AMBER; URINE GLUCOSE (UA) NEGATIVE (NEGATIVE); URINE KETONE NEGATIVE (NEGATIVE); URINE LEUK ESTERASE NEGATIVE (NEGATIVE); URINE NITRITE NEGATIVE (NEGATIVE); URINE UROBILINOGEN 4.0 E.U/dl mg/dL (0.2-1.0)
[2017-09-19 13:37] LABS: URINE PROTEIN 1+ (NEGATIVE)
[2017-09-19 14:00] LABS: URINE APPEARANCE CLOUDY; URINE BILIRUBIN NEGATIVE (<2.0 mg/dL); URINE COLOR AMBER; URINE GLUCOSE (UA) NEGATIVE (NEGATIVE); URINE KETONE NEGATIVE (NEGATIVE); URINE LEUK ESTERASE NEGATIVE (NEGATIVE); URINE NITRITE NEGATIVE (NEGATIVE); URINE UROBILINOGEN 4.0 E.U/dl mg/dL (0.2-1.0)
[2017-09-19 14:02] LABS: URINE PROTEIN 1+ (NEGATIVE)
[2017-09-19 14:06] LABS: EPI CELLS RARE /HPF (FEW); URINE BACTERIA RARE /hpf (NONE SEEN); URINE MUCUS RARE; YEAST FEW
--- NOTE | 2017-09-19 14:23 | PN ---
Progress Note (short form) - Note Progress Note: ID Consult dictated Fever ? source ? HCAP ? biliary tract Toxic metabolic encephalopathy MDS/Pancytopenia/ neutropenia Renal failure Elevated LFTs Await c/s Abdominal ultrasound Empiric ceftriaxone/ stat dose vancomycin
[2017-09-19] MEDS ORDERED: VANCOMYCIN 1,000 MG in DEXTROSE 5%-WATER - 250 ML IVPB ONE (14:45)
[2017-09-19] MEDS ORDERED: VANCOMYCIN 1 GM PREMIX - 1 GM/200 ML BAG IVPB ONE (14:46)
--- NOTE | 2017-09-19 17:08 | CONS ---
DATE OF CONSULTATION: DATE OF DICTATION: 09/19/2017 The patient is an 86-year-old female evaluated for fever. History is obtained from the chart as well as patient's daughter, present at the time of the examination. She was admitted to the hospital on September 12, 2017, with complaints of chest and back pain. She had recently been hospitalized at [facility] for decompensated congestive heart failure. Her course has now been complicated by fever to 101 and altered mental status. She is presently awake, but lethargic. She is able to answer questions when questioned. She denies pain. She denies any chest or back pain. No complaints of dyspnea, cough, sputum production, vomiting, diarrhea. Patient has an indwelling Paulson catheter. Urine is concentrated. PAST MEDICAL HISTORY: Positive for myelodysplastic syndrome, chronic pancytopenia, osteoarthritis, hypertension, hyperlipidemia, diabetes mellitus, atrial fibrillation, rheumatoid arthritis, coronary artery disease, congestive heart failure, right breast cancer, COPD. PAST SURGICAL HISTORY: Status post right mastectomy, left total knee replacement, cholecystectomy, history of cardiac stent. ALLERGIES: PENICILLIN. Daughter reports history of hives many years ago. No history of anaphylaxis. MEDICATIONS: 1. Tylenol. 2. Toprol. 3. Norvasc. 4. Benadryl. 5. Lipitor. 6. Singulair. SOCIAL HISTORY: A former smoker. REVIEW OF SYSTEMS: Neurologic: No loss of consciousness, seizure activity, focal weakness. Positive altered mental status. Cardiac: As per HPI. Respiratory: Negative cough or sputum production. Gastrointestinal: Negative vomiting or diarrhea. Genitourinary: Negative fever, urinary tract infection. LABORATORY DATA: White blood cell count 3.0, neutrophils 29, bands 4, hematocrit 26.9, platelet count 26. BUN 60, creatinine 4.3. Total bilirubin 2.7, alkaline phosphatase 211, AST 230, ALT 82. Chest x-ray: Bibasilar atelectasis. PHYSICAL EXAMINATION: General: She is awake, but lethargic, arousable. Vital Signs: T-max 101, blood pressure 98/41, pulse 89 and regular, respirations 20 per minute. HEENT: Sclerae anicteric. Cardiac: Heart sounds S1, S2. Lungs: Diminished breath sounds at the bases bilaterally. Abdomen: Soft, mild epigastric tenderness to palpation. Extremities: Positive for edema, right upper extremity lymphedema. IMPRESSION: 1. Fever, unclear source. 2. Toxic metabolic encephalopathy. 3. Myelodysplastic syndrome, pancytopenia, and neutropenia. 4. Renal failure. 5. Elevated liver enzymes. Potential sources for fever in this patient include aspiration pneumonia secondary to altered mentation and biliary tract disease in light of elevated liver enzymes. Await cultures. Empiric antibiotic coverage with ceftriaxone and stat dose vancomycin, aspiration precautions. Abdominal ultrasound. Will follow. Thank you for the kind referral. NETO CARDENAS M.D. [id number]
[2017-09-19] MEDS ORDERED: CEFTRIAXONE 1 GM in DEXTROSE 5%-WATER - 50 ML IVPB SCH (17:45)
[2017-09-19] MEDS ORDERED: cefTRIAXone SODIUM 1 GM VIAL ONE (18:03)
[2017-09-19] MEDS ORDERED: DEXTROSE 5%-WATER - 50 ML IVPB ONE (18:04)
--- NOTE | 2017-09-20 00:16 | HOSP ---
Subjective - Review of Symptoms Events since last encounter: Hospitalist Encounter Notified by the RN, that the patient was unresponsive Subjective: Arrived to bedside, patient is unresponsive, no response to verbal or tactile stimulus. No response to sternal rub. No spontaneous respirations, No breath sounds on auscultation. No apical or palpable pulses. Pupils are non-reactive, fixed and dilated, no Corneal Reflex. No Gag reflex, No voluntary movement of extremities. Patient pronounced at 23:50 Patient is a DNR/DNI Neurological: Yes: Other (Unresponsive) Physical Examination Vital Signs: Vital Signs Temperature 97.7 F 09/19/17 17:23 Pulse Rate 56 L 09/19/17 17:23 Respiratory Rate 18 09/19/17 17:23 Blood Pressure 87/41 09/19/17 17:23 O2 Sat by Pulse Oximetry (%) 90 L 09/19/17 09:00 Constitutional: Yes: Ashen, Obese Eyes: Yes: Other (Pupils non-reactive, fixed and dilated No corneal reflex) Cardiovascular: Yes: Other (Absent apical or palpable pulses) Respiratory: Yes: Other (Absent breath sounds, no spontaneous repirations) Edema: Yes Edema: LUE: 2+ Peripheral Pulses WNL: No Peripheral Pulses: Left Radial: 0, Right Radial: 0, Left Doralis Pedis: 0, Right Dorsalis Pedis: 0, Left Femoral: 0, Right Femoral: 0 Neurological: Yes: Unresponsive Labs: CBC, BMP 09/19/17 11:45 09/19/17 11:45 Laboratory Results - last 24 hr 09/19/17 09/19/17 09/19/17 05:50 11:45 11:45 WBC 3.0 L RBC 2.90 L Hgb 9.2 L Hct 26.9 L MCV 92.9 MCH 31.7 MCHC 34.1 RDW 17.4 H Plt Count 26 L* D MPV 8.7 Neutrophils % No Result Required. Neutrophils % (Manual) 29.6 L D Band Neutrophils % 4.1 Lymphocytes % No Result Required. Lymphocytes % (Manual) 15.3 Monocytes % (Manual) 26 H Eosinophils % (Manual) 1.0 D Basophils % (Manual) 0.0 Myelocytes % (Man) 7 H D Promyelocytes % (Man) 0 Blast Cells % (Manual) 0 Nucleated RBC % 0 Metamyelocytes 17 H D Platelet Estimate Decreased Schistocytes 1+ Sodium Cancelled Potassium Cancelled Chloride Cancelled Carbon Dioxide Cancelled Anion Gap Cancelled BUN Cancelled Creatinine Cancelled Creat Clearance w eGFR Cancelled POC Glucometer 134 Random Glucose Cancelled Calcium Cancelled Phosphorus Cancelled Magnesium Cancelled Total Bilirubin Cancelled AST Cancelled ALT Cancelled Alkaline Phosphatase Cancelled Total Protein Cancelled Albumin Cancelled Urine Color Urine Appearance Urine pH Ur Specific [place] Urine Protein Urine Glucose (UA) Urine Ketones Urine Blood Urine Nitrite Urine Bilirubin Urine Urobilinogen Ur Leukocyte Esterase Urine WBC (Auto) Urine RBC (Auto) Ur Epithelial Cells Urine Bacteria Urine Mucus Urine Yeast Ur Random Sodium Ur Random Potassium Ur Random Chloride Urine Creatinine 09/19/17 09/19/17 09/19/17 11:45 11:46 12:00 WBC RBC Hgb Hct MCV MCH MCHC RDW Plt Count MPV Neutrophils % Neutrophils % (Manual) Band Neutrophils % Lymphocytes % Lymphocytes % (Manual) Monocytes % (Manual) Eosinophils % (Manual) Basophils % (Manual) Myelocytes % (Man) Promyelocytes % (Man) Blast Cells % (Manual) Nucleated RBC % Metamyelocytes Platelet Estimate Schistocytes Sodium 136 Potassium 4.7 Chloride 95 L Carbon Dioxide 29 Anion Gap 12 BUN 60 H D Creatinine 4.3 H Creat Clearance w eGFR 9.74 POC Glucometer 91 Random Glucose 97 Calcium 7.5 L Phosphorus 4.6 Magnesium 2.2 Total Bilirubin 2.7 H D AST 230 H ALT 82 H Alkaline Phosphatase 211 H Total Protein 6.1 L Albumin 1.6 L Urine Color Claribel Urine Appearance Slcloudy Urine pH 5.0 Ur Specific [place] 1.015 Urine Protein 1+ H Urine Glucose (UA) Negative Urine Ketones Negative Urine Blood 2+ H Urine Nitrite Negative Urine Bilirubin Negative Urine Urobilinogen 4.0 e.u/dl H Ur Leukocyte Esterase Negative Urine WBC (Auto) <1 Urine RBC (Auto) <1 Ur Epithelial Cells Urine Bacteria Urine Mucus Urine Yeast Ur Random Sodium Ur Random Potassium Ur Random Chloride Urine Creatinine 09/19/17 09/19/17 09/19/17 13:00 13:00 13:00 WBC RBC Hgb Hct MCV MCH MCHC RDW Plt Count MPV Neutrophils % Neutrophils % (Manual) Band Neutrophils % Lymphocytes % Lymphocytes % (Manual) Monocytes % (Manual) Eosinophils % (Manual) Basophils % (Manual) Myelocytes % (Man) Promyelocytes % (Man) Blast Cells % (Manual) Nucleated RBC % Metamyelocytes Platelet Estimate Schistocytes Sodium Potassium Chloride Carbon Dioxide Anion Gap BUN Creatinine Creat Clearance w eGFR POC Glucometer Random Glucose Calcium Phosphorus Magnesium Total Bilirubin AST ALT Alkaline Phosphatase Total Protein Albumin Urine Color [place] Urine Appearance Cloudy Urine pH 5.0 Ur Specific [place] 1.017 Urine Protein 1+ H Urine Glucose (UA) Negative Urine Ketones Negative Urine Blood 2+ H Urine Nitrite Negative Urine Bilirubin Negative Urine Urobilinogen 4.0 e.u/dl H Ur Leukocyte Esterase Negative Urine WBC (Auto) 4 Urine RBC (Auto) 1 Ur Epithelial Cells Rare Urine Bacteria Rare Urine Mucus Rare Urine Yeast Few Ur Random Sodium 20 Ur Random Potassium 37.6 Ur Random Chloride 20 Urine Creatinine 171.0 09/19/17 16:54 WBC RBC Hgb Hct MCV MCH MCHC RDW Plt Count MPV Neutrophils % Neutrophils % (Manual) Band Neutrophils % Lymphocytes % Lymphocytes % (Manual) Monocytes % (Manual) Eosinophils % (Manual) Basophils % (Manual) Myelocytes % (Man) Promyelocytes % (Man) Blast Cells % (Manual) Nucleated RBC % Metamyelocytes Platelet Estimate Schistocytes Sodium Potassium Chloride Carbon Dioxide Anion Gap BUN Creatinine Creat Clearance w eGFR POC Glucometer 134 Random Glucose Calcium Phosphorus Magnesium Total Bilirubin AST ALT Alkaline Phosphatase Total Protein Albumin Urine Color Urine Appearance Urine pH Ur Specific [place] Urine Protein Urine Glucose (UA) Urine Ketones Urine Blood Urine Nitrite Urine Bilirubin Urine Urobilinogen Ur Leukocyte Esterase Urine WBC (Auto) Urine RBC (Auto) Ur Epithelial Cells Urine Bacteria Urine Mucus Urine Yeast Ur Random Sodium Ur Random Potassium Ur Random Chloride Urine Creatinine Current Medications Generic Name Dose Route Start Last Admin Trade Name Freq PRN Reason Stop Dose Admin Acetaminophen 650 mg 09/12/17 09:18 09/19/17 11:59 Tylenol - PO 650 mg Q6H PRN Administration PAIN LEVEL 1 - 3 Acetaminophen 650 mg 09/12/17 09:43 Tylenol - PO Q6H PRN FEVER Atorvastatin Calcium 80 mg 09/12/17 22:00 09/18/17 21:11 Lipitor - PO 80 mg HS EL Administration Cholecalciferol 1,000 unit 09/12/17 10:00 09/19/17 10:40 Vitamin D3 - PO 1,000 unit DAILY EL Administration Diphenhydramine HCl 25 mg 09/18/17 22:00 09/19/17 12:44 Benadryl - PO Not Given BID EL Folic Acid 1 mg 09/12/17 10:00 09/19/17 10:40 Folic Acid - PO 1 mg DAILY EL Administration Ceftriaxone Sodium 1 gm/ 50 mls @ 100 mls/hr 09/19/17 17:45 09/19/17 18:06 Dextrose IVPB 100 mls/hr DAILY EL Administration Protocol Sodium Chloride 1,000 mls @ 150 mls/hr 09/19/17 20:20 Normal Saline - IV ASDIR EL Insulin Aspart 1 vial 09/12/17 11:00 09/19/17 16:55 Novolog Vial Sliding Scale - SQ Not Given ACHS [facility] Protocol Montelukast Sodium 10 mg 09/12/17 22:00 09/18/17 21:10 Singulair - PO 10 mg HS EL Administration Hospitalist Encounter Assessment: 86 y/o woman PMH Pancytopenia, CAD, CHF, R-Breast Ca (s/p mastectomy), COPD, HTN , HLD, DM, Afib, RA, Gout, Asthma. Admitted to Telemetry for Chest Pain, r/o ACS , CHF Exacerbation. Newly Diagnosed: Renal Failure Cr 4.3, Toxic Metabolic Encephalopathy Patient is a DNR/DNI Plan 23:50 Family notified by RN RN to notify [facility] Rn to notify PCP in the am of tonight's event
[2017-09-20 01:44] VITALS: PULSE 55; TEMP 97.8
[2017-09-20 02:01] VITALS: BP 96/41
--- NOTE | 2017-09-20 20:07 | DS ---
Physical Examination Vital Signs: Vital Signs Temperature 97.8 F 09/20/17 01:39 Pulse Rate 55 L 09/20/17 01:39 Respiratory Rate 18 09/20/17 01:39 Blood Pressure 96/41 09/19/17 21:00 O2 Sat by Pulse Oximetry (%) 96 09/19/17 21:00 Findings/Remarks: see progress note 09/19/17 Labs: CBC, BMP 09/19/17 11:45 09/19/17 11:45 Discharge Summary Reason For Visit: CHEST PAIN/BACK PAIN Hospital Course: pts condition deteriorated last night. Condition: - Instructions Referrals: Aminata Lisa MD [Primary Care Provider] - Disposition: - Home Medications Comprehensive Discharge Medication List: Ambulatory Orders Atorvastatin Ca [Lipitor] 80 mg PO HS 11/26/13 Folic Acid - 1 mg PO DAILY 11/26/13 Valsartan [Diovan] 160 mg PO DAILY tablet 04/10/17 Amlodipine Besylate [Norvasc -] 10 mg PO DAILY 08/23/17 Cholecalciferol (Vitamin D3) [Vitamin D3 -] 1,000 unit PO DAILY 08/23/17 Metoprolol Succinate [Toprol XL -] 100 mg PO DAILY 08/23/17 Montelukast Na [Singulair -] 10 mg PO HS 08/23/17 Sitagliptin Phosphate [Januvia -] 50 mg PO DAILY@0700 08/23/17 Acetaminophen [Tylenol .Regular Strength -] 650 mg PO Q6H PRN tablet 08/29/17 Albuterol 2.5/Ipratropium 0.5 [Duoneb -] 1 amp NEB Q4H PRN amp 08/29/17 Furosemide [Lasix -] 40 mg PO PRN #30 tablet 08/29/17 Albuterol 2.5/Ipratropium 0.5 [Duoneb -] 1 neb NEB Q4H PRN 09/12/17 Amlodipine Besylate [Norvasc -] 10 mg PO DAILY 09/12/17
== END 2017-09-19 23:50 | disposition expired | DRG 811 ==
LOC: JER 04:57 → JERBED 08:44 → J4S 10:23 → OBSVTOIN 09-15 14:00
PROVIDERS: ADMIT Internal Medicine; ATTEND Internal Medicine
PROC: 30233H1 Transfusion of Nonautologous Whole Blood into Peripheral Vein, Percutaneous Approach (ICD-10-PCS; principal; 2017-09-13)
DX: D46.C Myelodysplastic syndrome with isolated del(5q) chromosomal abnormality (principal); G92 Toxic encephalopathy; I13.0 Hypertensive heart and chronic kidney disease with heart failure and stage 1 through stage 4 chronic kidney disease, or unspecified chronic kidney disease; D61.818 Other pancytopenia; N17.9 Acute kidney failure, unspecified; E11.22 Type 2 diabetes mellitus with diabetic chronic kidney disease; N18.9 Chronic kidney disease, unspecified; I25.10 Atherosclerotic heart disease of native coronary artery without angina pectoris; Z95.5 Presence of coronary angioplasty implant and graft; I50.9 Heart failure, unspecified; J44.9 Chronic obstructive pulmonary disease, unspecified; Z85.3 Personal history of malignant neoplasm of breast; Z90.11 Acquired absence of right breast and nipple; M06.9 Rheumatoid arthritis, unspecified; M10.9 Gout, unspecified; Z96.652 Presence of left artificial knee joint; E78.5 Hyperlipidemia, unspecified; M54.16 Radiculopathy, lumbar region; Z87.891 Personal history of nicotine dependence; Z79.01 Long term (current) use of anticoagulants; I25.2 Old myocardial infarction; I48.0 Paroxysmal atrial fibrillation; E66.9 Obesity, unspecified; Z68.34 Body mass index [BMI] 34.0-34.9, adult; R31.29 Other microscopic hematuria; R21 Rash and other nonspecific skin eruption; E86.0 Dehydration; I95.9 Hypotension, unspecified; Z66 Do not resuscitate; Z79.84 Long term (current) use of oral hypoglycemic drugs
CPT/HCPCS: 36415; 36430; 71045-TC-FY; 72131-TC; 76775-TC; 76856-TC; 78582-TC; 80053; 81003; 81015; 82436; 82550; 82553; 82570; 82962; 83735; 83880; 84100; 84133; 84156; 84300; 84484; 84540; 85025; 85027; 85379; 86850; 86900; 86901; 86922; 87040; 87086; 88300-TC; 93005; 93010; 93970-TC; 93971; 94640; 97116-GP; 97161-GP; 99283-25; A9539; A9540; G0378; J7030; J7620; P9038; P9058